=== PATIENT | female | born 1960 | race American Indian/Alaskan Native ===

== ENCOUNTER 2018-08-08 21:27 | Emergency (ER) | payer OTHER | END 2018-08-09 02:11 | disposition home or self-care (01) | LOC: JER 08-09 02:11 → JERFT 21:27 | PROC: 3E033VG Introduction of Insulin into Peripheral Vein, Percutaneous Approach (ICD-10-PCS; principal; 2018-08-08) | DX: J01.90 Acute sinusitis, unspecified (principal); E11.65 Type 2 diabetes mellitus with hyperglycemia; Z79.4 Long term (current) use of insulin ==

== ENCOUNTER 2019-02-07 19:07 | Inpatient (IN) | payer OTHER ==
--- NOTE | 2019-02-07 20:47 | PDOC ---
Documentation entered by Kathleen Harrington SCRIBE, acting as scribe for Clover Mckeon MD. Clover Mckeon MD: This documentation has been prepared by the Len jaimes Maria, SCRIBE, under my direction and personally reviewed by me in its entirety. I confirm that the documentation accurately reflects all work, treatment, procedures, and medical decision making performed by me. Attending Attestation - Resident Resident Name: Juan David Castillo - ED Attending Attestation I have performed the following: I have examined & evaluated the patient, The case was reviewed & discussed with the resident, I agree w/resident's findings & plan, Exceptions are as noted - HPI HPI: 02/07/19 21:44 The patient is a 59 year old female with a significant past medical history of II DM who presents to the emergency department with dizziness and right knee pain since yesterday. Patient states she had three pre syncopal episodes that lasted 20 minutes. Patient states the pre syncope worsens when she walks or stands up. Patient also states that she has had severe right knee pain for 2 days. Patient also notes dysuria and constipation. Patient states that she came back from [place] 3 days ago. She denies recent fevers or chills. She denies recent nausea, vomiting and diarrhea . She denies recent frequency, urgency or hematuria. She denies recent chest pain or shortness of breath. Allergies: NKA Past surgical history: None reported. Social history: Nonsmoker. Denies EtOH use and recreational drug use. Primary Care Physician: Sam Cifuentes - Physicial Exam PE: 02/08/19 02:22 Well-nourished well developed 59-year-old female who presents with several episodes of near syncope, knee pain dizziness Head normocephalic atraumatic Eyes pupils are equal reactive to light and accommodation, no nystagmus Neck is supple, no bruits Lungs are clear to auscultation CVS regular rate and rhythm S1-S2 Abdomen soft nontender Skin warm and dry Extremities medial aspect of the knee is tender, no patellar ballottement, no deformity Neuro alert and oriented x3 - Medical Decision Making 02/08/19 02:23 Patient admitted to telemetry for near syncope work-up First troponin is negative CAT scan of the head is negative for any acute intracranial pathology 02/08/19 02:24
[2019-02-07] MEDS ORDERED: MECLIZINE HCL 25 MG TABLET (FP) PO ONE (21:17)
--- NOTE | 2019-02-07 21:29 | PDOC ---
History of Present Illness - General Chief Complaint: Lightheaded Stated Complaint: DIZZINESS Time Seen by Provider: 02/07/19 20:16 History Source: Patient Exam Limitations: No Limitations - History of Present Illness Initial Comments: 02/07/19 21:28 59 yo female pmh DM presens to the ED for presyncopal episodes, dizziness and R nee pain. Pt returned from [place] 3 days ago (16 hour flight) and states the symptoms stated began yesterday, 3 presyncopal episodes today while ambulating that resolved after 20 in of rest. Denies KNAPP, CP, palpitations, SOB prior to of after the episodes. Denies ever having similar episodes in the past. Dizziness is described as room spinning around her and is constant. Denies significant cardiac hx, no DC or arrhythmia. Denies calf tenderness or unilateral leg swelling. Denies F/C/N/V, CP, SOB, changes in bowel or bladder habits Past History - Past Medical History Allergies/Adverse Reactions: Allergies Allergy/AdvReac Type Severity Reaction Status Date / Time oxycodone [Oxycodone] Allergy Intermediate Rash Verified 02/07/19 19:13 Home Medications: Ambulatory Orders metFORMIN HCL [Glucophage -] 500 mg PO BID 01/30/13 Insulin Aspart Prot/Insuln Asp [Novolog Mix 70-30 Vial] 40 unit SQ DAILY Gabapentin 100 mg PO BID 02/07/19 Glyburide 5 mg PO DAILY 02/07/19 Linagliptin [Tradjenta] 5 mg PO DAILY 02/07/19 COPD: No Diabetes: Yes (type 2) - Immunization History Td Vaccination: Yes TDAP Vaccination: Yes Immunization Up to Date: Yes - Psycho Social/Smoking Cessation Hx Smoking History: Never smoked Have you smoked in the past 12 months: No Number of Cigarettes Smoked Daily: 0 Hx Alcohol Use: No Drug/Substance Use Hx: No Substance Use Type: None Hx Substance Use Treatment: No Review of Systems - Review of Systems Constitutional: No: Chills, Fever HEENTM: No: Blurred Vision, Double Vision Respiratory: No: Shortness of Breath Cardiac (ROS): No: Chest Pain, Edema ABD/GI: No: Constipated, Diarrhea, Nausea, Vomiting : No: Burning, Dysuria, Frequency, Flank Pain Musculoskeletal: No: Muscle Weakness Neurological: Yes: Ataxia, Dizziness, Other (feelings of almost fainting). No: Headache, Numbness, Paresthesia, Weakness *Physical Exam - Vital Signs Last Vital Signs Temp Pulse Resp BP Pulse Ox 97.5 F L 94 H 18 176/72 H 99 02/07/19 19:12 02/07/19 19:12 02/07/19 19:12 02/07/19 19:12 02/07/19 19:12 - Physical Exam General Appearance: Yes: Nourished, Appropriately Dressed. No: Apparent Distress HEENT: positive: EOMI, JOHNNY Neck: positive: Supple. negative: Carotid bruit Respiratory/Chest: positive: Lungs Clear, Normal Breath Sounds. negative: Respiratory Distress, Crackles, Rales, Rhonchi, Stridor, Wheezing Cardiovascular: positive: Regular Rhythm, Regular Rate, S1, S2. negative: Edema , JVD, Murmur Vascular Pulses: Dorsalis-Pedis (R): 4+, Doralis-Pedis (L): 4+ Gastrointestinal/Abdominal: positive: Flat, Soft, Tenderness. 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 negative: Facial Droop, Sensory Deficit, Confused, Disoriented ED Treatment Course - LABORATORY CBC & Chemistry Diagram: 02/07/19 21:30 02/07/19 21:30 - RADIOLOGY Radiology Studies Ordered: Category Date Time Status HEAD CT WITHOUT CONTRAST [CT] Stat CT Scan 02/07/19 21:12 Ordered CHEST PA & LAT [RAD] Stat Radiology 02/07/19 20:57 Ordered Medical Decision Making - Medical Decision Making 02/07/19 22:42 59 yo female pmh DM presens to the ED for presyncopal episodes, dizziness and R nee pain. Pt returned from [place] 3 days ago (16 hour flight) and states the symptoms stated began yesterday, 3 presyncopal episodes today while ambulating that resolved after 20 in of rest. Denies KNAPP, CP, palpitations, SOB prior to of after the episodes. Denies ever having similar episodes in the past. Dizziness is described as room spinning around her and is constant. Denies significant cardiac hx, no DC or arrhythmia. Denies calf tenderness or unilateral leg swelling. Denies F/C/N/V, CP, SOB, changes in bowel or bladder habits Vitals stable DDX INLT: PE, arrhythmia, ACS, seizure, metabolic abnormality, vertigo, 02/08/19 02:[address] Tasha Camacho, agrees pt requires tele obs admission Discharge - Discharge Information Problems reviewed: Yes Clinical Impression/Diagnosis: Pre-syncope, Ruled out for myocardial infarction Condition: Stable - Admission Yes - Follow up/Referral Referrals: Sam Cifuentes MD [Primary Care Provider] - - Patient Discharge Instructions - Post Discharge Activity
[2019-02-07] MEDS ORDERED: MECLIZINE HCL 25 MG TABLET (FP) ONE (21:30)
[2019-02-07 21:52] LABS: BASO % 0.4 % (0-2.0); HEMATOCRIT 39.5 % (32.4-45.2); HEMOGLOBIN 13.1 GM/dL (10.7-15.3); LYMPH % 30.9 % (8-40); MCH 24.2 pg (25.7-33.7); MCHC 33.2 g/dl (32.0-36.0); MEAN CELL VOLUME 72.9 fl (80-96); MEAN PLT VOLUME 7.7 fl (7.5-11.1); MONO % 5.2 % (3.8-10.2); NEUT % 59.5 % (42.8-82.8); PLATELET COUNT 314 K/MM3 (134-434); RBC 5.42 M/mm3 (3.60-5.2); RDW 17.9 % (11.6-15.6); WHITE BLOOD COUNT 7.9 K/mm3 (4.0-10.0)
[2019-02-07 21:57] LABS: EPI CELLS 1.8 /HPF (0-5/HPF); HYALINE CASTS 1 /lpf (0-8); PH,URINE 5.5 (5.0-8.0); URINE APPEARANCE CLEAR; URINE BACTERIA 8.2 /hpf (NEGATIVE); URINE BILIRUBIN NEGATIVE (NEGATIVE); URINE COLOR YELLOW; URINE GLUCOSE (UA) 3+ (NEGATIVE); URINE KETONE NEGATIVE (NEGATIVE); URINE LEUK ESTERASE 1+ (NEGATIVE); URINE NITRITE NEGATIVE (NEGATIVE); URINE PROTEIN NEGATIVE (NEGATIVE); URINE RBC 1 /hpf (0-4); URINE UROBILINOGEN 0.2 mg/dL (0.2-1.0); URINE WBC 7 /hpf (0-5)
[2019-02-07 22:08] LABS: INR 0.98 (0.83-1.09); PROTHROMBIN TIME (PATIENT) 11.6 SEC (9.7-13.0)
[2019-02-07 22:26] LABS: ALBUMIN 3.9 g/dl (3.4-5.0); BILIRUBIN,TOTAL 0.3 mg/dL (0.2-1); BLOOD UREA NITROGEN 19.8 mg/dL (7-18); CALCIUM 9.9 mg/dL (8.5-10.1); CREATININE 0.7 mg/dL (0.55-1.3); PHOSPHOROUS 4.8 mg/dL (2.5-4.9); POTASSIUM 4.4 mmol/L (3.5-5.1); TOT PROT 7.2 g/dl (6.4-8.2)
[2019-02-07] MEDS ORDERED: IBUPROFEN 600 MG TABLET (FP) PO ONE ×2 (23:36→23:46)
[2019-02-08] MEDS ORDERED: ACETAMINOPHEN 325 MG TABLET (FP) ONE ×3 (03:10→15:16)
[2019-02-08] MEDS: ACETAMINOPHEN 325 MG TABLET (FP) PO SCH ×4 (03:13→20:04)
[2019-02-08] MEDS: INSULIN SLIDING SCALE (NOVOLOG) 1 VIAL SQ SCH ×3 (07:35→17:30)
[2019-02-08] MEDS ORDERED: sitaGLIPtin PHOSPHATE 50 MG TABLET ONE (07:37)
[2019-02-08] MEDS: glyBURIDE 5 MG TABLET PO SCH (08:22)
[2019-02-08] MEDS ORDERED: PATIENT'S OWN MEDICATION (NON-FORMULARY) (Linagliptin [Tradjenta] 5 MG) PO SCH (10:00)
[2019-02-08] MEDS ORDERED: INSULIN (NOVOLOG MIX 70/30) 100 UNITS/ML MDV SQ SCH (10:00)
--- NOTE | 2019-02-08 10:10 | HP ---
Admitting History and Physical - Primary Care Physician PCP: Sam Cifuentes - Admission Chief Complaint: Feeling Dizzy History of Present Illness: 59 yrs old F H/O HTN, T2DM, recently came back from [place] 16 Hrs flight , yesterday present after an episode of near syncope as er patient she tried to hget up from sitting postion her Rt Knee was hurting felt dizzy light headed and struck her Rt knee with a table and lost balance , developed worsening pain Rt knee afgain felt dizzy with perspiration when tried to get up no vertigo not associated with chest pain SOB or palpitation, l;ately feels HOWARD on walking upstairs no c/o PND or orthopnea in the Ed exam essentially normal, lab are unremarkable except elevated BNP level, no acute EKG changes , no leg swelling no calf tenderness, History Source: Patient, Family Member - Past Medical History Cardiovascular: Yes: HTN Gastrointestinal: Yes: Other (PATIENT STATES THAT SHE HAD ATUMOR REMOVED FROM [facility] 12 YEARS AGO) Hepatobiliary: Yes: Cholelithiasis Endocrine: Yes: Diabetes Mellitus - Smoking History Smoking history: Never smoked Have you smoked in the past 12 months: No Aproximately how many cigarettes per day: 0 - Alcohol/Substance Use Hx Alcohol Use: No - Social History Usual Living Arrangement: Yes: With Spouse History of Recent Travel: Yes (NO SICK CONTACTS) Home Medications - Allergies Allergies/Adverse Reactions: Allergies Allergy/AdvReac Type Severity Reaction Status Date / Time oxycodone [Oxycodone] Allergy Intermediate Rash Verified 02/07/19 19:13 - Home Medications Home Medications: Ambulatory Orders metFORMIN HCL [Glucophage -] 500 mg PO BID 01/30/13 Insulin Aspart Prot/Insuln Asp [Novolog Mix 70-30 Vial] 40 unit SQ DAILY Gabapentin 100 mg PO BID 02/07/19 Glyburide 5 mg PO DAILY 02/07/19 Linagliptin [Tradjenta] 5 mg PO DAILY 02/07/19 Family Medical History Family Hx Cardiac Disorders: Father Family Hx Diabetes: Father Review of Systems - Review of Systems Constitutional: denies: Chills, Diaphoresis Eyes: denies: Blurred Vision, Double Vision, Photophobia, Recent Change in Vision HENT: denies: Difficult Swallowing, Ear Discharge, Ear Pain Neck: denies: Decreased ROM, Lumps, Pain on Movement Cardiovascular: denies: Chest Pain, Edema, Palpitations, Shortness of Breath Respiratory: denies: Cough, Exercise Intolerance, Orthopnea Gastrointestinal: denies: Abdominal Pain, Bloating, Constipation Genitourinary: denies: Burning, Discharge, Dysuria Integumentary: denies: Blister, Bruising, Change in Color Neurological: reports: Dizziness. denies: Change in Speech, Confusion, Headache , Incoordination, Numbness, Parasthesia Endocrine: denies: Excessive Sweating Hematology/Lymphatic: denies: Easily Bruised, Excessive Bleeding Psychiatric: denies: Altered Sleep Pattern Pain Intensity: 0 Physical Examination Vital Signs: Vital Signs Temperature 97.9 F 02/08/19 06:46 Pulse Rate 84 02/08/19 06:46 Respiratory Rate 20 02/08/19 06:46 Blood Pressure 136/75 02/08/19 06:46 O2 Sat by Pulse Oximetry (%) 100 02/08/19 06:46 Middle aged F comfortable HEENT:Mm moist, no anemia, PERRLA EOMI NECK: No JVd No Bruit CHEST: CTA B/L CVS: s1S2 R ABD: No Distention, soft and non tender Bs + EXT; No edema feet, Pulses + OXYGEN EQUIPMENT AIDE: AOX3 non focal Labs: CBC,CMP WBC 7.9 K/mm3 (4.0-10.0) 02/07/19 21:30 RBC 5.42 M/mm3 (3.60-5.2) H 02/07/19 21:30 Hgb 13.1 GM/dL (10.7-15.3) 02/07/19 21:30 Hct 39.5 % (32.4-45.2) 02/07/19 21:30 MCV 72.9 fl (80-96) L 02/07/19 21:30 MCH 24.2 pg (25.7-33.7) L 02/07/19 21:30 MCHC 33.2 g/dl (32.0-36.0) 02/07/19 21:30 RDW 17.9 % (11.6-15.6) H 02/07/19 21:30 Plt Count 314 K/MM3 (134-434) 02/07/19 21:30 MPV 7.7 fl (7.5-11.1) 02/07/19 21:30 Absolute Neuts (auto) 4.7 K/mm3 (1.5-8.0) 02/07/19 21:30 Neutrophils % 59.5 % (42.8-82.8) 02/07/19 21:30 Lymphocytes % 30.9 % (8-40) 02/07/19 21:30 Monocytes % 5.2 % (3.8-10.2) 02/07/19 21:30 Eosinophils % 4.0 % (0-4.5) 02/07/19 21:30 Basophils % 0.4 % (0-2.0) 02/07/19 21:30 Nucleated RBC % 0 % (0-0) 02/07/19 21:30 Sodium 131 mmol/L (136-145) L 02/07/19 21:30 Potassium 4.4 mmol/L (3.5-5.1) 02/07/19 21:30 Chloride 100 mmol/L (98-107) 02/07/19 21:30 Carbon Dioxide 24 mmol/L (21-32) 02/07/19 21:30 Anion Gap 7 MMOL/L (8-16) L 02/07/19 21:30 BUN 19.8 mg/dL (7-18) H 02/07/19 21:30 Creatinine 0.7 mg/dL (0.55-1.3) 02/07/19 21:30 Est GFR (CKD-EPI)AfAm 109.15 02/07/19 21:30 Est GFR (CKD-EPI)NonAf 94.17 02/07/19 21:30 POC Glucometer 230 UNITS (80-120) 02/08/19 07:41 Random Glucose 258 mg/dL (74-106) H 02/07/19 21:30 Calcium 9.9 mg/dL (8.5-10.1) 02/07/19 21:30 Phosphorus 4.8 mg/dL (2.5-4.9) 02/07/19 21:30 Magnesium 2.0 mg/dL (1.8-2.4) 02/07/19 21:30 Total Bilirubin 0.3 mg/dL (0.2-1) 02/07/19 21:30 AST 23 U/L (15-37) 02/07/19 21:30 ALT 30 U/L (13-61) 02/07/19 21:30 Alkaline Phosphatase 129 U/L (45-117) H 02/07/19 21:30 Creatine Kinase 66 U/L (26-192) 02/07/19 23:35 Troponin I 0.03 ng/ml (0.00-0.05) 02/08/19 07:15 B-Natriuretic Peptide 948.2 pg/ml (5-125) H 02/07/19 21:30 Total Protein 7.2 g/dl (6.4-8.2) 02/07/19 21:30 Albumin 3.9 g/dl (3.4-5.0) 02/07/19 21:30 Triglycerides 222 mg/dL (0-150) H 02/08/19 07:15 Cholesterol 295 mg/dL (50-200) H 02/08/19 07:15 Total LDL Cholesterol 217 mg/dL (5-100) H 02/08/19 07:15 HDL Cholesterol 48 mg/dL (40-60) 02/08/19 07:15 Imaging - Results Chest X-ray: Report Reviewed (No congestion no cardiomegaly) Cat Scan: Report Reviewed (Head; No acute Chnages) EKG: Report Reviewed (No arrythmia no acute St T chnages) Problem List - Problems (1) Pre-syncope Problems reviewed: Yes Code(s): R55 - SYNCOPE AND COLLAPSE (2) Elevated brain natriuretic peptide (BNP) level Problems reviewed: Yes Code(s): R79.89 - OTHER SPECIFIED ABNORMAL FINDINGS OF BLOOD CHEMISTRY (3) T2DM (type 2 diabetes mellitus) Problems reviewed: Yes Code(s): E11.9 - TYPE 2 DIABETES MELLITUS WITHOUT COMPLICATIONS Qualifiers: Diabetes mellitus senior care insulin use: with senior care use (4) HTN (hypertension) Code(s): I10 - ESSENTIAL (PRIMARY) HYPERTENSION (5) Hypercholesteremia Code(s): E78.00 - PURE HYPERCHOLESTEROLEMIA, UNSPECIFIED (6) Systolic and diastolic CHF, acute Assessment/Plan: Elevated Problems reviewed: Yes Code(s): I50.41 - ACUTE COMBINED SYSTOLIC AND DIASTOLIC (CONGESTIVE) HRT FAIL
[2019-02-08] MEDS: ENOXAPARIN NA (PORCINE) 40 MG/0.4 ML DISP.SYRIN SQ SCH (10:40)
[2019-02-08] MEDS: GABAPENTIN 100 MG CAPSULE PO SCH ×2 (10:40→22:30)
[2019-02-08] MEDS: FUROSEMIDE 40 MG TABLET (FP) PO SCH (11:31)
--- NOTE | 2019-02-08 11:35 | ECHO ---
Name: BRITTA CORONEL Exam:Adult Echocardiogram Study Date: 02/08/2019 09:46 AM Age: 59 yrs Reason For Study: SYNCOPE Height: 60 in Weight: 123 lb BSA: 1.5 m2 MMode/2D Measurements & Calculations IVSd: 1.0 cm Ao root diam: 2.2 cm LVIDd: 5.2 cm LA dimension: 3.0 cm LVIDs: 4.8 cm ACS: 1.6 cm LVPWd: 1.1 cm EDV(Teich): 127.1 ml LVOT diam: 1.8 cm ESV(Teich): 107.1 ml RV S Adam: 14.2 cm/sec Doppler Measurements & Calculations MV E max adam: 79.0 cm/sec Ao V2 max: 102.8 cm/sec MV A max adam: 97.7 cm/sec Ao max P.2 mmHg MV E/A: 0.81 Ao V2 mean: 78.1 cm/sec MV dec time: 0.10 sec Ao mean P.7 mmHg Ao V2 VTI: 21.2 cm GERARDO(I,D): 1.5 cm2 GERARDO(V,D): 1.6 cm2 LV V1 max P.7 mmHg MR max adam: 197.3 cm/sec LV V1 mean P.91 mmHg MR max P.6 mmHg LV V1 max: 65.6 cm/sec LV V1 mean: 45.3 cm/sec LV V1 VTI: 12.6 cm SV(LVOT): 30.8 ml TR max adam: 173.9 cm/sec TR max P.2 mmHg PI end-d adam: 129.9 cm/sec Med Peak E' Adam: 4.6 cm/sec Med E/e': 17.2 Lat Peak E' Adam: 14.1 cm/sec Lat E/e': 5.6 Procedure A complete two-dimensional transthoracic echocardiogram was performed (2D, M-mode, Doppler and color flow Doppler). The study was technically good with many images being of high quality. Left Ventricle The left ventricle is normal in size. Left ventricular systolic function is severely reduced. Ejectio n Fraction = 30-35%. LV diastology reveals elevated filling pressure with impaired relaxation. There is severe global hypokinesis of the left ventricle. Right Ventricle The right ventricle is not well visualized. Atria The left atrial size is normal. Right atrial size is normal. Mitral Valve There is mild mitral annular calcification. There is no mitral regurgitation noted. Tricuspid Valve The tricuspid valve is normal in structure and function. There is mild tricuspid regurgitation. Pulmo nary artery systolic pressure is at least 28 mmHg if RA pressure is assumed 3 mmHg. Aortic Valve There is mild aortic sclerosis.;. No aortic regurgitation is present. Pulmonic Valve The pulmonic valve is not well visualized. Mild pulmonic valvular regurgitation. Great Vessels The aortic root is normal size. Pericardium/Pleura Trivial pericardial effusion not hemodynamically significant. Interpretation Summary The left ventricle is normal in size. Left ventricular systolic function is severely reduced. There is severe global hypokinesis of the left ventricle. Ejection Fraction = 30-35%. LV diastology reveals elevated filling pressure with impaired relaxation The left atrial size is normal. Right atrial size is normal. There is mild mitral annular calcification. There is mild tricuspid regurgitation. Pulmonary artery systolic pressure is at least 28 mmHg if RA pressure is assumed 3 mmHg There is mild aortic sclerosis. Mild pulmonic valvular regurgitation. Trivial pericardial effusion not hemodynamically significant Duane Carrion MD 02/08/2019 11:35 AM
[2019-02-08] MEDS ORDERED: ASPIRIN 81 MG CHEWABLE TABLETS ONE (14:43)
[2019-02-08] MEDS ORDERED: LISINOPRIL 5 MG TABLET (FP) ONE (14:43)
[2019-02-08] MEDS ORDERED: CARVEDILOL 3.125 MG TABLET (FP) ONE (14:43)
[2019-02-08] MEDS: ASPIRIN 81 MG CHEWABLE TABLETS PO SCH (14:45)
[2019-02-08] MEDS: CARVEDILOL 3.125 MG TABLET (FP) PO SCH ×2 (14:45→22:32)
[2019-02-08] MEDS: LISINOPRIL 5 MG TABLET (FP) PO SCH (14:45)
--- NOTE | 2019-02-08 15:53 | EKG ---
Test Reason : Blood Pressure : / mmHG Vent. 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
--- NOTE | 2019-02-08 15:58 | EKG ---
Test Reason : Blood Pressure : / mmHG Vent. 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
[2019-02-08] MEDS ORDERED: INSULIN (LEVEMIR) 100 UNITS/ML UNITS SQ SCH (22:00)
[2019-02-08 22:02] VITALS: BMI 23.2
[2019-02-08] MEDS: ATORVASTATIN CA 40 MG TABLET (FP) PO SCH (22:32)
[2019-02-09] MEDS: ACETAMINOPHEN 325 MG TABLET (FP) PO SCH ×4 (03:30→21:22)
[2019-02-09] MEDS: INSULIN SLIDING SCALE (NOVOLOG) 1 VIAL SQ SCH ×3 (06:53→17:13)
[2019-02-09 07:18] LABS: HEMOGLOBIN 12.8 GM/dL (10.7-15.3); LYMPH % 30.4 % (8-40); MCH 24.5 pg (25.7-33.7); MCHC 33.7 g/dl (32.0-36.0); MEAN CELL VOLUME 72.6 fl (80-96); MEAN PLT VOLUME 7.5 fl (7.5-11.1); MONO % 6.6 % (3.8-10.2); PLATELET COUNT 290 K/MM3 (134-434); RBC 5.24 M/mm3 (3.60-5.2); RDW 18.3 % (11.6-15.6)
[2019-02-09 07:57] LABS: BLOOD UREA NITROGEN 19.5 mg/dL (7-18); CALCIUM 9.1 mg/dL (8.5-10.1); CREATININE 0.7 mg/dL (0.55-1.3); POTASSIUM 4.6 mmol/L (3.5-5.1)
--- NOTE | 2019-02-09 09:21 | PN ---
Progress Note, Physician Chief Complaint: C/O Rt Knee pain History of Present Illness: 59 yrs old F H/O HTN, T2DM, recently came back from [place] 16 Hrs flight , yesterday present after an episode of near syncope as er patient she tried to hget up from sitting postion her Rt Knee was hurting felt dizzy light headed and struck her Rt knee with a table and lost balance , developed worsening pain Rt knee afgain felt dizzy with perspiration when tried to get up - Current Medication List Current Medications: Active Medications Acetaminophen (Tylenol -) 650 mg PO Q6H [facility] Last Admin: 02/09/19 03:30 Dose: Not Given Aspirin (Asa -) 81 mg PO DAILY [facility] Last Admin: 02/08/19 14:45 Dose: 81 mg Atorvastatin Calcium (Lipitor -) 40 mg PO HS [facility] Last Admin: 02/08/19 22:32 Dose: 40 mg Carvedilol (Coreg -) 6.25 mg PO BID [facility] Enoxaparin Sodium (Lovenox -) 40 mg SQ DAILY [facility] Last Admin: 02/08/19 10:40 Dose: 40 mg Furosemide (Lasix -) 40 mg PO DAILY [facility] Last Admin: 02/08/19 11:31 Dose: 40 mg Gabapentin (Neurontin -) 100 mg PO BID [facility] Last Admin: 02/08/19 22:30 Dose: 100 mg Glyburide (Diabeta -) 5 mg PO ACBK [facility] Last Admin: 02/08/19 08:22 Dose: 5 mg Insulin Aspart (Novolog Vial Sliding Scale -) 1 vial SQ TIDAC [facility]; Protocol Last Admin: 02/09/19 06:53 Dose: 4 unit Insulin Detemir (Levemir Vial) 24 units SQ [facility] Lisinopril (Prinivil) 5 mg PO DAILY [facility] Last Admin: 02/08/19 14:45 Dose: 5 mg Sitagliptin Phosphate (Januvia -) 100 mg PO DAILY@0700 [facility] Last Admin: 02/09/19 06:53 Dose: 100 mg - Objective Vital Signs: Vital Signs Temperature 97.8 F 02/09/19 06:57 Pulse Rate 80 02/09/19 06:57 Respiratory Rate 18 02/09/19 06:57 Blood Pressure 130/62 02/09/19 06:57 O2 Sat by Pulse Oximetry (%) 99 02/08/19 21:00 Middle aged F comfortable HEENT:Mm moist, no anemia, PERRLA EOMI NECK: No JVd No Bruit CHEST: CTA B/L CVS: s1S2 R ABD: No Distention, soft and non tender Bs + EXT; Rt knee tenderness no swelling No edema feet, Pulses + BODS DEVELOPER: AOX3 non focal Labs: CBC, BMP 02/09/19 06:15 02/09/19 06:15 INR, PTT INR 0.98 (0.83-1.09) 02/07/19 21:30 - ....Imaging Ultrasound: Report Reviewed (-ve for DVT) Other: Report Reviewed (ECHO EF 30-50%) Problem List - Problems (1) Pre-syncope Assessment/Plan: Kyler Ef needs evaluation for cardiac etiology evaluated by cardiology will cont ASAm B Blockers, Lasix and ACEI F/U NST result Problems reviewed: Yes Code(s): R55 - SYNCOPE AND COLLAPSE (2) Elevated brain natriuretic peptide (BNP) level Assessment/Plan: Due to Systolic HF Problems reviewed: Yes Code(s): R79.89 - OTHER SPECIFIED ABNORMAL FINDINGS OF BLOOD CHEMISTRY (3) T2DM (type 2 diabetes mellitus) Assessment/Plan: Uncontrolled AI1c 12 will optimize Glycemic control Problems reviewed: Yes Code(s): E11.9 - TYPE 2 DIABETES MELLITUS WITHOUT COMPLICATIONS Qualifiers: Diabetes mellitus snf insulin use: with long goods drier use (4) HTN (hypertension) Assessment/Plan: Stable cont current meds Problems reviewed: Yes Code(s): I10 - ESSENTIAL (PRIMARY) HYPERTENSION (5) Hypercholesteremia Assessment/Plan: Cont Lipitor 40 mg Problems reviewed: Yes Code(s): E78.00 - PURE HYPERCHOLESTEROLEMIA, UNSPECIFIED (6) Systolic and diastolic CHF, acute Assessment/Plan: Elevated, BNP pulmonary congestion cont Coreg, Lasix and Lisinopril optimize as tolerates Code(s): I50.41 - ACUTE COMBINED SYSTOLIC AND DIASTOLIC (CONGESTIVE) HRT FAIL (7) Acute knee pain Assessment/Plan: S/P Trauma Xray normal Pain control F/U Orthorecommondations. Problems reviewed: Yes Code(s): M25.569 - PAIN IN UNSPECIFIED KNEE Qualifiers: Laterality: right Qualified Code(s): M25.561 - Pain in right knee
[2019-02-09] MEDS: glyBURIDE 5 MG TABLET PO SCH (10:26)
[2019-02-09] MEDS: FUROSEMIDE 40 MG TABLET (FP) PO SCH (10:27)
[2019-02-09] MEDS: GABAPENTIN 100 MG CAPSULE PO SCH ×2 (10:27→21:22)
[2019-02-09] MEDS: ASPIRIN 81 MG CHEWABLE TABLETS PO SCH (10:27)
[2019-02-09] MEDS: LISINOPRIL 5 MG TABLET (FP) PO SCH (10:27)
[2019-02-09] MEDS: ENOXAPARIN NA (PORCINE) 40 MG/0.4 ML DISP.SYRIN SQ SCH (10:27)
[2019-02-09] MEDS: CARVEDILOL 6.25 MG TABLET (FP) PO SCH ×2 (10:27→21:23)
--- NOTE | 2019-02-09 11:34 | CONS ---
CARDIOLOGY CONSULTATION DATE OF CONSULTATION: 02/09/2019 REQUESTING PHYSICIAN: Janice Hodgson MD CHIEF COMPLAINT: 1. Shortness of breath. 2. Pedal edema. 3. Weakness and fatigue. Patient is a 59-year-old [place]ian female with history of wmd-[id number]-aatvrpnrz diabetes mellitus for the past 10 years, hypertension, hypertensive cardiovascular disease, hypercholesterolemia. Patient states approximately 2 months ago while she was in [place] she noticed that she had significant lower extremity edema associated with dyspnea, walking even short distances. There was no history of paroxysmal nocturnal dyspnea or orthopnea reported. She did complain of generalized weakness and easy fatigability. There is no history of chest, arm, back, or jaw pain or discomfort. She was seen by her physician and was placed on medication with improvement in her symptoms. States that she was experiencing oliguria while she was overseas. She also complained of constipation. There is no history of palpitations. She does have intermittent lightheadedness, and prior to admission, she felt that she may fall down because of weakness and also pain involving the right knee and lower extremity. There is no history of syncope or vertigo. PAST HISTORY: As mentioned in the history of present illness. SURGICAL HISTORY: Patient had surgery for uterine fibroids. SOCIAL HISTORY: , 3 sons and a daughter. She has had 1 miscarriage. No history of smoking or alcohol use. Drinks 3 cups of tea daily. FAMILY HISTORY: Father at the age of 33, apparently of a myocardial infarction. Mother is 85 years of age and is generally in good health. She has 4 sisters and 2 brothers. One of the brothers in an accident. Two sisters are . The other sister was a diabetic. Her cause of is not known. Apparently, the other siblings are healthy. ALLERGIES: None reported. CURRENT MEDICATIONS: 1. Tylenol 650 mg q.6 hours. 2. Lisinopril 5 mg p.o. daily. 3. Lovenox 40 mg subcutaneous daily. 4. Neurontin 100 mg p.o. b.i.d. 5. Carvedilol 6.25 mg p.o. b.i.d. 6. Januvia 100 mg p.o. 7. NovoLog insulin via sliding scale. 8. Levemir insulin 24 units subcutaneous nightly. 9. Furosemide 40 mg p.o. daily. 10. Aspirin 81 mg p.o. daily. 11. Glyburide 5 mg p.o. daily. ALLERGIES: None reported. REVIEW OF SYSTEMS: Constitutional: No history of chills, fever, or night sweats. No history of unintentional weight loss. HEENT: Denies having headaches, diplopia, blurred vision. No history of epistaxis, hoarseness, tinnitus, or deafness reported. Cardiovascular: See history of present illness. Respiratory: No history of recent cough, but while in [place] she had nonproductive cough, apparently treated with antibiotics. No history of tuberculosis or hemoptysis. Gastrointestinal: No history of nausea, vomiting, melena, or hematemesis. History of constipation over the past 2 months. Neurological: See history of present illness. No history of focal weakness or seizures. Genitourinary: She complains of dysuria and frequency. No history of hematuria. Endocrine: See history of present illness. No history of intolerance to cold or warm weather. Musculoskeletal: History of pain involving the right knee related to contact with a table prior to admission. No history of gout. Hematological and Lymphatics: Patient gives history of anemia, apparently has received 3 units of blood and states that she had been experiencing hematuria. No history of lymphadenopathy. PHYSICAL EXAMINATION: General: A 59-year-old female was complaining of pain in the right knee. There was no pallor cyanosis. No clubbing or jaundice. Vital Signs: Blood pressure was 110/47 mmHg. Pulse was 88 beats per minute and regular. Temperature was 98.1 degrees Fahrenheit. Respirations were 18 per minute. Oxygen saturations were 99% on room air. Weight on February 08, 2019, was 53.887 kg. Neck: Supple. No jugular venous distention. Carotids were 2+. Upstrokes were normal. No bruits were heard, and no thyromegaly was present. Heart: PMI was in the fifth intercostal space. No heaves or thrills. S1 and S2 were normal. Ejection systolic murmur grade 2/6 was heard at the second right intercostal space and along the upper left sternal border, ending in early systole. No diastolic murmur or gallops were heard. Lungs: Clear on auscultation. Chest: Normal AP diameter. Expansion was symmetrical. Abdomen: Protuberant, soft, and nontender. No hepatosplenomegaly or palpable masses were felt. Hyperactive bowel sounds. No bruits were heard. Extremities: No calf tenderness or dependent edema. Femoral pulses were 1+ to 2+. Dorsalis pedis and posterior tibial pulses could not palpated. Both feet were warm. LABORATORY DATA: Electrolytes on February 09, 2019: Sodium 136, potassium 4.6, chloride 103, CO2 of 30 mmol/L. BUN 19.5, creatinine 0.7 mg/dL. Glucose 226 mg/dL. Random glucose was 198 mg/dL. Hemoglobin A1c was 12.0. TSH was 0.52. CBC: WBC 6000, hemoglobin 12.8 g/dL, hematocrit 38.0%, platelet count 290,000. Differential: Neutrophils 57.0%, lymphocytes 30.4%, monocytes 6.6%, eosinophils 5.0%, basophils 1%. X-ray Chest February 07, 2019: Two views of the chest reveal degenerative changes with wedging, scoliosis with convexity to the right. Normal aorta. Normal hilar and enlarged heart. The lungs are clear. The angles are excised. The soft tissues are intact. An acute fracture is not seen. Since July 31, 2014, there is no change of an adverse nature. Vascular: A duplex scan of the lower extremities impression: No evidence of deep venous thrombosis. Echocardiogram: Interpretation . 1. The left ventricle is normal in size. 2. Left ventricular systolic function is severely reduced. 3. There is severe global hypokinesia of the left ventricle. 4. Ejection fraction is 30% to 35%. 5. LV reveals elevated filling pressures with impaired relaxation. 6. Left atrial size is normal. 7. Right atrial size is normal. 8. There is mild annular calcification. 9. There is mild tricuspid regurgitation. 10. Pulmonary artery systolic pressure is at least 28 mmHg if RA pressure assumed as 3 mmHg. 11. There is mild aortic valve sclerosis. 12. Mild pulmonic valvular regurgitation. 13. Trivial pericardial effusion, not hemodynamically significant. ECG reported on February 07, 2019: 1. Normal sinus rhythm. 2. Anterior infarct (sited on or before September 04, 2013). 3. T-wave abnormality, consider lateral ischemia. 4. Abnormal ECG. 5. When compared with ECG of October 15, 2017, at 1438 hours, ST and T-wave variations. IMPRESSION: 1. Recent clinical symptoms are consistent with congestive heart failure. 2. Severe left ventricular systolic dysfunction with severely reduced left ventricular ejection fraction consistent with cardiomyopathy, etiology: A. Ischemic. B. Hypertensive. C. Related to diabetes mellitus. 3. Left ventricular diastolic dysfunction. 4. Diabetes mellitus, poorly controlled. 5. Hypercholesterolemia. 6. Poor compliance. 7. Recent traumatic injury to the right lower extremity. 8. History of constipation, etiology to be determined. RECOMMENDATIONS: 1. Myocardial perfusion study with Lexiscan. 2. Risk modifications and proper control of diabetes mellitus. 3. BNP. 4. Follow up ECG and troponin levels. 5. Diabetic counseling. 6. Lipid profile. 7. Peripheral arterial Dopplers. PROGNOSIS: Guarded. Thank you for your referral. Yours sincerely, CHELI FOSS M.D. [id number]
[2019-02-09] MEDS: ATORVASTATIN CA 40 MG TABLET (FP) PO SCH (21:22)
[2019-02-09] MEDS: INSULIN (LEVEMIR) 100 UNITS/ML UNITS SQ SCH (21:28)
[2019-02-10] MEDS: ACETAMINOPHEN 325 MG TABLET (FP) PO SCH ×4 (03:00→21:11)
[2019-02-10] MEDS: glyBURIDE 5 MG TABLET PO SCH (06:02)
[2019-02-10] MEDS: INSULIN SLIDING SCALE (NOVOLOG) 1 VIAL SQ SCH ×3 (06:02→17:41)
[2019-02-10 07:02] LABS: BASO % 0.8 % (0-2.0); EOS % 3.5 % (0-4.5); HEMATOCRIT 35.6 % (32.4-45.2); HEMOGLOBIN 11.9 GM/dL (10.7-15.3); LYMPH % 30.6 % (8-40); MCH 24.5 pg (25.7-33.7); MCHC 33.5 g/dl (32.0-36.0); MEAN CELL VOLUME 73.3 fl (80-96); MEAN PLT VOLUME 7.3 fl (7.5-11.1); MONO % 7.6 % (3.8-10.2); NEUT % 57.5 % (42.8-82.8); PLATELET COUNT 275 K/MM3 (134-434); RBC 4.86 M/mm3 (3.60-5.2); RDW 18.3 % (11.6-15.6); WHITE BLOOD COUNT 7.7 K/mm3 (4.0-10.0)
[2019-02-10 07:34] LABS: BLOOD UREA NITROGEN 15.1 mg/dL (7-18); CALCIUM 8.8 mg/dL (8.5-10.1); CREATININE 0.6 mg/dL (0.55-1.3)
[2019-02-10] MEDS: DOCUSATE SODIUM 100 MG CAPSULE (FP) PO SCH ×3 (08:00→17:02)
[2019-02-10] MEDS ORDERED: REGADENOSON 0.4 MG/5 ML PRE-FILLED SYRINGE IVPUSH ONE ×2 (09:27→09:30)
--- NOTE | 2019-02-10 09:31 | PN ---
Progress Note, Physician Chief Complaint: C/O Rt Knee pain History of Present Illness: 59 yrs old F H/O HTN, T2DM, recently came back from [place] 16 Hrs flight , yesterday present after an episode of near syncope as er patient she tried to hget up from sitting postion her Rt Knee was hurting felt dizzy light headed and struck her Rt knee with a table and lost balance , developed worsening pain Rt knee again felt dizzy with perspiration when tried to get up, w/u shows low Ef schedule for Stress test. - Current Medication List Current Medications: Active Medications Acetaminophen (Tylenol -) 650 mg PO Q6H [facility] Last Admin: 02/10/19 03:00 Dose: Not Given Aspirin (Asa -) 81 mg PO DAILY [facility] Last Admin: 02/09/19 10:27 Dose: 81 mg Atorvastatin Calcium (Lipitor -) 40 mg PO HS [facility] Last Admin: 02/09/19 21:22 Dose: 40 mg Carvedilol (Coreg -) 6.25 mg PO BID [facility] Last Admin: 02/09/19 21:23 Dose: 6.25 mg Docusate Sodium (Colace -) 100 mg PO Q8H [facility] Enoxaparin Sodium (Lovenox -) 40 mg SQ DAILY [facility] Last Admin: 02/09/19 10:27 Dose: 40 mg Furosemide (Lasix -) 40 mg PO DAILY [facility] Last Admin: 02/09/19 10:27 Dose: 40 mg Gabapentin (Neurontin -) 100 mg PO BID [facility] Last Admin: 02/09/19 21:22 Dose: 100 mg Glyburide (Diabeta -) 5 mg PO ACBK [facility] Last Admin: 02/10/19 06:02 Dose: Not Given Insulin Aspart (Novolog Vial Sliding Scale -) 1 vial SQ TIDAC [facility]; Protocol Last Admin: 02/10/19 06:02 Dose: Not Given Insulin Detemir (Levemir Vial) 24 units SQ [facility] Last Admin: 02/09/19 21:28 Dose: 24 units Lisinopril (Prinivil) 5 mg PO DAILY [facility] Last Admin: 02/09/19 10:27 Dose: 5 mg Regadenoson (Lexiscan) 0.4 mg IVPUSH ONCE ONE Stop: 02/10/19 09:31 Sitagliptin Phosphate (Januvia -) 100 mg PO DAILY@0700 [facility] Last Admin: 02/10/19 06:02 Dose: Not Given - Objective Vital Signs: Vital Signs Temperature 99.9 F H 02/10/19 05:19 Pulse Rate 88 02/10/19 05:19 Respiratory Rate 18 02/10/19 05:19 Blood Pressure 104/55 L 02/10/19 05:19 O2 Sat by Pulse Oximetry (%) 99 02/09/19 20:38 Middle aged F comfortable HEENT:Mm moist, no anemia, PERRLA EOMI NECK: No JVd No Bruit CHEST: CTA B/L CVS: s1S2 R ABD: No Distention, soft and non tender Bs + EXT; Rt knee tenderness no swelling No edema feet, Pulses + [employer]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 Labs: CBC, BMP 02/10/19 06:25 02/10/19 06:25 INR, PTT INR 0.98 (0.83-1.09) 02/07/19 21:30 Problem List - Problems (1) Pre-syncope Assessment/Plan: Kyler Ef needs evaluation for cardiac etiology evaluated by cardiology will cont ASA B Blockers, Lasix and ACEI F/U NST result Code(s): R55 - SYNCOPE AND COLLAPSE (2) Elevated brain natriuretic peptide (BNP) level Assessment/Plan: Due to Systolic HF Code(s): R79.89 - OTHER SPECIFIED ABNORMAL FINDINGS OF BLOOD CHEMISTRY (3) T2DM (type 2 diabetes mellitus) Assessment/Plan: Uncontrolled AI1c 12 will optimize Glycemic control Code(s): E11.9 - TYPE 2 DIABETES MELLITUS WITHOUT COMPLICATIONS Qualifiers: Diabetes mellitus long-term insulin use: with long-term use (4) HTN (hypertension) Assessment/Plan: Stable cont current meds Code(s): I10 - ESSENTIAL (PRIMARY) HYPERTENSION (5) Hypercholesteremia Assessment/Plan: Cont Lipitor 40 mg Code(s): E78.00 - PURE HYPERCHOLESTEROLEMIA, UNSPECIFIED (6) Systolic and diastolic CHF, acute Assessment/Plan: Elevated, BNP pulmonary congestion cont Coreg, Lasix and Lisinopril optimize as tolerates Code(s): I50.41 - ACUTE COMBINED SYSTOLIC AND DIASTOLIC (CONGESTIVE) HRT FAIL (7) Acute knee pain Assessment/Plan: S/P Trauma Xray normal Pain control F/U Orthorecommondations. Code(s): M25.569 - PAIN IN UNSPECIFIED KNEE Qualifiers: Laterality: right Qualified Code(s): M25.561 - Pain in right knee
[2019-02-10] MEDS: ASPIRIN 81 MG CHEWABLE TABLETS PO SCH (12:29)
[2019-02-10] MEDS: GABAPENTIN 100 MG CAPSULE PO SCH ×2 (12:29→21:12)
[2019-02-10] MEDS: LISINOPRIL 5 MG TABLET (FP) PO SCH (12:29)
[2019-02-10] MEDS: FUROSEMIDE 40 MG TABLET (FP) PO SCH (12:30)
[2019-02-10] MEDS: ENOXAPARIN NA (PORCINE) 40 MG/0.4 ML DISP.SYRIN SQ SCH (12:30)
[2019-02-10] MEDS: CARVEDILOL 6.25 MG TABLET (FP) PO SCH ×2 (12:31→21:12)
--- NOTE | 2019-02-10 13:39 | CON.ORTH ---
Consult Consult Specialty:: Orthopedics Reason for Consultation:: Right knee pain - History of Present Illness Chief Complaint: Right knee pain History of Present Illness: This is a 59 yo F with PMHx of DM who presented to Ed s/p fall where she twisted right knee. She states pain is mostly to medial and lateral aspects of the knee without any radiation. Pain is worse with any twisting motion of the knee. Moderate pain with ambulation. She Denies any previous injury to this knee. Denies any numbness, tingling to toes, swelling or any other symptoms. - History Source History Provided By: Patient Limitations to Obtaining History: No Limitations - Past Medical History Cardio/Vascular: Yes: HTN Gastrointestinal: Yes: Other (PATIENT STATES THAT SHE HAD ATUMOR REMOVED FROM ABD 12 YEARS AGO) Hepatobiliary: Yes: Cholelithiasis Endocrine: Yes: Diabetes Mellitus - Alcohol/Substance Use Hx Alcohol Use: No - Smoking History Smoking history: Never smoked Have you smoked in the past 12 months: No Aproximately how many cigarettes per day: 0 - Social History Usual Living Arrangement: With Spouse History of Recent Travel: Yes (NO SICK CONTACTS) Home Medications - Allergies Allergies/Adverse Reactions: Allergies Allergy/AdvReac Type Severity Reaction Status Date / Time oxycodone [Oxycodone] Allergy Intermediate Rash Verified 02/07/19 19:13 - Home Medications Home Medications: Ambulatory Orders metFORMIN HCL [Glucophage -] 500 mg PO BID 01/30/13 Insulin Aspart Prot/Insuln Asp [Novolog Mix 70-30 Vial] 40 unit SQ DAILY 03/02/14 Gabapentin 100 mg PO BID 02/07/19 Glyburide 5 mg PO DAILY 02/07/19 Linagliptin [Tradjenta] 5 mg PO DAILY 02/07/19 Review of Systems - Review of Systems Musculoskeletal: reports: Joint Pain (Right knee pain) Physical Exam for Ortho Vital Signs: Vital Signs Temperature 101.8 F H 02/10/19 13:22 Pulse Rate 97 H 02/10/19 13:22 Respiratory Rate 18 02/10/19 05:19 Blood Pressure 131/71 02/10/19 13:22 O2 Sat by Pulse Oximetry (%) 99 02/09/19 20:38 Labs: CBC, BMP 02/10/19 06:25 02/10/19 06:25 INR, PTT INR 0.98 (0.83-1.09) 02/07/19 21:30 - Lower Extremity Knee: Yes: Right (No skin lesions, swelling or increased warmth. No effusion. Tenderness to medial more than lateral joint line. Full AROM. NVID.) Imaging - Results X-ray: Image Reviewed (2v of knee shows no evidence of acute fracture, dislocation. Mild degenerative changes seen.) Problem List - Problems (1) Acute knee pain Code(s): M25.569 - PAIN IN UNSPECIFIED KNEE Qualifiers: Laterality: right Qualified Code(s): M25.561 - Pain in right knee Assessment/Plan 59 yo F with PMHx of DM who presented to ED s/p fall where she twisted right knee. -XR shows no evidence of fracture, dislocation or acute injury -She has medial more than lateral joint line tenderness without effusion -Keep leg elevated, ice, pain control -WBAT with assistive device as needed -F/u with Dr. Sprague as outpatient
[2019-02-10] MEDS ORDERED: DEXTROSE 5%-WATER - 50 ML IVPB ONE (16:47)
[2019-02-10] MEDS ORDERED: cefTRIAXone SODIUM 1 GM VIAL ONE (16:47)
[2019-02-10] MEDS: CEFTRIAXONE 1 GM in DEXTROSE 5%-WATER - 50 ML IVPB SCH (17:41)
[2019-02-10 19:20] LABS: PH,URINE 5.5 (5.0-8.0); URINE APPEARANCE Clear; URINE BILIRUBIN Negative (NEGATIVE); URINE COLOR Yellow; URINE GLUCOSE (UA) Negative (NEGATIVE); URINE KETONE Negative (NEGATIVE); URINE LEUK ESTERASE 2+ (NEGATIVE); URINE NITRITE Negative (NEGATIVE); URINE PROTEIN Negative (NEGATIVE); URINE UROBILINOGEN 0.2 mg/dL (0.2-1.0)
[2019-02-10] MEDS ORDERED: FLU VACCINE QUAD 60 MCG/0.5 ML (MDV 19-20) IM ONE (20:00)
[2019-02-10 20:42] LABS: EPI CELLS 0-5 /HPF (0-5/HPF); HYALINE CASTS 0 /lpf (0-8); URINE BACTERIA FEW /hpf (NEGATIVE); URINE RBC 0-2 /hpf (0-4)
--- NOTE | 2019-02-10 21:01 | PN ---
Progress Note (short form) - Note Progress Note: 59-year-old [place] female with history of gaw-psvdnah-yhypcuwsi diabetes mellitus, hypercholesterolemia and hypertension had been experiencing dyspnea on minimal exertion associated with pedal edema while she was visiting her old country. Patient also complained of lethargy and weakness. At the time of examination she was complaining of being cold and was found to running a low- grade temperature. She had undergone a myocardial perfusion perfusion study and reveals a largesevere anterior and apical fixed perfusion perfusion defect. There is severe regional wall motion abnormalities and LVEF of 20% (official report is pending). Active Medications Generic Name Dose Route Start Last Admin Trade Name Freq PRN Reason Stop Dose Admin Acetaminophen 650 mg 02/08/19 02:30 02/10/19 13:00 Tylenol - PO 650 mg Q6H JOHN Administration Aspirin 81 mg 02/08/19 12:30 02/10/19 12:29 Asa - PO 81 mg DAILY JOHN Administration Atorvastatin Calcium 40 mg 02/08/19 22:00 02/09/19 21:22 Lipitor - PO 40 mg HS JOHN Administration Carvedilol 6.25 mg 02/09/19 09:18 02/10/19 12:31 Coreg - PO 6.25 mg BID JOHN Administration Docusate Sodium 100 mg 02/10/19 08:00 02/10/19 17:02 Colace - PO 100 mg Q8H JOHN Administration Enoxaparin Sodium 40 mg 02/08/19 10:00 02/10/19 12:30 Lovenox - SQ 40 mg DAILY JOHN Administration Furosemide 40 mg 02/08/19 11:30 02/10/19 12:30 Lasix - PO 40 mg DAILY JOHN Administration Gabapentin 100 mg 02/08/19 10:00 02/10/19 12:29 Neurontin - PO 100 mg BID JOHN Administration Glyburide 5 mg 02/08/19 07:00 02/10/19 06:02 Diabeta - PO Not Given ACBK JOHN Ceftriaxone Sodium 1 gm/ 50 mls @ 100 mls/hr 02/10/19 14:30 02/10/19 17:41 Dextrose IVPB 100 mls/hr DAILY JOHN Administration Protocol Insulin Aspart 1 vial 02/08/19 07:00 02/10/19 17:41 Novolog Vial Sliding Scale - SQ 2 unit TIDAC JOHN Administration Protocol Insulin Detemir 24 units 02/09/19 09:19 02/09/19 21:28 Levemir Vial SQ 24 units HS JOHN Administration Lisinopril 5 mg 02/08/19 12:30 02/10/19 12:29 Prinivil PO 5 mg DAILY JOHN Administration Sitagliptin Phosphate 100 mg 02/08/19 07:00 02/10/19 06:02 Januvia - PO Not Given DAILY@0700 [facility] 59-year-old female complaining of fatigue and and chills. Last Vital Signs Temp Pulse Resp BP Pulse Ox 98.1 F 86 18 111/52 L 99 02/10/19 18:00 02/10/19 18:00 02/10/19 18:00 02/10/19 18:00 02/10/19 10:00 Neck: Supple, no JVD, carotids 2+, upstrokes are normal, no bruits were appreciated. Heart: PMI in the fifth intercostal space, no heaves or thrills, S1 and S2 were normal, grade 1/6 decrescendo systolic murmur was heard at the apex and left sternal border. No diastolic murmur, gallops or rubs were heard. Lungs: Clear on auscultation. Abdomen: Soft, nontender, no hepatosplenomegaly was appreciated, no palpable masses were felt. Extremities: No calf tenderness or dependent edema. Femoral pulses were 2+ dorsalis pedis and posterior tibial pulses could not be palpated. CBC, BMP 02/10/19 06:25 02/10/19 06:25 Impression: 1. coronary artery disease with a large and severe fixed perfusion defect compatible with infarct, possibility of hibernating myocardium cannot be excluded. 2. Enlarged LV with severe regional wall motion abnormalities and severely reduced LVEF consistent with ischemic cardiomyopathy 2. Recent congestive heart failure. 3. Suspect ischemic heart disease. 4. Febrile state, etiology to be determined. 5. Bsf-hoxdoat-yriofjfzh diabetes mellitus, poorly controlled. 6. History of hypertension. 7. Hypercholesterolemia. Recommendations: 1. In view of myocardial perfusion findings and clinical presentation patient should be transferred to tertiary care center for cardiac catheterization/ coronary angiography as soon as possible. 2. Add ARB or MARY inhibitorand titrate. 3. Titrate carvedilol blood pressure remained stable. 4. Consider heparinization in view of severe LV systolic dysfunction, clinical presentation. 5. Consider addition of oral nitrates provided blood pressure is stable. 6. Follow-up ECG and cardiac enzymes. Prognosis:Critical.
[2019-02-10] MEDS: ATORVASTATIN CA 40 MG TABLET (FP) PO SCH (21:12)
[2019-02-10] MEDS: INSULIN (LEVEMIR) 100 UNITS/ML UNITS SQ SCH (21:22)
[2019-02-11] MEDS: ACETAMINOPHEN 325 MG TABLET (FP) PO SCH ×3 (01:39→14:41)
[2019-02-11] MEDS: DOCUSATE SODIUM 100 MG CAPSULE (FP) PO SCH ×2 (01:39→08:59)
[2019-02-11] MEDS ORDERED: PT OWN MED DRAWER 7, Y5N ONE (05:38)
[2019-02-11] MEDS: glyBURIDE 5 MG TABLET PO SCH (06:34)
[2019-02-11] MEDS: INSULIN SLIDING SCALE (NOVOLOG) 1 VIAL SQ SCH (06:37)
[2019-02-11 07:45] LABS: BLOOD UREA NITROGEN 15.4 mg/dL (7-18); CALCIUM 8.8 mg/dL (8.5-10.1); CREATININE 0.6 mg/dL (0.55-1.3); POTASSIUM 3.9 mmol/L (3.5-5.1)
[2019-02-11 07:46] LABS: BASO % 0.8 % (0-2.0); EOS % 2.9 % (0-4.5); HEMATOCRIT 35.4 % (32.4-45.2); HEMOGLOBIN 11.7 GM/dL (10.7-15.3); LYMPH % 22.9 % (8-40); MCH 24.6 pg (25.7-33.7); MCHC 33.2 g/dl (32.0-36.0); MEAN CELL VOLUME 74.1 fl (80-96); MEAN PLT VOLUME 7.7 fl (7.5-11.1); MONO % 7.6 % (3.8-10.2); NEUT % 65.8 % (42.8-82.8); PLATELET COUNT 258 K/MM3 (134-434); RBC 4.78 M/mm3 (3.60-5.2); RDW 18.8 % (11.6-15.6)
[2019-02-11] MEDS ORDERED: LISINOPRIL 10 MG TABLET (FP) PO SCH (09:15)
[2019-02-11] MEDS ORDERED: CARVEDILOL 12.5 MG TABLET (FP) PO SCH (09:16)
[2019-02-11 09:49] VITALS: BP 121/72; PULSE 86; TEMP 98.9
[2019-02-11] MEDS ORDERED: cefTRIAXone SODIUM 1 GM VIAL ONE (10:39)
[2019-02-11] MEDS ORDERED: DEXTROSE 5%-WATER - 50 ML IVPB ONE (10:39)
[2019-02-11] MEDS: GABAPENTIN 100 MG CAPSULE PO SCH (11:21)
[2019-02-11] MEDS: FUROSEMIDE 40 MG TABLET (FP) PO SCH (11:21)
[2019-02-11] MEDS: ENOXAPARIN NA (PORCINE) 40 MG/0.4 ML DISP.SYRIN SQ SCH (11:21)
[2019-02-11] MEDS: ASPIRIN 81 MG CHEWABLE TABLETS PO SCH (11:21)
[2019-02-11] MEDS: CEFTRIAXONE 1 GM in DEXTROSE 5%-WATER - 50 ML IVPB SCH (11:22)
--- NOTE | 2019-02-11 11:33 | PN ---
Progress Note, Physician Chief Complaint: Remained afbrile, no c/o SOB History of Present Illness: 59 yrs old F H/O HTN, T2DM, recently came back from [place] 16 Hrs flight , yesterday present after an episode of near syncope as er patient she tried to hget up from sitting postion her Rt Knee was hurting felt dizzy light headed w/ u Shows new onset HFrEF and + NST and UTI - Current Medication List Current Medications: Active Medications Acetaminophen (Tylenol -) 650 mg PO Q6H [facility] Last Admin: 02/11/19 08:59 Dose: Not Given Aspirin (Asa -) 81 mg PO DAILY [facility] Last Admin: 02/11/19 11:21 Dose: 81 mg Atorvastatin Calcium (Lipitor -) 40 mg PO HS [facility] Last Admin: 02/10/19 21:12 Dose: 40 mg Carvedilol (Coreg -) 12.5 mg PO BID [facility] Last Admin: 02/11/19 11:21 Dose: 12.5 mg Docusate Sodium (Colace -) 100 mg PO Q8H [facility] Last Admin: 02/11/19 08:59 Dose: 100 mg Enoxaparin Sodium (Lovenox -) 40 mg SQ DAILY [facility] Last Admin: 02/11/19 11:21 Dose: 40 mg Furosemide (Lasix -) 40 mg PO DAILY [facility] Last Admin: 02/11/19 11:21 Dose: 40 mg Gabapentin (Neurontin -) 100 mg PO BID [facility] Last Admin: 02/11/19 11:21 Dose: 100 mg Glyburide (Diabeta -) 5 mg PO ACBK [facility] Last Admin: 02/11/19 06:34 Dose: 5 mg Ceftriaxone Sodium 1 gm/ (Dextrose) 50 mls @ 100 mls/hr IVPB DAILY [facility]; Protocol Last Admin: 02/11/19 11:22 Dose: 100 mls/hr Insulin Aspart (Novolog Vial Sliding Scale -) 1 vial SQ TIDAC [facility]; Protocol Last Admin: 02/11/19 06:37 Dose: 4 unit Insulin Detemir (Levemir Vial) 24 units SQ HS [facility] Last Admin: 02/10/19 21:22 Dose: 24 units Lisinopril (Prinivil) 10 mg PO DAILY [facility] Last Admin: 02/11/19 11:21 Dose: 10 mg Sitagliptin Phosphate (Januvia -) 100 mg PO DAILY@0700 [facility] Last Admin: 02/11/19 06:34 Dose: 100 mg - Objective Vital Signs: Vital Signs Temperature 98.9 F 02/11/19 09:00 Pulse Rate 86 02/11/19 09:00 Respiratory Rate 20 02/11/19 09:00 Blood Pressure 121/72 02/11/19 09:00 O2 Sat by Pulse Oximetry (%) 99 02/11/19 09:00 Middle aged F comfortable HEENT:Mm moist, no anemia, PERRLA EOMI NECK: No JVd No Bruit CHEST: CTA B/L CVS: s1S2 R ABD: No Distention, soft and non tender Bs + EXT; Rt knee tenderness improving , no swelling No edema feet, 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 Problems reviewed: Yes Code(s): R55 - SYNCOPE AND COLLAPSE (2) Elevated brain natriuretic peptide (BNP) level Assessment/Plan: Due to Systolic HF Problems reviewed: Yes Code(s): R79.89 - OTHER SPECIFIED ABNORMAL FINDINGS OF BLOOD CHEMISTRY (3) T2DM (type 2 diabetes mellitus) Assessment/Plan: Uncontrolled AI1c 12 will optimize Glycemic control Problems reviewed: Yes Code(s): E11.9 - TYPE 2 DIABETES MELLITUS WITHOUT COMPLICATIONS Qualifiers: Diabetes mellitus assisted insulin use: with assisted use (4) HTN (hypertension) Assessment/Plan: Stable cont current meds Problems reviewed: Yes Code(s): I10 - ESSENTIAL (PRIMARY) HYPERTENSION (5) Hypercholesteremia Assessment/Plan: Cont Lipitor 40 mg Problems reviewed: Yes Code(s): E78.00 - PURE HYPERCHOLESTEROLEMIA, UNSPECIFIED (6) Systolic and diastolic CHF, acute Assessment/Plan: Elevated, BNP pulmonary congestion cont Coreg, Lasix and Lisinopril optimize as tolerates Problems reviewed: Yes Code(s): I50.41 - ACUTE COMBINED SYSTOLIC AND DIASTOLIC (CONGESTIVE) HRT FAIL (7) Acute knee pain Assessment/Plan: S/P Trauma Xray normal Pain control F/U Orthopaedics recommendations. Code(s): M25.569 - PAIN IN UNSPECIFIED KNEE Qualifiers: Laterality: right Qualified Code(s): M25.561 - Pain in right knee (8) UTI (urinary tract infection) Assessment/Plan: Temp 101 admission UA + grew Staph on Ceftriaxone Problems reviewed: Yes Code(s): N39.0 - URINARY TRACT INFECTION, SITE NOT SPECIFIED
--- NOTE | 2019-02-11 12:40 | PN ---
Progress Note (short form) - Note Progress Note: In :40 am. 59-year-old [place] female with history of fsr-xjduthf-zdsiravqs diabetes mellitus, hypercholesterolemia and hypertension had been experiencing dyspnea on minimal exertion associated with pedal edema while she was [place]. H/o poorly controlled DM, recent episoges of low grade fever. She had undergone a myocardial perfusion perfusion study and reveals a large severe anterior and apical fixed perfusion perfusion defect. There is severe regional wall motion abnormalities and LVEF of 20% (official report is pending) . Developed sudden onset of SOB and epigastric discomfort associated with weakness of both upper extremities. given S/L NTG and started on IV heparin and IV NTG and symptoms have abated. EKG (during episode of SOB and epigastric discomfort). Slight ST elevation in V2 -V3 compared to previous tracing, post NTG EKG: ST elevation less pronouned. Having rigors and temp. 101.6. no further SOB or epigastric discomfort. Active Medications Generic Name Dose Route Start Last Admin Trade Name Freq PRN Reason Stop Dose Admin Acetaminophen 650 mg 02/08/19 02:30 02/11/19 08:59 Tylenol - PO Not Given Q6H JOHN Aspirin 81 mg 02/08/19 12:30 02/11/19 11:21 Asa - PO 81 mg DAILY JOHN Administration Atorvastatin Calcium 40 mg 02/08/19 22:00 02/10/19 21:12 Lipitor - PO 40 mg HS JOHN Administration Carvedilol 12.5 mg 02/11/19 09:16 02/11/19 11:21 Coreg - PO 12.5 mg BID JOHN Administration Docusate Sodium 100 mg 02/10/19 08:00 02/11/19 08:59 Colace - PO 100 mg Q8H JOHN Administration Furosemide 40 mg 02/08/19 11:30 02/11/19 11:21 Lasix - PO 40 mg DAILY JOHN Administration Gabapentin 100 mg 02/08/19 10:00 02/11/19 11:21 Neurontin - PO 100 mg BID JOHN Administration Glyburide 5 mg 02/08/19 07:00 02/11/19 06:34 Diabeta - PO 5 mg ACBK JOHN Administration Ceftriaxone Sodium 1 gm/ 50 mls @ 100 mls/hr 02/10/19 14:30 02/11/19 11:22 Dextrose IVPB 100 mls/hr DAILY JOHN Administration Protocol Nitroglycerin/Dextrose 25 mg in 250 mls @ 3 mls/hr 02/11/19 13:45 02/11/19 13 :37 Nitroglycerin 25mg/D5w 250ml IVPB 5 mcg/min TITR JOHN 3 mls/hr Administration Protocol 5 MCG/MIN Insulin Aspart 1 vial 02/08/19 07:00 02/11/19 06:37 Novolog Vial Sliding Scale - SQ 4 unit TIDAC JOHN Administration Protocol Insulin Detemir 24 units 02/09/19 09:19 02/10/19 21:22 Levemir Vial SQ 24 units HS JOHN Administration Lisinopril 10 mg 02/11/19 09:15 02/11/19 11:21 Prinivil PO 10 mg DAILY JOHN Administration Sitagliptin Phosphate 100 mg 02/08/19 07:00 02/11/19 06:34 Januvia - PO 100 mg DAILY@0700 JOHN Administration 59-year-old female now in no distress. Last Vital Signs Temp Pulse Resp BP Pulse Ox 100.6 86 20 105/70 99 02/11/19 13:55 02/11/19 09:00 02/11/19 09:00 02/11/19 @13 :45 02/11/19 09: 00 Neck: Supple, no JVD, carotids 2+, upstrokes are normal, no bruits were appreciated. Heart: PMI in the fifth intercostal space, no heaves or thrills, S1 and S2 were normal, grade 1/6 decrescendo systolic murmur was heard at the apex and left sternal border. No diastolic murmur, gallops or rubs were heard. Lungs: Clear on auscultation. Abdomen: Soft, nontender, no hepatosplenomegaly was appreciated, no palpable masses were felt. Extremities: No calf tenderness or dependent edema. Femoral pulses were 2+ dorsalis pedis and posterior tibial pulses could not be palpated. CBC, BMP 02/11/19 06:38 02/11/19 06:38 Impression: 1. CAD, Anterior wall OK of indeterminate age possibly recent, associated with acute coronary syndrome. 2. Enlarged LV with severe regional wall motion abnormalities and severely reduced LVEF consistent with ischemic cardiomyopathy 2. Recent congestive heart failure. 3. Hypertension 4. Febrile state, etiology to be determined. 5. Msf-jzdmglh-yggmfpjqg diabetes mellitus, poorly controlled. 6. Hypercholesterolemia. Recommendations: 1. Discussed in detail with patient and regarding the need for transfer to [facility] are agreeable. 2. Arrangement have been made and accepted at [facility]. 3. IV nitro.and heparin in progress. 4. Plavix 75mg. stat. Prognosis:Critical. In attendance critcal care from11:45am to 2:45 pm
[2019-02-11] MEDS ORDERED: DOPAMINE 400 MG/D5W - 400,000 MCG/250 ML INFUS.BAG IVPB ONE (12:50)
[2019-02-11] MEDS ORDERED: NITROGLYCERIN 50MG/D5W 250ML 50 MG/250 ML ML IVPB SCH (13:00)
[2019-02-11] MEDS ORDERED: NITROGLYCERIN SUBLINGUAL 1/150 0.4 MG TAB ONE (13:12)
[2019-02-11] MEDS ORDERED: NITROGLYCERIN 25MG/D5W 250ML 25 MG/250 ML ML IVPB ONE (13:13)
[2019-02-11] MEDS ORDERED: NITROGLYCERIN SUBLINGUAL 1/150 0.4 MG TAB SL ONE (13:15)
[2019-02-11] MEDS ORDERED: NITROGLYCERIN 25MG/D5W 250ML 25 MG/250 ML ML IVPB SCH (13:45)
[2019-02-11] MEDS ORDERED: HEPARIN NA (PORCINE) 5,000 UNITS/ML 1ML VIAL IVPUSH ONE (14:38)
[2019-02-11] MEDS ORDERED: HEPARIN NA (PORCINE) 5,000 UNITS/ML 1ML VIAL IVPUSH PRN ×2 (14:38)
[2019-02-11] MEDS ORDERED: CLOPIDOGREL BISULFATE 75 MG TABLET (FP) PO ONE (14:45)
[2019-02-11] MEDS ORDERED: HEPARIN INFUSION - 25,000 UNITS/500 ML INFUS.BAG IVPB SCH (14:45)
--- NOTE | 2019-02-12 14:22 | EKG ---
Test Reason : Blood Pressure : / mmHG Vent. Rate : 089 BPM Atrial Rate : 089 BPM P-R Int : 150 ms QRS Dur : 078 ms QT Int : 336 ms P-R-T Axes : 055 046 167 degrees QTc Int : 408 ms NORMAL SINUS RHYTHM ANTEROSEPTAL INFARCT (CITED ON OR BEFORE 04-SEP-2013) ABNORMAL ECG WHEN COMPARED WITH ECG OF 11-FEB-2019 12:55, NO SIGNIFICANT CHANGE WAS FOUND Confirmed by JANA CHO MD ([id number]) on 02/12/2019 2:22:40 PM Referred By: Confirmed By:JANA CHO MD
--- NOTE | 2019-02-12 14:23 | EKG ---
Test Reason : Blood Pressure : / mmHG Vent. Rate : 089 BPM Atrial Rate : 089 BPM P-R Int : 154 ms QRS Dur : 084 ms QT Int : 354 ms P-R-T Axes : 052 041 156 degrees QTc Int : 430 ms NORMAL SINUS RHYTHM ANTERIOR INFARCT (CITED ON OR BEFORE 04-SEP-2013) ABNORMAL ECG WHEN COMPARED WITH ECG OF 08-FEB-2019 12:15, NO SIGNIFICANT CHANGE WAS FOUND Confirmed by JANA CHO MD ([id number]) on 02/12/2019 2:23:03 PM Referred By: Dianna MACHADO Confirmed By:JANA CHO MD
--- NOTE | 2019-03-19 12:47 | DS ---
Physical Examination Vital Signs: Vital Signs Temperature 98.9 F 02/11/19 09:00 Pulse Rate 86 02/11/19 09:00 Respiratory Rate 20 02/11/19 09:00 Blood Pressure 121/72 02/11/19 09:00 O2 Sat by Pulse Oximetry (%) 99 02/11/19 09:00 General: Elderly woman, comfortable, not in distress HEENT; mucous membranes moist, no anemia, no jaundice, PERRLA, no nystagmus Neck: No JVD, supple, no bruit, thyroid palpably normal, normal carotid pulsations. Chest: Nontender, clear to auscultation bilaterally/bilateral wheezing/ bilateral basal rales. CVS: S1-S2 regular/irregular no murmur/gallop/rub Abdomen: Nondistended, soft, bowel sounds present. 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 , no gross motor sensory deficit Labs: CBC, BMP 02/11/19 06:38 02/11/19 06:38 Discharge Summary Problems reviewed: Yes Reason For Visit: PRE SYNCOPE,ACUTE SYSTOLC DIASTOLIC CHF Hospital Course: 59 yrs old F H/O HTN, T2DM, recently came back from [facility] 16 Hrs flight , yesterday present after an episode of near syncope as er patient she tried to hget up from sitting postion her Rt Knee was hurting felt dizzy light headed and struck her Rt knee with a table and lost balance , developed worsening pain Rt knee afgain felt dizzy with perspiration when tried to get up no vertigo not associated with chest pain SOB or palpitation, l;ately feels HOWARD on walking upstairs no c/o PND or orthopnea in the Ed exam essentially normal, lab are unremarkable except elevated BNP level, no acute EKG changes , no leg swelling no calf tenderness, ECHO shows Low EF developed chest pain transferred to [facility] for cardiac cath Condition: Stable - Instructions Referrals: Sam Cifuentes MD [Primary Care Provider] - Disposition: TRANSFER ACUTE CARE/OTHER HOSP - Home Medications Comprehensive Discharge Medication List: Ambulatory Orders metFORMIN HCL [Glucophage -] 500 mg PO BID 01/30/13 Insulin Aspart Prot/Insuln Asp [Novolog Mix 70-30 Vial] 40 unit SQ DAILY Gabapentin 100 mg PO BID 02/07/19 Glyburide 5 mg PO DAILY 02/07/19 Linagliptin [Tradjenta] 5 mg PO DAILY 02/07/19
== END 2019-02-11 15:00 | disposition short-term general hospital (02) | DRG 190 ==
LOC: JER 19:07 → SUPCPDRO 19:07 → JERBED 02-08 02:15 → J4W 02-08 18:58 → OBSVTOIN 02-09 09:16
PROVIDERS: ADMIT Internal Medicine; ATTEND Internal Medicine
DX: I21.9 Acute myocardial infarction, unspecified (principal); E11.9 Type 2 diabetes mellitus without complications; R55 Syncope and collapse; E78.00 Pure hypercholesterolemia, unspecified; M25.561 Pain in right knee; N39.0 Urinary tract infection, site not specified; I11.0 Hypertensive heart disease with heart failure; I50.41 Acute combined systolic (congestive) and diastolic (congestive) heart failure; I25.10 Atherosclerotic heart disease of native coronary artery without angina pectoris
CPT/HCPCS: 36415; 70450-TC; 71046-TC-FY; 73560-TC-RT-FY; 78452-TC; 80048; 80053; 80061; 81003; 82550; 82962; 83036; 83721; 83735; 83880; 84100; 84443; 84484; 85025; 85379; 85610; 85730; 87040; 87086; 87186; 87804; 93005; 93010; 93017; 93306-TC; 93970-TC; 97116-GP; 97161-GP; 99285-25; A9502; G0008; G0378; J1644; J2785; Q2036

== ENCOUNTER 2019-05-02 20:19 | Emergency (ER) | payer OTHER ==
[2019-05-02 20:29] VITALS: BMI 22.2
--- NOTE | 2019-05-02 21:12 | PDOC ---
History of Present Illness - General Chief Complaint: Weakness Stated Complaint: LEG PAIN/WEAKNESS Time Seen by Provider: 05/02/19 21:08 History Source: Patient, Spouse, Old Records Exam Limitations: Language Barrier - History of Present Illness Initial Comments: 05/02/19 21:12 59y F with PMH of CAD s/p CABG 02/2019 at [facility], IDDM, HTN, HLD presenting to ED for R knee pain and lower back pain for 8 days. Pt injured the R knee a few months ago from a fall with xray showing arthritic changes. The pain is in the R knee and does not radiate and the lower back pain is in the lumbar spine and does not radiate. She denies recent injuries, weakness, numbness/tingling, chest pain, sob, headache, fevers, chills, cough, rash, difficulty walking, saddle anesthesia, n/v/d. Pt states she has not been taking anything for the pain because she thought she was told not to by her panel machine operator. She also states that she has not been taking a few of her medications because she does not have insurance at this time and the medications are expensive. PMD: Esau Cards: PMH: see hpi PSH: see hpi Meds: see med rec Allergies: oxycodone Past History - Past Medical History Allergies/Adverse Reactions: Allergies Allergy/AdvReac Type Severity Reaction Status Date / Time oxycodone [Oxycodone] Allergy Intermediate Rash Verified 05/02/19 20:29 Home Medications: Ambulatory Orders metFORMIN HCL [Glucophage -] 500 mg PO BID 01/30/13 Insulin Aspart Prot/Insuln Asp [Novolog Mix 70-30 Vial] 40 unit SQ DAILY Linagliptin [Tradjenta] 5 mg PO DAILY 02/07/19 Aspirin 81 mg PO DAILY 05/03/19 Atorvastatin Calcium 40 mg PO HS 05/03/19 Cephalexin Monohydrate [Keflex -] 500 mg PO BID #14 capsule 05/03/19 Metoprolol Succinate [Toprol Xl] 25 mg PO DAILY 05/03/19 Multivit-Minerals/Herbal No217 [Advaclear Capsule] 1 each PO DAILY 05/03/19 COPD: No Diabetes: Yes (type 2) GI Disorders: (abdominal tumor) - Immunization History Td Vaccination: Yes TDAP Vaccination: Yes Immunization Up to Date: Yes - Psycho Social/Smoking Cessation Hx Smoking History: Never smoked Have you smoked in the past 12 months: No Number of Cigarettes Smoked Daily: 0 Hx Alcohol Use: No Drug/Substance Use Hx: No Substance Use Type: None Hx Substance Use Treatment: No Review of Systems - Review of Systems Constitutional: No: Symptoms Reported HEENTM: No: Symptoms Reported Respiratory: No: Symptoms reported Cardiac (ROS): No: Symptoms Reported ABD/GI: No: Symptoms Reported : No: Symptoms Reported Musculoskeletal: Yes: See HPI Integumentary: No: Symptoms Reported Neurological: No: Symptoms reported *Physical Exam - Vital Signs Last Vital Signs Temp Pulse Resp BP Pulse Ox 98.3 F 98 H 18 119/61 100 05/02/19 20:21 05/02/19 20:21 05/02/19 20:21 05/02/19 20:21 05/02/19 20:21 - Physical Exam General Appearance: Yes: Appropriately Dressed, Thin. No: Apparent Distress HEENT: positive: EOMI, JOHNNY Neck: positive: Trachea midline, Supple Respiratory/Chest: positive: Lungs Clear, Normal Breath Sounds. negative: Crackles, Rales, Rhonchi, Stridor, Wheezing Cardiovascular: positive: Regular Rhythm, Regular Rate, S1, S2. negative: Edema , JVD, Murmur Vascular Pulses: Dorsalis-Pedis (R): 2+, Doralis-Pedis (L): 2+ Gastrointestinal/Abdominal: positive: Normal Bowel Sounds, Soft. negative: Tender Musculoskeletal: positive: Vertebral Tenderness, Other (R knee tenderness, no swelling, no erythema). negative: CVA Tenderness (R), CVA Tenderness (L), Decreased Range of Motion Extremity: positive: Normal Capillary Refill. 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 low suspicion for aaa, nephrolithiasis, cauda equina, cord compression. suspect msk. labs and xr ordered by Dr. Waite -lumbar xr -tylenol, lidoderm patch, home meds. will give pt coupons for discount meds. will advise pt call pmd and panel machine operator about insurance issues and ways to follow up. ua positive for infection will treat. pt ambulatory, symptomatic relief. labs wnl, negative trop. cxr with no acute pathology. lumbar xr with small anterior oseophytes without loss of disc space height. Mild degernative arhritic changes in facet joints L4/L5, L5/S1. no fractures. will dc home given return precautions 05/03/19 00:43 Discharge - Discharge Information Problems reviewed: Yes Clinical Impression/Diagnosis: Knee pain, right Qualifiers: Chronicity: acute Qualified Code(s): M25.561 - Pain in right knee Low back pain Qualifiers: Chronicity: acute Back pain laterality: midline Sciatica presence: without sciatica Qualified Code(s): M54.5 - Low back pain Condition: Good Disposition: HOME - Admission No - Additional Discharge Information Prescriptions: Cephalexin Monohydrate [Keflex -] 500 mg PO BID #14 capsule - Follow up/Referral Referrals: Sam Cifuentes MD [Primary Care Provider] - Raj Abbott MD [Staff Physician] - - Patient Discharge Instructions Patient Printed Discharge Instructions: DI for Arthritis Additional Instructions: Arthritis is what is most likely causing your symptoms. You can take Tylenol for the pain. This is safe to take. I recommend calling Dr. Cifuentes and Dr. Abbott to tell them about your insurance problem. Good Rx coupons were given to you to get your medications. The coupons will only work at [facility]. Ask them to get your medications transferred from [facility]. You have a urinary tract infection. A prescription for an antibiotic was sent to [place] [facility]. A good rx coupon has also been provided. You can take up to 650mg of Tylenol every 4 hours for the pain as needed. Come back to the emergency room if you have chest pain, feel short of breath, are unable to walk, have worsening pain or if any new or concerning symptom develops. Thank you - Post Discharge Activity
[2019-05-02] MEDS ORDERED: ACETAMINOPHEN 500 MG TABLET (FP) PO ONE (21:29)
[2019-05-02] MEDS ORDERED: LIDOCAINE 5% TOPICAL PATCH TP ONE ×2 (21:39→22:31)
--- NOTE | 2019-05-02 21:45 | PDOC ---
Documentation entered by Claudette Stahl SCRIBE, acting as scribe for Clover Mckeon MD. Clover Mckeon MD: This documentation has been prepared by the scribe, Claudette Stahl SCRIBE, under my direction and personally reviewed by me in its entirety. I confirm that the documentation accurately reflects all work, treatment, procedures, and medical decision making performed by me. Attending Attestation - Resident Resident Name: Roro Goodman - ED Attending Attestation I have performed the following: I have examined & evaluated the patient, The case was reviewed & discussed with the resident, I agree w/resident's findings & plan, Exceptions are as noted - HPI HPI: 05/02/19 21:41 The patient is a 59-year-old female with a past medical history significant for CAD s/p CABG (3 months ago, at [facility]), DM, HTN, HLD who presents to the emergency department with a week history of right knee pain and lower back pain. The patient presents with a sudden onset of right knee pain and lower back pain about a week ago, which has been progressively worsening. The patient denies taking any medication. Denies numbness, tingling, saddle anesthesia, hematuria, or urinary/bowel incontinence. The patient reports she hasnt been compliant with her medications because of insurance issues. - Physicial Exam PE: 05/02/19 22:31 GENERAL: Thin, petite 59 year old female presents with right knee pain and lower back pain. Well-appearing, well-nourished. No apparent distress. HEENT: Normocephalic, atraumatic. PERRL, EOM intact. CARDIOVASCULAR: Normal S1, S2. Regular rate and rhythm. PULMONARY: Clear to auscultation bilaterally. ABDOMEN: Soft, non-distended, non-tender. BACK: Lower back pain around L5, no trauma, paraspinal lower back pain. EXTREMITIES: Tenderness to the medial knee, no deformities, erythema, or significant swelling. SKIN: Warm, dry. No rash NEUROLOGICAL: No focal neurological deficits. - Medical Decision Making 05/02/19 21:44 59-year-old female presents with right knee pain and low back pain She denies any recent trauma HPI she did have radiograph of the right knee in January 2019 for knee pain and it showed arthritic changes but no effusion ,fracture or dislocation 05/02/19 21:45 X-ray lumbar spine does not show any compression fractures, it showed degenerative joint disease
[2019-05-02] MEDS ORDERED: ACETAMINOPHEN 325 MG TABLET (FP) ONE (21:55)
[2019-05-02] MEDS ORDERED: LIDOCAINE 5% TOPICAL PATCH ONE ×2 (21:55→23:15)
[2019-05-02] MEDS ORDERED: LIDOCAINE PATCH REMOVAL MC SCH ×2 (22:00)
[2019-05-02] MEDS ORDERED: metFORMIN HCL 500 MG TABLET (FP) PO ONE (22:08)
[2019-05-02] MEDS ORDERED: metoPROLOL SUCCINATE 25 MG TAB.SR.24H (FP) PO ONE (22:08)
[2019-05-02] MEDS ORDERED: ATORVASTATIN CA 40 MG TABLET (FP) PO ONE (22:08)
[2019-05-02 22:10] LABS: EPI CELLS 3.5 /HPF (0-5/HPF); HYALINE CASTS 10 /lpf (0-8); PH,URINE 5.5 (5.0-8.0); URINE APPEARANCE CLEAR; URINE BILIRUBIN NEGATIVE (NEGATIVE); URINE COLOR YELLOW; URINE GLUCOSE (UA) 2+ (NEGATIVE); URINE KETONE NEGATIVE (NEGATIVE); URINE LEUK ESTERASE 1+ (NEGATIVE); URINE NITRITE NEGATIVE (NEGATIVE); URINE PROTEIN TRACE (NEGATIVE); URINE RBC 4 /hpf (0-4); URINE UROBILINOGEN 0.2 mg/dL (0.2-1.0); URINE WBC 20 /hpf (0-5)
[2019-05-02] MEDS ORDERED: metFORMIN HCL 500 MG TABLET (FP) ONE (23:14)
[2019-05-02 23:15] LABS: EOS % 3.6 % (0-4.5); HEMATOCRIT 37.8 % (32.4-45.2); HEMOGLOBIN 12.5 GM/dL (10.7-15.3); LYMPH % 18.2 % (8-40); MCH 26.2 pg (25.7-33.7); MEAN CELL VOLUME 79.3 fl (80-96); MEAN PLT VOLUME 7.9 fl (7.5-11.1); MONO % 3.9 % (3.8-10.2); NEUT % 73.3 % (42.8-82.8); PLATELET COUNT 373 K/MM3 (134-434); RBC 4.77 M/mm3 (3.60-5.2); RDW 16.3 % (11.6-15.6); WHITE BLOOD COUNT 7.4 K/mm3 (4.0-10.0)
[2019-05-02] MEDS ORDERED: ATORVASTATIN CA 40 MG TABLET (FP) ONE (23:15)
[2019-05-02 23:27] LABS: INR 1.03 (0.83-1.09); PROTHROMBIN TIME (PATIENT) 12.2 SEC (9.7-13.0)
[2019-05-02 23:49] LABS: ALBUMIN 3.5 g/dl (3.4-5.0); ALK PHOS 142 U/L (45-117); ANION GAP 6 MMOL/L (8-16); BILIRUBIN,TOTAL 0.3 mg/dL (0.2-1); BLOOD UREA NITROGEN 12.9 mg/dL (7-18); CHLORIDE 105 mmol/L (98-107); CO2 28 mmol/L (21-32); CREATININE 0.6 mg/dL (0.55-1.3); GLUCOSE,RANDOM 243 mg/dL (74-106); POTASSIUM 3.9 mmol/L (3.5-5.1); SGOT/AST 38 U/L (15-37); SGPT/ALT 40 U/L (13-61); SODIUM 139 mmol/L (136-145); TOT PROT 7.2 g/dl (6.4-8.2)
[2019-05-03] MEDS ORDERED: CEPHALEXIN MONOHYDRATE 500 MG CAPSULE (UD) PO ONE (00:15)
[2019-05-03] MEDS ORDERED: CEPHALEXIN MONOHYDRATE 500 MG CAPSULE (UD) ONE (00:21)
[2019-05-03 00:33] VITALS: BP 141/50; PULSE 78; TEMP 97.7
--- NOTE | 2019-05-03 10:00 | EKG ---
Test Reason : Blood Pressure : / mmHG Vent. Rate : 095 BPM Atrial Rate : 095 BPM P-R Int : 146 ms QRS Dur : 090 ms QT Int : 390 ms P-R-T Axes : 052 -49 115 degrees QTc Int : 490 ms NORMAL SINUS RHYTHM POSSIBLE LEFT ATRIAL ENLARGEMENT LEFT AXIS DEVIATION LEFT VENTRICULAR HYPERTROPHY WITH REPOLARIZATION ABNORMALITY INFERIOR INFARCT , AGE UNDETERMINED ANTEROLATERAL INFARCT (CITED ON OR BEFORE 04-SEP-2013) ABNORMAL ECG WHEN COMPARED WITH ECG OF 11-FEB-2019 13:57, SIGNIFICANT CHANGES HAVE OCCURRED Confirmed by Pascual Wilcox ([id number]) on 05/03/2019 10:00:05 AM Referred By: Confirmed By:Pascual Wilcox
== END 2019-05-03 00:33 | disposition home or self-care (01) ==
LOC: JER 20:19
DX: N39.0 Urinary tract infection, site not specified (principal); M54.5 Low back pain; M25.561 Pain in right knee; I25.10 Atherosclerotic heart disease of native coronary artery without angina pectoris; I10 Essential (primary) hypertension; Z95.1 Presence of aortocoronary bypass graft; E78.5 Hyperlipidemia, unspecified; E11.9 Type 2 diabetes mellitus without complications; Z79.4 Long term (current) use of insulin; Z79.82 Long term (current) use of aspirin; Z88.5 Allergy status to narcotic agent
CPT/HCPCS: 36415; 71045-TC-FY; 72100-TC-FY; 80053; 81003; 82550; 82962; 84484; 85025; 85610; 93005; 93010; 99285-25

== ENCOUNTER 2019-10-03 13:20 | Inpatient (IN) | payer OTHER ==
[2019-10-03 13:34] VITALS: BMI 24.2
--- NOTE | 2019-10-03 13:36 | PDOC ---
Rapid Medical Evaluation Time Seen by Provider: 10/03/19 13:30 Medical Evaluation: Allergies Allergy/AdvReac Type Severity Reaction Status Date / Time oxycodone [Oxycodone] Allergy Intermediate Rash Verified 05/02/19 20:29 10/03/19 13:30 59 year old female with pmhx DM CAD (CABG 2019) complaining of weakness, d izziness, back, neck and abdominal pain (without nausea vomiting), pre syncope. PE: TTP over lumbar paravertbrals CTA RRR Plan Labs Pt to precede to ED for further management and care
--- NOTE | 2019-10-03 13:57 | PDOC ---
Attending Attestation - Resident Resident Name: Carola Mcneill - ED Attending Attestation I have performed the following: I have examined & evaluated the patient, The case was reviewed & discussed with the resident, I agree w/resident's findings & plan, Exceptions are as noted - HPI HPI: 10/03/19 13:55 59y F hx of DM, CAD (sp CABG in 2019), htn, hl, presents with complaint of epigastric pain and feelnig dizzy/weak. The patient states she had gradual onset of epigastric discomfort yesterday, worse with any food intake. notes the pain is intermittent, non radiating, denies any associated cp, sob, diaphoresis, vomiting, diarrhea, melena, bpr, focal numbness/tingling/weakness, back pain, ddysuria. pt also notes feeling very weak in general and dizzy - states she somtimes feel like the room moving around. denies any associated blurry or doule vision, speech changes or focal numbness/tingling/weakness. PMD: Kimi Cards: - Physicial Exam PE: 10/03/19 14:55 GENERAL: The patient is awake, alert, and fully oriented, Nontoxic - in no acute distress. HEAD: Normocephalic, atraumatic. EYES: extraocular movements intact, sclera anicteric, conjunctiva clear., No nystagmus, visual can intact by confrontation ENT: Normal voice, Moist mucous membranes. NECK: Normal range of motion, supple LUNGS: Breath sounds equal, clear to auscultation bilaterally. No wheezes, no rhonchi, no rales. HEART: Regular rate and rhythm, normal S1 and S2 without murmur, rub or gallop. ABDOMEN: Soft, mild epigastric tenderness, No guarding, no rebound. No CVA tenderness EXTREMITIES: Normal range of motion, no edema. NEUROLOGICAL: No facial assymetry, Normal speech, moving all 4 extremities spontaneously symmetrically, normal finger-nose, normal rapid alternating movements PSYCH: Normal mood, normal affect. SKIN: Warm, Dry, normal turgor, - Medical Decision Making 10/03/19 14:55 Differential for the patient's symptoms includes possible pancreatitis, ACS, gallbladder disease, vertigo, arrhythmias, anemia, metabolic derangements Will obtain blood work, will treat the patient symptomatically Will obtain EKG Will reassess 10/03/19 17:15 Patient's labs were reviewed they are unremarkable patient CT noted for some gallstones. An ultrasound was obtained confirming the gallstones but also very mild dilatation of the CBD, LFTs are normal. Will discuss with GI regarding possible outpatient follow-up if the patient is feeling improved Heart Score/ECG Review - ECG Impressions Comment:: 10/03/19 14:57 Twelve-lead EKG was performed and reviewed by me. There is normal sinus rhythm with a normal rate. Rate of 63 Left axis deviation LVH repolarization Abnormal R wave progression HR increased by ~30 bpm when compared with prior EKG dated May 02, 2019, otherwise morphology of waves similar Discharge - Discharge Information Problems reviewed: Yes Clinical Impression/Diagnosis: Symptomatic cholelithiasis, Dilated cbd, acquired, RUQ abdominal pain Stroke Qualifiers: CVA mechanism: occlusion Precerebral and cerebral artery: unspecified precerebral artery Qualified Code(s): I63.20 - Cerebral infarction due to unspecified occlusion or stenosis of unspecified precerebral arteries Condition: Guarded Disposition: TRANSFER ACUTE CARE/OTHER HOSP - Admission Yes - Follow up/Referral - Patient Discharge Instructions - Post Discharge Activity
[2019-10-03] MEDS ORDERED: LIDOCAINE 5% TOPICAL PATCH TP ONE (13:58)
[2019-10-03] MEDS ORDERED: FAMOTIDINE 20 MG/50 ML IVPB 20 MG in PREMIX 50 IVPB ONE (13:58)
[2019-10-03] MEDS ORDERED: ACETAMINOPHEN 325 MG TABLET (FP) PO ONE (13:58)
[2019-10-03] MEDS ORDERED: MAG HYDROX/AL HYDROX/SIMETH -MYLANTA- ORAL SUSPENSION PO ONE (13:58)
[2019-10-03] MEDS ORDERED: MAG HYDROX/AL HYDROX/SIMETH 30 ML UNIT-DOSE CUP ONE (14:02)
[2019-10-03] MEDS ORDERED: ACETAMINOPHEN 325 MG TABLET (FP) ONE (14:02)
[2019-10-03] MEDS ORDERED: LIDOCAINE 5% TOPICAL PATCH ONE (14:03)
[2019-10-03] MEDS ORDERED: FAMOTIDINE 20 MG/50 ML IVPB 20 MG/50 ML MG IVPB ONE (14:03)
[2019-10-03] MEDS ORDERED: SODIUM CHLORIDE 0.9% 500 ML INFUS.BAG IV ONE ×2 (14:10→17:46)
[2019-10-03 14:13] LABS: BASO % 0.8 % (0-2.0); EOS % 3.7 % (0-4.5); HEMATOCRIT 38.4 % (32.4-45.2); HEMOGLOBIN 12.5 GM/dL (10.7-15.3); LYMPH % 24.8 % (8-40); MCHC 32.6 g/dl (32.0-36.0); MEAN CELL VOLUME 79.8 fl (80-96); MEAN PLT VOLUME 7.2 fl (7.5-11.1); MONO % 6.5 % (3.8-10.2); NEUT % 64.2 % (42.8-82.8); PLATELET COUNT 281 K/MM3 (134-434); RBC 4.81 M/mm3 (3.60-5.2); RDW 17.4 % (11.6-15.6); WHITE BLOOD COUNT 6.5 K/mm3 (4.0-10.0)
--- NOTE | 2019-10-03 14:19 | PDOC ---
History of Present Illness - General Chief Complaint: Lightheaded Stated Complaint: DIZZINESS Time Seen by Provider: 10/03/19 13:30 Past History - Medical History Allergies/Adverse Reactions: Allergies Allergy/AdvReac Type Severity Reaction Status Date / Time oxycodone [Oxycodone] Allergy Intermediate Rash Verified 10/03/19 13:34 Home Medications: Ambulatory Orders metFORMIN HCL [Glucophage -] 500 mg PO BID 01/30/13 Insulin Aspart Prot/Insuln Asp [Novolog Mix 70-30 Vial] 40 unit SQ DAILY 03/02/14 Linagliptin [Tradjenta] 5 mg PO DAILY 02/07/19 Aspirin 81 mg PO DAILY 05/03/19 Atorvastatin Calcium 40 mg PO HS 05/03/19 Cephalexin Monohydrate [Keflex -] 500 mg PO BID #14 capsule 05/03/19 Metoprolol Succinate [Toprol Xl] 25 mg PO DAILY 05/03/19 Multivit-Minerals/Herbal No217 [Advaclear Capsule] 1 each PO DAILY 05/03/19 COPD: No Diabetes: Yes (type 2) GI Disorders: (abdominal tumor) - Surgical History Cardiac Surgery: Yes (02/2019) - Immunization History Td Vaccination: Yes TDAP Vaccination: Yes Immunization Up to Date: Yes - Psycho-Social/Smoking History Smoking History: Never smoked Have you smoked in the past 12 months: No Number of Cigarettes Smoked Daily: 0 - Substance Abuse Hx (Audit-C & DAST Scrn) How often the patient has a drink containing alcohol: Never Score: In Men: 4 or > Positive; In Women: 3 or > Positive: 0 Screen Result (Pos requires Nsg. Audit-10AR): Negative *Physical Exam - Vital Signs Last Vital Signs Temp Pulse Resp BP Pulse Ox 98 F 64 18 169/75 100 10/03/19 13:31 10/03/19 13:31 10/03/19 13:31 10/03/19 13:31 10/03/19 13:31 ED Treatment Course - LABORATORY CBC & Chemistry Diagram: 10/03/19 13:45 10/03/19 13:45 - RADIOLOGY Radiology Studies Ordered: Category Date Time Status CHEST X-RAY PORTABLE* [RAD] Stat Radiology 10/03/19 14:06 Ordered Medical Decision Making - Medical Decision Making 10/03/19 14:08 HPI: 59yo F hx CAD s/p CABG (02/2019), HLD, HTN, and IDDM presents from home c/o 2 days of intermittent epigastric pressure type gradual onset nonradiating abdo piper pain worse after eating, worse today, minimal improvement with tylenol or maalox, and atraumatic gradual onset R lower back pain worse with walking made difficult to walk today. Normal PO intake water and food. Ate tortilla, egg, and onion today with worsening of abdominal pain. No spicy food or fatty food. No improvement of pain with BM. Denies hx abdominal pain or back pain. Endorses chronic intermittent constipation, LBM today. Denies abdominal surgeries, only surgery c/s. Endorses chronic intermittent headaches, none now. Endorses chronic intermittent lightheadedness, including today. Endorses increased diaphoresis today. Denies trauma, falls, heavy lifting, numbness/tingling, saddle anaesthesia, IVDU, alcohol use, smoking, malignancy, fever, chills, fatigue, syncope, focal weakness, vision changes, shortness of breath, cough, chest pain, palpitations, leg swelling, blood in stool, diarrhea, nausea, vomiting, dysuria, hematuria, urinary urgency or frequency or retention or incontinence, confusion. ROS: Constitutional: Positive for diaphoresis. Negative for chills, fever, fatigue. HENT: Negative for sore throat, rhinorrhea, congestion. Eyes: Negative for visual disturbance. Respiratory: Negative for shortness of breath, cough, and wheezing. Cardiovascular: Negative for chest pain, palpitations, and leg swelling. Gastrointestinal: Positive for epigastric pain, constipation. Negative for blood in stool, diarrhea, nausea, and vomiting. Genitourinary: Negative for dysuria, flank pain, and hematuria. Musculoskeletal: Positive for back pain. Negative for myalgias, and neck pain. Skin: Negative for rash. Neurological: Positive for headaches, light-headedness. Negative for vertigo, syncope, weakness, numbness. Psychiatric/Behavioral: Negative for behavioral problems and confusion. PE: Gen: Alert, NAD, comfortable-appearing. HEENT: PERRL, EOMI, MMM, NCAT. No conjunctival pallor. Sclera are non-icteric. CV: Regular rate and rhythm. No murmurs, rubs, or gallops. PULM: No resp distress. CTAB, no wheezes, rales, or rhonchi. ABD: soft, +epigastric TTP, ND, no rebound tenderness or guarding, no CVA tenderness. BACK: +tenderness to deep palpation of R paraspinal l-spine. R back pain exacerbated by R hip flexion/elevation of R straight leg. No TTP of c/t/l-spine. No step-offs or deformities. MSK: No bony deformities. 2+ pulses in all extremities. NEURO: AAOx3. PERRL. CN 2-12 intact. 5/5 strength in all extremities. Sensation to light touch intact in all extremities. No pronator drift. No dysmetria. No dysdiadochokinesia. No abnormal nystagmus. EXTREMITIES: No cyanosis. No clubbing. No edema. PSYCH: Normal mood and thought pattern. SKIN: Warm and dry. Normal capillary refill. No rashes. No jaundice. MDM: 59yo F hx CAD s/p CABG (02/2019), HLD, HTN, and IDDM presents from home c/o 2 days of intermittent epigastric pressure type gradual onset nonradiating a bdominal pain worse after eating, worse today, minimal improvement with tylenol or maalox, and atraumatic gradual onset R lower back pain worse with walking made difficult to walk today. Hemodynamically stable, afebrile, neurologically intact, epigastric TTP w/o peritoneal signs, R lower back musculature TTP. Ddx: presentation most consistent with back muscle/spasm vs sciatica, and GERD/gastritis. Also consider pancreatitis, cholelithiasis/cystitis, ACS/TN, arrhythmia, PNA, infection, metabolic derangement, anemia. No red flags concerning for emergent spinal pathology such as spinal abscess, fx, or cord compression. -EKG -CXR -CBC,CMP,Lipase,Cardiac profile -IVF -Pain management: GI cocktail, lidocaine patch -Dispo: pending workup and reassessment, likely d/c home 10/03/19 16:02 Labs reviewed. No concerning findings. EKG reviewed: normal sinus rhythm, LAD, 63bpm, QTc 483ms, no e/o acute ischemia CXR reviewed: No acute pathology Pt still in significant pain. Denies any improvement in pain with medications. +epigastric TTP unchanged. -Morphine 1 -CTAP w/IV contrast 10/03/19 16:27 CTAP reviewed: cardiomegaly, small hiatal hernia vs concentric mural thickening of distal esophagus suggestive of distal esophagitis, cholelithiaisis, small amount of free fluid in pelvis -Karafate -RUQ US 10/03/19 17:20 Pain improved "a little" but still present, paper machine backtender RUQ/epigastric. RUQ US reviewed: CBD dilated 0.62cm, multiple gallstones present, GB wall 0.16cm -Consult GI Dr Saleem placed/called for concern for choledocholithiasis 10/03/19 17:[address] Saleem. Received call from covering Dr Perea. Recommends surgical consult. -Consult Surgery Dr Storey placed/called 10/03/19 17:[address] Storey - admit, will see pt. 10/03/19 18:[address] Cifuentes. Discharge - Discharge Information Problems reviewed: Yes Clinical Impression/Diagnosis: Symptomatic cholelithiasis, Dilated cbd, acquired, RUQ abdominal pain Condition: Stable - Admission Yes - Follow up/Referral - Patient Discharge Instructions - Post Discharge Activity
[2019-10-03] MEDS ORDERED: MECLIZINE HCL 25 MG TABLET (FP) PO ONE (14:45)
[2019-10-03 14:56] LABS: ALBUMIN 3.5 g/dl (3.4-5.0); ALK PHOS 85 U/L (45-117); ANION GAP 6 MMOL/L (8-16); BILIRUBIN,TOTAL 0.4 mg/dL (0.2-1); CALCIUM 8.4 mg/dL (8.5-10.1); CHLORIDE 108 mmol/L (98-107); CO2 25 mmol/L (21-32); CREATININE 0.6 mg/dL (0.55-1.3); GLUCOSE,RANDOM 153 mg/dL (74-106); LIPASE 183 U/L (73-393); POTASSIUM 3.8 mmol/L (3.5-5.1); SGOT/AST 24 U/L (15-37); SGPT/ALT 25 U/L (13-61); SODIUM 139 mmol/L (136-145); TOT PROT 6.6 g/dl (6.4-8.2)
[2019-10-03] MEDS ORDERED: MECLIZINE HCL 25 MG TABLET (FP) ONE (15:05)
[2019-10-03] MEDS ORDERED: morphine CARPU-JECT 2 MG/1 ML DISP.SYRIN IVPUSH ONE (15:20)
[2019-10-03] MEDS ORDERED: MORPHINE SULFATE 2 MG/ML VIAL ONE (16:04)
[2019-10-03] MEDS ORDERED: SUCRALFATE 1 GM/10 ML UNIT DOSE CUPS PO ONE (16:23)
[2019-10-03] MEDS ORDERED: SUCRALFATE 1 GM TABLET (FP) ONE (16:40)
--- NOTE | 2019-10-03 20:57 | PN ---
Progress Note (short form) - Note Progress Note: GI CONSULT DICTATED F/U ULTRASOUND PPI TRIAL OF CLEAR LIQUID DIET IF ULTRASOUND WITHOUT EVIDENCE OF BILIARY DISEASE SEE DICTATED CONSULT
[2019-10-03] MEDS ORDERED: PANTOPRAZOLE SODIUM 40 MG in SODIUM CHLORIDE 100 ML IVPB ONE (20:59)
[2019-10-03] MEDS ORDERED: PANTOPRAZOLE SODIUM 40 MG/100 ML BAG IVPB ONE (21:14)
[2019-10-03] MEDS ORDERED: PANTOPRAZOLE SODIUM 40 MG VIAL IVPUSH ONE (21:15)
[2019-10-03] MEDS ORDERED: D5-1/2NS+10 MEQ KCL - 10 MEQ/1,000 ML INFUS.BAG IV SCH (21:30)
[2019-10-03] MEDS ORDERED: LIDOCAINE PATCH REMOVAL MC SCH (22:00)
[2019-10-03] MEDS: POTASSIUM CHLORIDE 10 MEQ in DEXTROSE 5%-0.45% SALINE 1,000 ML IVPB SCH (22:02)
[2019-10-04] MEDS ORDERED: amLODIPine BESYLATE 5 MG TABLET (FP) ONE ×2 (02:23→11:09)
[2019-10-04] MEDS ORDERED: amLODIPine BESYLATE 5 MG TABLET (FP) PO ONE (02:30)
[2019-10-04] MEDS ORDERED: ASPIRIN 81 MG CHEWABLE TABLETS PO ONE (07:04)
[2019-10-04] MEDS ORDERED: ACETAMINOPHEN 325 MG TABLET (FP) PO ONE (08:34)
[2019-10-04] MEDS ORDERED: ACETAMINOPHEN 325 MG TABLET (FP) ONE (08:41)
[2019-10-04] MEDS ORDERED: ASPIRIN 81 MG CHEWABLE TABLETS ONE (08:42)
--- NOTE | 2019-10-04 09:13 | EKG ---
Test Reason : Blood Pressure : / mmHG Vent. Rate : 063 BPM Atrial Rate : 063 BPM P-R Int : 174 ms QRS Dur : 102 ms QT Int : 472 ms P-R-T Axes : 015 -44 128 degrees QTc Int : 483 ms NORMAL SINUS RHYTHM LEFT AXIS DEVIATION LEFT VENTRICULAR HYPERTROPHY WITH REPOLARIZATION ABNORMALITY INFERIOR INFARCT (CITED ON OR BEFORE 04-SEP-2013) ANTEROLATERAL INFARCT (CITED ON OR BEFORE 04-SEP-2013) ABNORMAL ECG WHEN COMPARED WITH ECG OF 02-MAY-2019 20:41, VENT. RATE HAS DECREASED BY 32 BPM Confirmed by Pascual Wilcox ([id number]) on 10/04/2019 9:12:48 AM Referred By: Confirmed By:Pascual Wilcox
[2019-10-04] MEDS ORDERED: amLODIPine BESYLATE 5 MG TABLET (FP) PO SCH (10:00)
--- NOTE | 2019-10-04 10:23 | CONS ---
DATE OF CONSULTATION: DATE OF DICTATION: 10/03/2019 HISTORY OF PRESENT ILLNESS: The patient is a 59-year-old female with a past medical history of diabetes, CAD, CABG in 2019, hypertension, hyperlipidemia who presents to the hospital with epigastric abdominal pain radiating to the right upper quadrant which began yesterday and was worse with p.o. intake. She states that the pain does radiate to her back at times. She denies nausea, vomiting, diarrhea. She does complain of intermittent constipation. No melena, hematochezia, or hematemesis. She states she is not feeling herself. She has not had previous similar episodes. She has never had an upper endoscopy or colonoscopy in the past as per her history. PAST MEDICAL AND SURGICAL HISTORY: As listed in the HPI. ALLERGIES: OXYCODONE. SOCIAL HISTORY: Does not drink, smoke, or use drugs. FAMILY HISTORY: No history of GI or gynecological malignancy. PHYSICAL EXAMINATION: Vital Signs: Temperature 98, pulse 64, respiratory rate 12, oxygen saturation 100% on room air, blood pressure 148/66. General: No acute distress. HEENT: Anicteric sclera. Cardiovascular: Regular, rate, and rhythm. Lungs: Bilaterally clear to auscultation. Abdomen: Tender in the epigastrium and right upper quadrant without rebound or guarding. Extremities: No edema. LABORATORY DATA: White blood cell count 6.5, hemoglobin 12, hematocrit 38, MCV 78, platelet count 281. Sodium 139, potassium 3.8, BUN 15, creatinine 0.6. Total bilirubin 0.4, AST 24, ALT 25, alkaline phosphatase 85. Troponin is negative. Lipase 183. COVID is pending. Abdomen and pelvis CT scan revealed cardiomegaly, small hiatal hernia versus distal esophagitis. The liver, spleen, adrenal glands, and pancreas are unremarkable. There are small gallstones. IMPRESSION: Abdominal pain and fatigue. DIFFERENTIAL DIAGNOSIS: Include infectious etiology, underlying biliary etiology considering she does have small stones in the gallbladder. There is, however, no sign of choledocholithiasis considering her liver tests are within normal limits. There is no sign of biliary ductal dilatation on her abdominal CT scan. Her symptoms may also be secondary to a primary gastric etiology such as peptic ulcer disease. RECOMMENDATIONS: Follow up results of the abdominal ultrasound. Start Protonix 40 mg IV b.i.d. Trend liver tests daily while hospitalized. Avoid NSAIDs. Trial of clear liquid diet if her pain improves and her ultrasound is within normal limits. Further recommendations pending ultrasound results. DO MADIE WOODARD/[id number]
[2019-10-04] MEDS: INSULIN SLIDING SCALE (NOVOLOG) 1 VIAL SQ SCH ×2 (11:32→17:14)
[2019-10-04] MEDS: POTASSIUM CHLORIDE 10 MEQ in DEXTROSE 5%-0.45% SALINE 1,000 ML IVPB SCH (11:32)
--- NOTE | 2019-10-04 12:25 | HP ---
DATE OF ADMISSION: 10/03/2019 HISTORY OF PRESENT ILLNESS: A 59-year-old [place] female came to the emergency room with complaints of abdominal pain. This is a patient known to have diabetes on insulin, well known to me. When she came in with abdominal pain, the thought was acute cholecystitis. A CAT scan was done. It showed gallbladder multiple stones. While patient waiting, developed left side weakness, left upper extremity weakness. A CAT scan of the head was done, which is negative. This morning, patient is awake and talking, but left upper extremity weakness is persistent. PHYSICAL EXAMINATION: Vital Signs: On examination, BP is 160/64, pulse 66, respirations 20, temperature 98. HEENT: Unremarkable. Neck: Supple. No JVD. Lungs: Clear. Heart: S1, S2 normal. No S3, S4. Abdomen: Soft. No right upper quadrant tenderness or Thomas sign. Neurologic: Left upper extremity weakness. No sensory deficit. Plantars are both downgoing. LABORATORY REPORT: Chemistry: WBC 6.5, hemoglobin 12.5, hematocrit 38. Electrolytes: Sodium 139, potassium 3.8, chloride 108. BUN 15, creatinine 0.6. Blood sugar 87, fingerstick. Potassium 8.4. Troponin negative. ALT/AST normal. IMAGING: CT of the head negative. CT of abdomen: Small renal cysts bilaterally. There is no abdominal aortic aneurysm. No inflammatory appendix or colon. Liver and adrenal glands are normal. There are small gallstones. IMPRESSION: 1. Abdominal pain. 2. Cholelithiasis. 3. Left upper extremity weakness, etiology not clear. 4. Diabetes. PLAN: Admit to neurology unit. Neurology consult. Surgical consult. Continue IV fluids. Full liquid diet. Her medications at home are to be resumed. Sugar will be controlled with insulin. NIKUNJ WARREN M.D. [id number]
[2019-10-04 14:22] LABS: BASO % 0.8 % (0-2.0); EOS % 2.9 % (0-4.5); HEMATOCRIT 44.1 % (32.4-45.2); HEMOGLOBIN 14.5 GM/dL (10.7-15.3); LYMPH % 19.3 % (8-40); MCH 25.9 pg (25.7-33.7); MCHC 32.8 g/dl (32.0-36.0); MONO % 5.5 % (3.8-10.2); NEUT % 71.5 % (42.8-82.8); PLATELET COUNT 304 K/MM3 (134-434); RBC 5.59 M/mm3 (3.60-5.2); WHITE BLOOD COUNT 7.8 K/mm3 (4.0-10.0)
[2019-10-04 14:34] LABS: INR 1.02 (0.83-1.09)
[2019-10-04 14:58] LABS: BILIRUBIN,TOTAL 0.5 mg/dL (0.2-1); BLOOD UREA NITROGEN 9.4 mg/dL (7-18); CALCIUM 9.5 mg/dL (8.5-10.1); CREATININE 0.6 mg/dL (0.55-1.3); POTASSIUM 4.1 mmol/L (3.5-5.1); TOT PROT 7.7 g/dl (6.4-8.2)
--- NOTE | 2019-10-04 16:48 | PDOC ---
*Physical Exam - Vital Signs Last Vital Signs Temp Pulse Resp BP Pulse Ox 98.1 F 66 18 163/47 L 100 10/04/19 05:30 10/04/19 08:28 10/04/19 08:28 10/04/19 08:28 10/04/19 08:28 ED Treatment Course - LABORATORY CBC & Chemistry Diagram: 10/04/19 14:00 10/04/19 14:00 - ADDITIONAL ORDERS Additional order review: 10/03/19 13:45 RBC 4.81 MCV 79.8 L MCHC 32.6 RDW 17.4 H MPV 7.2 L Neutrophils % 64.2 Lymphocytes % 24.8 D Monocytes % 6.5 Eosinophils % 3.7 Basophils % 0.8 - Medications Given in the ED: ED Medications Discontinued Medications Generic Name Dose Route Start Last Admin Trade Name Freq PRN Reason Stop Dose Admin Acetaminophen 650 mg 10/03/19 13:58 10/03/19 14:14 Tylenol - PO 10/03/19 13:59 650 mg ONCE ONE Administration Acetaminophen 650 mg 10/04/19 08:34 10/04/19 08:39 Tylenol - PO 10/04/19 08:35 650 mg ONCE ONE Administration Al Hydroxide/Mg Hydroxide 30 ml 10/03/19 13:58 10/03/19 14:14 Mylanta Suspension - PO 10/03/19 13:59 30 ml ONCE ONE Administration Amlodipine Besylate 5 mg 10/04/19 02:30 10/04/19 02:32 Norvasc - PO 10/04/19 02:31 5 mg ONCE ONE Administration Aspirin 324 mg 10/04/19 07:04 10/04/19 08:39 Asa - PO 10/04/19 07:05 324 mg ONCE ONE Administration Famotidine/Sodium Chloride 20 50 mls @ 100 mls/hr 10/03/19 13:58 10/03/19 14:14 mg/ Miscellaneous IVPB 10/03/19 14:27 100 mls/hr ONCE ONE Administration Potassium Chloride/Dextrose/Sod Cl 10 meq in 1,000 mls @ 80 mls/hr 10/03/19 21:30 10/04/19 08:29 D5-1/2ns+10 Meq Kcl - IV Not Given ASDIR JOHN Lidocaine 1 patch 10/03/19 13:58 10/03/19 14:14 Lidoderm Patch - TP 10/03/19 13:59 1 patch ONCE ONE Administration Meclizine HCl 25 mg 10/03/19 14:45 10/03/19 15:22 Antivert - PO 10/03/19 14:46 25 mg ONCE ONE Administration Morphine Sulfate 1 mg 10/03/19 15:20 10/03/19 16:12 Morphine Injection - IVPUSH 10/03/19 15:21 1 mg ONCE ONE Administration Pantoprazole Sodium 40 mg 10/03/19 21:15 10/03/19 21:39 Protonix Iv IVPUSH 10/03/19 21:16 40 mg ONCE ONE Administration Sodium Chloride 1,000 ml 10/03/19 14:10 10/03/19 14:14 Normal Saline - IV 10/03/19 14:11 1,000 ml ONCE ONE Administration Sodium Chloride 1,000 ml 10/03/19 17:46 10/03/19 18:54 Normal Saline - IV 10/03/19 17:47 1,000 ml ONCE ONE Administration Sucralfate 1 gm 10/03/19 16:23 10/03/19 17:45 Carafate Oral Suspension - PO 10/03/19 16:24 1 gm NOW ONE Administration Medical Decision Making - Medical Decision Making Received sign out on pt from Dr. Wood at 0700. Briefly, pt was admitted overnight to Dr. Cifuentes for cholelithiasis and was awaiting inpatient bed in the ED. Per the overnight team, pt was noted to have new left facial droop and LUE weakness (unable to lift against gravity). Code dickinson was activated by overnight team and CT scan was obtained. Last known well approximately 0200 based on nursing documentation. Initial non-contrast CT head w/o acute hemorrhage. Pt was given ASA at that time. Dr. Cifuentes was updated about the change in the pt's status. Several hours later, the pt's symptoms persisted and a CTA was ordered in consideration of large vessel disease. The CTA head and neck was obtained; however, the read was delayed despite 3 separate calls to the Radiology department. Pt was noted to have a R ICA occlusion with distal reconstitution as well as several areas of severe stenosis. Dr. Cifuentes was updated and informed of need for transfer for possible intervention. Transfer was initiated by myself to assist Dr. Cifuentes. Initially [facility] declined transfer to their unit, but pt was subsequently accepted to [facility] stroke unit as ED to ED transfer. Consent for transfer was obtained from patient and pt's updated. A CD w as sent with the pt of all imaging obtained, and the images were transferred via PACS. At time of transfer, the pt continued to be A&Ox3, follows commands, visual can intact, no aphasia, L lower facial droop, LUE weakness, LLE developing weakness (able to lift against gravity but weak relative to RLE), sensation to light touch intact throughout, no neglect. Pt left the ED via [facility]. Discharge - Discharge Information Problems reviewed: Yes Clinical Impression/Diagnosis: Symptomatic cholelithiasis, Dilated cbd, acquired, RUQ abdominal pain Stroke Qualifiers: CVA mechanism: occlusion Precerebral and cerebral artery: unspecified precerebral artery Qualified Code(s): I63.20 - Cerebral infarction due to unspecified occlusion or stenosis of unspecified precerebral arteries Condition: Guarded Disposition: TRANSFER ACUTE CARE/OTHER HOSP - Follow up/Referral - Patient Discharge Instructions - Post Discharge Activity - Transfer to Acute Care Facility Accepting Physician:: Dr. Robertson
[2019-10-04 16:58] VITALS: TEMP 98.5
[2019-10-04 17:01] VITALS: BP 155/65; PULSE 71
--- NOTE | 2019-10-05 12:06 | EKG ---
Test Reason : Blood Pressure : / mmHG Vent. Rate : 065 BPM Atrial Rate : 065 BPM P-R Int : 158 ms QRS Dur : 100 ms QT Int : 468 ms P-R-T Axes : 025 -48 113 degrees QTc Int : 486 ms NORMAL SINUS RHYTHM LEFT AXIS DEVIATION LEFT VENTRICULAR HYPERTROPHY WITH REPOLARIZATION ABNORMALITY INFERIOR INFARCT (CITED ON OR BEFORE 04-SEP-2013) ANTEROLATERAL INFARCT (CITED ON OR BEFORE 04-SEP-2013) ABNORMAL ECG WHEN COMPARED WITH ECG OF 03-OCT-2019 14:25, NO SIGNIFICANT CHANGE WAS FOUND Confirmed by Lb Raymond MD ([id number]) on 10/05/2019 12:06:05 PM Referred By: Confirmed By:Lb Raymond MD
== END 2019-10-04 17:00 | disposition short-term general hospital (02) | DRG 46 ==
LOC: JER 13:20 → JERBED 17:45
PROVIDERS: ADMIT Internal Medicine; ATTEND Internal Medicine
DX: I65.21 Occlusion and stenosis of right carotid artery (principal); R10.11 Right upper quadrant pain; R53.1 Weakness; K80.50 Calculus of bile duct without cholangitis or cholecystitis without obstruction; E11.9 Type 2 diabetes mellitus without complications; I25.10 Atherosclerotic heart disease of native coronary artery without angina pectoris; Z95.1 Presence of aortocoronary bypass graft; I10 Essential (primary) hypertension; E78.5 Hyperlipidemia, unspecified
CPT/HCPCS: 36415; 70450-TC; 70496-TC; 70498-TC; 71045-TC-FY; 74177-TC; 76705-TC; 80053; 82010; 82550; 82962; 83690; 84484; 85025; 85610; 85730; 86850; 86900; 86901; 93005; 93010; 99285-25; Q9967; U0003

== ENCOUNTER 2019-11-04 14:43 | Inpatient (IN) | payer OTHER ==
[2019-11-04 15:45] LABS: BASO % 0.8 % (0-2.0); EOS % 2.2 % (0-4.5); HEMATOCRIT 34.7 % (32.4-45.2); HEMOGLOBIN 11.6 GM/dL (10.7-15.3); LYMPH % 14.7 % (8-40); MCH 26.9 pg (25.7-33.7); MCHC 33.4 g/dl (32.0-36.0); MEAN CELL VOLUME 80.6 fl (80-96); MEAN PLT VOLUME 7.2 fl (7.5-11.1); MONO % 4.3 % (3.8-10.2); PLATELET COUNT 236 K/MM3 (134-434); RBC 4.31 M/mm3 (3.60-5.2); RDW 16.5 % (11.6-15.6); WHITE BLOOD COUNT 7.2 K/mm3 (4.0-10.0)
[2019-11-04] MEDS ORDERED: ACETAMINOPHEN 1000 MG/100 ML VIAL (NON FORMULARY) IVPB ONE (15:47)
[2019-11-04 15:51] LABS: INR 1.06 (0.83-1.09); PROTHROMBIN TIME (PATIENT) 12.5 SEC (9.7-13.0)
[2019-11-04 15:53] LABS: ACTIVATED PTT 27.8 SECONDS (25.2-36.5)
[2019-11-04] MEDS ORDERED: SODIUM CHLORIDE 1,000 ML IV STA ×2 (15:53→19:08)
[2019-11-04] MEDS ORDERED: ACETAMINOPHEN INJECTION 100 ML IVPB ONE (15:56)
--- NOTE | 2019-11-04 16:10 | PDOC ---
History of Present Illness - General Chief Complaint: Pain, Acute Stated Complaint: VOMITING/ABD PAIN Time Seen by Provider: 11/04/19 14:56 History Source: Patient, Spouse Exam Limitations: Language Barrier - History of Present Illness Initial Comments: Deon Gil is a 59 F with a PMH of CAD s/p CABG(03/04) , HLD, HTN, IDDM, CVA in (R-ICA occlusion 10/04/19), cholelithiasis, presents with 2 days of diffuse abdominal pain, nausea, vomiting, diarrhea. She reports that the abdominal pain worsened this morning after her breakfast. The pain is episodic, diffuse, crampy, radiating to her right flank, 12/24, relieved mildly with Tylenol, worsen with movement. She denies any fever, chills, chest pain, SOB, cough, dysuria, hematuria, melena, weakness Patient was previously seen in ER on 10/03/19, for 2 days of epigastric pressure. CTAP reviewed: cardiomegaly, small hiatal hernia vs concentric mural thickening of distal esophagus suggestive of distal esophagitis, cholelithiaisis, small amount of free fluid in pelvis. RUQ US reviewed: CBD dilated 0.62cm, multiple gallstones present, GB wall 0.16cm. while in ER, pt was noted to have new left facial droop and LUE weakness (unable to lift against gravity). CTA: R ICA occlusion with distal reconstitution as well as several areas of severe stenosis. Transferred to [facility] stroke unit. 11/04/19 16:13 Past History - Travel History Traveled outside of the country in the last 30 days: No Close contact w/someone who was outside of country & ill: No - Medical History Allergies/Adverse Reactions: Allergies Allergy/AdvReac Type Severity Reaction Status Date / Time oxycodone [Oxycodone] Allergy Intermediate Rash Verified 10/03/19 13:34 Home Medications: Ambulatory Orders metFORMIN HCL [Glucophage -] 500 mg PO BID 01/30/13 Insulin Aspart Prot/Insuln Asp [Novolog Mix 70-30 Vial] 40 unit SQ DAILY 03/02/14 Linagliptin [Tradjenta] 5 mg PO DAILY 02/07/19 Aspirin 81 mg PO DAILY 05/03/19 Atorvastatin Calcium 40 mg PO HS 05/03/19 Metoprolol Succinate [Toprol Xl] 25 mg PO DAILY 05/03/19 Multivit-Minerals/Herbal No217 [Advaclear Capsule] 1 each PO DAILY 05/03/19 COPD: No Diabetes: Yes (type 2) GI Disorders: (abdominal tumor) - Surgical History Cardiac Surgery: Yes (02/2019) - Immunization History Td Vaccination: Yes TDAP Vaccination: Yes Immunization Up to Date: Yes - Psycho-Social/Smoking History Smoking History: Never smoked Have you smoked in the past 12 months: No Number of Cigarettes Smoked Daily: 0 - Substance Abuse Hx (Audit-C & DAST Scrn) How often the patient has a drink containing alcohol: Never Score: In Men: 4 or > Positive; In Women: 3 or > Positive: 0 Screen Result (Pos requires Nsg. Audit-10AR): Negative In the last yr the pt used illegal drug/Rx for NonMed reason: No Score: Yes response is considered Positive: 0 Screen Result (Positive result requires Nsg. DAST-10): Negative Review of Systems - Review of Systems Able to Perform ROS?: Yes Is the patient limited Mongolian proficient: Yes Constitutional: No: Chills, Fever, Weakness HEENTM: No: Blurred Vision, Nose Congestion, Throat Pain, Throat Swelling Respiratory: No: Cough, Shortness of Breath, Wheezing Cardiac (ROS): No: Chest Pain, Edema, Palpitations, Chest Tightness ABD/GI: Yes: Diarrhea, Nausea, Vomiting, Abdominal cramping. No: Abdominal Distended, Abd. Pain w/ defecation, Difficulty Swallowing : No: Burning, Dysuria, Frequency, Hematuria, Urgency Musculoskeletal: Yes: Back Pain (flank pain) Integumentary: No: Change in Color Neurological: Yes: Pre-Existing Deficit (Left UE). No: Headache *Physical Exam - Vital Signs Last Vital Signs Temp Pulse Resp BP Pulse Ox 98.6 F 70 19 160/72 100 11/04/19 15:02 11/04/19 15:02 11/04/19 15:11/04/19 15:11/04/19 15:02 - Physical Exam General Appearance: Yes: Mild Distress HEENT: negative: Scleral Icterus (R), Scleral Icterus (L) Neck: positive: Supple. negative: Rigid, Carotid bruit Respiratory/Chest: positive: Lungs Clear, Normal Breath Sounds, Respiratory Distress. negative: Rales, Rhonchi, Wheezing Cardiovascular: positive: Regular Rhythm, Regular Rate, S1, S2. negative: Edema, JVD, Murmur Vascular Pulses: Carotid (R): 2+, Carotid (L): 2+, Dorsalis-Pedis (R): 2+, Doralis-Pedis (L): 2+ Gastrointestinal/Abdominal: positive: Normal Bowel Sounds, Tender, Flat, Guarding, Rebound, Tenderness (RUQ and epigastric) Musculoskeletal: positive: CVA Tenderness (R) Extremity: positive: Normal Inspection. negative: Pedal Edema, Calf Tenderness Integumentary: positive: Normal Color, Warm, Moist. negative: Jaundice Neurologic: positive: Fully Oriented, Alert, Motor Strength 07/19 ED Treatment Course - LABORATORY CBC & Chemistry Diagram: 11/04/19 13:35 11/04/19 13:35 - ADDITIONAL ORDERS Additional order review: Laboratory Results 11/04/19 13:35 PT with INR 12.50 INR 1.06 PTT (Actin FS) 27.8 11/04/19 13:35 RBC 4.31 MCV 80.6 MCHC 33.4 RDW 16.5 H MPV 7.2 L Neutrophils % 78.0 Lymphocytes % 14.7 D Monocytes % 4.3 Eosinophils % 2.2 Basophils % 0.8 Medical Decision Making - Medical Decision Making 59 F with a PMH of CAD s/p CABG(03/04) , HLD, HTN, IDDM, CVA in (R-ICA occlusion 10/04/19), presents with 2 days of diffuse abdominal pain, nausea, vomiting, diarrhea. #cholelithiasis vs pancreatitis vs nephrolithiasis - r/o ACS: cardiac panel - previous Hx of cholelithiasis - CBC, CMP - Lipase - ABD US: - Tylenol 1000mg IV, NS 1000mls 11/04/19 16:10 11/04/19 18:01 GI consulted (), recs: -Plan for MRCP -LR @200cc/hr -NPO after midnight -LFTs am labs -PT(INR)/PTT -No AC(heparin) 11/04/19 19:[address] Cifuentes: - D5-1/2 Ns +10 Meq KCL @ 83/hr 11/04/19 19:30 Discharge - Discharge Information Problems reviewed: Yes Clinical Impression/Diagnosis: Symptomatic cholelithiasis, RUQ abdominal pain, Pancreatitis due to biliary obstruction, Cholelithiasis, Pancreatitis - Admission Yes - Follow up/Referral - Patient Discharge Instructions - Post Discharge Activity
[2019-11-04 16:15] LABS: ALBUMIN 3.4 g/dl (3.4-5.0); ALK PHOS 122 U/L (45-117); ANION GAP 10 MMOL/L (8-16); BILIRUBIN,TOTAL 0.9 mg/dL (0.2-1); CALCIUM 8.8 mg/dL (8.5-10.1); CHLORIDE 106 mmol/L (98-107); CO2 22 mmol/L (21-32); CREATININE 0.7 mg/dL (0.55-1.3); GLUCOSE,RANDOM 198 mg/dL (74-106); LIPASE 1326 U/L (73-393); MAGNESIUM 1.6 mg/dL (1.8-2.4); POTASSIUM 4.3 mmol/L (3.5-5.1); SGOT/AST 280 U/L (15-37); SGPT/ALT 160 U/L (13-61); SODIUM 139 mmol/L (136-145); TOT PROT 6.5 g/dl (6.4-8.2)
[2019-11-04] MEDS ORDERED: LACTATED RINGERS SOLUTION 1000 ML INFUS.BAG IV ONE (16:26)
[2019-11-04] MEDS ORDERED: morphine CARPU-JECT 4 MG/1 ML DISP.SYRIN IVPUSH ONE ×2 (17:13→21:58)
[2019-11-04] MEDS ORDERED: ONDANSETRON 4 MG/2 ML VIAL IVPUSH ONE (17:18)
[2019-11-04] MEDS ORDERED: morphine SULFATE 4 MG/ML VIAL ONE (17:19)
--- NOTE | 2019-11-04 17:38 | PDOC ---
Documentation entered by Claudette Stahl SCRIBE, acting as scribe for Abbi Hong MD. Abbi Hong MD: This documentation has been prepared by the roxannibeFavio Lincy, SCRIBE, under my direction and personally reviewed by me in its entirety. I confirm that the documentation accurately reflects all work, treatment, procedures, and medical decision making performed by me. Attending Attestation - Resident Resident Name: Karlene Preciado - ED Attending Attestation I have performed the following: I have examined & evaluated the patient, The case was reviewed & discussed with the resident, I agree w/resident's findings & plan, Exceptions are as noted - HPI HPI: 11/04/19 17:04 59 yo F here with htn hld , DM, CABG ruq pain, recent CVA, with abd pain. pt was here one month ago for same, found to have cholelithiasis, was admitted. had intra hospital cva so no intervention for gallbladder transferred to [facility] for intervention of her stroke. Stroke left her with residual left sided weakness upper and lower extremity, here today with c/o recurrent epigastric right upper quadrant pain. n/v today. no f but c/o chills. no urinary complaints. also c/o; left shoulder pain she has had ever since her stroke one month ago. 11/04/19 17:16 - Physicial Exam PE: 11/04/19 17:24 awake alert lungs clear bilat heart rrr no mrg abd soft diffusely ttp , increased tendernes ruq. no rebound no guarding. no cva tenderness. ext wwp. nuero mild nasolabial fold flattening left side face, speech clear. strength left upper ext 4+/5, left lower ext 4+/5, right upper and lower ext 5/5. alert oriented x 3 - Medical Decision Making 11/04/19 17:36 59 yo F h/o cabg, recent cva htn hld dm here with abd pain n/v . h/o cholelithiasis, ttp on exam. differential cholelithiasis, cholecystitis. pancreatitis, appendicitis. plan us gb labs lipase pain control antiemetics. ivf. lft mild elevation, lipase elevated. us with cholelithaisis. will perform ct a/p in addition. consult surgery. dr. isreal paged. Discharge - Discharge Information Problems reviewed: Yes Clinical Impression/Diagnosis: Cholelithiasis, Pancreatitis - Admission Yes - Follow up/Referral Referrals: Sam Cifuentes MD [Primary Care Provider] - - Patient Discharge Instructions - Post Discharge Activity
[2019-11-04] MEDS ORDERED: KCL 10 MEQ IVPB 10 MEQ/100 ML INFUS.BAG IVPB SCH (19:15)
[2019-11-04] MEDS ORDERED: DEXTROSE 5%-WATER - 1,000 ML IV SCH (19:15)
[2019-11-04] MEDS ORDERED: D5-1/2NS+10 MEQ KCL - 10 MEQ/1,000 ML INFUS.BAG IV SCH (19:30)
--- NOTE | 2019-11-04 21:22 | CON.GI ---
Consult Consult Specialty:: Gastroenterology Referred by:: Dr. Karlene Preciado Reason for Consultation:: Pancreatitis - History of Present Illness Chief Complaint: Epigastric pain radiating into the right flank and shoulder History of Present Illness: 59F developed severe epigastric pain after breakfast this morning associated with vomiting. The pain was sevre and radiated into her right flank and right shoulder. She has had previous episodes of biliary colic but never pancreatitis. She suffered a L CVA when she presented with biliary colic on 10/03 and was found to have a distal right carotid occlusion and was transferred to [facility]. There he describes a procedure down via her left femoral region after which she regained some L sided function. She was transferred to [facility] but never had her GB stones addressed. Deon and her deny any h/o liver disease or cirrhosis. No alcohol or IVDA. She is unsure whether or not she ever received blood transfusion but did undergo CABG in 03/04. Her father of an [place] at 33. She suffers with chronic constipation. She has never had an EGD or a colonoscopy. She denies rectal bleeding. 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/03 improved after vascular intervention at [facility]) Cardio/Vascular: Yes: CAD (CABG 03/04), CHF (severe global hypokinesis EF 30- 40%), HTN, Hyperlipdemia Gastrointestinal: Yes: Constipation Hepatobiliary: Yes: Cirrhosis (by sonogram), Cholelithiasis, Other (fatty liver) Reproductive: Yes: Fibroids (Had myomectomy) Endocrine: Yes: Diabetes Mellitus - Past Surgical History Past Surgical History: Yes: CABG Additional Surgical History: Myomectomy - Alcohol/Substance Use Hx Alcohol Use: No History of Substance Use: reports: None - Smoking History Smoking history: Never smoked Have you smoked in the past 12 months: No Aproximately how many cigarettes per day: 0 - Social History Usual Living Arrangement: With Spouse ADL: Family Assistance 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 (year[place] age 29 History of Recent Travel: Yes ([place] in 2018) Home Medications - Allergies Allergies/Adverse Reactions: Allergies Allergy/AdvReac Type Severity Reaction Status Date / Time oxycodone [Oxycodone] Allergy Intermediate Rash Verified 10/03/19 13:34 - Home Medications Home Medications: Ambulatory Orders metFORMIN HCL [Glucophage -] 500 mg PO BID 01/30/13 Insulin Aspart Prot/Insuln Asp [Novolog Mix 70-30 Vial] 40 unit SQ DAILY 03/02/14 Linagliptin [Tradjenta] 5 mg PO DAILY 02/07/19 Aspirin 81 mg PO DAILY 05/03/19 Atorvastatin Calcium 40 mg PO HS 05/03/19 Metoprolol Succinate [Toprol Xl] 25 mg PO DAILY 05/03/19 Multivit-Minerals/Herbal No217 [Advaclear Capsule] 1 each PO DAILY 05/03/19 Family Medical History Family Hx Cardiac Disorders: Father ( [place] 33) Family Hx Diabetes: Father, Sister Review of Systems - Review of Systems Constitutional: reports: Malaise, Weakness Eyes: reports: No Symptoms HENT: reports: No Symptoms Neck: reports: No Symptoms Cardiovascular: reports: No Symptoms Respiratory: reports: No Symptoms Gastrointestinal: reports: Abdominal Pain, Bloating, Constipation, Vomiting Neurological: reports: Weakness (residual left sided weakness) Physical Exam-GI Vital Signs: Vital Signs Temperature 97.3 F L 11/04/19 18:18 Pulse Rate 74 11/04/19 18:18 Respiratory Rate 20 11/04/19 18:18 Blood Pressure 182/56 H 11/04/19 18:18 O2 Sat by Pulse Oximetry (%) 100 11/04/19 18:18 CBC,CMP WBC 7.2 K/mm3 (4.0-10.0) 11/04/19 13:35 RBC 4.31 M/mm3 (3.60-5.2) 11/04/19 13:35 Hgb 11.6 GM/dL (10.7-15.3) 11/04/19 13:35 Hct 34.7 % (32.4-45.2) D 11/04/19 13:35 MCV 80.6 fl (80-96) 11/04/19 13:35 MCH 26.9 pg (25.7-33.7) 11/04/19 13:35 MCHC 33.4 g/dl (32.0-36.0) 11/04/19 13:35 RDW 16.5 % (11.6-15.6) H 11/04/19 13:35 Plt Count 236 K/MM3 (134-434) D 11/04/19 13:35 MPV 7.2 fl (7.5-11.1) L 11/04/19 13:35 Absolute Neuts (auto) 5.6 K/mm3 (1.5-8.0) 11/04/19 13:35 Neutrophils % 78.0 % (42.8-82.8) 11/04/19 13:35 Lymphocytes % 14.7 % (8-40) D 11/04/19 13:35 Monocytes % 4.3 % (3.8-10.2) 11/04/19 13:35 Eosinophils % 2.2 % (0-4.5) 11/04/19 13:35 Basophils % 0.8 % (0-2.0) 11/04/19 13:35 Nucleated RBC % 0 % (0-0) 11/04/19 13:35 Sodium 139 mmol/L (136-145) 11/04/19 13:35 Potassium 4.3 mmol/L (3.5-5.1) 11/04/19 13:35 Chloride 106 mmol/L (98-107) 11/04/19 13:35 Carbon Dioxide 22 mmol/L (21-32) 11/04/19 13:35 Anion Gap 10 MMOL/L (8-16) 11/04/19 13:35 BUN 9.0 mg/dL (7-18) 11/04/19 13:35 Creatinine 0.7 mg/dL (0.55-1.3) 11/04/19 13:35 Est GFR (CKD-EPI)AfAm 109.15 11/04/19 13:35 Est GFR (CKD-EPI)NonAf 94.17 11/04/19 13:35 Random Glucose 198 mg/dL (74-106) H 11/04/19 13:35 Calcium 8.8 mg/dL (8.5-10.1) 11/04/19 13:35 Magnesium 1.6 mg/dL (1.8-2.4) L 11/04/19 13:35 Total Bilirubin 0.9 mg/dL (0.2-1) 11/04/19 13:35 AST 280 U/L (15-37) H 11/04/19 13:35 ALT 160 U/L (13-61) H 11/04/19 13:35 Alkaline Phosphatase 122 U/L (45-117) H 11/04/19 13:35 Creatine Kinase 107 U/L (26-192) 11/04/19 13:35 Troponin I < 0.02 ng/ml (0.00-0.05) 11/04/19 13:35 Total Protein 6.5 g/dl (6.4-8.2) 11/04/19 13:35 Albumin 3.4 g/dl (3.4-5.0) 11/04/19 13:35 Lipase 1326 U/L (73-393) H 11/04/19 13:35 Current Medications Generic Name Dose Route Start Last Admin Trade Name Freq PRN Reason Stop Dose Admin Potassium Chloride/Dextrose/Sod Cl 10 meq in 1,000 mls @ 83 mls/hr 11/04/19 19:30 D5-1/2ns+10 Meq Kcl - IV ASDIR JOHN Constitutional: Yes: Anxious Eyes: Yes: Conjunctiva Clear HENT: Yes: Normocephalic Neck: Yes: Trachea Midline Cardiovascular: Yes: Regular Rate and Rhythm, Other (healed median sternotomy incision) Respiratory: Yes: CTA Bilaterally Gastrointestinal Inspection: Yes: Scars (healed vertical suprapubic incision) ...Auscultate: Yes: Hypoactive Bowel Sounds ...Palpate: Yes: Tenderness (epigastrium and RUQ) ...Rectal Exam: Yes: Guaiac Negative (hard fecaliths, guaiac negative stool) Edema: No Neurological: Yes: Alert, Oriented Labs: CBC, BMP 11/04/19 13:35 11/04/19 13:35 INR, PTT INR Cancelled 11/04/19 18:30 Problem List - Problems (1) Biliary acute pancreatitis Code(s): K85.10 - BILIARY ACUTE PANCREATITIS WITHOUT NECROSIS OR INFECTION (2) Symptomatic cholelithiasis Code(s): K80.20 - CALCULUS OF GALLBLADDER W/O CHOLECYSTITIS W/O OBSTRUCTION (3) Fatty (change of) liver, not elsewhere classified Code(s): K76.0 - FATTY (CHANGE OF) LIVER, NOT ELSEWHERE CLASSIFIED (4) Hx of CABG Code(s): Z95.1 - PRESENCE OF AORTOCORONARY BYPASS GRAFT (5) Coronary arteriosclerosis Code(s): I25.10 - ATHSCL HEART DISEASE OF [place] CORONARY ARTERY W/O ANG PCTRS (6) HTN (hypertension) Code(s): I10 - ESSENTIAL (PRIMARY) HYPERTENSION (7) Hypercholesteremia Code(s): E78.00 - PURE HYPERCHOLESTEROLEMIA, UNSPECIFIED (8) Systolic and diastolic CHF, acute Code(s): I50.41 - ACUTE COMBINED SYSTOLIC AND DIASTOLIC (CONGESTIVE) HRT FAIL (9) T2DM (type 2 diabetes mellitus) Code(s): E11.9 - TYPE 2 DIABETES MELLITUS WITHOUT COMPLICATIONS Qualifiers: Diabetes mellitus penitentiary insulin use: with breakfast hostess use Assessment/Plan Impression: - Biliary pancreatitis with CBD stone passage. The stone will hopefully pass and await MRCP. I have discussed ERCP with sphincterotomy and possible stent insertion in detail with Deon and her . I informed them of the risks of perforation, hemorrhage, multiorgan failure secondary to ERCP induced pancreatitis and a recurrent CVA while under anesthesia. They have granted verbal informed consent. I informed them that she will need a cholecystectomy as well - Constipation- I advised a colonoscopy for colon cancer screening 6 months after her CVA - Fatty liver with possible cirrhosis by sonogram will need further evaluation. Suspect MCGILL if not cardiac cirrhosis Plan -- NPO -- Ringer's Lactate but will need to curtail the usual rate of > 200cc/hr given her CHF -- Will start antibiotics as she is at risk for cholangitis -- MRCP to determine whether ERCP is necessary -- Miralax -- Colonoscopy as outpatient 6 months after 10/03 CVA I discussed the case with the ER resident
[2019-11-04] MEDS ORDERED: MORPHINE SULFATE 2 MG/ML VIAL ONE (21:58)
[2019-11-04] MEDS ORDERED: DEXTROSE 5%-LACTATED RINGERS 1,000 ML IV SCH (22:15)
[2019-11-05] MEDS ORDERED: SODIUM CHLORIDE 100 ML IVPB ONE ×3 (00:27→17:10)
[2019-11-05] MEDS ORDERED: AMPICILLIN NA/SULBACTAM NA 1.5 GM VIAL ONE ×3 (00:27→17:10)
[2019-11-05] MEDS: AMPICILLIN NA/SULBACTAM NA 1.5 GM in SODIUM CHLORIDE 100 ML IVPB SCH ×3 (01:04→17:13)
[2019-11-05 03:33] VITALS: BMI 35.6
[2019-11-05 08:19] LABS: EOS % 6.1 % (0-4.5); HEMATOCRIT 35.2 % (32.4-45.2); LYMPH % 30.3 % (8-40); MCH 27.5 pg (25.7-33.7); MCHC 34.1 g/dl (32.0-36.0); MEAN CELL VOLUME 80.6 fl (80-96); MEAN PLT VOLUME 7.3 fl (7.5-11.1); MONO % 6.4 % (3.8-10.2); NEUT % 56.2 % (42.8-82.8); PLATELET COUNT 237 K/MM3 (134-434); RBC 4.37 M/mm3 (3.60-5.2); RDW 16.1 % (11.6-15.6); WHITE BLOOD COUNT 4.8 K/mm3 (4.0-10.0)
[2019-11-05 08:38] LABS: AMYLASE 60 U/L (25-115); BILIRUBIN,DIRECT 0.4 mg/dL (0.0-0.2); CHOLESTEROL 136 mg/dL (50-200); HDL CHOLESTEROL 68 mg/dL (40-60); LDL CHOLESTEROL (ONLY SJRH) 53 mg/dL (5-100); LIPASE 154 U/L (73-393); TRIGLYCERIDES 58 mg/dL (0-150)
[2019-11-05 08:40] LABS: ALBUMIN 3.4 g/dl (3.4-5.0); CALCIUM 8.5 mg/dL (8.5-10.1); CREATININE 0.6 mg/dL (0.55-1.3); POTASSIUM 3.5 mmol/L (3.5-5.1); TOT PROT 6.1 g/dl (6.4-8.2)
--- NOTE | 2019-11-05 09:18 | CONSULT ---
- Consultation REQUESTING PROVIDER: CONSULT REQUEST: We have been asked to surgically evaluate this patient for abdominal pain PCP: Sam Cifuentes HISTORY OF PRESENT ILLNESS: (obtained from EMR with son at bedside) Deon Gil is a 59 F with a PMH of CAD s/p CABG(03/04) , HLD, HTN, IDDM, CVA in (R-ICA occlusion 10/04/19), cholelithiasis, presented with 2 days of diffuse abdominal pain, nausea, vomiting, diarrhea. She reports that the abdominal pain worsened after her breakfast. The pain is epigastric, diffuse, crampy, radiating to her right flank, 10/10, relieved mildly with Tylenol, worsen with movement. She denies any fever, chills, chest pain, SOB, cough, dysuria, hematuria, melena, weakness. Patient was previously seen in ER on 10/03/19, for 2 days of epigastric pressure. CTAP reviewed: cardiomegaly, small hiatal hernia vs concentric mural thickening of distal esophagus suggestive of distal esophagitis, cholelithiaisis, small amount of free fluid in pelvis. RUQ US reviewed: CBD dilated 0.62cm, multiple gallstones present, GB wall 0.16cm. while in ER, pt was noted to have new left facial droop and LUE weakness (unable to lift against gravity). CTA: R ICA occlusion with distal reconstitution as well as several areas of severe stenosis. Transferred to [facility] stroke unit then she was transferred to [facility] but never had her GB stones addressed. Deon and her deny any h/o liver disease or cirrhosis. No alcohol or IVDA. She is unsure whether or not she ever received blood transfusion but did undergo CABG in 03/04. Her father of an [place] at 33. She suffers with chronic constipation. She has never had an EGD or a colonoscopy. She denies rectal bleeding. Patient underwent MRCP this morning which revealed no CBD stones and lipase has normalized. CRP < 0.3. Transaminases are rising but should begin to fall. She is tolerating clear liquids. She has no complaints this morning with the exception of crampy epigastric pain. She has no vomited since yesterday. 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: CVA (Right CVA with left hemiparesis 10/03 improved after vascular intervention at [facility]) Cardio/Vascular: Yes: CAD (CABG 03/04), CHF (severe global hypokinesis EF 30- 40%), HTN, Hyperlipdemia Gastrointestinal: Yes: Constipation Hepatobiliary: Yes: Cirrhosis (by sonogram), Cholelithiasis, Other (fatty liver) Reproductive: Yes: Fibroids (Had myomectomy) Endocrine: Yes: Diabetes Mellitus - Past Surgical History Past Surgical History: Yes: CABG Additional Surgical History: Myomectomy - Alcohol/Substance Use Hx Alcohol Use: No History of Substance Use: reports: None - Medical History Allergies/Adverse Reactions: Allergies Allergy/AdvReac Type Severity Reaction Status Date / Time oxycodone [Oxycodone] Allergy Intermediate Rash Verified 10/03/19 13:34 Home Medications: Ambulatory Orders metFORMIN HCL [Glucophage -] 500 mg PO BID 01/30/13 Insulin Aspart Prot/Insuln Asp [Novolog Mix 70-30 Vial] 40 unit SQ DAILY 03/02/14 Linagliptin [Tradjenta] 5 mg PO DAILY 02/07/19 Aspirin 81 mg PO DAILY 05/03/19 Atorvastatin Calcium 40 mg PO HS 05/03/19 Metoprolol Succinate [Toprol Xl] 25 mg PO DAILY 05/03/19 Multivit-Minerals/Herbal No217 [Advaclear Capsule] 1 each PO DAILY 05/03/19 - Immunization History Td Vaccination: Yes TDAP Vaccination: Yes Immunization Up to Date: Yes - Psycho-Social/Smoking History Smoking History: Never smoked Have you smoked in the past 12 months: No Number of Cigarettes Smoked Daily: 0 - Substance Abuse Hx (Audit-C & DAST Scrn) How often the patient has a drink containing alcohol: Never Score: In Men: 4 or > Positive; In Women: 3 or > Positive: 0 Screen Result (Pos requires Nsg. Audit-10AR): Negative In the last yr the pt used illegal drug/Rx for NonMed reason: No Score: Yes response is considered Positive: 0 Screen Result (Positive result requires Nsg. DAST-10): Negative - Review of Systems Able to Perform ROS?: Yes Constitutional: No: Chills, Fever, Weakness HEENT: No: Blurred Vision, Nose Congestion, Respiratory: No: Cough, Shortness of Breath, Wheezing Cardiac (ROS): No: Chest Pain, Edema, Palpitations, Chest Tightness ABD/GI: Yes: Diarrhea, Nausea, Vomiting, Abdominal cramping. No: Abdominal Distended, Abd. Pain w/ defecation, Difficulty Swallowing : No: Burning, Dysuria, Frequency, Hematuria, Urgency Musculoskeletal: Yes: Back Pain (flank pain) Integumentary: No: Change in Color Neurological: Yes: Pre-Existing Deficit (Left UE, left LE). No: Headache - Physical Exam General Appearance: A&Ox3, NAD HEENT: negative: Scleral Icterus (R), Scleral Icterus (L) Respiratory/Chest: unlabored resp on RA, no accessory muscle use, sternotomy scar noted Gastrointestinal/Abdominal: soft, ND with well healed scars an TTP in epigastrum and upper quadrants. No Guarding, masses or lesions. Musculoskeletal: moving all extremities without limitation. Integumentary Normal Color, Warm, Moist. negative: Jaundice Neurologic: Fully Oriented, Alert, Vital Signs Temperature 98.4 F 11/05/19 04:16 Pulse Rate 57 L 11/05/19 04:16 Respiratory Rate 18 11/05/19 04:16 Blood Pressure 140/49 L 11/05/19 04:16 O2 Sat by Pulse Oximetry (%) 100 11/05/19 04:16 Lab Results WBC 4.8 K/mm3 (4.0-10.0) 11/05/19 07:21 RBC 4.37 M/mm3 (3.60-5.2) 11/05/19 07:21 Hgb 12.0 GM/dL (10.7-15.3) 11/05/19 07:21 Hct 35.2 % (32.4-45.2) 11/05/19 07:21 MCV 80.6 fl (80-96) 11/05/19 07:21 MCHC 34.1 g/dl (32.0-36.0) 11/05/19 07:21 RDW 16.1 % (11.6-15.6) H 11/05/19 07:21 Plt Count 237 K/MM3 (134-434) 11/05/19 07:21 INR Cancelled 11/04/19 18:30 Sodium 144 mmol/L (136-145) 11/05/19 07:21 Potassium 3.5 mmol/L (3.5-5.1) 11/05/19 07:21 Chloride 109 mmol/L (98-107) H 11/05/19 07:21 Carbon Dioxide 27 mmol/L (21-32) 11/05/19 07:21 Anion Gap 8 MMOL/L (8-16) 11/05/19 07:21 BUN 5.0 mg/dL (7-18) L 11/05/19 07:21 Creatinine 0.6 mg/dL (0.55-1.3) 11/05/19 07:21 Random Glucose 127 mg/dL (74-106) H 11/05/19 07:21 Calcium 8.5 mg/dL (8.5-10.1) 11/05/19 07:21 Abnormal Lab Results 11/05/19 11/05/19 11/05/19 07:21 07:21 07:21 RDW 16.1 H MPV 7.3 L Eosinophils % 6.1 H D Chloride 109 H BUN 5.0 L Random Glucose 127 H Direct Bilirubin 0.4 H AST 691 H ALT 605 H Alkaline Phosphatase 199 H Total Protein 6.1 L HDL Cholesterol 68 H MRCP 11/04/19 Cholelithiasis with nonspecific pericolecystic fluid which could be secondary to third spacing or cholecystitis in the right clinical setting. No choledocholithiasis or pancreaticobilliary duct dilatation, No pancreatic signal abnormality or peripancreatic edema suggests acute pancreatitis. does not include mild form of pancreatitis. Problem List - Problems (1) Biliary acute pancreatitis Assessment/Plan: Biliary pancreatitis with CBD stone passage. At this point in time GI will hold off on ERCP considering her improvement and the associated risks. Patient will likely benefit from a cholecystectomy in the future when she is medically stable and optimized. -trial of full liquids -IVF -IV ABX -Miralax for constipation -colonoscopy for colon cancer screening 6 months after her CVA -Trend daily labs/LFTs -Pain control -Surgical plan pending Code(s): K85.10 - BILIARY ACUTE PANCREATITIS WITHOUT NECROSIS OR INFECTION
[2019-11-05] MEDS ORDERED: D5-1/2NS+20 MEQ KCL - 20 MEQ/1,000 ML INFUS.BAG IV SCH (10:15)
--- NOTE | 2019-11-05 10:48 | EKG ---
Test Reason : Blood Pressure : / mmHG Vent. Rate : 070 BPM Atrial Rate : 070 BPM P-R Int : 158 ms QRS Dur : 096 ms QT Int : 450 ms P-R-T Axes : 060 -46 113 degrees QTc Int : 486 ms NORMAL SINUS RHYTHM POSSIBLE LEFT ATRIAL ENLARGEMENT LEFT AXIS DEVIATION LEFT VENTRICULAR HYPERTROPHY WITH REPOLARIZATION ABNORMALITY INFERIOR INFARCT (CITED ON OR BEFORE 04-SEP-2013) ANTEROLATERAL INFARCT (CITED ON OR BEFORE 04-SEP-2013) ABNORMAL ECG NONSPECIFIC ST ABNORMALITY Confirmed by JANA CHO MD ([id number]) on 11/05/2019 10:47:28 AM Referred By: Confirmed By:JANA CHO MD
--- NOTE | 2019-11-05 10:53 | HP ---
DATE OF ADMISSION: 11/04/2019 HISTORY OF PRESENT ILLNESS: This is a 59-year-old female with past history of coronary artery bypass graft in February 2019, 3 vessels. She had CVA a month ago with left upper extremity weakness, status post MCA thrombectomy. She is diabetic, on insulin. Was not very compliant with her medications in the past. Now she says she is taking all her medication. I saw her about a week ago in the office. She did not have any complaints at that time. Now she came to the emergency room with complaints of severe abdominal pain. In the emergency room, it was thought that patient may have acute pancreatitis. Going to admit her. She has multiple small stones in the gallbladder but no evidence of acute cholecystitis by CAT scan. This morning she is still complaining of abdominal pain. SOCIAL HISTORY: She has grown-up children, and she lives with her . Not a smoker. No alcohol abuse. PHYSICAL EXAMINATION: Vital Signs: Today her blood pressure is 140/70, pulse 65, respiration 20, temperature 98. HEENT: Unremarkable. Neck: Supple. No JVD. Lungs: Clear. Heart: S1-S2 normal. No S3, S4. Abdomen: Soft, minimal tenderness is present in the right upper quadrant area. No rebound tenderness. Rectal: Not done. Neurologic: Grossly normal. There is left upper extremity weakness present. LABORATORY RESULTS: WBC 7.2, hemoglobin 11.7, platelet 236. INR 1.06. Chemistry: Sodium 144, potassium 3.6, chloride 109, BUN 5, creatinine 0.6, blood sugar when she came in 198, this morning 127. AST 691, ALT 605, elevated, alkaline phosphatase 199. Amylase when she came in it was 1326, this morning it is normal. COVID is pending. Hepatitis profile is pending. Ultrasound shows cholelithiasis cholecystitis. Liver cirrhosis present. CT of the abdomen: Pancreas demonstrate no definite CT abnormality. Cholelithiasis noted. IMPRESSION: 1. Pancreatitis caused by transient passage of gallstones. 2. recent cerebrovascular accident. 3. Diabetes. PLAN: Keep n.p.o. IV fluid. GI consult. Will follow. [employer] [id number]
[2019-11-05] MEDS: MORPHINE SULFATE 2 MG/ML VIAL IM PRN ×3 (11:12→23:07)
[2019-11-05] MEDS: RAMIPRIL 5 MG CAPSULE (FP) PO SCH (11:20)
[2019-11-05] MEDS: AMIODARONE HCL 200 MG TABLET PO SCH (11:20)
[2019-11-05] MEDS ORDERED: INSULIN (NOVOLOG) ASPART 100 UNITS/ML 10ML VIAL ONE (11:21)
[2019-11-05] MEDS: INSULIN SLIDING SCALE (NOVOLOG) 1 VIAL SQ SCH ×3 (11:35→21:04)
--- NOTE | 2019-11-05 14:08 | PN.GI ---
GI Progress Note Subjective: GI NOte: MRCP reveals no CBD stones and lipase has normalized. CRP < 0.3. Transaminases are rising but should begin to fall. Tolerated clear liquids. - Objective Vital Signs: Vital Signs Temperature 97.5 F L 11/05/19 10:00 Pulse Rate 65 11/05/19 10:00 Respiratory Rate 18 11/05/19 10:00 Blood Pressure 161/62 11/05/19 10:00 O2 Sat by Pulse Oximetry (%) 100 11/05/19 10:00 Laboratory Tests 11/04/19 11/04/19 11/04/19 12:38 13:35 13:35 WBC 7.2 Total Bilirubin 0.9 Direct Bilirubin AST 280 H ALT 160 H Alkaline Phosphatase 122 H C-Reactive Protein Triglycerides Total Amylase Lipase 1326 H Hep C Ab Diagnostic Pending 11/05/19 11/05/19 11/05/19 07:21 07:21 07:21 WBC 4.8 Total Bilirubin 1.0 Direct Bilirubin 0.4 H AST 691 H ALT 605 H Alkaline Phosphatase 199 H C-Reactive Protein < 0.3 Triglycerides 58 Total Amylase 60 Lipase 154 Hep C Ab Diagnostic Constitutional: No Distress ...Auscultate: Yes: Hypoactive Bowel Sounds ...Palpate: Yes: Soft, Other (nontender) Labs: CBC, BMP 11/05/19 07:21 11/05/19 07:21 INR, PTT INR Cancelled 11/04/19 18:30 Assessment/Plan Impression: - Resolving biliary pancreatitis with CBD stone passed as per MRCP so ERCP cancelled. Will need cholecystectomy as this will recur, particulalrly with small stones - Constipation- I advised a colonoscopy for colon cancer screening 6 months after her CVA - Fatty liver with possible cirrhosis by sonogram will need further evaluation. Suspect MCGILL if not cardiac cirrhosis Plan -- Trial of full liquids -- Can decrease IV fluids -- Continue antibiotics as anticipate cholecystectomy if neurologically cleared -- Will start Miralax -- Colonoscopy as outpatient 6 months after 10/[address] Bird will be covering this weekend Problem List - Problems (1) Biliary acute pancreatitis Code(s): K85.10 - BILIARY ACUTE PANCREATITIS WITHOUT NECROSIS OR INFECTION (2) Symptomatic cholelithiasis Code(s): K80.20 - CALCULUS OF GALLBLADDER W/O CHOLECYSTITIS W/O OBSTRUCTION (3) Fatty (change of) liver, not elsewhere classified Code(s): K76.0 - FATTY (CHANGE OF) LIVER, NOT ELSEWHERE CLASSIFIED (4) Hx of CABG Code(s): Z95.1 - PRESENCE OF AORTOCORONARY BYPASS GRAFT (5) Coronary arteriosclerosis Code(s): I25.10 - ATHSCL HEART DISEASE OF [place] CORONARY ARTERY W/O ANG PCTRS (6) HTN (hypertension) Code(s): I10 - ESSENTIAL (PRIMARY) HYPERTENSION (7) Hypercholesteremia Code(s): E78.00 - PURE HYPERCHOLESTEROLEMIA, UNSPECIFIED (8) Systolic and diastolic CHF, acute Code(s): I50.41 - ACUTE COMBINED SYSTOLIC AND DIASTOLIC (CONGESTIVE) HRT FAIL (9) T2DM (type 2 diabetes mellitus) Code(s): E11.9 - TYPE 2 DIABETES MELLITUS WITHOUT COMPLICATIONS Qualifiers: Diabetes mellitus shelter insulin use: with intermediate accountant use
[2019-11-05] MEDS ORDERED: LACTATED RINGERS SOLUTION 1,000 ML/1,000 ML INFUS.BAG IV SCH (14:15)
[2019-11-05] MEDS: POLYETHYLENE GLYCOL 3350 119 GM BTL PO SCH (21:03)
[2019-11-06] MEDS ORDERED: SODIUM CHLORIDE 100 ML IVPB ONE ×3 (00:57→18:10)
[2019-11-06] MEDS ORDERED: AMPICILLIN NA/SULBACTAM NA 1.5 GM VIAL ONE ×3 (00:57→18:10)
[2019-11-06] MEDS: AMPICILLIN NA/SULBACTAM NA 1.5 GM in SODIUM CHLORIDE 100 ML IVPB SCH ×3 (01:04→18:15)
[2019-11-06] MEDS: INSULIN SLIDING SCALE (NOVOLOG) 1 VIAL SQ SCH ×4 (06:04→21:29)
[2019-11-06] MEDS: MORPHINE SULFATE 2 MG/ML VIAL IM PRN ×3 (06:45→22:26)
[2019-11-06 08:37] LABS: ALBUMIN 3.2 g/dl (3.4-5.0); BILIRUBIN,DIRECT 0.2 mg/dL (0.0-0.2); BILIRUBIN,TOTAL 0.5 mg/dL (0.2-1); TOT PROT 5.5 g/dl (6.4-8.2)
[2019-11-06] MEDS: AMIODARONE HCL 200 MG TABLET PO SCH (09:45)
[2019-11-06] MEDS: RAMIPRIL 5 MG CAPSULE (FP) PO SCH (09:45)
[2019-11-06] MEDS: POLYETHYLENE GLYCOL 3350 119 GM BTL PO SCH ×2 (09:49→21:31)
[2019-11-06] MEDS ORDERED: LACTATED RINGERS SOLUTION 1,000 ML/1,000 ML INFUS.BAG IV SCH (11:40)
--- NOTE | 2019-11-06 11:41 | PN.GI ---
GI Progress Note Subjective: GI: For Dr. Priest who resumes care 11/07 Patient states that she was up all night due to pain - Objective Vital Signs: Vital Signs Temperature 98.2 F 11/06/19 10:00 Pulse Rate 73 11/06/19 10:00 Respiratory Rate 18 11/06/19 10:00 Blood Pressure 137/63 11/06/19 10:00 O2 Sat by Pulse Oximetry (%) 97 11/06/19 10:00 Constitutional: Calm Eyes: No: Sclera Icterus Cardiovascular: Yes: Regular Rate and Rhythm ...Auscultate: Yes: Normoactive Bowel Sounds ...Palpate: Yes: Tenderness (TTP predominantly mid abdomen) ...Percussion: No: Tympanitic Edema: No (No LE edema) Neurological: Yes: Alert Labs: 11/05/19 07:21 11/05/19 07:21 INR, PTT INR Cancelled 11/04/19 18:30 Hepatic Panel Total Bilirubin 0.5 mg/dL (0.2-1) 11/06/19 06:46 Direct Bilirubin 0.2 mg/dL (0.0-0.2) 11/06/19 06:46 AST 256 U/L (15-37) H 11/06/19 06:46 ALT 373 U/L (13-61) H 11/06/19 06:46 Alkaline Phosphatase 186 U/L (45-117) H 11/06/19 06:46 Albumin 3.2 g/dl (3.4-5.0) L 11/06/19 06:46 Problem List - Problems (1) Biliary acute pancreatitis Assessment/Plan: Persistent pain complaints Made NPO except meds IV Hydration as can tolerate. Increased to 75cc/hr Surgical follow-up AM Labs Code(s): K85.10 - BILIARY ACUTE PANCREATITIS WITHOUT NECROSIS OR INFECTION
--- NOTE | 2019-11-06 13:13 | PN ---
Progress Note, Physician Chief Complaint: Still C/O abdominal pain On IM morphine History of Present Illness: Dr Adler note noted Kept NPO ,on IV fluids - Current Medication List Current Medications: Active Medications Amiodarone HCl (Cordarone -) 200 mg PO DAILY [facility] Last Admin: 11/06/19 09:45 Dose: 200 mg Documented by: Ampicillin Sodium/Sulbactam (Sodium 1.5 gm/ Sodium Chloride) 100 mls @ 200 mls/hr IVPB Q8H-IV [facility] Last Admin: 11/06/19 09:45 Dose: 200 mls/hr Documented by: Metronidazole (Flagyl 500mg Premixed Ivpb -) 500 mg in 100 mls @ 100 mls/hr IVPB Q8H-IV [facility] Last Admin: 11/06/19 09:45 Dose: 100 mls/hr Documented by: Potassium Chloride/Dextrose/Sod Cl (D5-1/2ns+20 Meq Kcl -) 20 meq in 1,000 mls @ 83 mls/hr IV ASDIR [facility] Insulin Aspart (Novolog Vial Sliding Scale -) 1 vial SQ ACHS [facility]; Protocol Last Admin: 11/06/19 11:49 Dose: Not Given Documented by: Morphine Sulfate (Morphine Sulfate) 2 mg IM Q6H PRN PRN Reason: PAIN LEVEL 4 - 6 Last Admin: 11/06/19 06:45 Dose: 2 mg Documented by: Polyethylene Glycol (Miralax (For Daily Use) -) 17 gm PO BID [facility] Last Admin: 11/06/19 09:49 Dose: 17 gm Documented by: Ramipril (Altace -) 5 mg PO DAILY [facility] Last Admin: 11/06/19 09:45 Dose: 5 mg Documented by: - Objective Vital Signs: Vital Signs Temperature 98.2 F 11/06/19 10:00 Pulse Rate 73 11/06/19 10:00 Respiratory Rate 18 11/06/19 10:00 Blood Pressure 137/63 11/06/19 10:00 O2 Sat by Pulse Oximetry (%) 97 11/06/19 10:00 Constitutional: Yes: Mild Distress Eyes: Yes: WNL HENT: Yes: WNL Neck: Yes: WNL Cardiovascular: Yes: WNL Respiratory: Yes: WNL Gastrointestinal: Yes: Tenderness, Rebound ...Rectal Exam: Yes: Deferred Genitourinary: Yes: WNL Edema: No Psychiatric: Yes: Alert Labs: CBC, BMP 11/05/19 07:21 11/05/19 07:21 INR, PTT INR Cancelled 11/04/19 18:30 Assessment/Plan Continue same trt
[2019-11-06] MEDS: D5-1/2NS+20 MEQ KCL - 20 MEQ/1,000 ML INFUS.BAG IV SCH (13:34)
[2019-11-06 19:06] LABS: HEP B CORE AB, TOT Negative (Negative)
[2019-11-07] MEDS: D5-1/2NS+20 MEQ KCL - 20 MEQ/1,000 ML INFUS.BAG IV SCH ×3 (03:46→23:04)
[2019-11-07] MEDS ORDERED: AMPICILLIN NA/SULBACTAM NA 1.5 GM VIAL ONE ×3 (04:45→17:06)
[2019-11-07] MEDS ORDERED: SODIUM CHLORIDE 100 ML IVPB ONE ×3 (04:45→17:07)
[2019-11-07] MEDS: AMPICILLIN NA/SULBACTAM NA 1.5 GM in SODIUM CHLORIDE 100 ML IVPB SCH ×3 (04:47→17:14)
[2019-11-07] MEDS: MORPHINE SULFATE 2 MG/ML VIAL IM PRN ×4 (05:44→23:14)
[2019-11-07] MEDS: INSULIN SLIDING SCALE (NOVOLOG) 1 VIAL SQ SCH ×4 (07:41→21:35)
[2019-11-07 08:21] LABS: BASO % 0.8 % (0-2.0); EOS % 4.6 % (0-4.5); HEMATOCRIT 34.1 % (32.4-45.2); HEMOGLOBIN 11.5 GM/dL (10.7-15.3); LYMPH % 26.7 % (8-40); MCH 26.9 pg (25.7-33.7); MCHC 33.8 g/dl (32.0-36.0); MEAN CELL VOLUME 79.7 fl (80-96); MEAN PLT VOLUME 7.2 fl (7.5-11.1); MONO % 8.2 % (3.8-10.2); NEUT % 59.7 % (42.8-82.8); PLATELET COUNT 208 K/MM3 (134-434); RBC 4.28 M/mm3 (3.60-5.2); RDW 16.6 % (11.6-15.6); WHITE BLOOD COUNT 5.3 K/mm3 (4.0-10.0)
--- NOTE | 2019-11-07 08:36 | PN ---
Progress Note, Physician Chief Complaint: Feeling better denies pain History of Present Illness: 59 yr old admitted with acute abdominal pain, with elevation of lipase and transaminases, most likely from having passed a stone. Cholelithiasis if labs continue to improve will recommend cholecystectomy during this admission if medically cleared. - Current Medication List Current Medications: Active Medications Amiodarone HCl (Cordarone -) 200 mg PO DAILY [facility] Last Admin: 11/06/19 09:45 Dose: 200 mg Documented by: Ampicillin Sodium/Sulbactam (Sodium 1.5 gm/ Sodium Chloride) 100 mls @ 200 mls/hr IVPB Q8H-IV [facility] Last Admin: 11/07/19 04:47 Dose: 200 mls/hr Documented by: Metronidazole (Flagyl 500mg Premixed Ivpb -) 500 mg in 100 mls @ 100 mls/hr IVPB Q8H-IV [facility] Last Admin: 11/07/19 03:41 Dose: 100 mls/hr Documented by: Potassium Chloride/Dextrose/Sod Cl (D5-1/2ns+20 Meq Kcl -) 20 meq in 1,000 mls @ 83 mls/hr IV ASDIR [facility] Last Admin: 11/07/19 03:46 Dose: 83 mls/hr Documented by: Insulin Aspart (Novolog Vial Sliding Scale -) 1 vial SQ ACHS [facility]; Protocol Last Admin: 11/07/19 07:41 Dose: Not Given Documented by: Morphine Sulfate (Morphine Sulfate) 2 mg IM Q6H PRN PRN Reason: PAIN LEVEL 4 - 6 Last Admin: 11/07/19 05:44 Dose: 2 mg Documented by: Polyethylene Glycol (Miralax (For Daily Use) -) 17 gm PO BID [facility] Last Admin: 11/06/19 21:31 Dose: Not Given Documented by: Ramipril (Altace -) 5 mg PO DAILY [facility] Last Admin: 11/06/19 09:45 Dose: 5 mg Documented by: - Objective Vital Signs: Vital Signs Temperature 98 F 11/07/19 05:22 Pulse Rate 76 11/07/19 05:22 Respiratory Rate 18 11/07/19 05:22 Blood Pressure 170/58 L 11/07/19 05:22 O2 Sat by Pulse Oximetry (%) 99 11/07/19 05:22 Labs: CBC, BMP 11/07/19 07:09 INR, PTT INR Cancelled 11/04/19 18:30
[2019-11-07 08:49] LABS: ALBUMIN 3.2 g/dl (3.4-5.0); BILIRUBIN,DIRECT 0.2 mg/dL (0.0-0.2); BILIRUBIN,TOTAL 0.6 mg/dL (0.2-1); BLOOD UREA NITROGEN 5.4 mg/dL (7-18); CALCIUM 8.4 mg/dL (8.5-10.1); CREATININE 0.5 mg/dL (0.55-1.3); POTASSIUM 3.5 mmol/L (3.5-5.1); TOT PROT 5.6 g/dl (6.4-8.2)
[2019-11-07] MEDS: AMIODARONE HCL 200 MG TABLET PO SCH (10:02)
[2019-11-07] MEDS: RAMIPRIL 5 MG CAPSULE (FP) PO SCH (10:04)
[2019-11-07] MEDS: POLYETHYLENE GLYCOL 3350 119 GM BTL PO SCH ×2 (10:04→21:37)
[2019-11-07] MEDS ORDERED: INSULIN (NOVOLOG) ASPART 100 UNITS/ML 10ML VIAL ONE (10:50)
--- NOTE | 2019-11-07 12:03 | PN ---
Progress Note, Physician Chief Complaint: Pain less History of Present Illness: Dr Adame surgical follow up note noted,advise surgery before discharge Because of CABG 8 months ago will obtain cardiology consult - Current Medication List Current Medications: Active Medications Amiodarone HCl (Cordarone -) 200 mg PO DAILY [facility] Last Admin: 11/07/19 10:02 Dose: 200 mg Documented by: Ampicillin Sodium/Sulbactam (Sodium 1.5 gm/ Sodium Chloride) 100 mls @ 200 mls/hr IVPB Q8H-IV [facility] Last Admin: 11/07/19 10:01 Dose: 200 mls/hr Documented by: Metronidazole (Flagyl 500mg Premixed Ivpb -) 500 mg in 100 mls @ 100 mls/hr IVPB Q8H-IV [facility] Last Admin: 11/07/19 10:01 Dose: 100 mls/hr Documented by: Potassium Chloride/Dextrose/Sod Cl (D5-1/2ns+20 Meq Kcl -) 20 meq in 1,000 mls @ 83 mls/hr IV ASDIR [facility] Last Admin: 11/07/19 03:46 Dose: 83 mls/hr Documented by: Insulin Aspart (Novolog Vial Sliding Scale -) 1 vial SQ ACHS [facility]; Protocol Last Admin: 11/07/19 10:54 Dose: 4 units Documented by: Morphine Sulfate (Morphine Sulfate) 2 mg IM Q6H PRN PRN Reason: PAIN LEVEL 4 - 6 Last Admin: 11/07/19 11:52 Dose: 2 mg Documented by: Polyethylene Glycol (Miralax (For Daily Use) -) 17 gm PO BID [facility] Last Admin: 11/07/19 10:04 Dose: Not Given Documented by: Ramipril (Altace -) 5 mg PO DAILY [facility] Last Admin: 11/07/19 10:04 Dose: 5 mg Documented by: - Objective Vital Signs: Vital Signs Temperature 98.6 F 11/07/19 09:06 Pulse Rate 68 11/07/19 09:06 Respiratory Rate 18 11/07/19 09:06 Blood Pressure 140/63 11/07/19 09:06 O2 Sat by Pulse Oximetry (%) 100 11/07/19 09:06 Constitutional: Yes: No Distress Eyes: Yes: WNL HENT: Yes: WNL Neck: Yes: WNL Cardiovascular: Yes: WNL Respiratory: Yes: WNL Gastrointestinal: Yes: Other (non tender) Genitourinary: Yes: WNL Breast(s): Yes: WNL Musculoskeletal: Yes: WNL Extremities: Yes: WNL Neurological: Yes: Alert Labs: CBC, BMP 11/07/19 07:09 11/07/19 07:09 INR, PTT INR Cancelled 11/04/19 18:30 Assessment/Plan Cardiology consult
[2019-11-08] MEDS ORDERED: AMPICILLIN NA/SULBACTAM NA 1.5 GM VIAL ONE ×3 (03:29→17:45)
[2019-11-08] MEDS ORDERED: SODIUM CHLORIDE 100 ML IVPB ONE ×3 (03:29→17:45)
[2019-11-08] MEDS: AMPICILLIN NA/SULBACTAM NA 1.5 GM in SODIUM CHLORIDE 100 ML IVPB SCH ×3 (03:33→19:42)
[2019-11-08] MEDS: INSULIN SLIDING SCALE (NOVOLOG) 1 VIAL SQ SCH ×4 (06:47→21:12)
[2019-11-08] MEDS ORDERED: INSULIN (NOVOLOG) ASPART 100 UNITS/ML 10ML VIAL ONE ×3 (06:57→21:04)
[2019-11-08 08:59] LABS: HEMOGLOBIN 11.8 GM/dL (10.7-15.3); MCHC 33.8 g/dl (32.0-36.0); MEAN CELL VOLUME 79.9 fl (80-96); MEAN PLT VOLUME 7.1 fl (7.5-11.1); PLATELET COUNT 208 K/MM3 (134-434); RBC 4.38 M/mm3 (3.60-5.2); RDW 16.3 % (11.6-15.6); WHITE BLOOD COUNT 5.9 K/mm3 (4.0-10.0)
--- NOTE | 2019-11-08 09:20 | PN ---
Progress Note, Physician Chief Complaint: Feels better,tolerated clear liquids well - Current Medication List Current Medications: Active Medications Amiodarone HCl (Cordarone -) 200 mg PO DAILY [facility] Last Admin: 11/07/19 10:02 Dose: 200 mg Documented by: Ampicillin Sodium/Sulbactam (Sodium 1.5 gm/ Sodium Chloride) 100 mls @ 200 mls/hr IVPB Q8H-IV [facility] Last Admin: 11/08/19 03:33 Dose: 200 mls/hr Documented by: Metronidazole (Flagyl 500mg Premixed Ivpb -) 500 mg in 100 mls @ 100 mls/hr IVPB Q8H-IV [facility] Last Admin: 11/08/19 02:23 Dose: 100 mls/hr Documented by: Potassium Chloride/Dextrose/Sod Cl (D5-1/2ns+20 Meq Kcl -) 20 meq in 1,000 mls @ 83 mls/hr IV ASDIR [facility] Last Admin: 11/07/19 23:04 Dose: 83 mls/hr Documented by: Insulin Aspart (Novolog Vial Sliding Scale -) 1 vial SQ ACHS [facility]; Protocol Last Admin: 11/08/19 06:47 Dose: 4 units Documented by: Morphine Sulfate (Morphine Sulfate) 2 mg IM Q6H PRN PRN Reason: PAIN LEVEL 4 - 6 Last Admin: 11/07/19 23:14 Dose: 2 mg Documented by: Polyethylene Glycol (Miralax (For Daily Use) -) 17 gm PO BID [facility] Last Admin: 11/07/19 21:37 Dose: 17 gm Documented by: Ramipril (Altace -) 5 mg PO DAILY [facility] Last Admin: 11/07/19 10:04 Dose: 5 mg Documented by: - Objective Vital Signs: Vital Signs Temperature 98 F 11/08/19 05:03 Pulse Rate 69 11/08/19 05:03 Respiratory Rate 18 11/08/19 05:03 Blood Pressure 148/62 11/08/19 05:03 O2 Sat by Pulse Oximetry (%) 98 11/08/19 05:03 Constitutional: Yes: No Distress Eyes: Yes: WNL HENT: Yes: WNL Neck: Yes: WNL Cardiovascular: Yes: WNL Respiratory: Yes: WNL Gastrointestinal: Yes: Normal Bowel Sounds Breast(s): Yes: WNL Musculoskeletal: Yes: WNL Extremities: Yes: WNL Edema: No Integumentary: Yes: WNL Labs: CBC, BMP 11/08/19 07:55 INR, PTT INR Cancelled 11/04/19 18:30 Assessment/Plan will discuss with Dr Gilliland
[2019-11-08 09:31] LABS: ALBUMIN 3.2 g/dl (3.4-5.0); BILIRUBIN,DIRECT 0.2 mg/dL (0.0-0.2); BILIRUBIN,TOTAL 0.6 mg/dL (0.2-1); CALCIUM 8.7 mg/dL (8.5-10.1); CREATININE 0.6 mg/dL (0.55-1.3); POTASSIUM 3.7 mmol/L (3.5-5.1); TOT PROT 5.9 g/dl (6.4-8.2)
[2019-11-08] MEDS: RAMIPRIL 5 MG CAPSULE (FP) PO SCH (10:30)
[2019-11-08] MEDS: AMIODARONE HCL 200 MG TABLET PO SCH (10:30)
[2019-11-08] MEDS: POLYETHYLENE GLYCOL 3350 119 GM BTL PO SCH ×2 (10:31→21:13)
--- NOTE | 2019-11-08 11:13 | CON.CARD ---
Cardiology Consult (text) - Consultation Consultation Note: cardiology covering for Dr Abbott cc: abd pain hpi: 59 f hx syst chf, cad s/p cabg 02/2019, cva 09/2019, htn, hld, dm here with lower abd pain. No cp sob palps dizzy loc pnd orthopnea le edema. Found to have gall stone pancreatitis. May need cholecystectomy. pmh: per hpi psh: cabg social: no tob fam: dad had possible mi age 32 ros: per hpi; all others nl med: Ambulatory Orders metFORMIN HCL [Glucophage -] 500 mg PO BID 01/30/13 Insulin Aspart Prot/Insuln Asp [Novolog Mix 70-30 Vial] 40 unit SQ DAILY 03/02/14 Linagliptin [Tradjenta] 5 mg PO DAILY 02/07/19 Aspirin 81 mg PO DAILY 05/03/19 Atorvastatin Calcium 40 mg PO HS 05/03/19 Metoprolol Succinate [Toprol Xl] 25 mg PO DAILY 05/03/19 Multivit-Minerals/Herbal No217 [Advaclear Capsule] 1 each PO DAILY 05/03/19 pe: Vital Signs Period Temp Pulse Resp BP Sys/Godoy Pulse Ox Last 24 Hr 98 F-98.5 F 67-69 18-18 109-148/62-66 98-100 nad no jvd rrr s1s2 no mrg cta bl nl eff aao3 no le e/c/c abd mild tender, non distended, +bs no jaundice diaphoresis pos dp pt no carotid bruits Laboratory Last Values WBC 5.9 K/mm3 (4.0-10.0) 11/08/19 07:55 RBC 4.38 M/mm3 (3.60-5.2) 11/08/19 07:55 Hgb 11.8 GM/dL (10.7-15.3) 11/08/19 07:55 Hct 35.0 % (32.4-45.2) 11/08/19 07:55 MCV 79.9 fl (80-96) L 11/08/19 07:55 MCH 27.0 pg (25.7-33.7) 11/08/19 07:55 MCHC 33.8 g/dl (32.0-36.0) 11/08/19 07:55 RDW 16.3 % (11.6-15.6) H 11/08/19 07:55 Plt Count 208 K/MM3 (134-434) 11/08/19 07:55 MPV 7.1 fl (7.5-11.1) L 11/08/19 07:55 Absolute Neuts (auto) 3.1 K/mm3 (1.5-8.0) 11/07/19 07:09 Neutrophils % 59.7 % (42.8-82.8) 11/07/19 07:09 Lymphocytes % 26.7 % (8-40) 11/07/19 07:09 Monocytes % 8.2 % (3.8-10.2) 11/07/19 07:09 Eosinophils % 4.6 % (0-4.5) H 11/07/19 07:09 Basophils % 0.8 % (0-2.0) 11/07/19 07:09 Nucleated RBC % 0 % (0-0) 11/07/19 07:09 PT with INR Cancelled 11/04/19 18:30 INR Cancelled 11/04/19 18:30 PTT (Actin FS) Cancelled 11/04/19 18:30 Sodium 141 mmol/L (136-145) 11/08/19 07:55 Potassium 3.7 mmol/L (3.5-5.1) 11/08/19 07:55 Chloride 109 mmol/L (98-107) H 11/08/19 07:55 Carbon Dioxide 25 mmol/L (21-32) 11/08/19 07:55 Anion Gap 7 MMOL/L (8-16) L 11/08/19 07:55 BUN 4.0 mg/dL (7-18) L 11/08/19 07:55 Creatinine 0.6 mg/dL (0.55-1.3) 11/08/19 07:55 Est GFR (CKD-EPI)AfAm 114.82 11/08/19 07:55 Est GFR (CKD-EPI)NonAf 99.07 11/08/19 07:55 POC Glucometer 158 UNITS (80-120) 11/08/19 05:59 Random Glucose 168 mg/dL (74-106) H 11/08/19 07:55 Calcium 8.7 mg/dL (8.5-10.1) 11/08/19 07:55 Magnesium 1.6 mg/dL (1.8-2.4) L 11/04/19 13:35 Total Bilirubin 0.6 mg/dL (0.2-1) 11/08/19 07:55 Direct Bilirubin 0.2 mg/dL (0.0-0.2) 11/08/19 07:55 AST 60 U/L (15-37) H 11/08/19 07:55 ALT 187 U/L (13-61) H 11/08/19 07:55 Alkaline Phosphatase 150 U/L (45-117) H 11/08/19 07:55 Creatine Kinase 107 U/L (26-192) 11/04/19 13:35 Troponin I < 0.02 ng/ml (0.00-0.05) 11/04/19 13:35 C-Reactive Protein 1.1 MG/DL (0.00-0.3) H 11/07/19 07:09 Total Protein 5.9 g/dl (6.4-8.2) L 11/08/19 07:55 Albumin 3.2 g/dl (3.4-5.0) L 11/08/19 07:55 Triglycerides 58 mg/dL (0-150) 11/05/19 07:21 Cholesterol 136 mg/dL (50-200) 11/05/19 07:21 Total LDL Cholesterol 53 mg/dL (5-100) 11/05/19 07:21 HDL Cholesterol 68 mg/dL (40-60) H 11/05/19 07:21 Total Amylase 60 U/L (25-115) 11/05/19 07:21 Lipase 112 U/L (73-393) 11/08/19 07:55 Tumor Marker AFP 4.4 ng/ml (0.0-8.3) 11/05/19 07:21 Smooth [employer] Intrp 4 Units (0-19) 11/05/19 07:21 COVID-19 (IVETTE) Not detected (Not Detected) 11/04/19 22:05 Hep A IgM Ab Confirm Negative (Negative) 11/05/19 07:21 Hepatitis A Ab Total Positive (Negative) H 11/05/19 07:21 Hep Bs Antigen Negative (Negative) 11/05/19 07:21 Hep Bs Antibody Non reactive (.) 11/05/19 07:21 Hep B Core Total Ab Negative (Negative) 11/05/19 07:21 Hep B Core IgM Ab Negative (Negative) 11/05/19 07:21 Hepatitis Be Antibody Negative (Negative) 11/05/19 07:21 Hepatitis Be Antigen Negative (Negative) 11/05/19 07:21 Hep C Ab Diagnostic <0.1 s/co ratio (0.0-0.9) 11/04/19 12:38 ecg: sr, lvh with repol changes, similar to prior echo 01/2019: lvef 30-35, global hk, rv tds, mild tr, nl rvsp mibi 01/2019: ant scar with zuhair-ischemia--> cath-->cabg a/p: 59 f hx syst chf, cad s/p cabg 02/2019, cva 09/2019, htn, hld, dm here with lower abd pain. cad: -stable, no signs acs, no anginal sxs -holding asa in case of OR for pancreatitis -holding statin due to pancreatitis -cont jad -pt reports being on amio since her cabg and was told to continue for now by her sinker puller, cont same for now (?possibly had post cabg afib) chronic syst chf: -vol stable off diuretic, monitor closely with ivfs -cont jad -check echo to see if lvef improved after cabg htn: -stable cva: -recent cva, cont bp control, statin when possible gall stone pancreatitis: -GI, surgery following -may need cholecystectomy, will continue with preop eval after echo done
--- NOTE | 2019-11-08 12:02 | PN.GI ---
GI Progress Note Subjective: GI Note: Continue to complain of generalized abdominal pain. Source is unclear as she does not have cholangitis or pancreatitis, ? cholecystitis - Objective Vital Signs: Vital Signs Temperature 98 F 11/08/19 05:03 Pulse Rate 69 11/08/19 05:03 Respiratory Rate 18 11/08/19 05:03 Blood Pressure 148/62 11/08/19 05:03 O2 Sat by Pulse Oximetry (%) 98 11/08/19 05:03 Laboratory Tests 11/04/19 11/04/19 11/05/19 13:35 13:35 07:21 WBC 7.2 Total Bilirubin 0.9 1.0 Direct Bilirubin AST 280 H 691 H ALT 160 H 605 H Alkaline Phosphatase C-Reactive Protein Lipase 11/06/19 11/07/19 11/08/19 06:46 07:09 07:55 WBC Total Bilirubin 0.6 Direct Bilirubin 0.2 AST 256 H 106 H 60 H ALT 373 H 243 H 187 H Alkaline Phosphatase 150 H C-Reactive Protein 1.1 H Lipase 11/08/19 11/08/19 07:55 07:55 WBC 5.9 Total Bilirubin Direct Bilirubin AST ALT Alkaline Phosphatase C-Reactive Protein Lipase 112 Constitutional: Anxious ...Auscultate: Yes: Hypoactive Bowel Sounds ...Palpate: Yes: Soft, Other (diffuse mild nonlocalizing tenderness) Labs: CBC, BMP 11/08/19 07:55 11/08/19 07:55 INR, PTT INR Cancelled 11/04/19 18:30 Assessment/Plan Impression: - Resolved biliary pancreatitis with CBD stone passed as per MRCP. Will need cholecystectomy as this will recur, particularly with small stones - Constipation- I advised a colonoscopy for colon cancer screening 6 months after her CVA - Fatty liver with possible cirrhosis by sonogram will need further evaluation. Suspect MCGILL if not cardiac cirrhosis Plan -- Continue antibiotics as anticipate cholecystectomy once cleared -- Continue Miralax -- Colonoscopy as outpatient 6 months after 10/03 CVA Problem List - Problems (1) Biliary acute pancreatitis Code(s): K85.10 - BILIARY ACUTE PANCREATITIS WITHOUT NECROSIS OR INFECTION (2) Symptomatic cholelithiasis Code(s): K80.20 - CALCULUS OF GALLBLADDER W/O CHOLECYSTITIS W/O OBSTRUCTION (3) Fatty (change of) liver, not elsewhere classified Code(s): K76.0 - FATTY (CHANGE OF) LIVER, NOT ELSEWHERE CLASSIFIED (4) Hx of CABG Code(s): Z95.1 - PRESENCE OF AORTOCORONARY BYPASS GRAFT (5) Coronary arteriosclerosis Code(s): I25.10 - ATHSCL HEART DISEASE OF [place] CORONARY ARTERY W/O ANG PCTRS (6) HTN (hypertension) Code(s): I10 - ESSENTIAL (PRIMARY) HYPERTENSION (7) Hypercholesteremia Code(s): E78.00 - PURE HYPERCHOLESTEROLEMIA, UNSPECIFIED (8) Systolic and diastolic CHF, acute Code(s): I50.41 - ACUTE COMBINED SYSTOLIC AND DIASTOLIC (CONGESTIVE) HRT FAIL (9) T2DM (type 2 diabetes mellitus) Code(s): E11.9 - TYPE 2 DIABETES MELLITUS WITHOUT COMPLICATIONS Qualifiers: Diabetes mellitus mcfp insulin use: with bed bug exterminator use
[2019-11-08] MEDS: MORPHINE SULFATE 2 MG/ML VIAL IM PRN ×2 (12:25→18:53)
--- NOTE | 2019-11-08 12:47 | PN ---
Progress Note (short form) - Note Progress Note: Surgery Patient seen and examined on AM rounds. Patient denies any new or worsening symptoms and states her abdominal pain is improving. She is tolerating her clear diet and denies any CP, SOB, N/V, fever or chills. She is awaiting cardiac clearance for laparoscopic cholecystectomy. Vital Signs Temp 98 F 11/08/19 05:03 Pulse 69 11/08/19 05:03 Resp 18 11/08/19 05:03 BP 148/62 11/08/19 05:03 Pulse Ox 98 11/08/19 05:03 Intake & Output 11/07/19 11/08/19 11/08/19 23:59 11:59 23:59 Intake Total 1478 1050 Balance 1478 1050 Intake: IV 928 480 D5-1/2NS+20 MEQ KCL - 20 928 480 meq In 1,000 ml @ 83 mls/ hr IV ASDIR JOHN Rx#: [id number] IVPB 400 200 Oral 150 150 Oral Supplement 220 Other: Voiding Method Toilet Toilet # Unmeasured Voids Void 1 2 Bowel Movement No No CBC, BMP 11/08/19 07:55 11/08/19 07:55 Abnormal Lab Results 11/08/19 11/08/19 07:55 07:55 MCV 79.9 L RDW 16.3 H MPV 7.1 L Chloride 109 H Anion Gap 7 L BUN 4.0 L Random Glucose 168 H AST 60 H ALT 187 H Alkaline Phosphatase 150 H Total Protein 5.9 L Albumin 3.2 L PE: A&Ox3, NAD Unlabored resp on RA ABD: Obese, soft, ND with diffuse TTP throughout-worse in epigastric area. B/L LE compartments soft, NT, ND Problem List - Problems (1) Biliary acute pancreatitis Assessment/Plan: 59yo being followed for gallstone pancreatitis vs chronic cholesytitis, cholelithiasis, continues to have elevated LFTs but lipase now WNL. Awaiting cardiology work up for surgical clearance. -Continue clears -Trend daily labs -ECHO pending -Medical optimization -Surgical plan pending cardiac clearance Evaluation and plan discussed with Dr Pinzon Code(s): K85.10 - BILIARY ACUTE PANCREATITIS WITHOUT NECROSIS OR INFECTION
[2019-11-08] MEDS: D5-1/2NS+20 MEQ KCL - 20 MEQ/1,000 ML INFUS.BAG IV SCH ×2 (13:59→15:34)
[2019-11-09] MEDS: MORPHINE SULFATE 2 MG/ML VIAL IM PRN ×2 (02:05→18:14)
[2019-11-09] MEDS ORDERED: SODIUM CHLORIDE 100 ML IVPB ONE ×2 (02:40→10:28)
[2019-11-09] MEDS ORDERED: AMPICILLIN NA/SULBACTAM NA 1.5 GM VIAL ONE ×2 (02:40→10:28)
[2019-11-09] MEDS: AMPICILLIN NA/SULBACTAM NA 1.5 GM in SODIUM CHLORIDE 100 ML IVPB SCH ×3 (02:42→22:36)
[2019-11-09] MEDS: D5-1/2NS+20 MEQ KCL - 20 MEQ/1,000 ML INFUS.BAG IV SCH (06:45)
[2019-11-09] MEDS: INSULIN SLIDING SCALE (NOVOLOG) 1 VIAL SQ SCH ×5 (06:51→22:21)
--- NOTE | 2019-11-09 09:25 | PN ---
Progress Note, Physician Chief Complaint: Feels better History of Present Illness: Dr Morochos cardiology consult appreciated Echo cardiogram done,if OK cardiology will clear for surgery Case discussed with surgery - Current Medication List Current Medications: Active Medications Amiodarone HCl (Cordarone -) 200 mg PO DAILY [facility] Last Admin: 11/08/19 10:30 Dose: 200 mg Documented by: Ampicillin Sodium/Sulbactam (Sodium 1.5 gm/ Sodium Chloride) 100 mls @ 200 mls/hr IVPB Q8H-IV [facility] Last Admin: 11/09/19 02:42 Dose: 200 mls/hr Documented by: Metronidazole (Flagyl 500mg Premixed Ivpb -) 500 mg in 100 mls @ 100 mls/hr IVPB Q8H-IV [facility] Last Admin: 11/09/19 01:21 Dose: 100 mls/hr Documented by: Potassium Chloride/Dextrose/Sod Cl (D5-1/2ns+20 Meq Kcl -) 20 meq in 1,000 mls @ 83 mls/hr IV ASDIR [facility] Last Admin: 11/09/19 06:45 Dose: 83 mls/hr Documented by: Insulin Aspart (Novolog Vial Sliding Scale -) 1 vial SQ ACHS [facility]; Protocol Last Admin: 11/09/19 06:51 Dose: Not Given Documented by: Morphine Sulfate (Morphine Sulfate) 2 mg IM Q6H PRN PRN Reason: PAIN LEVEL 4-6 Last Admin: 11/09/19 02:05 Dose: 2 mg Documented by: Polyethylene Glycol (Miralax (For Daily Use) -) 17 gm PO BID [facility] Last Admin: 11/08/19 21:13 Dose: 17 gm Documented by: Ramipril (Altace -) 5 mg PO DAILY [facility] Last Admin: 11/08/19 10:30 Dose: 5 mg Documented by: - Objective Vital Signs: Vital Signs Temperature 98.1 F 11/09/19 05:49 Pulse Rate 65 11/09/19 05:49 Respiratory Rate 18 11/09/19 05:49 Blood Pressure 138/56 L 11/09/19 05:49 O2 Sat by Pulse Oximetry (%) 99 11/09/19 05:49 Constitutional: Yes: No Distress Eyes: Yes: WNL HENT: Yes: WNL Neck: Yes: WNL Cardiovascular: Yes: WNL Respiratory: Yes: WNL Gastrointestinal: Yes: WNL ...Rectal Exam: Yes: Deferred Genitourinary: Yes: WNL Edema: No Neurological: Yes: Alert Psychiatric: Yes: Alert Labs: CBC, BMP 11/08/19 07:55 11/08/19 07:55 INR, PTT INR Cancelled 11/04/19 18:30 Assessment/Plan Full liquid diet DC iv fluids
--- NOTE | 2019-11-09 09:30 | SPA.PREOP ---
- PRE-OP NOTE Dx: gallstone pancreatitis. chronic cholesytitis, cholelithiasis Planned Procedure: Lap Zenobia possible open Surgeon: Kamlesh Gilliland Last Vital Signs Temp Pulse Resp BP Pulse Ox 98.1 F 65 18 138/56 L 99 11/09/19 05:49 11/09/19 05:49 11/09/19 05:49 11/09/19 05:49 11/09/19 05:49 CBC, BMP 11/08/19 07:55 11/08/19 07:55 Serology Test 11/04/19 22:05 COVID-19 (IVETTE) Not detected - ASSESSMENT/PLAN 1. NPO after midnight except po meds 2. GI/DVT PPX 3. Medical optimization / clearance 4. Consent to be obtained by surgeon after risks, benefits and alternatives discussed with patient and or Health Care Proxy. 5. Coags & T&S ordered Problem List - Problems (1) Biliary acute pancreatitis Code(s): K85.10 - BILIARY ACUTE PANCREATITIS WITHOUT NECROSIS OR INFECTION (2) Cholelithiasis Code(s): K80.20 - CALCULUS OF GALLBLADDER W/O CHOLECYSTITIS W/O OBSTRUCTION (3) RUQ abdominal pain Code(s): R10.11 - RIGHT UPPER QUADRANT PAIN (4) Symptomatic cholelithiasis Code(s): K80.20 - CALCULUS OF GALLBLADDER W/O CHOLECYSTITIS W/O OBSTRUCTION (5) HTN (hypertension) Code(s): I10 - ESSENTIAL (PRIMARY) HYPERTENSION (6) Low back pain Code(s): M54.5 - LOW BACK PAIN Qualifiers: Chronicity: acute Back pain laterality: midline Sciatica presence: without sciatica Qualified Code(s): M54.5 - Low back pain (7) Stroke Code(s): I63.9 - CEREBRAL INFARCTION, UNSPECIFIED Qualifiers: CVA mechanism: occlusion Precerebral and cerebral artery: unspecified precerebral artery Qualified Code(s): I63.20 - Cerebral infarction due to unspecified occlusion or stenosis of unspecified precerebral arteries Visit type - Case Type Case Type: ED Admission - Emergency Emergency Visit: Yes ED Registration Date: 11/04/19 Care time: The patient presented to the Emergency Department on the above date and was hospitalized for further evaluation of their emergent condition. - New patient This patient is new to me today: Yes Date on this admission: 11/09/19
[2019-11-09] MEDS: AMIODARONE HCL 200 MG TABLET PO SCH (10:43)
[2019-11-09] MEDS: POLYETHYLENE GLYCOL 3350 119 GM BTL PO SCH ×2 (10:43→22:21)
[2019-11-09] MEDS: RAMIPRIL 5 MG CAPSULE (FP) PO SCH (10:43)
[2019-11-09 11:51] LABS: INR 1.13 (0.83-1.09); PROTHROMBIN TIME (PATIENT) 13.4 SEC (9.7-13.0)
--- NOTE | 2019-11-09 11:57 | ECHO ---
Version: 1 Name: BRITTA CORONEL Exam: Adult Echocardiogram Study Date: 11/09/2019, 8:42 AM Age: 59 Years MMode/2D Measurements & Calculations IVSd: 1.10 cm LVIDs: 2.28 cm LVIDd: 3.0 cm LVPWd: 1.27 cm LAV (MOD-bp): 45.0 ml ACS: 1.65 cm Ao root diam: 2.21 cm LVOT diam: 1.77 cm LA dimension: 3.6 cm Doppler Measurements & Calculations MV E max adam: 77.0 cm/sec Med E/e': 25.0 MV A max adam: 105.1 cm/sec Med Peak E' Adam: 3.1 cm/sec MV E/A: 0.73 Lat E/e': 11.0 Lat Peak E' Adam: 7.0 cm/sec Ao max P.2 mmHg Ao V2 max: 113.1 cm/sec PI end-d adam: 139.6 cm/sec TR max adam: 254.7 cm/sec TR max P.0 mmHg Left Ventricle The left ventricle is grossly normal size. Low normal LV function, EF 50%. Abnormal diastolic compli ance (Grade 1). Right Ventricle The right ventricle is normal in size and function. Atria Normal left and right atrial size and function. Mitral Valve The mitral valve is normal in structure and function. Trace MR. Tricuspid Valve The tricuspid valve is normal in structure and function. Trace TR, PASP 24 mmHg. Aortic Valve The aortic valve is normal in structure and function. Lambl's excrescences noted. Pulmonic Valve The pulmonic valve is normal in structure and function. Great Vessels The aortic root is normal size. Pericardium/Pleura There is no pericardial effusion. Summary Statements The left ventricle is grossly normal size. Low normal LV function, EF 50% Abnormal diastolic compliance (Grade 1) The right ventricle is normal in size and function. Normal left and right atrial size and function. The mitral valve is normal in structure and function. Trace MR The tricuspid valve is normal in structure and function. Trace TR, PASP 24 mmHg The aortic valve is normal in structure and function. Lambl's excrescences noted MD Shaka Corbin 11/09/2019, 11:57 AM Ordering Physician: Rainer Mosquera Referring Physician: OMKAR Performed By: Sarah Chan
--- NOTE | 2019-11-09 12:27 | PN ---
Progress Note (short form) - Note Progress Note: [facility] *LIVE* Cardiology Consult(short forn) Patient Name: BRITTA CORONEL Date of : 1960 Patient Status: Inpatient Attending Provider: Sam Cifuentes Date: 11/08/19 11:10 Initialization Date: 11/08/19 11:10 Cardiology Consult (text) - Consultation Consultation Note: cardiology covering for Dr Abbott cc: abd pain hpi: 59 f hx syst chf, cad s/p cabg 02/2019, cva 09/2019, htn, hld, dm here with lower abd pain. No cp sob palps dizzy loc pnd orthopnea le edema. Found to have gall stone pancreatitis. May need cholecystectomy. pmh: per hpi psh: cabg social: no tob fam: dad had possible mi age 32 ros: per hpi; all others nl med: Ambulatory Orders metFORMIN HCL [Glucophage -] 500 mg PO BID 01/30/13 Insulin Aspart Prot/Insuln Asp [Novolog Mix 70-30 Vial] 40 unit SQ DAILY 03/02/14 Linagliptin [Tradjenta] 5 mg PO DAILY 02/07/19 Aspirin 81 mg PO DAILY 05/03/19 Atorvastatin Calcium 40 mg PO HS 05/03/19 Metoprolol Succinate [Toprol Xl] 25 mg PO DAILY 05/03/19 Multivit-Minerals/Herbal No217 [Advaclear Capsule] 1 each PO DAILY 05/03/19 pe: Vital Signs Period Temp Pulse Resp BP Sys/Godoy Pulse Ox Last 24 Hr 98 F-98.5 F 67-69 18-18 109-148/62-66 98-100 nad no jvd rrr s1s2 no mrg cta bl nl eff aao3 no le e/c/c abd mild tender, non distended, +bs no jaundice diaphoresis pos dp pt no carotid bruits Laboratory Last Values WBC 5.9 K/mm3 (4.0-10.0) 11/08/19 07:55 RBC 4.38 M/mm3 (3.60-5.2) 11/08/19 07:55 Hgb 11.8 GM/dL (10.7-15.3) 11/08/19 07:55 Hct 35.0 % (32.4-45.2) 11/08/19 07:55 MCV 79.9 fl (80-96) L 11/08/19 07:55 MCH 27.0 pg (25.7-33.7) 11/08/19 07:55 MCHC 33.8 g/dl (32.0-36.0) 11/08/19 07:55 RDW 16.3 % (11.6-15.6) H 11/08/19 07:55 Plt Count 208 K/MM3 (134-434) 11/08/19 07:55 MPV 7.1 fl (7.5-11.1) L 11/08/19 07:55 Absolute Neuts (auto) 3.1 K/mm3 (1.5-8.0) 11/07/19 07:09 Neutrophils % 59.7 % (42.8-82.8) 11/07/19 07:09 Lymphocytes % 26.7 % (8-40) 11/07/19 07:09 Monocytes % 8.2 % (3.8-10.2) 11/07/19 07:09 Eosinophils % 4.6 % (0-4.5) H 11/07/19 07:09 Basophils % 0.8 % (0-2.0) 11/07/19 07:09 Nucleated RBC % 0 % (0-0) 11/07/19 07:09 PT with INR Cancelled 11/04/19 18:30 INR Cancelled 11/04/19 18:30 PTT (Actin FS) Cancelled 11/04/19 18:30 Sodium 141 mmol/L (136-145) 11/08/19 07:55 Potassium 3.7 mmol/L (3.5-5.1) 11/08/19 07:55 Chloride 109 mmol/L (98-107) H 11/08/19 07:55 Carbon Dioxide 25 mmol/L (21-32) 11/08/19 07:55 Anion Gap 7 MMOL/L (8-16) L 11/08/19 07:55 BUN 4.0 mg/dL (7-18) L 11/08/19 07:55 Creatinine 0.6 mg/dL (0.55-1.3) 11/08/19 07:55 Est GFR (CKD-EPI)AfAm 114.82 11/08/19 07:55 Est GFR (CKD-EPI)NonAf 99.07 11/08/19 07:55 POC Glucometer 158 UNITS (80-120) 11/08/19 05:59 Random Glucose 168 mg/dL (74-106) H 11/08/19 07:55 Calcium 8.7 mg/dL (8.5-10.1) 11/08/19 07:55 Magnesium 1.6 mg/dL (1.8-2.4) L 11/04/19 13:35 Total Bilirubin 0.6 mg/dL (0.2-1) 11/08/19 07:55 Direct Bilirubin 0.2 mg/dL (0.0-0.2) 11/08/19 07:55 AST 60 U/L (15-37) H 11/08/19 07:55 ALT 187 U/L (13-61) H 11/08/19 07:55 Alkaline Phosphatase 150 U/L (45-117) H 11/08/19 07:55 Creatine Kinase 107 U/L (26-192) 11/04/19 13:35 Troponin I < 0.02 ng/ml (0.00-0.05) 11/04/19 13:35 C-Reactive Protein 1.1 MG/DL (0.00-0.3) H 11/07/19 07:09 Total Protein 5.9 g/dl (6.4-8.2) L 11/08/19 07:55 Albumin 3.2 g/dl (3.4-5.0) L 11/08/19 07:55 Triglycerides 58 mg/dL (0-150) 11/05/19 07:21 Cholesterol 136 mg/dL (50-200) 11/05/19 07:21 Total LDL Cholesterol 53 mg/dL (5-100) 11/05/19 07:21 HDL Cholesterol 68 mg/dL (40-60) H 11/05/19 07:21 Total Amylase 60 U/L (25-115) 11/05/19 07:21 Lipase 112 U/L (73-393) 11/08/19 07:55 Tumor Marker AFP 4.4 ng/ml (0.0-8.3) 11/05/19 07:21 Smooth Musc &SUPERVISOR WOOD ROOM Intrp 4 Units (0-19) 11/05/19 07:21 COVID-19 (IVETTE) Not detected (Not Detected) 11/04/19 22:05 Hep A IgM Ab Confirm Negative (Negative) 11/05/19 07:21 Hepatitis A Ab Total Positive (Negative) H 11/05/19 07:21 Hep Bs Antigen Negative (Negative) 11/05/19 07:21 Hep Bs Antibody Non reactive (.) 11/05/19 07:21 Hep B Core Total Ab Negative (Negative) 11/05/19 07:21 Hep B Core IgM Ab Negative (Negative) 11/05/19 07:21 Hepatitis Be Antibody Negative (Negative) 11/05/19 07:21 Hepatitis Be Antigen Negative (Negative) 11/05/19 07:21 Hep C Ab Diagnostic <0.1 s/co ratio (0.0-0.9) 11/04/19 12:38 ecg: sr, lvh with repol changes, similar to prior echo 01/2019: lvef 30-35, global hk, rv tds, mild tr, nl rvsp mibi 01/2019: ant scar with zuhair-ischemia--> cath-->cabg echo 10/2019 low normal LV function, EF 50%, grade I diastolic dysfunction, nl RV, tr MR, tr TR, PASP 24 mmHg, Lambl's excrescences noted a/p: 59 f hx syst chf, cad s/p cabg 02/2019, cva 09/2019, htn, hld, dm here with lower abd pain. cad: -stable, no signs acs, no anginal sxs -holding asa in case of OR for pancreatitis -holding statin due to pancreatitis -cont jad -pt reports being on amio since her cabg and was told to continue for now by her cloth burler, cont same for now (?possibly had post cabg afib) chronic syst chf: -vol stable off diuretic, monitor closely with ivfs -cont jad -echo shows improved EF, low normal LV function on echo here post CABG htn: -stable cva: -recent cva, cont bp control, statin when possible gall stone pancreatitis, preop cholecystectomy -GI, surgery following -echo shows low normal LV function here, improved compared to prior. appears euvolemic -she is at acceptable risk for cholecystectomy, no further testing prior to surgery
--- NOTE | 2019-11-09 19:26 | PN.GI ---
GI Progress Note Subjective: GI NOte: Pain free at present. I told her that it appears she will have her cholecystectomy tomorrow. At her request I also spoke t her by phone and brought him up to date and reminded him that she will need a colonoscopy as outpatient 6 months after 10/03 CVA - Objective Vital Signs: Vital Signs Temperature 99.0 F 11/09/19 18:00 Pulse Rate 70 11/09/19 18:00 Respiratory Rate 18 11/09/19 18:00 Blood Pressure 154/68 11/09/19 18:00 O2 Sat by Pulse Oximetry (%) 99 11/09/19 18:00 Constitutional: Calm Gastrointestinal Inspection: Yes: WNL ...Auscultate: Yes: Normoactive Bowel Sounds ...Palpate: Yes: Soft, Other (nontender) Labs: CBC, BMP 11/08/19 07:55 11/08/19 07:55 INR, PTT INR 1.13 (0.83-1.09) H 11/09/19 11:00 Assessment/Plan Impression: - Resolved biliary pancreatitis with CBD stone passed as per MRCP. - Constipation- I advised a colonoscopy for colon cancer screening [address] her CVA - Fatty liver with possible cirrhosis by sonogram will need further evaluation. Suspect MCGILL if not cardiac cirrhosis Plan -- For cholecystectomy tomorrow -- Continue antibiotics -- Continue Miralax -- Colonoscopy as outpatient 6 months after 10/03 CVA Problem List - Problems (1) Biliary acute pancreatitis Code(s): K85.10 - BILIARY ACUTE PANCREATITIS WITHOUT NECROSIS OR INFECTION (2) Symptomatic cholelithiasis Code(s): K80.20 - CALCULUS OF GALLBLADDER W/O CHOLECYSTITIS W/O OBSTRUCTION (3) Fatty (change of) liver, not elsewhere classified Code(s): K76.0 - FATTY (CHANGE OF) LIVER, NOT ELSEWHERE CLASSIFIED (4) Hx of CABG Code(s): Z95.1 - PRESENCE OF AORTOCORONARY BYPASS GRAFT (5) Coronary arteriosclerosis Code(s): I25.10 - ATHSCL HEART DISEASE OF [place] CORONARY ARTERY W/O ANG PCTRS (6) HTN (hypertension) Code(s): I10 - ESSENTIAL (PRIMARY) HYPERTENSION (7) Hypercholesteremia Code(s): E78.00 - PURE HYPERCHOLESTEROLEMIA, UNSPECIFIED (8) Systolic and diastolic CHF, acute Code(s): I50.41 - ACUTE COMBINED SYSTOLIC AND DIASTOLIC (CONGESTIVE) HRT FAIL (9) T2DM (type 2 diabetes mellitus) Code(s): E11.9 - TYPE 2 DIABETES MELLITUS WITHOUT COMPLICATIONS Qualifiers: Diabetes mellitus watermelon harvesting supervisor insulin use: with watermelon harvesting supervisor use
[2019-11-10] MEDS: MORPHINE SULFATE 2 MG/ML VIAL IM PRN ×3 (00:06→20:35)
[2019-11-10] MEDS ORDERED: AMPICILLIN NA/SULBACTAM NA 1.5 GM VIAL ONE ×2 (02:43→10:40)
[2019-11-10] MEDS ORDERED: SODIUM CHLORIDE 100 ML IVPB ONE ×2 (02:43→10:40)
[2019-11-10] MEDS: AMPICILLIN NA/SULBACTAM NA 1.5 GM in SODIUM CHLORIDE 100 ML IVPB SCH ×2 (02:44→14:39)
[2019-11-10] MEDS: INSULIN SLIDING SCALE (NOVOLOG) 1 VIAL SQ SCH ×4 (07:32→22:03)
[2019-11-10] MEDS ORDERED: DEXAMETHASONE SOD PHOSPHATE 4 MG/1 ML VIAL ONE (08:35)
[2019-11-10] MEDS ORDERED: LIDOCAINE HCL/PF 2% SDV 5ML VIAL ONE (08:35)
[2019-11-10] MEDS ORDERED: MIDAZOLAM HCL 2 MG/2 ML SINGLE DOSE VIAL ONE (08:35)
[2019-11-10] MEDS ORDERED: PROPOFOL 20 ML ONE (08:35)
[2019-11-10] MEDS ORDERED: ROCURONIUM BROMIDE 100 MG/10 ML VIAL ONE (09:02)
--- NOTE | 2019-11-10 09:38 | PN ---
Progress Note, Physician History of Present Illness: Scheduled for cholecystectomy this AM - Current Medication List Current Medications: Active Medications Amiodarone HCl (Cordarone -) 200 mg PO DAILY [facility] Last Admin: 11/09/19 10:43 Dose: 200 mg Documented by: Ampicillin Sodium/Sulbactam (Sodium 1.5 gm/ Sodium Chloride) 100 mls @ 200 mls/hr IVPB Q8H-IV [facility] Last Admin: 11/10/19 02:44 Dose: 200 mls/hr Documented by: Metronidazole (Flagyl 500mg Premixed Ivpb -) 500 mg in 100 mls @ 100 mls/hr IVPB Q8H-IV [facility] Last Admin: 11/10/19 01:37 Dose: 100 mls/hr Documented by: Insulin Aspart (Novolog Vial Sliding Scale -) 1 vial SQ ACHS [facility]; Protocol Last Admin: 11/10/19 07:32 Dose: Not Given Documented by: Morphine Sulfate (Morphine Sulfate) 2 mg IM Q6H PRN PRN Reason: PAIN LEVEL 4-6 Last Admin: 11/10/19 08:13 Dose: 2 mg Documented by: Polyethylene Glycol (Miralax (For Daily Use) -) 17 gm PO BID [facility] Last Admin: 11/09/19 22:21 Dose: 17 gm Documented by: Ramipril (Altace -) 5 mg PO DAILY [facility] Last Admin: 11/09/19 10:43 Dose: 5 mg Documented by: - Objective Vital Signs: Vital Signs Temperature 97.6 F 11/10/19 06:00 Pulse Rate 66 11/10/19 06:00 Respiratory Rate 18 11/10/19 06:00 Blood Pressure 130/74 11/10/19 06:00 O2 Sat by Pulse Oximetry (%) 99 11/10/19 06:00 Constitutional: Yes: No Distress Eyes: Yes: WNL HENT: Yes: WNL Neck: Yes: WNL Cardiovascular: Yes: WNL Respiratory: Yes: WNL Gastrointestinal: Yes: WNL ...Rectal Exam: Yes: Deferred Genitourinary: Yes: WNL Breast(s): Yes: WNL Musculoskeletal: Yes: WNL Extremities: Yes: WNL Edema: No Integumentary: Yes: WNL Neurological: Yes: Alert Psychiatric: Yes: Alert Labs: CBC, BMP 11/08/19 07:55 11/08/19 07:55 INR, PTT INR 1.13 (0.83-1.09) H 11/09/19 11:00 Assessment/Plan Echo EF 50% Cleared for the procedure
[2019-11-10] MEDS ORDERED: ONDANSETRON 4 MG/2 ML VIAL IVPUSH PRN ×2 (10:21→12:58)
[2019-11-10] MEDS ORDERED: HYDROmorphone HCl 2 MG/ML VIAL IVPUSH PRN ×4 (10:22→12:58)
[2019-11-10] MEDS ORDERED: LACTATED RINGERS SOLUTION 1,000 ML IV SCH (10:30)
[2019-11-10] MEDS ORDERED: NEOSTIGMINE METHYLSULFATE 0.5 MG/ML - 10 ML MDV ONE (10:32)
[2019-11-10] MEDS ORDERED: GLYCOPYRROLATE 0.2 MG/1 ML VIAL ONE (10:32)
--- NOTE | 2019-11-10 10:55 | PN ---
Progress Note (short form) - Note Progress Note: Attending Surgeon Asked to cover for Dr. Lavonne Gilliland who has a family emergency and cannot operate on this patient today.; patient seen and evaluated; chart reviewed and w/u to date reviewed; plan is for lap juan luis possible open; patient is amenable to having me perform the surgery today to expedite her care and hospital course; r/b/t/a's d/w her and informed consent obtained. Chavo Storey MD FACS
[2019-11-10] MEDS ORDERED: AMPICILLIN NA/SULBACTAM NA 1.5 GM/100 ML PRE-DOCKED IVPB ONE (11:10)
[2019-11-10] MEDS ORDERED: BUPIVACAINE HCL/PF 0.5% (5 MG/ML) 30 ML VIAL IJ ONE (11:28)
[2019-11-10] MEDS ORDERED: EPHEDRINE SULFATE/0.9% NACL/PF 50 MG/10 ML SYRINGE NR ONE (11:31)
[2019-11-10] MEDS ORDERED: SODIUM CHLORIDE 0.9% P/F 10 ML VIAL IJ ONE (11:50)
[2019-11-10] MEDS ORDERED: KETOROLAC TROMETHAMINE 30 MG/1 ML VIAL ONE (11:59)
[2019-11-10] MEDS: LABETALOL HCL 5 MG/1 ML (100MG/20 ML VIAL) IVPUSH ONE ×3 (12:33→14:41)
--- NOTE | 2019-11-10 12:37 | OP ---
Operative Note - Note: Operative Date: 11/10/19 Pre-Operative Diagnosis: gallstone pancreatitis. chronic cholesytitis, cholelithiasis Operation: Laprascopic Cholecystectomy Post-Operative Diagnosis: Same as Pre-op Surgeon: Chavo Storey Theatre Professor: Royal Moctezuma Anesthesiologist/PICKING TABLE WORKER: Sheyla Love Anesthesia: General Specimens Removed: Gallbladder Estimated Blood Loss (mls): 5 Fluid Volume Replaced (mls): 600 Operative Report Dictated: Yes
--- NOTE | 2019-11-10 12:38 | SURG ---
Surgery Bulk Mail Technician Note Bulk Mail Technician: Royal Moctezuma PA-C Date of Service: 11/10/19 Diagnosis: gallstone pancreatitis. chronic cholesytitis, cholelithiasis Procedure: laprascopic cholecystectomy I was present for the entirety of the operative procedure. For further detail, please refer to operative report. Visit type - Case Type Case Type: ED Admission
[2019-11-10] MEDS ORDERED: HYDROmorphone HCl 2 MG/ML VIAL ONE (12:52)
--- NOTE | 2019-11-10 13:14 | PN ---
Progress Note (short form) - Note Progress Note: cardiology covering for Dr Abbott cc: abd pain s: s/p cholecystectomy today. Current Medications Generic Name Dose Route Start Last Admin Trade Name Freq PRN Reason Stop Dose Admin Amiodarone HCl 200 mg 11/11/19 10:00 Cordarone - PO DAILY [facility] Hydromorphone HCl 0.5 mg 11/10/19 12:58 Dilaudid Vial - IVPUSH ONCE PRN PAIN LEVEL 7 - 10 Hydromorphone HCl 0.25 mg 11/10/19 12:58 Dilaudid Vial - IVPUSH ONCE PRN PAIN LEVEL 4 - 6 Lactated Ringer's 1,000 mls @ 75 mls/hr 11/10/19 12:58 Lactated Ringers Solution IV ASDIR [facility] Insulin Aspart 1 vial 11/10/19 16:30 Novolog Vial Sliding Scale - SQ ACHS [facility] Protocol Morphine Sulfate 2 mg 11/10/19 12:58 Morphine Sulfate IM Q6H PRN PAIN LEVEL 4-6 Ondansetron HCl 4 mg 11/10/19 12:58 Zofran Injection IVPUSH Q6H PRN NAUSEA AND/OR VOMITING Polyethylene Glycol 17 gm 11/10/19 22:00 Miralax (For Daily Use) - PO BID [facility] Ramipril 5 mg 11/11/19 10:00 Altace - PO DAILY [facility] Laboratory Last Values WBC 5.9 K/mm3 (4.0-10.0) 11/08/19 07:55 RBC 4.38 M/mm3 (3.60-5.2) 11/08/19 07:55 Hgb 11.8 GM/dL (10.7-15.3) 11/08/19 07:55 Hct 35.0 % (32.4-45.2) 11/08/19 07:55 MCV 79.9 fl (80-96) L 11/08/19 07:55 MCH 27.0 pg (25.7-33.7) 11/08/19 07:55 MCHC 33.8 g/dl (32.0-36.0) 11/08/19 07:55 RDW 16.3 % (11.6-15.6) H 11/08/19 07:55 Plt Count 208 K/MM3 (134-434) 11/08/19 07:55 MPV 7.1 fl (7.5-11.1) L 11/08/19 07:55 Absolute Neuts (auto) 3.1 K/mm3 (1.5-8.0) 11/07/19 07:09 Neutrophils % 59.7 % (42.8-82.8) 11/07/19 07:09 Lymphocytes % 26.7 % (8-40) 11/07/19 07:09 Monocytes % 8.2 % (3.8-10.2) 11/07/19 07:09 Eosinophils % 4.6 % (0-4.5) H 11/07/19 07:09 Basophils % 0.8 % (0-2.0) 11/07/19 07:09 Nucleated RBC % 0 % (0-0) 11/07/19 07:09 PT with INR 13.40 SEC (9.7-13.0) H 11/09/19 11:00 INR 1.13 (0.83-1.09) H 11/09/19 11:00 PTT (Actin FS) Cancelled 11/04/19 18:30 Sodium 141 mmol/L (136-145) 11/08/19 07:55 Potassium 3.7 mmol/L (3.5-5.1) 11/08/19 07:55 Chloride 109 mmol/L (98-107) H 11/08/19 07:55 Carbon Dioxide 25 mmol/L (21-32) 11/08/19 07:55 Anion Gap 7 MMOL/L (8-16) L 11/08/19 07:55 BUN 4.0 mg/dL (7-18) L 11/08/19 07:55 Creatinine 0.6 mg/dL (0.55-1.3) 11/08/19 07:55 Est GFR (CKD-EPI)AfAm 114.82 11/08/19 07:55 Est GFR (CKD-EPI)NonAf 99.07 11/08/19 07:55 POC Glucometer 118 UNITS (80-120) 11/10/19 07:31 Random Glucose 168 mg/dL (74-106) H 11/08/19 07:55 Calcium 8.7 mg/dL (8.5-10.1) 11/08/19 07:55 Magnesium 1.6 mg/dL (1.8-2.4) L 11/04/19 13:35 Total Bilirubin 0.6 mg/dL (0.2-1) 11/08/19 07:55 Direct Bilirubin 0.2 mg/dL (0.0-0.2) 11/08/19 07:55 AST 60 U/L (15-37) H 11/08/19 07:55 ALT 187 U/L (13-61) H 11/08/19 07:55 Alkaline Phosphatase 150 U/L (45-117) H 11/08/19 07:55 Creatine Kinase 107 U/L (26-192) 11/04/19 13:35 Troponin I < 0.02 ng/ml (0.00-0.05) 11/04/19 13:35 C-Reactive Protein 1.1 MG/DL (0.00-0.3) H 11/07/19 07:09 Total Protein 5.9 g/dl (6.4-8.2) L 11/08/19 07:55 Albumin 3.2 g/dl (3.4-5.0) L 11/08/19 07:55 Triglycerides 58 mg/dL (0-150) 11/05/19 07:21 Cholesterol 136 mg/dL (50-200) 11/05/19 07:21 Total LDL Cholesterol 53 mg/dL (5-100) 11/05/19 07:21 HDL Cholesterol 68 mg/dL (40-60) H 11/05/19 07:21 Total Amylase 60 U/L (25-115) 11/05/19 07:21 Lipase 112 U/L (73-393) 11/08/19 07:55 Tumor Marker AFP 4.4 ng/ml (0.0-8.3) 11/05/19 07:21 Smooth Musc &HOT TOP LINER Intrp 4 Units (0-19) 11/05/19 07:21 COVID-19 (IVETTE) Not detected (Not Detected) 11/04/19 22:05 Hep A IgM Ab Confirm Negative (Negative) 11/05/19 07:21 Hepatitis A Ab Total Positive (Negative) H 11/05/19 07:21 Hep Bs Antigen Negative (Negative) 11/05/19 07:21 Hep Bs Antibody Non reactive (.) 11/05/19 07:21 Hep B Core Total Ab Negative (Negative) 11/05/19 07:21 Hep B Core IgM Ab Negative (Negative) 11/05/19 07:21 Hepatitis Be Antibody Negative (Negative) 11/05/19 07:21 Hepatitis Be Antigen Negative (Negative) 11/05/19 07:21 Hep C Ab Diagnostic <0.1 s/co ratio (0.0-0.9) 11/04/19 12:38 Blood Type A POSITIVE 11/09/19 11:00 Antibody Screen Negative 11/09/19 11:00 ecg: sr, lvh with repol changes, similar to prior echo 01/2019: lvef 30-35, global hk, rv tds, mild tr, nl rvsp mibi 01/2019: ant scar with zuhair-ischemia--> cath-->cabg echo 10/2019 low normal LV function, EF 50%, grade I diastolic dysfunction, nl RV, tr MR, tr TR, PASP 24 mmHg, Lambl's excrescences noted a/p: 59 f hx syst chf, cad s/p cabg 02/2019, cva 09/2019, htn, hld, dm here with lower abd pain. cad: -stable, no signs acs, no anginal sxs -holding asa in case of OR for pancreatitis -holding statin due to pancreatitis -cont jad -pt reports being on amio since her cabg and was told to continue for now by her cuff turner, cont same for now (?possibly had post cabg afib) chronic syst chf: -vol stable off diuretic, monitor closely with ivfs -cont jad -echo shows improved EF, low normal LV function on echo here post CABG htn: -stable cva: -recent cva, cont bp control, statin when possible gall stone pancreatitis, preop cholecystectomy -GI, surgery following, s/p cholecystectomy - manage per surgery - resume aspirin when feasible
[2019-11-10] MEDS: RAMIPRIL 5 MG CAPSULE (FP) PO SCH (14:38)
[2019-11-10] MEDS: AMIODARONE HCL 200 MG TABLET PO SCH (14:38)
[2019-11-10] MEDS: POLYETHYLENE GLYCOL 3350 119 GM BTL PO SCH ×2 (14:39→22:03)
[2019-11-10] MEDS: LACTATED RINGERS SOLUTION 1,000 ML IV SCH (14:40)
--- NOTE | 2019-11-10 20:43 | OP ---
DATE OF OPERATION: 11/10/2019 PREOPERATIVE DIAGNOSIS: Gallstone pancreatitis, chronic cholecystitis and cholelithiasis. POSTOPERATIVE DIAGNOSIS: Gallstone pancreatitis, chronic cholecystitis and cholelithiasis. PROCEDURE: Laparoscopic cholecystectomy. SURGEON: Chavo Storey MD. COMPLIANCE OFFICER: Royal Moctezuma PA-C. ANESTHESIA: General. OPERATIVE FINDINGS: Chronic cholecystitis and cholelithiasis, and the rest of the findings are unremarkable. DESCRIPTION OF PROCEDURE: The patient was placed on the operating room table in supine position. After the induction of general anesthesia, the patient's abdomen was prepped with ChloraPrep and draped in sterile fashion. Time-out was taken and then pneumoperitoneum established above the umbilicus using a Veress needle. Once 15 mm of intra-abdominal pressure was obtained, a 5-mm port was placed at the umbilicus. Additional lateral 5-mm ports and a subxiphoid 12-mm port were placed and laparoscopy carried out, and the previously noted findings were observed. The gallbladder was placed on cephalad and lateral traction, and dissection was begun at the neck of the gallbladder where the peritoneum was opened medially and laterally using blunt and sharp dissection and electrocautery. Dissection continued in the triangle of [place]ot where the cystic duct was identified coursing from the neck of the gallbladder distally to the common bile duct. It was dissected proximally and distally for length. Similarly, the artery was similarly identified and dissected. A critical view of safety was taken, and then the cystic duct divided proximally and distally using Endo Antonio after it was clipped twice proximally and distally with large hemoclips. The artery was similarly clipped and divided. Hemostasis was checked for and noted to be good and then the gallbladder was removed from the liver bed in a retrograde fashion using electrocautery. Prior to removal from the edge of the liver, hemostasis was again verified and then the gallbladder removed from the edge of the liver, placed in an EndoCatch, and brought out through the subxiphoid port. Pneumoperitoneum was reestablished, hemostasis verified again, and then the 5-mm lateral and subxiphoid ports were removed under laparoscopic vision without evidence of bleeding from the port sites. The umbilical port was removed and the pneumoperitoneum evacuated. All port sites were infiltrated with 0.5% Marcaine and the skin edges closed with 4-0 Biosyn in a subcuticular and continuous fashion. Steri-Strips and Band-Aid dressings were placed and the procedure terminated at this point and the patient aroused from general anesthesia and transferred to the post anesthesia care unit in stable condition awake and alert. ESTIMATED BLOOD LOSS: 5 mL. REPLACEMENTS: Crystalloid. DRAINS: None. SPECIMENS: Gallbladder and contents to pathology. I, Chavo Storey, was physically present in the operating room from the time the patient was placed on the operating room table until she was transferred to the post anesthesia care unit in my accompaniment. MD CLEM Noble/[id number] MTDD
[2019-11-11] MEDS: LACTATED RINGERS SOLUTION 1,000 ML IV SCH (03:18)
[2019-11-11 05:45] VITALS: TEMP 98.1
[2019-11-11] MEDS: INSULIN SLIDING SCALE (NOVOLOG) 1 VIAL SQ SCH ×2 (06:31→11:17)
[2019-11-11] MEDS: MORPHINE SULFATE 2 MG/ML VIAL IM PRN (06:32)
[2019-11-11] MEDS ORDERED: INSULIN (NOVOLOG) ASPART 100 UNITS/ML 10ML VIAL ONE (06:41)
--- NOTE | 2019-11-11 09:01 | PN ---
Progress Note (short form) - Note Progress Note: GENERAL SURGERY POD #1 No acute events since surgery per RN notes. Sitting up in bed. Tolerating clear diet. c/o mild incisional tenderness. Adequate pain control w/ meds ordered. Hasn't been oob yet. Voided into bedpan spontaneously. Denies n/v/f/c, CP, palpitations, SOB or HOWARD. Last Vital Signs Temp Pulse Resp BP Pulse Ox 98.1 F 68 16 148/53 L 100 11/11/19 05:00 11/11/19 05:00 11/11/19 05:00 11/11/19 05:00 11/11/19 05:00 GEN: alert. nad ABD: all surgical ports c/d/i LE: soft. supple. nt. scds bilat A/P: POD #1 s/p Lap cholecystectomy under GA Advanced to regular diet. No further surgical input. Reconsult PRN Cont medical management. Patient to f/u w/ Dr. Storey as oulined in DC PLAN. Above plan discussed with Dr. Storey and agrees. On behalf of Dr. Storey, thank you for the opportunity to participate in your patient's care. Problem List - Problems (1) Biliary acute pancreatitis Code(s): K85.10 - BILIARY ACUTE PANCREATITIS WITHOUT NECROSIS OR INFECTION (2) Cholelithiasis Code(s): K80.20 - CALCULUS OF GALLBLADDER W/O CHOLECYSTITIS W/O OBSTRUCTION (3) RUQ abdominal pain Code(s): R10.11 - RIGHT UPPER QUADRANT PAIN (4) Symptomatic cholelithiasis Code(s): K80.20 - CALCULUS OF GALLBLADDER W/O CHOLECYSTITIS W/O OBSTRUCTION (5) HTN (hypertension) Code(s): I10 - ESSENTIAL (PRIMARY) HYPERTENSION (6) Low back pain Code(s): M54.5 - LOW BACK PAIN Qualifiers: Chronicity: acute Back pain laterality: midline Sciatica presence: without sciatica Qualified Code(s): M54.5 - Low back pain (7) Stroke Code(s): I63.9 - CEREBRAL INFARCTION, UNSPECIFIED Qualifiers: CVA mechanism: occlusion Precerebral and cerebral artery: unspecified precerebral artery Qualified Code(s): I63.20 - Cerebral infarction due to unspecified occlusion or stenosis of unspecified precerebral arteries
--- NOTE | 2019-11-11 09:11 | DS ---
Physical Examination Vital Signs: Vital Signs Temperature 98.1 F 11/11/19 05:00 Pulse Rate 68 11/11/19 05:00 Respiratory Rate 16 11/11/19 05:00 Blood Pressure 148/53 L 11/11/19 05:00 O2 Sat by Pulse Oximetry (%) 100 11/11/19 05:00 Findings/Remarks: Admitted with Ac pancreatitis Gallbladder with multiple gall stones Lap juan luis done by Dr St,tolerated the procedure well DC home Constitutional: Yes: No Distress Eyes: Yes: WNL Neck: Yes: WNL, Tenderness Respiratory: Yes: WNL Gastrointestinal: Yes: Normal Bowel Sounds ...Rectal Exam: Yes: Deferred Renal/: Yes: WNL Musculoskeletal: Yes: WNL Edema: No Peripheral Pulses WNL: Yes Wound/Incision: Yes: Clean/Dry ...Motor Strength: WNL Psychiatric: Yes: Alert Labs: CBC, BMP 11/08/19 07:55 11/08/19 07:55 Discharge Summary Problems reviewed: Yes Reason For Visit: RIGHT UPPER QUADRANT ABDOMINAL PAIN,PANCREATITIS D Current Active Problems Biliary acute pancreatitis (Acute) Cholelithiasis (Acute) Coronary arteriosclerosis (Acute) Fatty (change of) liver, not elsewhere classified (Acute) Hx of CABG (Acute) Pancreatitis (Acute) RUQ abdominal pain (Acute) Symptomatic cholelithiasis (Acute) - Instructions Diet, Activity, Other Instructions: Dr. Storey Discharge Post Operative Instructions Physical activity Resume your normal everyday activity as tolerated no heavy lifting or exercise until seen by your surgeon. You may walk unlimited amounts of and climb stairs. You may resume driving the car when you feel safe and comfortable behind the wheel. Wound care If you have a bandage, leave it on, and keep dry for 48 - 72 hours. After that time discard the outer bandage. If there are tapes on the skin under the outer bandage, leave them in place. They will peel off in the next 7 to 10 days. Do Not peel them off. You may shower 2 days after surgery. If there are tapes present on the skin, they can get wet. Diet There are no dietary restrictions. Eat healthy, high-fiber foods. Drink 6 to 8 glasses of liquid each day. This will assist in keeping your bowels are regular. Pain management You may take Tylenol or acetaminophen or Ibuprofen (for example, Motrin, Advil etc.) Any pain prescription medication ordered should be taken as prescribed for moderate to severe pain. Call Dr. Storey for any of the following: Severe pain not relieved by medication Fever of 101 or higher Excessive bleeding or drainage on dressing Inability to urinate Call the office at [phone] for a post operative appointment in 7 - 10 days. Referrals: Sam Cifuentes MD [Primary Care Provider] - Chavo Storey MD [Staff Physician] - - Home Medications Comprehensive Discharge Medication List: Ambulatory Orders metFORMIN HCL [Glucophage -] 500 mg PO BID 01/30/13 Insulin Aspart Prot/Insuln Asp [Novolog Mix 70-30 Vial] 40 unit SQ DAILY 4 Linagliptin [Tradjenta] 5 mg PO DAILY 02/07/19 Aspirin 81 mg PO DAILY 05/03/19 Atorvastatin Calcium 40 mg PO HS 05/03/19 Metoprolol Succinate [Toprol Xl] 25 mg PO DAILY 05/03/19 Multivit-Minerals/Herbal No217 [Advaclear Capsule] 1 each PO DAILY 05/03/19
[2019-11-11] MEDS ORDERED: PT OWN MED DRAWER 7, Y5N ONE (09:19)
[2019-11-11] MEDS: POLYETHYLENE GLYCOL 3350 119 GM BTL PO SCH (09:29)
[2019-11-11] MEDS ORDERED: AMIODARONE HCL 200 MG TABLET PO SCH (10:00)
[2019-11-11] MEDS ORDERED: RAMIPRIL 5 MG CAPSULE (FP) PO SCH (10:00)
[2019-11-11 11:17] VITALS: BP 141/63; PULSE 65
--- NOTE | 2019-11-11 11:55 | PN ---
HC Provider Note Provider Note: Anesthesia Post Op Note Pt discharged prior to visit as per chart pt doing well. VSS stable no apparent anesthesia complications. Edita Sofia.
--- NOTE | 2019-11-11 11:58 | PN ---
Progress Note (short form) - Note Progress Note: cardiology covering for Dr Abbott cc: abd pain s: feeling well, minor surgical pain. no cp sob palps dizzy Current Medications Generic Name Dose Route Start Last Admin Trade Name Dennis PRN Reason Stop Dose Admin Amiodarone HCl 200 mg 11/11/19 10:00 11/11/19 09:25 Cordarone - PO 200 mg DAILY JOHN Administration Hydromorphone HCl 0.5 mg 11/10/19 12:58 Dilaudid Vial - IVPUSH ONCE PRN PAIN LEVEL 7 - 10 Hydromorphone HCl 0.25 mg 11/10/19 12:58 Dilaudid Vial - IVPUSH ONCE PRN PAIN LEVEL 4 - 6 Lactated Ringer's 1,000 mls @ 75 mls/hr 11/10/19 12:58 11/11/19 03:18 Lactated Ringers Solution IV 75 mls/hr ASDIR JOHN Administration Insulin Aspart 1 vial 11/10/19 16:30 11/11/19 11:17 Novolog Vial Sliding Scale - SQ Not Given ACHS JOHN Protocol Morphine Sulfate 2 mg 11/10/19 12:58 11/11/19 06:32 Morphine Sulfate IM 2 mg Q6H PRN Administration PAIN LEVEL 4-6 Ondansetron HCl 4 mg 11/10/19 12:58 Zofran Injection IVPUSH Q6H PRN NAUSEA AND/OR VOMITING Polyethylene Glycol 17 gm 11/10/19 22:00 11/11/19 09:29 Miralax (For Daily Use) - PO 17 gm BID JOHN Administration Ramipril 5 mg 11/11/19 10:00 11/11/19 09:25 Altace - PO 5 mg DAILY JOHN Administration CBC, BMP 11/08/19 07:55 11/08/19 07:55 ecg: sr, lvh with repol changes, similar to prior echo 01/2019: lvef 30-35, global hk, rv tds, mild tr, nl rvsp mibi 01/2019: ant scar with zuhair-ischemia--> cath-->cabg echo 10/2019 low normal LV function, EF 50%, grade I diastolic dysfunction, nl RV, tr MR, tr TR, PASP 24 mmHg, Lambl's excrescences noted a/p: 59 f hx syst chf, cad s/p cabg 02/2019, cva 09/2019, htn, hld, dm here with lower abd pain. cad: -stable, no signs acs, no anginal sxs -holding statin due to pancreatitis -cont jad -pt reports being on amio since her cabg and was told to continue for now by her chief operator hydroformer, cont same for now (?possibly had post cabg afib) chronic syst chf: -vol stable off diuretic, monitor closely with ivfs -cont jad -echo shows improved EF, low normal LV function on echo here post CABG htn: -stable cva: -recent cva, cont bp control, statin when possible gall stone pancreatitis, preop cholecystectomy -GI, surgery following, s/p cholecystectomy - manage per surgery - resume aspirin when feasible cardiac cooper remains stable
--- NOTE | 2019-11-11 17:53 | PATH ---
Surgical Pathology Report Patient Name: BRITTA CORONEL [facility]. Rec. #: [id number] /Age/Gender: 1960 (Age: 59) / F Account: [id number] Location: [address] [place] [address]/[facility] Taken: 11/10/2019 Received: 11/10/2019 Reported: 11/11/2019 Physicians: MD Dahlia Moses M.D. Specimen(s) Received GALLBLADDER Clinical History Cholecystitis Final Diagnosis GALLBLADDER, LAPAROSCOPIC CHOLECYSTECTOMY: CHRONIC CHOLECYSTITIS WITH CHOLELITHIASIS. Electronically Signed Kathleen Gomes M.D. Gross Description Received in formalin, labeled "gallbladder," is a 10.5 x 2.5 x 0.5 cm. gallbladder with a 0.7 cm. in length portion of cystic duct attached. The outer surface varies from smooth to shaggy. The lumen contains black irregular choleliths admixed with bile. The mucosa is green and velvety. The wall of the gallbladder measures 0.1 cm. in thickness. Termite Exterminator Helper sections are submitted in one cassette. MLSZ/11/10/2019 sancarolina/11/10/2019
== END 2019-11-11 15:03 | disposition home or self-care (01) | DRG 263 ==
LOC: JER 14:43 → JERBED 17:20 → J6S 23:17
PROVIDERS: ADMIT Internal Medicine; ATTEND Internal Medicine
PROC: 0FT44ZZ Resection of Gallbladder, Percutaneous Endoscopic Approach (ICD-10-PCS; principal; 2019-11-10 10:00)
DX: K85.10 Biliary acute pancreatitis without necrosis or infection (principal); K80.10 Calculus of gallbladder with chronic cholecystitis without obstruction; I25.10 Atherosclerotic heart disease of native coronary artery without angina pectoris; E78.5 Hyperlipidemia, unspecified; I11.0 Hypertensive heart disease with heart failure; I50.22 Chronic systolic (congestive) heart failure; E11.9 Type 2 diabetes mellitus without complications; I69.354 Hemiplegia and hemiparesis following cerebral infarction affecting left non-dominant side; K59.09 Other constipation; K74.60 Unspecified cirrhosis of liver; K76.0 Fatty (change of) liver, not elsewhere classified
CPT/HCPCS: 36415; 74177-TC; 74181-TC; 76700-TC; 80053; 80061; 80076; 82105; 82150; 82248; 82550; 82962; 83516; 83690; 83721; 83735; 84484; 85025; 85027; 85610; 85730; 86038; 86140; 86704; 86706; 86707; 86708; 86709; 86803; 86850; 86900; 86901; 87340; 88304-TC; 93005; 93010; 93306-TC; 94760; 99285-25; J0131; Q9967; U0003

== ENCOUNTER 2019-11-24 22:34 | Inpatient (IN) | payer OTHER ==
[2019-11-24] MEDS ORDERED: ACETAMINOPHEN 1000 MG/100 ML VIAL (NON FORMULARY) IVPB ONE (23:13)
[2019-11-24] MEDS ORDERED: ONDANSETRON 4 MG/2 ML VIAL IVPUSH ONE (23:13)
--- NOTE | 2019-11-24 23:17 | PDOC ---
Attending Attestation - Resident Resident Name: Mona Lester - ED Attending Attestation I have performed the following: I have examined & evaluated the patient, The case was reviewed & discussed with the resident, I agree w/resident's findings & plan - HPI HPI: 11/24/19 23:41 see resident hpi - Physicial Exam PE: 11/24/19 23:42 see resident exam - Medical Decision Making 11/24/19 23:44 59-year-old female status post laparoscopic cholecystectomy approximately 1 month ago now with lower abdominal pain body aches and cough Patient has a tender abdomen with visible recent surgical scars consistent with given history Plan for CT scan abdomen and pelvis, EKG labs 11/25/19 04:56 CT shows complex collection in the gallbladder fossa possibly complication post cholecystectomy Case discussed with Dr. Storey, patient's surgeon who recommends IV antibiotics IV fluids and admission Discharge - Discharge Information Problems reviewed: Yes Clinical Impression/Diagnosis: Postoperative generalized abdominal pain, Pneumonia - Follow up/Referral Referrals: Sam Cifuentes MD [Primary Care Provider] - - Patient Discharge Instructions - Post Discharge Activity
[2019-11-24] MEDS ORDERED: ACETAMINOPHEN INJECTION 100 ML IVPB ONE (23:44)
[2019-11-25 00:22] LABS: BASO % 1.2 % (0-2.0); EOS % 4.4 % (0-4.5); HEMATOCRIT 37.7 % (32.4-45.2); HEMOGLOBIN 12.7 GM/dL (10.7-15.3); LYMPH % 28.5 % (8-40); MCHC 33.6 g/dl (32.0-36.0); MEAN CELL VOLUME 80.5 fl (80-96); MEAN PLT VOLUME 7.1 fl (7.5-11.1); MONO % 5.2 % (3.8-10.2); NEUT % 60.7 % (42.8-82.8); PLATELET COUNT 325 K/MM3 (134-434); RBC 4.69 M/mm3 (3.60-5.2); RDW 16.5 % (11.6-15.6); WHITE BLOOD COUNT 8.2 K/mm3 (4.0-10.0)
[2019-11-25 00:32] LABS: INR 0.89 (0.83-1.09); PROTHROMBIN TIME (PATIENT) 10.5 SEC (9.7-13.0)
[2019-11-25 00:35] LABS: ACTIVATED PTT 27.9 SECONDS (25.2-36.5)
[2019-11-25 00:52] LABS: ALBUMIN 3.6 g/dl (3.4-5.0); ALK PHOS 126 U/L (45-117); ANION GAP 6 MMOL/L (8-16); BILIRUBIN,TOTAL 0.3 mg/dL (0.2-1); BLOOD UREA NITROGEN 8.3 mg/dL (7-18); CALCIUM 8.8 mg/dL (8.5-10.1); CHLORIDE 108 mmol/L (98-107); CO2 27 mmol/L (21-32); CREATININE 0.5 mg/dL (0.55-1.3); GLUCOSE,RANDOM 159 mg/dL (74-106); LIPASE 275 U/L (73-393); POTASSIUM 3.9 mmol/L (3.5-5.1); SGOT/AST 30 U/L (15-37); SGPT/ALT 36 U/L (13-61); SODIUM 141 mmol/L (136-145); TOT PROT 6.8 g/dl (6.4-8.2)
[2019-11-25] MEDS ORDERED: morphine CARPU-JECT 2 MG/1 ML DISP.SYRIN IVPUSH ONE ×2 (01:15→03:28)
--- NOTE | 2019-11-25 01:33 | PDOC ---
History of Present Illness - General Chief Complaint: Pain, Acute Stated Complaint: COUGH/VOMITING Time Seen by Provider: 11/24/19 23:10 - History of Present Illness Initial Comments: HPI 59 F with a PMH of CAD s/p CABG(03/04) , HLD, HTN, IDDM, CVA in (R-ICA occlusion 10/04/19, ambulates with walker at home), and recent lap juan luis presenting with moderate-severe generalized abdominal pain, worse in epigastric/RUQ. Pt reports pain is constant and can be 10/10; cannot describe alleviating/aggravating factors. She has had associated watery diarrhea 6-7 times yesterday; nausea and with two episodes of clear nb nb vomiting today. Pt also has a coughing, rhinorrhea, headache, myalgias, chills, and generalized body pain for last 2-3 days. Pt also reporting increased pain in L foot; with no significant increased swelling, erythema, or warmth. Denies dysuria, CP, SOB, constipation, or any recent physical trauma. PMHX: as in HPI PSHX: see below Meds: Home Medications Medication Instructions Recorded metFORMIN HCL [Glucophage -] 500 mg PO BID 01/30/13 Insulin Aspart Prot/Insuln Asp 40 unit SQ DAILY 03/02/14 [Novolog Mix 70-30 Vial] Linagliptin [Tradjenta] 5 mg PO DAILY 02/07/19 Aspirin 81 mg PO DAILY 05/03/19 Atorvastatin Calcium 40 mg PO HS 05/03/19 Metoprolol Succinate [Toprol Xl] 25 mg PO DAILY 05/03/19 Multivit-Minerals/Herbal No217 1 each PO DAILY 05/03/19 [Advaclear Capsule] Amiodarone HCl [Cordarone -] 200 mg PO DAILY tablet 11/11/19 Amiodarone HCl [Cordarone -] 200 mg PO DAILY tablet 11/11/19 Insulin Sliding Scale [Novolog 1 vial SQ ACHS units 11/11/19 Vial Sliding Scale -] Insulin Sliding Scale [Novolog 1 vial SQ ACHS units 11/11/19 Vial Sliding Scale -] Polyethylene Glycol 3350 [Miralax 17 gm PO BID bottle 11/11/19 119 gm Btl -] Polyethylene Glycol 3350 [Miralax 17 gm PO BID bottle 11/11/19 119 gm Btl -] Ramipril [Altace] 5 mg PO DAILY capsule 11/11/19 Ramipril [Altace] 5 mg PO DAILY capsule 11/11/19 Allergies: oxycodone with rash (morphine was given instead at the time). Tob: denies Etoh: denies Rec drugs: denies PCP: Dr. Dahlia JOSÉ GENERAL/CONSTITUTIONAL: No fever. No weakness. + Chills. HEAD, EYES, EARS, NOSE AND THROAT: No change in vision. No ear pain or discharge . No sore throat. + rhinorrhea CARDIOVASCULAR: No chest pain or shortness of breath RESPIRATORY: No wheezing, or hemoptysis. + cough GASTROINTESTINAL: No nausea, vomiting, diarrhea or constipation. GENITOURINARY: No dysuria, frequency, or change in urination. MUSCULOSKELETAL: No joint or muscle swelling. No neck or back pain. + myalgias SKIN: No rash NEUROLOGIC: No vertigo, loss of consciousness, or change in strength/sensation. + headache ENDOCRINE: No increased thirst. No abnormal weight change HEMATOLOGIC/LYMPHATIC: No anemia, easy bleeding, or history of blood clots. ALLERGIC/IMMUNOLOGIC: No hives or skin allergy. PE GENERAL: Awake, alert, and fully oriented, in no acute distress HEAD: No signs of trauma, normocephalic, atraumatic EYES: PERRLA, EOMI, sclera anicteric, conjunctiva clear ENT: Auricles normal inspection, hearing grossly normal, nares patent, oropharynx clear without exudates. Moist mucosa NECK: Normal ROM, supple, no lymphadenopathy, JVD, or masses LUNGS: No distress, speaks full sentences, clear to auscultation bilaterally HEART: Regular rate and rhythm, normal S1 and S2, no murmurs, rubs or gallops, peripheral pulses normal and equal bilaterally. ABDOMEN: Soft,diffusely tender abdomen worse in RUQ/epigastric region, normoactive bowel sounds. No guarding, no rebound. No masses EXTREMITIES : Normal inspection, Normal range of motion, no edema. No clubbing or cyanosis. NEUROLOGICAL: Cranial nerves II through XII grossly intact. Normal speech, normal gait, no focal sensorimotor deficits. SKIN: Warm, Dry, normal turgor, no rashes or lesions noted. 11/25/19 01:33 11/25/19 05:32 Past History - Medical History Allergies/Adverse Reactions: Allergies Allergy/AdvReac Type Severity Reaction Status Date / Time oxycodone [Oxycodone] Allergy Intermediate Rash Verified 10/03/19 13:34 Home Medications: Ambulatory Orders Amiodarone HCl [Cordarone -] 200 mg PO DAILY 11/25/19 Atorvastatin Ca [Lipitor] 80 mg PO HS 11/25/19 Gabapentin 100 mg PO BID 11/25/19 Lisinopril [Prinivil] 5 mg PO DAILY 11/25/19 Meclizine HCl 12.5 mg PO PRN PRN 11/25/19 Metoprolol Succinate [Toprol Xl] 25 mg PO DAILY 11/25/19 metFORMIN HCL [Glucophage -] 500 mg PO BID 11/25/19 Anemia: No Asthma: No Cancer: No Cardiac Disorders: No CVA: Yes COPD: No CHF: No Dementia: No Diabetes: Yes (type 2) GI Disorders: Yes (abdominal tumor) Disorders: No HTN: Yes Hypercholesterolemia: Yes Liver Disease: No Seizures: No Thyroid Disease: No - Surgical History Cardiac Surgery: Yes (02/2019) Neurologic Surgery: No - Immunization History Td Vaccination: Yes TDAP Vaccination: Yes Immunization Up to Date: Yes - Psycho-Social/Smoking History Smoking History: Never smoked Have you smoked in the past 12 months: No Number of Cigarettes Smoked Daily: 0 - Substance Abuse Hx (Audit-C & DAST Scrn) How often the patient has a drink containing alcohol: Never Score: In Men: 4 or > Positive; In Women: 3 or > Positive: 0 Screen Result (Pos requires Nsg. Audit-10AR): Negative In the last yr the pt used illegal drug/Rx for NonMed reason: No Score: Yes response is considered Positive: 0 Screen Result (Positive result requires Nsg. DAST-10): Negative *Physical Exam - Vital Signs Last Vital Signs Temp Pulse Resp BP Pulse Ox 99 F 86 19 166/67 100 11/24/19 22:36 11/24/19 22:36 11/24/19 22:36 11/24/19 22:36 11/24/19 22:36 ED Treatment Course - LABORATORY CBC & Chemistry Diagram: 11/25/19 00:00 11/25/19 00:00 - ADDITIONAL ORDERS Additional order review: Laboratory Results 11/25/19 11/25/19 00:00 00:00 PT with INR 10.50 INR 0.89 PTT (Actin FS) 27.9 Sodium 141 Potassium 3.9 Chloride 108 H Carbon Dioxide 27 Anion Gap 6 L BUN 8.3 Creatinine 0.5 L Est GFR (CKD-EPI)AfAm 121.92 Est GFR (CKD-EPI)NonAf 105.20 Random Glucose 159 H Calcium 8.8 Total Bilirubin 0.3 AST 30 ALT 36 Alkaline Phosphatase 126 H Troponin I < 0.02 Total Protein 6.8 Albumin 3.6 Lipase 275 11/25/19 00:00 RBC 4.69 MCV 80.5 MCHC 33.6 RDW 16.5 H MPV 7.1 L Neutrophils % 60.7 Lymphocytes % 28.5 Monocytes % 5.2 Eosinophils % 4.4 Basophils % 1.2 - Medications Given in the ED: ED Medications Discontinued Medications Generic Name Dose Route Start Last Admin Trade Name Freq PRN Reason Stop Dose Admin Acetaminophen 1,000 mg 11/24/19 23:13 11/25/19 00:11 Ofirmev Injection - IVPB 11/24/19 23:14 1,000 mg ONCE ONE Administration Ondansetron HCl 4 mg 11/24/19 23:13 11/25/19 00:11 Zofran Injection IVPUSH 11/24/19 23:14 4 mg ONCE ONE Administration Medical Decision Making - Medical Decision Making MDM 59 F with a PMH of CAD s/p CABG(03/04) , HLD, HTN, IDDM, CVA in (R-ICA occlusion 10/04/19, ambulates with walker at home), and recent lap juan luis presenting with moderate-severe generalized abdominal pain, worse in epigastric/RUQ. Pt reports pain is constant and can be 10/10; cannot describe alleviating/aggravating factors. She has had associated watery diarrhea 6-7 times yesterday; nausea and with two episodes of clear nb nb vomiting today. Pt also has a coughing, rhinorrhea, headache, myalgias, chills, and generalized body pain for last 2-3 days. DDX including but not limited to: r/o ACS, pancreatitis, gastritis, gastroenteritis, bowel ischemia, viral infection, r/o COVID19 W/U: -labs -EKG with no acute change, NSR (71 bpm), QTc 475 -CT abd/pelvis with contrast -CT chest without contrast TX: - IV tylenol for pain; pt still in pain - will give IV morphine 11/25/19 01:46 labs with mild elevation of alk phos CT Abd/Pel with IV contrast significant for: Complex nonspecific gas and fluid-filled collection in the gallbladder fossa may be due to postoperative status post cholecystectomy introduced gas and postoperative seroma or biloma associated with aberrant right liver lobe bile duct entering the gallbladder fossa directly. HIDA scan recommended if clinical correlation with RUQ pain. CT chest without contrast significant for: Mediastinal and hilar nonspecific lymphadenopathy may be benign or malignant. If clinically indicated follow-up outpatient CT PET scan may be needed. Heterogeneous nonspecific density in the thyroid. If clinically indicated follow-up outpatient thyroid ultrasound may be needed. Mild basilar atelectasis or pneumonia. If clinically indicated recommend correlation with Covid testing Discussed case with Dr. Storey who will follow; recommended NPO, IV fluids, IV antibiotics. Will admit to med-surg for further evaluation of possible possible biloma and possible active bile leakage; also for evaluation and treatment of possible pneumonia; r/o COVID-19 infection. 11/25/19 05:27 Pt signed out to Dr. Sam Cifuentes who will be admitting patient. No further recommendations from Dr. Cifuentes at this time. 11/25/19 06:53 Discharge - Discharge Information Problems reviewed: Yes Clinical Impression/Diagnosis: Postoperative generalized abdominal pain, Pneumonia - Follow up/Referral - Patient Discharge Instructions - Post Discharge Activity
[2019-11-25] MEDS ORDERED: MORPHINE SULFATE 2 MG/ML VIAL ONE (02:35)
[2019-11-25] MEDS ORDERED: PIPERACILLIN/TAZOB 3.375 GM 3.375 GM in DEXTROSE 5%-WATER - 50 ML IVPB ONE (04:57)
[2019-11-25] MEDS ORDERED: SODIUM CHLORIDE 1,000 ML IV SCH (05:00)
[2019-11-25] MEDS ORDERED: PIPERACILLIN/TAZOB 3.375 GM 3.375 GM/50 ML BAG IVPB ONE (05:29)
[2019-11-25] MEDS ORDERED: MEPERIDINE HCL 25 MG/ML VIAL IM PRN (09:33)
[2019-11-25] MEDS ORDERED: hydrOXYzine HCL 100 MG/2 ML VIAL IM PRN (09:35)
--- NOTE | 2019-11-25 10:14 | HP ---
DATE OF ADMISSION: 11/25/2019 HISTORY: This is a 59-year-old female known to me for many years, diabetic on insulin, had recently laparoscopic cholecystectomy about 2 weeks ago. At that time she was admitted here with acute pancreatitis and it was diagnosed that she was having gallbladder stones so cholecystectomy was done. After that I saw her in the office. She was complaining of some suprapubic abdominal pain. It was thought that patient may have a UTI. Urine analysis and culture was done, results not available yet. She came in this morning to the ER, last night in fact, with complaints of abdominal pain, pain in the throat, pain all over the body. Because of the recent cholecystectomy a CAT scan of the abdomen and chest was done. There was some air-fluid level seen in the gallbladder. Other than that, everything is negative. Patient had a CVA with left upper extremity weakness. She was treated recently with thrombectomy. Weakness improved. PHYSICAL EXAMINATION: Vital Signs: Today her blood pressure is 150/60, pulse 72, respirations 24, temperature 99. HEENT: Unremarkable. Neck: Supple. No JVD. Lungs: Clear. Heart: S1, S2 normal. No S3, S4. Abdomen: Minimal tenderness present. No rebound tenderness. Legs: No edema. Neurological: Grossly normal. LABORATORY REPORTS: WBC 8.2, hemoglobin 12.7, hematocrit 37, platelets 325. Chemistry: Sodium 141, potassium 3.9, chloride 108, CO2 of 27, BUN 8.3, creatinine 0.5, blood sugar random 159, lactic acid is 92. The COVID is pending. INR 0.89. Chest CT unremarkable. Abdominal/pelvis CT shows some air-fluid level in the gallbladder fossa. IMPRESSION: Abdominal pain, etiology not clear; generalized body pain; diabetic on insulin. PLAN: Keep n.p.o. Demerol will be started for pain. IV fluid, insulin coverage. Surgical consult with Dr. Storey. Will follow. [employer]ftab [id number]
--- NOTE | 2019-11-25 10:27 | CONSULT ---
<RoamnRoyal guerra P - Last Filed: 11/25/19 10:50> - Consultation REQUESTING PROVIDER: General Surgery - Chavo Storey CONSULT REQUEST: We have been asked to surgically evaluate this patient for (specify). PCP: Sam Cifuentes HPI: Called to eval 59 yo female w/ PMHx as noted below. Patient presents to [facility] ED w/ c/o generalized abd pain (worse in RUQ/epigastric region) pain 12/24. Patient well known to Surgery Service as we recently performed a laprascopic cholecystectomy 11/10/2019 (Dr. Storey). Having watery diarrhea 6 times a day. Admits to n/v ([facility]). Per medical notes, patient also coughing, rhinorrhea, headache, myalgias, chills, and generalized body pain for last 2-3 days. While in the ED she had the following imaging studies: 1. Abd/Pelvis CT with IV contrast which identified a complex nonspecific gas and fluid-filled collection in the GB fossa may be due to postoperative status post cholecystectomy introduced gas and postoperative seroma or biloma associated with aberrant right liver lobe bile duct entering the gallbladder fossa directly. 2. Cx CT without contrast significant for: Mediastinal and hilar nonspecific lymphadenopathy may be benign or malignant. If clinically indicated follow-up outpatient CT PET scan may be needed. Heterogeneous nonspecific density in the thyroid. If clinically indicated follow-up outpatient thyroid. Mild basilar atelectasis or pneumonia. 3. CXR: no evidence of PNA PMHx: CAD, HLD, HTN, IDDM, CVA in (R-ICA occlusion 10/04/19, ambulates with walker at home) PSHx: Lap Zenobia CABG 02/2019 ([facility]) Home Meds Metformin 500 mg PO BID Insulin Aspart 40 units SQ Daily Linagliptin 5 mg PO Daily ASA 81 mg PO Daily Atorvastatin Calcium 40 mg PO HS Metoprolol 25 mg PO Daily Amiodarone 200 mg PO Daily MVI 1 Tab PO Daily Novolog 1 vial SQ ACHS Mirilax 119 gm Bottle BID Ramipril 5 mg PO Daily Allergies: Oxycodone (rash) ROS: 12 systems reviewed and considered negative except for what's contained in the HPI. PE: GENERAL: A&O. NAD HEAD: Normal with no signs of trauma. EYES: PERRL, sclera anicteric, conjunctiva clear. NECK: Normal ROM, supple without lymphadenopathy, JVD, or masses. LUNGS: Unlabored respirations on room air HEART: RRR ABD: All surgical port scars clean/intact. No evidence of infection. MUSCULOSKELETAL: No CVAT bilat. UE: 2+ pulses, warm, well-perfused. No cyanosis. Cap refill <2 seconds. No peripheral edema. LE: 2+ pulses, warm, well-perfused. No calf tenderness. No peripheral edema. PSYCH: Cooperative. Good eye contact. Appropriate mood and affect. Last Vital Signs Temp Pulse Resp BP Pulse Ox 97.4 F L 72 20 156/54 L 98 11/25/19 08:03 11/25/19 08:03 11/25/19 08:03 11/25/19 08:03 11/25/19 08:03 CBC, BMP 11/25/19 00:00 11/25/19 00:00 INR, PTT INR 0.89 (0.83-1.09) 11/25/19 00:00 Hepatic Panel Total Bilirubin 0.3 mg/dL (0.2-1) 11/25/19 00:00 AST 30 U/L (15-37) 11/25/19 00:00 ALT 36 U/L (13-61) 11/25/19 00:00 Alkaline Phosphatase 126 U/L (45-117) H 11/25/19 00:00 Albumin 3.6 g/dl (3.4-5.0) 11/25/19 00:00 Serology Tests 11/25/19 00:00 COVID-19 (IVETTE) Pending Problem List - Problems (1) Postoperative generalized abdominal pain Assessment/Plan: NPO IVF GI PPx DVT PPx IV ABX f/u HIDA Scan Surgery Team to cont following Covid pending; Strict Isolation precaution Continue Medical management at this time Above plan discussed with Dr. Storey and agrees. Code(s): G89.18 - OTHER ACUTE POSTPROCEDURAL PAIN; R10.84 - GENERALIZED ABDOMINAL PAIN (2) HTN (hypertension) Code(s): I10 - ESSENTIAL (PRIMARY) HYPERTENSION (3) Hx of CABG Code(s): Z95.1 - PRESENCE OF AORTOCORONARY BYPASS GRAFT (4) T2DM (type 2 diabetes mellitus) Code(s): E11.9 - TYPE 2 DIABETES MELLITUS WITHOUT COMPLICATIONS Qualifiers: Diabetes mellitus group home insulin use: with continuous churn buttermaker use Visit type - Case Type Case Type: ED Admission - Emergency Emergency Visit: Yes ED Registration Date: 11/25/19 Care time: The patient presented to the Emergency Department on the above date and was hospitalized for further evaluation of their emergent condition. - New patient This patient is new to me today: Yes Date on this admission: 11/25/19 <Chavo Storey - Last Filed: 12/07/19 08:15> - Consultation Attending Surgeon: I personally saw and examined the patient. My examination reveals a patient with post lap zenobia abdominal pain. I discussed the case with the surgical PA and agree with their findings and plan of care with any exceptions as noted. ~ Chavo Storey MD, FACS
[2019-11-25] MEDS: D5-1/2NS+20 MEQ KCL - 20 MEQ/1,000 ML INFUS.BAG IV SCH (10:44)
[2019-11-25 11:17] LABS: PH,URINE 6.5 (5.0-8.0); URINE APPEARANCE CLEAR; URINE BILIRUBIN NEGATIVE (NEGATIVE); URINE COLOR YELLOW; URINE GLUCOSE (UA) TRACE (NEGATIVE); URINE KETONE NEGATIVE (NEGATIVE); URINE LEUK ESTERASE NEGATIVE (NEGATIVE); URINE NITRITE NEGATIVE (NEGATIVE); URINE PROTEIN NEGATIVE (NEGATIVE); URINE UROBILINOGEN 0.2 mg/dL (0.2-1.0)
--- NOTE | 2019-11-25 12:36 | EKG ---
Test Reason : Blood Pressure : / mmHG Vent. Rate : 071 BPM Atrial Rate : 071 BPM P-R Int : 166 ms QRS Dur : 086 ms QT Int : 438 ms P-R-T Axes : 038 -50 112 degrees QTc Int : 475 ms POOR DATA QUALITY, INTERPRETATION MAY BE ADVERSELY AFFECTED NORMAL SINUS RHYTHM LEFT AXIS DEVIATION LEFT VENTRICULAR HYPERTROPHY WITH REPOLARIZATION ABNORMALITY INFERIOR INFARCT (CITED ON OR BEFORE 04-SEP-2013) ANTEROLATERAL INFARCT (CITED ON OR BEFORE 04-SEP-2013) ABNORMAL ECG WHEN COMPARED WITH ECG OF 04-NOV-2019 15:48, NO SIGNIFICANT CHANGE WAS FOUND Confirmed by JOSE ESPITIA MD ([id number]) on 11/25/2019 12:36:07 PM Referred By: Confirmed By:JOSE ESPITIA MD
[2019-11-25] MEDS ORDERED: INSULIN SLIDING SCALE (NOVOLOG) 1 VIAL SQ SCH ×2 (16:30)
[2019-11-25 18:28] VITALS: BMI 24.0
[2019-11-25] MEDS: MORPHINE SULFATE 2 MG/ML VIAL IM PRN (19:53)
[2019-11-26] MEDS: D5-1/2NS+20 MEQ KCL - 20 MEQ/1,000 ML INFUS.BAG IV SCH ×2 (00:58→15:33)
[2019-11-26] MEDS: MORPHINE SULFATE 2 MG/ML VIAL IM PRN ×4 (01:52→23:07)
[2019-11-26] MEDS: INSULIN SLIDING SCALE (NOVOLOG) 1 VIAL SQ SCH ×2 (06:07→18:52)
--- NOTE | 2019-11-26 09:17 | PN ---
Progress Note, Physician Chief Complaint: Feels better Wants to eat Only complaint is neck pain - Current Medication List Current Medications: Active Medications Hydroxyzine HCl (Vistaril Injection -) 50 mg IM Q6H PRN PRN Reason: FOR ITCHING Potassium Chloride/Dextrose/Sod Cl (D5-1/2ns+20 Meq Kcl -) 20 meq in 1,000 mls @ 75 mls/hr IV ASDIR [facility] Last Admin: 11/26/19 00:58 Dose: 75 mls/hr Documented by: Insulin Aspart (Novolog Vial Sliding Scale -) 1 vial SQ BIDAC [facility]; Protocol Last Admin: 11/26/19 06:07 Dose: Not Given Documented by: Morphine Sulfate (Morphine Sulfate) 2 mg IM Q4H PRN PRN Reason: PAIN LEVEL 6-10 Last Admin: 11/26/19 01:52 Dose: 2 mg Documented by: - Objective Vital Signs: Vital Signs Temperature 98.1 F 11/26/19 05:47 Pulse Rate 78 11/26/19 05:47 Respiratory Rate 18 11/26/19 05:47 Blood Pressure 139/71 11/26/19 05:47 O2 Sat by Pulse Oximetry (%) 97 11/26/19 05:47 Constitutional: Yes: Anxious Eyes: Yes: WNL HENT: Yes: WNL Neck: Yes: WNL Cardiovascular: Yes: WNL Respiratory: Yes: WNL Gastrointestinal: Yes: Normal Bowel Sounds ...Rectal Exam: Yes: Deferred Genitourinary: Yes: WNL Breast(s): Yes: WNL Extremities: Yes: WNL Edema: No Neurological: Yes: Alert Psychiatric: Yes: Alert Labs: CBC, BMP 11/25/19 00:00 11/25/19 00:00 INR, PTT INR 0.89 (0.83-1.09) 11/25/19 00:00 Assessment/Plan Start back her meds Full liquid diet
[2019-11-26] MEDS: AMIODARONE HCL 200 MG TABLET PO SCH (10:26)
[2019-11-26] MEDS: RAMIPRIL 5 MG CAPSULE (FP) PO SCH (10:26)
[2019-11-26] MEDS: ASPIRIN COATED 81 MG TABLET.EC PO SCH (10:26)
[2019-11-26] MEDS: metoPROLOL SUCCINATE 25 MG TAB.SR.24H (FP) PO SCH (10:26)
--- NOTE | 2019-11-26 14:16 | PN ---
Progress Note (short form) - Note Progress Note: Attending Surgeon No c/o; tolerating clear lquids. abdo-soft; non tender HIDA scan; no leak or evidence of a bile duct injury IMP: no indication for surgical intervention PLAN: Imaging findings are most likely c/w a seroma which will resolve; patient can f/u in my office post discharge. Chavo Storey MD FACS
[2019-11-26] MEDS ORDERED: INSULIN (NOVOLOG) ASPART 100 UNITS/ML 10ML VIAL ONE (18:48)
[2019-11-27] MEDS: D5-1/2NS+20 MEQ KCL - 20 MEQ/1,000 ML INFUS.BAG IV SCH ×2 (03:05→17:41)
[2019-11-27] MEDS: MORPHINE SULFATE 2 MG/ML VIAL IM PRN (05:44)
[2019-11-27] MEDS: INSULIN SLIDING SCALE (NOVOLOG) 1 VIAL SQ SCH ×2 (06:07→19:07)
--- NOTE | 2019-11-27 09:56 | PN ---
Progress Note, Physician Chief Complaint: Still has multiple complaints - Current Medication List Current Medications: Active Medications Amiodarone HCl (Cordarone -) 200 mg PO DAILY [facility] Last Admin: 11/26/19 10:26 Dose: 200 mg Documented by: Aspirin (Ecotrin -) 81 mg PO DAILY [facility] Last Admin: 11/26/19 10:26 Dose: 81 mg Documented by: Hydroxyzine HCl (Vistaril Injection -) 50 mg IM Q6H PRN PRN Reason: FOR ITCHING Insulin Aspart (Novolog Vial Sliding Scale -) 1 vial SQ BIDAC [facility]; Protocol Last Admin: 11/27/19 06:07 Dose: Not Given Documented by: Metoprolol Succinate (Toprol Xl -) 25 mg PO DAILY [facility] Last Admin: 11/26/19 10:26 Dose: 25 mg Documented by: Oxycodone/Acetaminophen (Percocet 5/325 -) 2 combo PO [id number] [facility] Ramipril (Altace -) 5 mg PO DAILY [facility] Last Admin: 11/26/19 10:26 Dose: 5 mg Documented by: - Objective Vital Signs: Vital Signs Temperature 98.1 F 11/26/19 18:00 Pulse Rate 71 11/26/19 18:00 Respiratory Rate 18 11/26/19 18:00 Blood Pressure 153/80 11/26/19 18:00 O2 Sat by Pulse Oximetry (%) 99 11/26/19 21:00 Constitutional: Yes: Mild Distress Eyes: Yes: WNL HENT: Yes: WNL Neck: Yes: WNL Cardiovascular: Yes: WNL Gastrointestinal: Yes: Normal Bowel Sounds ...Rectal Exam: Yes: Deferred Musculoskeletal: Yes: Muscle Weakness Neurological: Yes: Alert Labs: CBC, BMP 11/25/19 00:00 11/25/19 00:00 INR, PTT INR 0.89 (0.83-1.09) 11/25/19 00:00 Assessment/Plan DC morphine Percoset for pain Advance diet
[2019-11-27] MEDS: ASPIRIN COATED 81 MG TABLET.EC PO SCH (11:27)
[2019-11-27] MEDS: metoPROLOL SUCCINATE 25 MG TAB.SR.24H (FP) PO SCH (11:27)
[2019-11-27] MEDS: AMIODARONE HCL 200 MG TABLET PO SCH (11:28)
[2019-11-27] MEDS: RAMIPRIL 5 MG CAPSULE (FP) PO SCH (11:28)
[2019-11-27] MEDS: oxyCODONE HCL 5 MG TABLET PO PRN (19:03)
[2019-11-27] MEDS: ACETAMINOPHEN 325 MG TABLET (FP) PO PRN (19:04)
[2019-11-27 19:12] VITALS: TEMP 98.4
[2019-11-28] MEDS: INSULIN SLIDING SCALE (NOVOLOG) 1 VIAL SQ SCH (06:04)
[2019-11-28 06:56] VITALS: BP 134/58; PULSE 63
[2019-11-28] MEDS: oxyCODONE HCL 5 MG TABLET PO PRN (08:45)
[2019-11-28] MEDS: ACETAMINOPHEN 325 MG TABLET (FP) PO PRN (08:45)
[2019-11-28] MEDS: AMIODARONE HCL 200 MG TABLET PO SCH (09:00)
[2019-11-28] MEDS: metoPROLOL SUCCINATE 25 MG TAB.SR.24H (FP) PO SCH (09:00)
[2019-11-28] MEDS: RAMIPRIL 5 MG CAPSULE (FP) PO SCH (09:00)
[2019-11-28] MEDS: ASPIRIN COATED 81 MG TABLET.EC PO SCH (09:01)
--- NOTE | 2019-11-28 11:20 | DS ---
Physical Examination Vital Signs: Vital Signs Temperature 98.4 F 11/28/19 06:54 Pulse Rate 63 11/28/19 06:54 Respiratory Rate 20 11/28/19 06:54 Blood Pressure 134/58 L 11/28/19 06:54 O2 Sat by Pulse Oximetry (%) 98 11/28/19 06:54 Findings/Remarks: Admitted with abdominal pain and pain all over the body CT abdomen ,CT chest MRA ,MRI and hida scan all unremarkable Dr St also evaluated Patient is doing well,no pains and diet tolerated well Constitutional: Yes: No Distress Eyes: Yes: WNL HENT: Yes: WNL Neck: Yes: WNL Cardiovascular: Yes: WNL Respiratory: Yes: WNL Gastrointestinal: Yes: WNL ...Rectal Exam: Yes: WNL Renal/: Yes: WNL Musculoskeletal: Yes: WNL, Muscle Weakness Neurological: Yes: Alert Psychiatric: Yes: Alert Labs: CBC, BMP 11/25/19 00:00 11/25/19 00:00 Discharge Summary Problems reviewed: Yes Reason For Visit: BILOMA FOLLOWING SURGERY, INTRACTABLE ABD PAIN Current Active Problems Pneumonia (Acute) Postoperative generalized abdominal pain (Acute) - Instructions Referrals: Sam Cifuentes MD [Primary Care Provider] - - Home Medications Comprehensive Discharge Medication List: Ambulatory Orders Amiodarone HCl [Cordarone -] 200 mg PO DAILY 11/25/19 Atorvastatin Ca [Lipitor] 80 mg PO HS 11/25/19 Gabapentin 100 mg PO BID 11/25/19 Lisinopril [Prinivil] 5 mg PO DAILY 11/25/19 Meclizine HCl 12.5 mg PO PRN PRN 11/25/19 Metoprolol Succinate [Toprol Xl] 25 mg PO DAILY 11/25/19 metFORMIN HCL [Glucophage -] 500 mg PO BID 11/25/19
== END 2019-11-28 12:39 | disposition home or self-care (01) | DRG 813 ==
LOC: JER 22:34 → JERBED 11-25 05:41 → J6S 11-25 17:39
PROVIDERS: ADMIT Internal Medicine; ATTEND Internal Medicine
DX: K91.872 Postprocedural seroma of a digestive system organ or structure following a digestive system procedure (principal); G89.18 Other acute postprocedural pain; R11.2 Nausea with vomiting, unspecified; R05 Cough; J34.89 Other specified disorders of nose and nasal sinuses; R19.7 Diarrhea, unspecified; R51 Headache; M79.10 Myalgia, unspecified site; R52 Pain, unspecified; E78.5 Hyperlipidemia, unspecified; I25.10 Atherosclerotic heart disease of native coronary artery without angina pectoris; R10.84 Generalized abdominal pain; E11.9 Type 2 diabetes mellitus without complications; I10 Essential (primary) hypertension; Y83.9 Surgical procedure, unspecified as the cause of abnormal reaction of the patient, or of later complication, without mention of misadventure at the time of the procedure; Z95.1 Presence of aortocoronary bypass graft
CPT/HCPCS: 36415; 71250-TC; 74177-TC; 78226-TC; 80053; 81003; 82962; 83605; 83690; 84484; 85025; 85610; 85730; 87086; 93005; 93010; 99285-25; A9537; J0131; U0003

== ENCOUNTER 2020-06-07 23:31 | Emergency (ER) | payer OTHER ==
[2020-06-07 23:56] VITALS: BMI 24.8
[2020-06-08] MEDS ORDERED: ONDANSETRON 4 MG/2 ML VIAL IVPUSH ONE (00:43)
[2020-06-08 01:22] LABS: BASO % 0.7 % (0-2.0); EOS % 0.1 % (0-4.5); HEMATOCRIT 35.4 % (32.4-45.2); HEMOGLOBIN 11.6 GM/dL (10.7-15.3); LYMPH % 10.3 % (8-40); MCH 23.2 pg (25.7-33.7); MCHC 32.7 g/dl (32.0-36.0); MEAN CELL VOLUME 70.8 fl (80-96); MEAN PLT VOLUME 8.2 fl (7.5-11.1); MONO % 3.4 % (3.8-10.2); NEUT % 85.5 % (42.8-82.8); PLATELET COUNT 196 K/MM3 (134-434); RDW 19.8 % (11.6-15.6); WHITE BLOOD COUNT 5.6 K/mm3 (4.0-10.0)
[2020-06-08 01:26] LABS: VENOUS BASE EXCESS -4.2 mmol/L (-2-2); VENOUS O2 SATURATION 63.6 % (70-80); VENOUS PCO2 40.3 mmHg (38-52); VENOUS PH 7.34 (7.310-7.410)
[2020-06-08] MEDS ORDERED: ACETAMINOPHEN 1000 MG/100 ML VIAL (NON FORMULARY) IVPB ONE (01:26)
[2020-06-08 01:27] LABS: INR 1.17 (0.83-1.09); PROTHROMBIN TIME (PATIENT) 14.1 SEC (9.7-13.0)
[2020-06-08] MEDS ORDERED: ONDANSETRON 4 MG/2 ML VIAL ONE (01:29)
[2020-06-08] MEDS ORDERED: ACETAMINOPHEN INJECTION 100 ML IVPB ONE (01:29)
[2020-06-08 01:30] LABS: ACTIVATED PTT 32.8 SECONDS (25.2-36.5)
[2020-06-08 01:45] LABS: POTASSIUM 3.7 mmol/L (3.5-5.1)
[2020-06-08 01:47] LABS: CALCIUM 8.5 mg/dL (8.5-10.1)
[2020-06-08 01:48] LABS: ALBUMIN 3.4 g/dl (3.4-5.0); BLOOD UREA NITROGEN 11.3 mg/dL (7-18)
[2020-06-08 01:51] LABS: BILIRUBIN,DIRECT 0.1 mg/dL (0.0-0.2); CREATININE 0.8 mg/dL (0.55-1.3)
[2020-06-08 01:53] LABS: BILIRUBIN,TOTAL 0.4 mg/dL (0.2-1); TOT PROT 6.8 g/dl (6.4-8.2)
[2020-06-08 01:59] LABS: LACTIC ACID 2.1 mmol/L (0.4-2.0)
[2020-06-08 02:07] LABS: EPI CELLS 8 /uL (0-25.1); HYALINE CASTS 5 /uL (0-3.1); PH,URINE 5.5 (5.0-8.0); URINE APPEARANCE CLEAR; URINE BACTERIA 401 /uL (0-1359); URINE BILIRUBIN NEGATIVE (NEGATIVE); URINE COLOR DK YELLOW; URINE GLUCOSE (UA) TRACE (NEGATIVE); URINE KETONE 1+ (NEGATIVE); URINE LEUK ESTERASE 1+ (NEGATIVE); URINE NITRITE NEGATIVE (NEGATIVE); URINE PROTEIN 3+ (NEGATIVE); URINE RBC 11 /uL (0-23.9); URINE UROBILINOGEN 0.2 mg/dL (0.2-1.0); URINE WBC 153 /uL (0-25.8)
[2020-06-08 05:03] VITALS: BP 134/63; PULSE 88; TEMP 99.6
== END 2020-06-08 05:28 | disposition home or self-care (01) ==
LOC: JER 23:31
PROC: 3E033NZ Introduction of Analgesics, Hypnotics, Sedatives into Peripheral Vein, Percutaneous Approach (ICD-10-PCS; principal; 2020-06-07)
PROC: 3E033GC Introduction of Other Therapeutic Substance into Peripheral Vein, Percutaneous Approach (ICD-10-PCS; 2020-06-07)
DX: R10.9 Unspecified abdominal pain (principal); U07.1 COVID-19; N39.0 Urinary tract infection, site not specified
CPT/HCPCS: 36415; 71045-TC-FY; 74177-TC; 80053; 81003; 82248; 82550; 82553; 82728; 82803; 83605; 83615; 84484; 85025; 85610; 85730; 86140; 87040; 87086; 87804; 93005; 93010; 99285-25; C9803; J0131; U0003; U0005

== ENCOUNTER 2020-07-15 14:02 | Inpatient (IN) | payer OTHER ==
[2020-07-15] MEDS ORDERED: PIPERACILLIN/TAZOB 3.375 GM 3.375 GM in DEXTROSE 5%-WATER - 50 ML IVPB ONE (15:06)
[2020-07-15] MEDS ORDERED: VANCOMYCIN 1 GM in D5W (PRE-DOCKED) 1,000 MG/250 ML IVPB ONE (15:06)
[2020-07-15] MEDS ORDERED: DIPHTH,PERTUSS(ACELL),TET 0.5 ML DISP.SYRIN IM ONE ×2 (15:06→15:17)
[2020-07-15] MEDS ORDERED: VANCOMYCIN 1 GRAM (PRE-DOCKED) 1,000 MG/250 ML BAG IVPB ONE (15:17)
[2020-07-15] MEDS ORDERED: PIPERACILLIN/TAZOB 3.375 GM 3.375 GM/50 ML BAG IVPB ONE (15:17)
[2020-07-15 15:53] LABS: BASO % 0.8 % (0-2.0); EOS % 2.8 % (0-4.5); HEMATOCRIT 34.3 % (32.4-45.2); HEMOGLOBIN 11.1 GM/dL (10.7-15.3); LYMPH % 18.5 % (8-40); MCHC 32.4 g/dl (32.0-36.0); MEAN PLT VOLUME 7.6 fl (7.5-11.1); MONO % 6.6 % (3.8-10.2); NEUT % 71.3 % (42.8-82.8); PLATELET COUNT 272 K/MM3 (134-434); RBC 4.64 M/mm3 (3.60-5.2); RDW 18.9 % (11.6-15.6); WHITE BLOOD COUNT 9.4 K/mm3 (4.0-10.0)
[2020-07-15 15:58] LABS: INR 1.03 (0.83-1.09); PROTHROMBIN TIME (PATIENT) 12.4 SEC (9.7-13.0)
[2020-07-15 16:11] LABS: ALBUMIN 3.8 g/dl (3.4-5.0); BLOOD UREA NITROGEN 23.7 mg/dL (7-18); CALCIUM 8.8 mg/dL (8.5-10.1)
[2020-07-15 16:15] LABS: CREATININE 0.8 mg/dL (0.55-1.3)
[2020-07-15 16:16] LABS: BILIRUBIN,TOTAL 0.5 mg/dL (0.2-1); TOT PROT 7.2 g/dl (6.4-8.2)
[2020-07-15] MEDS ORDERED: MECLIZINE HCL 12.5 MG TABLET PO PRN (18:25)
[2020-07-15] MEDS ORDERED: PIPERACILLIN/TAZOBACTAM 3.375 GM VIAL IVPB ONE (21:56)
[2020-07-15] MEDS ORDERED: DEXTROSE 5%-WATER - 50 ML IVPB ONE (21:56)
[2020-07-15] MEDS: ACETAMINOPHEN 325 MG TABLET (FP) PO PRN (22:00)
[2020-07-15] MEDS: GABAPENTIN 100 MG CAPSULE PO SCH (22:01)
[2020-07-15] MEDS: ALPRAZolam 0.25 MG TABLET PO SCH (22:01)
[2020-07-15] MEDS: ATORVASTATIN CA 80 MG TABLET (FP) PO SCH (22:01)
[2020-07-15] MEDS: PIPERACILLIN/TAZOB 3.375 GM 3.375 GM in DEXTROSE 5%-WATER - 50 ML IVPB SCH (22:02)
[2020-07-15] MEDS ORDERED: INSULIN (NOVOLOG) ASPART 100 UNITS/ML 10ML VIAL ONE (22:16)
[2020-07-15] MEDS: INSULIN SLIDING SCALE (NOVOLOG) 1 VIAL SQ SCH (22:17)
[2020-07-15] MEDS: INSULIN (LEVEMIR) 100 UNITS/ML UNITS SQ SCH (22:18)
[2020-07-16] MEDS: ACETAMINOPHEN 325 MG TABLET (FP) PO PRN ×3 (02:23→21:16)
[2020-07-16] MEDS ORDERED: PIPERACILLIN/TAZOBACTAM 3.375 GM VIAL IVPB ONE (02:47)
[2020-07-16] MEDS ORDERED: DEXTROSE 5%-WATER - 50 ML IVPB ONE ×2 (02:47→10:49)
[2020-07-16] MEDS: PIPERACILLIN/TAZOB 3.375 GM 3.375 GM in DEXTROSE 5%-WATER - 50 ML IVPB SCH (03:25)
[2020-07-16] MEDS: INSULIN SLIDING SCALE (NOVOLOG) 1 VIAL SQ SCH ×4 (06:19→21:17)
[2020-07-16 06:40] VITALS: BMI 24.5
[2020-07-16 09:27] LABS: BASO % 1.1 % (0-2.0); EOS % 4.2 % (0-4.5); HEMATOCRIT 32.4 % (32.4-45.2); HEMOGLOBIN 10.6 GM/dL (10.7-15.3); LYMPH % 19.1 % (8-40); MCH 23.8 pg (25.7-33.7); MCHC 32.6 g/dl (32.0-36.0); MEAN CELL VOLUME 73.1 fl (80-96); MEAN PLT VOLUME 7.7 fl (7.5-11.1); MONO % 7.8 % (3.8-10.2); NEUT % 67.8 % (42.8-82.8); PLATELET COUNT 267 K/MM3 (134-434); RBC 4.43 M/mm3 (3.60-5.2); RDW 18.6 % (11.6-15.6); WHITE BLOOD COUNT 7.2 K/mm3 (4.0-10.0)
[2020-07-16] MEDS ORDERED: CEFTRIAXONE 1 GM in DEXTROSE 5%-WATER - 50 ML IVPB SCH (10:00)
[2020-07-16 10:06] LABS: CALCIUM 8.4 mg/dL (8.5-10.1); MAGNESIUM 1.9 mg/dL (1.8-2.4)
[2020-07-16 10:07] LABS: PHOSPHOROUS 3.4 mg/dL (2.5-4.9)
[2020-07-16 10:08] LABS: CREATININE 0.8 mg/dL (0.55-1.3)
[2020-07-16 10:09] LABS: BILIRUBIN,TOTAL 0.6 mg/dL (0.2-1); TOT PROT 6.2 g/dl (6.4-8.2)
[2020-07-16] MEDS: AMIODARONE HCL 200 MG TABLET PO SCH (10:39)
[2020-07-16] MEDS: ALPRAZolam 0.25 MG TABLET PO SCH ×2 (10:39→21:15)
[2020-07-16] MEDS: metoPROLOL SUCCINATE 25 MG TAB.SR.24H (FP) PO SCH (10:39)
[2020-07-16] MEDS: LISINOPRIL 5 MG TABLET PO SCH (10:39)
[2020-07-16] MEDS: GABAPENTIN 100 MG CAPSULE PO SCH ×2 (10:39→21:15)
[2020-07-16] MEDS ORDERED: cefTRIAXone SODIUM 1 GM VIAL ONE (10:49)
[2020-07-16] MEDS: ENOXAPARIN NA (PORCINE) 40 MG/0.4 ML DISP.SYRIN SQ SCH (10:56)
[2020-07-16] MEDS: MUPIROCIN 2% TOPICAL OINTMENT 22 GM TUBE TP SCH ×2 (14:15→21:17)
[2020-07-16] MEDS: ATORVASTATIN CA 80 MG TABLET (FP) PO SCH (21:15)
[2020-07-16] MEDS: INSULIN (LEVEMIR) 100 UNITS/ML UNITS SQ SCH (21:16)
[2020-07-17] MEDS: INSULIN SLIDING SCALE (NOVOLOG) 1 VIAL SQ SCH ×2 (06:21→12:30)
[2020-07-17] MEDS ORDERED: CEFUROXIME AXETIL 250 MG TABLET PO SCH (10:00)
[2020-07-17] MEDS: metoPROLOL SUCCINATE 25 MG TAB.SR.24H (FP) PO SCH (10:13)
[2020-07-17] MEDS: ALPRAZolam 0.25 MG TABLET PO SCH (10:13)
[2020-07-17] MEDS: LISINOPRIL 5 MG TABLET PO SCH (10:13)
[2020-07-17] MEDS: GABAPENTIN 100 MG CAPSULE PO SCH (10:13)
[2020-07-17] MEDS: ENOXAPARIN NA (PORCINE) 40 MG/0.4 ML DISP.SYRIN SQ SCH (10:14)
[2020-07-17 10:43] VITALS: BP 138/77; PULSE 69; TEMP 97.6
[2020-07-17] MEDS: MUPIROCIN 2% TOPICAL OINTMENT 22 GM TUBE TP SCH (11:40)
[2020-07-17] MEDS: AMIODARONE HCL 200 MG TABLET PO SCH (12:30)
== END 2020-07-17 13:05 | disposition home or self-care (01) | DRG 383 ==
LOC: JER 14:02 → JERFT 14:02 → JERBED 17:58 → J5S 21:47
PROVIDERS: ADMIT Internal Medicine; ATTEND Internal Medicine
DX: L03.116 Cellulitis of left lower limb (principal); I25.10 Atherosclerotic heart disease of native coronary artery without angina pectoris; I10 Essential (primary) hypertension; E78.5 Hyperlipidemia, unspecified; I69.354 Hemiplegia and hemiparesis following cerebral infarction affecting left non-dominant side; S91.112A Laceration without foreign body of left great toe without damage to nail, initial encounter; K76.0 Fatty (change of) liver, not elsewhere classified; K74.60 Unspecified cirrhosis of liver; I50.9 Heart failure, unspecified; E11.628 Type 2 diabetes mellitus with other skin complications; E11.40 Type 2 diabetes mellitus with diabetic neuropathy, unspecified; Z95.1 Presence of aortocoronary bypass graft; E11.65 Type 2 diabetes mellitus with hyperglycemia; X58.XXXA Exposure to other specified factors, initial encounter; Y93.9 Activity, unspecified; Y92.89 Other specified places as the place of occurrence of the external cause; Y99.9 Unspecified external cause status
CPT/HCPCS: 36415; 73630-TC-LT; 80053; 82962; 83036; 83605; 83735; 84100; 85025; 85610; 87040; 90715; 93005; 93010; 99285-25; C9803; U0003; U0005

== ENCOUNTER 2021-06-29 21:11 | Inpatient (IN) | payer OTHER ==
[2021-06-29] MEDS ORDERED: CEFTRIAXONE 1 GM in DEXTROSE 5%-WATER - 100 ML IVPB ONE (22:28)
[2021-06-29] MEDS ORDERED: morphine SULFATE 4 MG/ML VIAL IVPUSH ONE (22:30)
[2021-06-29] MEDS ORDERED: ACETAMINOPHEN 1000 MG/100 ML BAG IVPB ONE (22:32)
[2021-06-29] MEDS ORDERED: ACETAMINOPHEN INJECTION 100 ML IVPB ONE (22:53)
[2021-06-29] MEDS ORDERED: CEFTRIAXONE 1 GM/50 ML BAG ONE (22:54)
[2021-06-29 23:03] LABS: BASO % 0.5 % (0-2.0); EOS % 1.9 % (0-4.5); HEMATOCRIT 32.1 % (32.4-45.2); HEMOGLOBIN 10.5 GM/dL (10.7-15.3); LYMPH % 14.5 % (8-40); MCH 22.2 pg (25.7-33.7); MCHC 32.7 g/dl (32.0-36.0); MEAN CELL VOLUME 67.9 fl (80-96); MEAN PLT VOLUME 7.4 fl (7.5-11.1); MONO % 3.9 % (3.8-10.2); NEUT % 79.2 % (42.8-82.8); PLATELET COUNT 376 10^3/uL (134-434); RBC 4.73 M/mm3 (3.60-5.2); RDW 17.2 % (11.6-15.6); WHITE BLOOD COUNT 8.1 K/mm3 (4.0-10.0)
[2021-06-29 23:21] LABS: CALCIUM 9.3 mg/dL (8.5-10.1)
[2021-06-29 23:22] LABS: ALBUMIN 3.5 g/dl (3.4-5.0); BLOOD UREA NITROGEN 15.1 mg/dL (7-18)
[2021-06-29 23:25] LABS: CREATININE 0.7 mg/dL (0.55-1.3)
[2021-06-29 23:26] LABS: TOT PROT 7.3 g/dl (6.4-8.2)
[2021-06-29 23:27] LABS: BILIRUBIN,TOTAL 0.3 mg/dL (0.2-1)
[2021-06-29] MEDS ORDERED: PIPERACILLIN/TAZOB 3.375 GM 3.375 GM in DEXTROSE 5%-WATER - 50 ML IVPB ONE (23:44)
[2021-06-29] MEDS ORDERED: VANCOMYCIN 1 GM in D5W (PRE-DOCKED) 1,000 MG/250 ML IVPB ONE (23:44)
[2021-06-29] MEDS ORDERED: PIPERACILLIN/TAZOB 3.375 GM 3.375 GM/50 ML BAG IVPB ONE (23:58)
[2021-06-29] MEDS ORDERED: VANCOMYCIN 1 GRAM (PRE-DOCKED) 1,000 MG/250 ML BAG IVPB ONE (23:58)
[2021-06-30] MEDS: INSULIN SLIDING SCALE (NOVOLOG) 1 VIAL SQ SCH ×4 (05:59→21:30)
[2021-06-30 07:21] LABS: ERYTHROCYTE SEDIMENTATION RATE 56 mm/hr (0-30)
[2021-06-30 07:41] LABS: BASO % 0.5 % (0-2.0); HEMATOCRIT 29.1 % (32.4-45.2); HEMOGLOBIN 9.5 GM/dL (10.7-15.3); LYMPH % 20.3 % (8-40); MCHC 32.5 g/dl (32.0-36.0); MEAN CELL VOLUME 67.8 fl (80-96); MONO % 6.4 % (3.8-10.2); NEUT % 69.8 % (42.8-82.8); PLATELET COUNT 347 10^3/uL (134-434); RBC 4.29 M/mm3 (3.60-5.2); RDW 16.6 % (11.6-15.6); WHITE BLOOD COUNT 7.2 K/mm3 (4.0-10.0)
[2021-06-30 07:54] LABS: INR 1.1 (0.83-1.09); PROTHROMBIN TIME (PATIENT) 12.7 SEC (9.7-13.0)
[2021-06-30 07:57] LABS: ACTIVATED PTT 29.1 SECONDS (25.2-36.5)
[2021-06-30 08:45] LABS: BLOOD UREA NITROGEN 12.4 mg/dL (7-18); CALCIUM 8.6 mg/dL (8.5-10.1); CREATININE 0.5 mg/dL (0.55-1.3)
[2021-06-30] MEDS ORDERED: PIPERACILLIN/TAZOBACTAM 3.375 GM VIAL IVPB ONE ×3 (09:13→17:09)
[2021-06-30] MEDS ORDERED: DEXTROSE 5%-WATER - 50 ML IVPB ONE ×3 (09:13→17:09)
[2021-06-30] MEDS: PIPERACILLIN/TAZOB 3.375 GM 3.375 GM in DEXTROSE 5%-WATER - 50 ML IVPB SCH ×5 (09:28→17:19)
[2021-06-30] MEDS: ACETAMINOPHEN 325 MG TABLET (FP) PO PRN ×2 (09:29→17:01)
[2021-06-30] MEDS: GABAPENTIN 100 MG CAPSULE PO SCH ×2 (09:29→21:21)
[2021-06-30 11:19] LABS: ANISOCYTOSIS 2+; MACROCYTOSIS 0; OVALOCYTE 2+
[2021-06-30] MEDS: metoPROLOL SUCCINATE 25 MG TAB.SR.24H (FP) PO SCH (11:45)
[2021-06-30] MEDS: LISINOPRIL 5 MG TABLET PO SCH (11:45)
[2021-06-30] MEDS: ASPIRIN 81 MG CHEWABLE TABLETS PO SCH (11:45)
[2021-06-30 11:49] LABS: CHOLESTEROL 114 mg/dL (50-200); TRIGLYCERIDES 88 mg/dL (0-150)
[2021-06-30 11:50] LABS: LDL CHOLESTEROL (ONLY SJRH) 59 mg/dL (5-100)
[2021-06-30 11:52] LABS: HDL CHOLESTEROL 47 mg/dL (40-60)
[2021-06-30] MEDS ORDERED: VANCOMYCIN 1 GM in D5W (PRE-DOCKED) 1,000 MG/250 ML IVPB SCH (12:00)
[2021-06-30] MEDS ORDERED: VANCOMYCIN 1 GM/200 ML PREMIX BAG IVPB SCH ×2 (12:03→12:15)
[2021-06-30] MEDS: ALPRAZolam 0.25 MG TABLET PO SCH (21:21)
[2021-06-30] MEDS: ATORVASTATIN CA 40 MG TABLET (FP) PO SCH (21:21)
[2021-06-30] MEDS: POLYETHYLENE GLYCOL (HEALTHYLAX) 3350 17 GM PACKET PO PRN (21:21)
[2021-06-30] MEDS: INSULIN (LEVEMIR) 100 UNITS/ML UNITS SQ SCH (21:29)
[2021-07-01] MEDS ORDERED: PIPERACILLIN/TAZOBACTAM 3.375 GM VIAL IVPB ONE ×3 (00:42→16:57)
[2021-07-01] MEDS ORDERED: DEXTROSE 5%-WATER - 50 ML IVPB ONE ×3 (00:42→16:57)
[2021-07-01] MEDS: PIPERACILLIN/TAZOB 3.375 GM 3.375 GM in DEXTROSE 5%-WATER - 50 ML IVPB SCH ×3 (01:51→17:12)
[2021-07-01] MEDS: INSULIN SLIDING SCALE (NOVOLOG) 1 VIAL SQ SCH ×4 (06:03→21:47)
[2021-07-01 08:13] LABS: EOS % 5.4 % (0-4.5); HEMATOCRIT 30.3 % (32.4-45.2); LYMPH % 27.5 % (8-40); MCH 22.4 pg (25.7-33.7); MCHC 33.1 g/dl (32.0-36.0); MEAN CELL VOLUME 67.6 fl (80-96); MEAN PLT VOLUME 7.4 fl (7.5-11.1); MONO % 6.7 % (3.8-10.2); NEUT % 59.4 % (42.8-82.8); PLATELET COUNT 335 10^3/uL (134-434); RBC 4.48 M/mm3 (3.60-5.2); RDW 16.4 % (11.6-15.6); WHITE BLOOD COUNT 5.6 K/mm3 (4.0-10.0)
[2021-07-01 08:41] LABS: BLOOD UREA NITROGEN 11.4 mg/dL (7-18); CALCIUM 8.6 mg/dL (8.5-10.1)
[2021-07-01 08:45] LABS: CREATININE 0.5 mg/dL (0.55-1.3)
[2021-07-01] MEDS: metoPROLOL SUCCINATE 25 MG TAB.SR.24H (FP) PO SCH (09:26)
[2021-07-01] MEDS: ALPRAZolam 0.25 MG TABLET PO SCH ×2 (09:26→21:46)
[2021-07-01] MEDS: LISINOPRIL 5 MG TABLET PO SCH (09:26)
[2021-07-01] MEDS: GABAPENTIN 100 MG CAPSULE PO SCH ×2 (09:26→21:46)
[2021-07-01] MEDS: ASPIRIN 81 MG CHEWABLE TABLETS PO SCH (09:26)
[2021-07-01] MEDS ORDERED: ACETAMINOPHEN WITH CODEINE 300MG/30MG TABLET PO PRN (12:29)
[2021-07-01] MEDS: ATORVASTATIN CA 40 MG TABLET (FP) PO SCH (21:46)
[2021-07-01] MEDS: INSULIN (LEVEMIR) 100 UNITS/ML UNITS SQ SCH (21:46)
[2021-07-02] MEDS ORDERED: PIPERACILLIN/TAZOBACTAM 3.375 GM VIAL IVPB ONE ×3 (02:34→16:43)
[2021-07-02] MEDS ORDERED: DEXTROSE 5%-WATER - 50 ML IVPB ONE ×3 (02:34→16:43)
[2021-07-02] MEDS: PIPERACILLIN/TAZOB 3.375 GM 3.375 GM in DEXTROSE 5%-WATER - 50 ML IVPB SCH ×3 (02:47→17:00)
[2021-07-02] MEDS: INSULIN SLIDING SCALE (NOVOLOG) 1 VIAL SQ SCH ×4 (06:49→21:30)
[2021-07-02] MEDS ORDERED: INSULIN (LEVEMIR) 100 UNITS/ML UNITS SQ ONE (07:04)
[2021-07-02] MEDS ORDERED: INSULIN SLIDING SCALE (NOVOLOG) 1 VIAL SQ ONE (07:04)
[2021-07-02 08:12] LABS: BASO % 0.7 % (0-2.0); EOS % 4.3 % (0-4.5); HEMATOCRIT 29.1 % (32.4-45.2); HEMOGLOBIN 9.5 GM/dL (10.7-15.3); LYMPH % 24.9 % (8-40); MCHC 32.6 g/dl (32.0-36.0); MEAN CELL VOLUME 67.4 fl (80-96); MEAN PLT VOLUME 7.8 fl (7.5-11.1); MONO % 6.7 % (3.8-10.2); NEUT % 63.4 % (42.8-82.8); PLATELET COUNT 348 10^3/uL (134-434); RBC 4.32 M/mm3 (3.60-5.2); RDW 16.7 % (11.6-15.6); WHITE BLOOD COUNT 6.7 K/mm3 (4.0-10.0)
[2021-07-02 08:18] LABS: CALCIUM 8.4 mg/dL (8.5-10.1)
[2021-07-02 08:19] LABS: BLOOD UREA NITROGEN 16.8 mg/dL (7-18)
[2021-07-02 08:22] LABS: CREATININE 0.6 mg/dL (0.55-1.3)
[2021-07-02] MEDS: ACETAMINOPHEN 325 MG TABLET (FP) PO PRN (09:18)
[2021-07-02] MEDS: ALPRAZolam 0.25 MG TABLET PO SCH ×2 (09:18→21:30)
[2021-07-02] MEDS: LISINOPRIL 5 MG TABLET PO SCH (09:18)
[2021-07-02] MEDS: POLYETHYLENE GLYCOL (HEALTHYLAX) 3350 17 GM PACKET PO PRN (09:18)
[2021-07-02] MEDS: ASPIRIN 81 MG CHEWABLE TABLETS PO SCH (09:18)
[2021-07-02] MEDS: metoPROLOL SUCCINATE 25 MG TAB.SR.24H (FP) PO SCH (09:18)
[2021-07-02] MEDS: GABAPENTIN 100 MG CAPSULE PO SCH ×2 (09:18→21:30)
[2021-07-02] MEDS: ATORVASTATIN CA 40 MG TABLET (FP) PO SCH (21:30)
[2021-07-02] MEDS: INSULIN (LEVEMIR) 100 UNITS/ML UNITS SQ SCH (21:31)
[2021-07-03] MEDS ORDERED: PIPERACILLIN/TAZOBACTAM 3.375 GM VIAL IVPB ONE ×3 (01:01→16:29)
[2021-07-03] MEDS ORDERED: DEXTROSE 5%-WATER - 50 ML IVPB ONE ×3 (01:02→16:29)
[2021-07-03] MEDS: PIPERACILLIN/TAZOB 3.375 GM 3.375 GM in DEXTROSE 5%-WATER - 50 ML IVPB SCH ×3 (02:23→17:14)
[2021-07-03] MEDS: INSULIN SLIDING SCALE (NOVOLOG) 1 VIAL SQ SCH ×4 (06:04→21:59)
[2021-07-03] MEDS ORDERED: INSULIN SLIDING SCALE (NOVOLOG) 1 VIAL SQ ONE (07:03)
[2021-07-03] MEDS ORDERED: INSULIN (LEVEMIR) 100 UNITS/ML UNITS SQ ONE (07:03)
[2021-07-03] MEDS: LISINOPRIL 5 MG TABLET PO SCH (10:20)
[2021-07-03] MEDS: ASPIRIN 81 MG CHEWABLE TABLETS PO SCH (10:24)
[2021-07-03] MEDS: GABAPENTIN 100 MG CAPSULE PO SCH ×2 (10:24→22:01)
[2021-07-03] MEDS: metoPROLOL SUCCINATE 25 MG TAB.SR.24H (FP) PO SCH (10:24)
[2021-07-03] MEDS: ALPRAZolam 0.25 MG TABLET PO SCH ×2 (10:24→22:00)
[2021-07-03] MEDS: ACETAMINOPHEN 325 MG TABLET (FP) PO PRN ×2 (10:25→22:01)
[2021-07-03] MEDS ORDERED: MECLIZINE HCL 12.5 MG TABLET PO PRN (10:32)
[2021-07-03] MEDS: COLLAGENASE CLOSTRIDIUM HIST. 30 GRAMS TUBE TP SCH (10:35)
[2021-07-03] MEDS: LIDOCAINE 5% TOPICAL PATCH TP SCH (11:37)
[2021-07-03] MEDS: INSULIN (LEVEMIR) 100 UNITS/ML UNITS SQ SCH (22:00)
[2021-07-03] MEDS ORDERED: LIDOCAINE PATCH REMOVAL MC SCH (22:00)
[2021-07-03] MEDS: ATORVASTATIN CA 40 MG TABLET (FP) PO SCH (22:01)
[2021-07-04] MEDS ORDERED: DEXTROSE 5%-WATER - 50 ML IVPB ONE ×3 (01:02→17:34)
[2021-07-04] MEDS ORDERED: PIPERACILLIN/TAZOBACTAM 3.375 GM VIAL IVPB ONE ×3 (01:02→17:34)
[2021-07-04] MEDS: PIPERACILLIN/TAZOB 3.375 GM 3.375 GM in DEXTROSE 5%-WATER - 50 ML IVPB SCH ×3 (02:35→17:49)
[2021-07-04] MEDS: INSULIN SLIDING SCALE (NOVOLOG) 1 VIAL SQ SCH ×4 (06:35→21:36)
[2021-07-04] MEDS ORDERED: LIDOCAINE HCL 1%, 10 MG/ML (20ML VIAL) ONE (08:46)
[2021-07-04] MEDS ORDERED: HEPARIN NA (PORCINE) 5,000 UNITS/ML 1ML VIAL ONE (08:46)
[2021-07-04] MEDS: metoPROLOL SUCCINATE 25 MG TAB.SR.24H (FP) PO SCH (09:01)
[2021-07-04] MEDS: LISINOPRIL 5 MG TABLET PO SCH (09:01)
[2021-07-04 09:09] LABS: BASO % 0.9 % (0-2.0); EOS % 4.5 % (0-4.5); HEMATOCRIT 29.6 % (32.4-45.2); HEMOGLOBIN 9.5 GM/dL (10.7-15.3); LYMPH % 27.6 % (8-40); MCHC 32.3 g/dl (32.0-36.0); MEAN CELL VOLUME 68.2 fl (80-96); MEAN PLT VOLUME 7.9 fl (7.5-11.1); MONO % 7.1 % (3.8-10.2); NEUT % 59.9 % (42.8-82.8); PLATELET COUNT 353 10^3/uL (134-434); RBC 4.34 M/mm3 (3.60-5.2); RDW 16.7 % (11.6-15.6); WHITE BLOOD COUNT 6.1 K/mm3 (4.0-10.0)
[2021-07-04 09:55] LABS: CALCIUM 8.6 mg/dL (8.5-10.1)
[2021-07-04 09:59] LABS: CREATININE 0.5 mg/dL (0.55-1.3)
[2021-07-04] MEDS ORDERED: ONDANSETRON 4 MG/2 ML VIAL IVPUSH PRN ×2 (10:16→11:48)
[2021-07-04] MEDS ORDERED: MIDAZOLAM HCL 2 MG/2 ML SINGLE DOSE VIAL ONE (10:30)
[2021-07-04] MEDS ORDERED: LACTATED RINGERS SOLUTION 1,000 ML IV SCH ×2 (10:30→11:48)
[2021-07-04 10:33] LABS: ANISOCYTOSIS 3+; MACROCYTOSIS 0; OVALOCYTE 1+
[2021-07-04] MEDS ORDERED: PROPOFOL 20 ML ONE ×2 (10:36)
[2021-07-04] MEDS ORDERED: LIDOCAINE HCL 1%, 10 MG/ML (20ML VIAL) INF ONE ×2 (10:39)
[2021-07-04] MEDS ORDERED: CLOPIDOGREL BISULFATE 75 MG TABLET (FP) PO ONE (12:25)
[2021-07-04] MEDS ORDERED: LISINOPRIL 5 MG TABLET PO ONE (13:33)
[2021-07-04] MEDS: GABAPENTIN 100 MG CAPSULE PO SCH ×3 (13:34→21:35)
[2021-07-04] MEDS: ALPRAZolam 0.25 MG TABLET PO SCH ×2 (13:34→14:24)
[2021-07-04] MEDS: COLLAGENASE CLOSTRIDIUM HIST. 30 GRAMS TUBE TP SCH (13:34)
[2021-07-04] MEDS: LIDOCAINE 5% TOPICAL PATCH TP SCH ×2 (13:35→14:24)
[2021-07-04] MEDS: ASPIRIN 81 MG CHEWABLE TABLETS PO SCH ×2 (13:35→14:24)
[2021-07-04] MEDS: POLYETHYLENE GLYCOL (HEALTHYLAX) 3350 17 GM PACKET PO PRN (14:41)
[2021-07-04] MEDS: ACETAMINOPHEN 325 MG TABLET (FP) PO PRN (17:49)
[2021-07-04] MEDS: ATORVASTATIN CA 40 MG TABLET (FP) PO SCH (21:35)
[2021-07-04] MEDS: INSULIN (LEVEMIR) 100 UNITS/ML UNITS SQ SCH (21:37)
[2021-07-04] MEDS: LIDOCAINE PATCH REMOVAL MC SCH (21:37)
[2021-07-05] MEDS ORDERED: PIPERACILLIN/TAZOBACTAM 3.375 GM VIAL IVPB ONE ×3 (01:33→17:09)
[2021-07-05] MEDS ORDERED: DEXTROSE 5%-WATER - 50 ML IVPB ONE ×3 (01:34→17:09)
[2021-07-05] MEDS: ALPRAZolam 0.25 MG TABLET PO SCH ×3 (01:50→21:11)
[2021-07-05] MEDS: PIPERACILLIN/TAZOB 3.375 GM 3.375 GM in DEXTROSE 5%-WATER - 50 ML IVPB SCH ×3 (02:20→17:11)
[2021-07-05] MEDS: ACETAMINOPHEN 325 MG TABLET (FP) PO PRN ×2 (02:37→12:57)
[2021-07-05] MEDS: INSULIN SLIDING SCALE (NOVOLOG) 1 VIAL SQ SCH ×4 (06:44→21:13)
[2021-07-05 08:33] LABS: BASO % 0.4 % (0-2.0); EOS % 3.2 % (0-4.5); HEMATOCRIT 29.4 % (32.4-45.2); HEMOGLOBIN 9.8 GM/dL (10.7-15.3); LYMPH % 14.1 % (8-40); MCH 22.5 pg (25.7-33.7); MCHC 33.3 g/dl (32.0-36.0); MEAN CELL VOLUME 67.8 fl (80-96); MEAN PLT VOLUME 7.4 fl (7.5-11.1); MONO % 5.4 % (3.8-10.2); NEUT % 76.9 % (42.8-82.8); PLATELET COUNT 328 10^3/uL (134-434); RBC 4.33 M/mm3 (3.60-5.2); RDW 16.9 % (11.6-15.6); WHITE BLOOD COUNT 6.5 K/mm3 (4.0-10.0)
[2021-07-05 08:59] LABS: CALCIUM 8.5 mg/dL (8.5-10.1)
[2021-07-05 09:03] LABS: CREATININE 0.7 mg/dL (0.55-1.3)
[2021-07-05] MEDS: CLOPIDOGREL BISULFATE 75 MG TABLET (FP) PO SCH (09:36)
[2021-07-05] MEDS: LIDOCAINE 5% TOPICAL PATCH TP SCH (09:36)
[2021-07-05] MEDS: ASPIRIN 81 MG CHEWABLE TABLETS PO SCH (09:36)
[2021-07-05] MEDS: metoPROLOL SUCCINATE 25 MG TAB.SR.24H (FP) PO SCH (09:36)
[2021-07-05] MEDS: LISINOPRIL 10 MG TABLET PO SCH (09:36)
[2021-07-05] MEDS: GABAPENTIN 100 MG CAPSULE PO SCH ×2 (09:40→21:12)
[2021-07-05] MEDS: COLLAGENASE CLOSTRIDIUM HIST. 30 GRAMS TUBE TP SCH (09:45)
[2021-07-05] MEDS ORDERED: LISINOPRIL 5 MG TABLET PO SCH (10:00)
[2021-07-05] MEDS: MECLIZINE HCL 12.5 MG TABLET PO PRN (15:24)
[2021-07-05] MEDS: ATORVASTATIN CA 40 MG TABLET (FP) PO SCH (21:12)
[2021-07-05] MEDS: INSULIN (LEVEMIR) 100 UNITS/ML UNITS SQ SCH (21:14)
[2021-07-05] MEDS: LIDOCAINE PATCH REMOVAL MC SCH (21:17)
[2021-07-06] MEDS ORDERED: PIPERACILLIN/TAZOBACTAM 3.375 GM VIAL IVPB ONE (02:09)
[2021-07-06] MEDS ORDERED: DEXTROSE 5%-WATER - 50 ML IVPB ONE (02:09)
[2021-07-06] MEDS: PIPERACILLIN/TAZOB 3.375 GM 3.375 GM in DEXTROSE 5%-WATER - 50 ML IVPB SCH (02:54)
[2021-07-06] MEDS: INSULIN SLIDING SCALE (NOVOLOG) 1 VIAL SQ SCH ×4 (06:21→21:21)
[2021-07-06] MEDS ORDERED: DEXTROSE 5%-WATER 100 ML IVPB ONE (09:55)
[2021-07-06] MEDS: CEFTRIAXONE 2 GM in DEXTROSE 5%-WATER 2 GM/100 ML BAG IVPB SCH (10:04)
[2021-07-06] MEDS: metoPROLOL SUCCINATE 25 MG TAB.SR.24H (FP) PO SCH (10:04)
[2021-07-06] MEDS: ASPIRIN 81 MG CHEWABLE TABLETS PO SCH (10:04)
[2021-07-06] MEDS: ALPRAZolam 0.25 MG TABLET PO SCH ×2 (10:04→21:23)
[2021-07-06] MEDS: LISINOPRIL 10 MG TABLET PO SCH (10:04)
[2021-07-06] MEDS: LIDOCAINE 5% TOPICAL PATCH TP SCH (10:04)
[2021-07-06] MEDS: CLOPIDOGREL BISULFATE 75 MG TABLET (FP) PO SCH (10:04)
[2021-07-06] MEDS: GABAPENTIN 100 MG CAPSULE PO SCH ×2 (10:04→21:23)
[2021-07-06] MEDS: ACETAMINOPHEN 325 MG TABLET (FP) PO PRN (10:05)
[2021-07-06] MEDS: COLLAGENASE CLOSTRIDIUM HIST. 30 GRAMS TUBE TP SCH (11:34)
[2021-07-06 13:54] VITALS: BMI 23.0
[2021-07-06] MEDS: INSULIN (LEVEMIR) 100 UNITS/ML UNITS SQ SCH (21:22)
[2021-07-06] MEDS: ATORVASTATIN CA 40 MG TABLET (FP) PO SCH (21:23)
[2021-07-06] MEDS: LIDOCAINE PATCH REMOVAL MC SCH (21:24)
[2021-07-07] MEDS: INSULIN SLIDING SCALE (NOVOLOG) 1 VIAL SQ SCH ×4 (06:53→21:30)
[2021-07-07] MEDS ORDERED: DEXTROSE 5%-WATER 100 ML IVPB ONE (08:57)
[2021-07-07] MEDS: ALPRAZolam 0.25 MG TABLET PO SCH ×2 (09:01→21:29)
[2021-07-07] MEDS: ASPIRIN 81 MG CHEWABLE TABLETS PO SCH (09:01)
[2021-07-07] MEDS: CLOPIDOGREL BISULFATE 75 MG TABLET (FP) PO SCH (09:01)
[2021-07-07] MEDS: LIDOCAINE 5% TOPICAL PATCH TP SCH (09:01)
[2021-07-07] MEDS: metoPROLOL SUCCINATE 25 MG TAB.SR.24H (FP) PO SCH (09:01)
[2021-07-07] MEDS: GABAPENTIN 100 MG CAPSULE PO SCH ×2 (09:01→21:29)
[2021-07-07] MEDS: LISINOPRIL 10 MG TABLET PO SCH (09:01)
[2021-07-07] MEDS: COLLAGENASE CLOSTRIDIUM HIST. 30 GRAMS TUBE TP SCH (09:02)
[2021-07-07] MEDS: CEFTRIAXONE 2 GM in DEXTROSE 5%-WATER 2 GM/100 ML BAG IVPB SCH (09:02)
[2021-07-07] MEDS: POLYETHYLENE GLYCOL (HEALTHYLAX) 3350 17 GM PACKET PO PRN (09:08)
[2021-07-07 19:07] LABS: SARS-CoV-2 NAA Not Detected (Not Detected)
[2021-07-07] MEDS: ACETAMINOPHEN 325 MG TABLET (FP) PO PRN (20:08)
[2021-07-07] MEDS: INSULIN (LEVEMIR) 100 UNITS/ML UNITS SQ SCH (21:29)
[2021-07-07] MEDS: ATORVASTATIN CA 40 MG TABLET (FP) PO SCH (21:29)
[2021-07-07] MEDS: LIDOCAINE PATCH REMOVAL MC SCH (22:17)
[2021-07-08] MEDS: INSULIN SLIDING SCALE (NOVOLOG) 1 VIAL SQ SCH ×4 (06:40→21:17)
[2021-07-08] MEDS ORDERED: DEXTROSE 5%-WATER 100 ML IVPB ONE (08:44)
[2021-07-08] MEDS: CLOPIDOGREL BISULFATE 75 MG TABLET (FP) PO SCH (09:11)
[2021-07-08] MEDS: CEFTRIAXONE 2 GM in DEXTROSE 5%-WATER 2 GM/100 ML BAG IVPB SCH (09:11)
[2021-07-08] MEDS: ACETAMINOPHEN 325 MG TABLET (FP) PO PRN (09:14)
[2021-07-08] MEDS: ALPRAZolam 0.25 MG TABLET PO SCH ×2 (09:14→21:16)
[2021-07-08] MEDS: ASPIRIN 81 MG CHEWABLE TABLETS PO SCH (09:14)
[2021-07-08] MEDS: metoPROLOL SUCCINATE 25 MG TAB.SR.24H (FP) PO SCH (09:14)
[2021-07-08] MEDS: LISINOPRIL 10 MG TABLET PO SCH (09:15)
[2021-07-08] MEDS: LIDOCAINE 5% TOPICAL PATCH TP SCH (10:32)
[2021-07-08] MEDS: GABAPENTIN 100 MG CAPSULE PO SCH ×2 (10:32→21:16)
[2021-07-08] MEDS: COLLAGENASE CLOSTRIDIUM HIST. 30 GRAMS TUBE TP SCH (10:33)
[2021-07-08] MEDS: LIDOCAINE PATCH REMOVAL MC SCH (21:16)
[2021-07-08] MEDS: ATORVASTATIN CA 40 MG TABLET (FP) PO SCH (21:16)
[2021-07-08] MEDS: INSULIN (LEVEMIR) 100 UNITS/ML UNITS SQ SCH (21:16)
[2021-07-09] MEDS: MECLIZINE HCL 12.5 MG TABLET PO PRN (01:32)
[2021-07-09] MEDS: ACETAMINOPHEN 325 MG TABLET (FP) PO PRN (01:32)
[2021-07-09] MEDS: INSULIN SLIDING SCALE (NOVOLOG) 1 VIAL SQ SCH ×2 (06:29→11:17)
[2021-07-09 07:45] LABS: BASO % 0.6 % (0-2.0); EOS % 5.8 % (0-4.5); HEMATOCRIT 28.6 % (32.4-45.2); HEMOGLOBIN 9.3 GM/dL (10.7-15.3); LYMPH % 26.4 % (8-40); MCHC 32.5 g/dl (32.0-36.0); MEAN CELL VOLUME 67.8 fl (80-96); MEAN PLT VOLUME 7.7 fl (7.5-11.1); MONO % 9.4 % (3.8-10.2); NEUT % 57.8 % (42.8-82.8); PLATELET COUNT 291 10^3/uL (134-434); RBC 4.22 M/mm3 (3.60-5.2); RDW 17.4 % (11.6-15.6); WHITE BLOOD COUNT 5.4 K/mm3 (4.0-10.0)
[2021-07-09 08:05] LABS: CALCIUM 8.3 mg/dL (8.5-10.1)
[2021-07-09 08:06] LABS: BLOOD UREA NITROGEN 15.9 mg/dL (7-18)
[2021-07-09 08:08] LABS: CREATININE 0.4 mg/dL (0.55-1.3)
[2021-07-09 08:56] VITALS: BP 158/83; PULSE 69; TEMP 98.1
[2021-07-09] MEDS ORDERED: DEXTROSE 5%-WATER 100 ML IVPB ONE (09:05)
[2021-07-09] MEDS: LIDOCAINE 5% TOPICAL PATCH TP SCH (09:08)
[2021-07-09] MEDS: LISINOPRIL 10 MG TABLET PO SCH (09:08)
[2021-07-09] MEDS: ALPRAZolam 0.25 MG TABLET PO SCH (09:08)
[2021-07-09] MEDS: ASPIRIN 81 MG CHEWABLE TABLETS PO SCH (09:08)
[2021-07-09] MEDS: CLOPIDOGREL BISULFATE 75 MG TABLET (FP) PO SCH (09:08)
[2021-07-09] MEDS: GABAPENTIN 100 MG CAPSULE PO SCH (09:08)
[2021-07-09] MEDS: metoPROLOL SUCCINATE 25 MG TAB.SR.24H (FP) PO SCH (09:08)
[2021-07-09] MEDS: CEFTRIAXONE 2 GM in DEXTROSE 5%-WATER 2 GM/100 ML BAG IVPB SCH (09:10)
[2021-07-09] MEDS: COLLAGENASE CLOSTRIDIUM HIST. 30 GRAMS TUBE TP SCH (09:10)
[2021-07-09 09:46] LABS: ANISOCYTOSIS 2+; MACROCYTOSIS 0
== END 2021-07-09 13:45 | disposition home or self-care (01) | DRG 181 ==
LOC: JER 21:11 → JERBED 22:56 → J4S 06-30 01:07
PROVIDERS: ADMIT Hospitalist; ATTEND Internal Medicine
PROC: X27J385 Dilation of Left Femoral Artery with Sustained Release Drug-eluting Intraluminal Device, Percutaneous Approach, New Technology Group 5 (ICD-10-PCS; 2021-07-04)
PROC: 3E05317 Introduction of Other Thrombolytic into Peripheral Artery, Percutaneous Approach (ICD-10-PCS; 2021-07-04)
PROC: 04CQ3ZZ Extirpation of Matter from Left Anterior Tibial Artery, Percutaneous Approach (ICD-10-PCS; 2021-07-04)
PROC: 047Q3ZZ Dilation of Left Anterior Tibial Artery, Percutaneous Approach (ICD-10-PCS; 2021-07-04)
PROC: B41DZZZ Fluoroscopy of Aorta and Bilateral Lower Extremity Arteries (ICD-10-PCS; 2021-07-04)
PROC: 04CL3ZZ Extirpation of Matter from Left Femoral Artery, Percutaneous Approach (ICD-10-PCS; principal; 2021-07-04 13:00)
PROC: 05HB33Z Insertion of Infusion Device into Right Basilic Vein, Percutaneous Approach (ICD-10-PCS; 2021-07-09)
PROC: B51MZZA Fluoroscopy of Right Upper Extremity Veins, Guidance (ICD-10-PCS; 2021-07-09)
DX: E11.51 Type 2 diabetes mellitus with diabetic peripheral angiopathy without gangrene (principal); L03.119 Cellulitis of unspecified part of limb; I50.22 Chronic systolic (congestive) heart failure; I69.354 Hemiplegia and hemiparesis following cerebral infarction affecting left non-dominant side; M86.9 Osteomyelitis, unspecified; M79.676 Pain in unspecified toe(s); I11.0 Hypertensive heart disease with heart failure; K74.60 Unspecified cirrhosis of liver; I10 Essential (primary) hypertension; I77.1 Stricture of artery; E11.621 Type 2 diabetes mellitus with foot ulcer; L97.529 Non-pressure chronic ulcer of other part of left foot with unspecified severity; I25.10 Atherosclerotic heart disease of native coronary artery without angina pectoris; E78.5 Hyperlipidemia, unspecified; Z95.1 Presence of aortocoronary bypass graft; L08.9 Local infection of the skin and subcutaneous tissue, unspecified; Z88.5 Allergy status to narcotic agent; K76.0 Fatty (change of) liver, not elsewhere classified
CPT/HCPCS: 36415; 36569; 71045-TC-FY; 73110-TC-RT-FY; 73630-TC-LT; 73718-TC-LT; 76000-TC-FY; 77001-TC-FY; 80048; 80053; 80061; 82962; 83036; 84550; 85025; 85610; 85651; 85730; 86140; 87040; 93005; 93010; 93922; 93926-TC; 94760; 97116-GP; 97162-GP; 99285-25; C1751; C9803-CS; J1644; U0003; U0005

== ENCOUNTER 2022-01-05 13:22 | Inpatient (IN) | payer OTHER ==
[2022-01-05] MEDS ORDERED: morphine CARPU-JECT 4 MG/1 ML DISP.SYRIN IVPUSH ONE (14:42)
[2022-01-05] MEDS ORDERED: VANCOMYCIN 1 GM in D5W (PRE-DOCKED) 1,000 MG/250 ML IVPB ONE (14:53)
[2022-01-05] MEDS ORDERED: PIPERACILLIN/TAZOB 3.375 GM 3.375 GM in DEXTROSE 5%-WATER - 50 ML IVPB ONE (14:53)
[2022-01-05] MEDS ORDERED: PIPERACILLIN/TAZOB 3.375 GM 3.375 GM/50 ML BAG IVPB ONE ×2 (14:57→14:59)
[2022-01-05] MEDS ORDERED: VANCOMYCIN/WATER FOR INJ (PEG) 1,000 MG/200 ML BAG IVPB ONE (14:59)
[2022-01-05] MEDS ORDERED: morphine SULFATE 4 MG/ML VIAL ONE (15:10)
[2022-01-05 15:46] LABS: BASO % 1.2 % (0-2.0); EOS % 3.2 % (0-4.5); HEMATOCRIT 31.7 % (32.4-45.2); HEMOGLOBIN 9.9 GM/dL (10.7-15.3); LYMPH % 19.7 % (8-40); MCHC 31.1 g/dl (32.0-36.0); MEAN CELL VOLUME 62.5 fl (80-96); MEAN PLT VOLUME 8.2 fl (7.5-11.1); MONO % 4.2 % (3.8-10.2); NEUT % 71.7 % (42.8-82.8); PLATELET COUNT 433 10^3/uL (134-434); RBC 5.08 M/mm3 (3.60-5.2); RDW 21.5 % (11.6-15.6); WHITE BLOOD COUNT 8.9 K/mm3 (4.0-10.0)
[2022-01-05 15:51] LABS: MCH 19.4 pg (25.7-33.7)
[2022-01-05 15:55] LABS: INR 1.02 (0.83-1.09); PROTHROMBIN TIME (PATIENT) 11.7 SEC (9.7-13.0)
[2022-01-05 15:58] LABS: ACTIVATED PTT 28.5 SECONDS (25.2-36.5)
[2022-01-05 16:05] LABS: ALBUMIN 3.3 g/dl (3.4-5.0); BLOOD UREA NITROGEN 19.1 mg/dL (7-18); CALCIUM 9.3 mg/dL (8.5-10.1)
[2022-01-05 16:08] LABS: CREATININE 0.6 mg/dL (0.55-1.3)
[2022-01-05 16:09] LABS: BILIRUBIN,TOTAL 0.4 mg/dL (0.2-1); TOT PROT 7.1 g/dl (6.4-8.2)
[2022-01-05 16:12] LABS: LACTIC ACID 2.2 mmol/L (0.4-2.0)
[2022-01-05] MEDS ORDERED: SODIUM CHLORIDE 0.9% 500 ML INFUS.BAG IV ONE (16:13)
[2022-01-05 16:19] LABS: ERYTHROCYTE SEDIMENTATION RATE 23 mm/hr (0-30)
[2022-01-05 16:24] LABS: ANISOCYTOSIS 3+; MACROCYTOSIS 0; OVALOCYTE 1+; TARGET CELLS 1+
[2022-01-05] MEDS ORDERED: ACETAMINOPHEN 1000 MG/100 ML BAG IVPB ONE (16:48)
[2022-01-05] MEDS ORDERED: ACETAMINOPHEN INJECTION 100 ML IVPB ONE (17:00)
[2022-01-05 18:18] LABS: EPI CELLS 13 /uL (0-25.1); HYALINE CASTS 1 /uL (0-3.1); PH,URINE 5.5 (5.0-8.0); URINE APPEARANCE CLEAR; URINE BACTERIA 50 /uL (0-1359); URINE BILIRUBIN NEGATIVE (NEGATIVE); URINE COLOR YELLOW; URINE GLUCOSE (UA) 2+ (NEGATIVE); URINE KETONE NEGATIVE (NEGATIVE); URINE LEUK ESTERASE TRACE (NEGATIVE); URINE NITRITE NEGATIVE (NEGATIVE); URINE PROTEIN 1+ (NEGATIVE); URINE RBC 13 /uL (0-23.9); URINE UROBILINOGEN 0.2 mg/dL (0.2-1.0); URINE WBC 56 /uL (0-25.8)
[2022-01-05 18:49] LABS: CALCIUM 8.4 mg/dL (8.5-10.1)
[2022-01-05 18:50] LABS: BLOOD UREA NITROGEN 17.5 mg/dL (7-18)
[2022-01-05 18:53] LABS: CREATININE 0.7 mg/dL (0.55-1.3)
[2022-01-05] MEDS ORDERED: ACETAMINOPHEN 1000 MG/100 ML BAG IVPB PRN (23:18)
[2022-01-05] MEDS: INSULIN SLIDING SCALE (NOVOLOG) 1 VIAL SQ SCH (23:28)
[2022-01-05] MEDS: GABAPENTIN 100 MG CAPSULE PO SCH (23:29)
[2022-01-05] MEDS: ASPIRIN 81 MG CHEWABLE TABLETS PO SCH (23:30)
[2022-01-05] MEDS: LISINOPRIL 10 MG TABLET PO SCH (23:30)
[2022-01-05] MEDS: CEFTRIAXONE 2 GM in DEXTROSE 5%-WATER 100 ML IVPB SCH (23:31)
[2022-01-06] MEDS: ACETAMINOPHEN 1000 MG/100 ML BAG IVPB SCH ×4 (00:18→17:08)
[2022-01-06] MEDS: INSULIN SLIDING SCALE (NOVOLOG) 1 VIAL SQ SCH ×4 (06:50→23:06)
[2022-01-06 09:42] LABS: BASO % 0.6 % (0-2.0); EOS % 3.4 % (0-4.5); HEMATOCRIT 30.9 % (32.4-45.2); HEMOGLOBIN 9.7 GM/dL (10.7-15.3); LYMPH % 22.8 % (8-40); MCH 19.5 pg (25.7-33.7); MCHC 31.2 g/dl (32.0-36.0); MEAN CELL VOLUME 62.4 fl (80-96); MONO % 6.5 % (3.8-10.2); NEUT % 66.7 % (42.8-82.8); PLATELET COUNT 336 10^3/uL (134-434); RBC 4.95 M/mm3 (3.60-5.2); RDW 21.4 % (11.6-15.6); WHITE BLOOD COUNT 5.7 K/mm3 (4.0-10.0)
[2022-01-06 09:51] LABS: CALCIUM 8.7 mg/dL (8.5-10.1)
[2022-01-06 09:52] LABS: ALBUMIN 2.7 g/dl (3.4-5.0); BLOOD UREA NITROGEN 15.3 mg/dL (7-18); MAGNESIUM 1.7 mg/dL (1.8-2.4)
[2022-01-06 09:55] LABS: CREATININE 0.5 mg/dL (0.55-1.3); PHOSPHOROUS 3.8 mg/dL (2.5-4.9)
[2022-01-06 09:57] LABS: BILIRUBIN,TOTAL 0.2 mg/dL (0.2-1); TOT PROT 5.8 g/dl (6.4-8.2)
[2022-01-06] MEDS: GABAPENTIN 100 MG CAPSULE PO SCH ×2 (10:11→22:58)
[2022-01-06] MEDS: LISINOPRIL 10 MG TABLET PO SCH (10:12)
[2022-01-06] MEDS: ASPIRIN 81 MG CHEWABLE TABLETS PO SCH (10:12)
[2022-01-06] MEDS: ENOXAPARIN NA (PORCINE) 40 MG/0.4 ML DISP.SYRIN SQ SCH (10:12)
[2022-01-06] MEDS: CEFTRIAXONE 2 GM in DEXTROSE 5%-WATER 100 ML IVPB SCH (10:13)
[2022-01-06 12:11] LABS: ERYTHROCYTE SEDIMENTATION RATE 27 mm/hr (0-30)
[2022-01-06] MEDS: POLYETHYLENE GLYCOL (HEALTHYLAX) 3350 17 GM PACKET PO PRN (15:56)
[2022-01-06] MEDS: ALPRAZolam 0.25 MG TABLET PO SCH (22:58)
[2022-01-06] MEDS: ATORVASTATIN CA 40 MG TABLET (FP) PO SCH (22:59)
[2022-01-07] MEDS: INSULIN SLIDING SCALE (NOVOLOG) 1 VIAL SQ SCH ×4 (07:15→21:29)
[2022-01-07] MEDS: ALPRAZolam 0.25 MG TABLET PO SCH ×2 (10:00→10:11)
[2022-01-07] MEDS: CLOPIDOGREL BISULFATE 75 MG TABLET (FP) PO SCH (10:00)
[2022-01-07] MEDS: ASPIRIN 81 MG CHEWABLE TABLETS PO SCH (10:00)
[2022-01-07] MEDS: LISINOPRIL 10 MG TABLET PO SCH (10:01)
[2022-01-07] MEDS: CEFTRIAXONE 2 GM in DEXTROSE 5%-WATER 100 ML IVPB SCH (10:01)
[2022-01-07] MEDS: GABAPENTIN 100 MG CAPSULE PO SCH ×2 (10:01→21:23)
[2022-01-07] MEDS: ENOXAPARIN NA (PORCINE) 40 MG/0.4 ML DISP.SYRIN SQ SCH (10:01)
[2022-01-07 10:26] LABS: HEMATOCRIT 30.9 % (32.4-45.2); HEMOGLOBIN 9.8 GM/dL (10.7-15.3); MCHC 31.6 g/dl (32.0-36.0); MEAN CELL VOLUME 62.3 fl (80-96); MEAN PLT VOLUME 8.1 fl (7.5-11.1); PLATELET COUNT 322 10^3/uL (134-434); RBC 4.96 M/mm3 (3.60-5.2); RDW 21.4 % (11.6-15.6); WHITE BLOOD COUNT 6.6 K/mm3 (4.0-10.0)
[2022-01-07 10:31] LABS: MCH 19.7 pg (25.7-33.7)
[2022-01-07] MEDS ORDERED: ALPRAZolam 0.25 MG TABLET PO PRN (10:43)
[2022-01-07 10:55] LABS: ANISOCYTOSIS 3+; MACROCYTOSIS 0
[2022-01-07] MEDS: ATORVASTATIN CA 40 MG TABLET (FP) PO SCH (21:23)
[2022-01-08] MEDS: INSULIN SLIDING SCALE (NOVOLOG) 1 VIAL SQ SCH ×4 (06:01→21:50)
[2022-01-08] MEDS: ENOXAPARIN NA (PORCINE) 40 MG/0.4 ML DISP.SYRIN SQ SCH (09:38)
[2022-01-08] MEDS: CEFTRIAXONE 2 GM in DEXTROSE 5%-WATER 100 ML IVPB SCH (09:38)
[2022-01-08] MEDS: ASPIRIN 81 MG CHEWABLE TABLETS PO SCH (09:38)
[2022-01-08] MEDS: GABAPENTIN 100 MG CAPSULE PO SCH ×2 (09:38→21:52)
[2022-01-08] MEDS: LISINOPRIL 10 MG TABLET PO SCH (09:39)
[2022-01-08] MEDS: CLOPIDOGREL BISULFATE 75 MG TABLET (FP) PO SCH (09:39)
[2022-01-08] MEDS: POLYETHYLENE GLYCOL (HEALTHYLAX) 3350 17 GM PACKET PO PRN (09:41)
[2022-01-08] MEDS ORDERED: INSULIN (NOVOLOG) ASPART 100 UNITS/ML 10ML VIAL ONE ×3 (11:29→21:49)
[2022-01-08] MEDS: COLLAGENASE CLOSTRIDIUM HIST. 30 GRAMS TUBE TP SCH (11:30)
[2022-01-08] MEDS: ATORVASTATIN CA 40 MG TABLET (FP) PO SCH (21:52)
[2022-01-09] MEDS: INSULIN SLIDING SCALE (NOVOLOG) 1 VIAL SQ SCH ×4 (06:55→21:51)
[2022-01-09 09:57] LABS: BASO % 0.7 % (0-2.0); EOS % 3.3 % (0-4.5); HEMATOCRIT 34.4 % (32.4-45.2); HEMOGLOBIN 10.3 GM/dL (10.7-15.3); LYMPH % 21.3 % (8-40); MEAN CELL VOLUME 62.9 fl (80-96); MEAN PLT VOLUME 8.5 fl (7.5-11.1); MONO % 5.9 % (3.8-10.2); NEUT % 68.8 % (42.8-82.8); PLATELET COUNT 389 10^3/uL (134-434); RBC 5.48 M/mm3 (3.60-5.2); RDW 21.4 % (11.6-15.6); WHITE BLOOD COUNT 6.9 K/mm3 (4.0-10.0)
[2022-01-09 10:07] LABS: MCH 18.9 pg (25.7-33.7)
[2022-01-09 10:17] LABS: BLOOD UREA NITROGEN 14.2 mg/dL (7-18)
[2022-01-09 10:20] LABS: CREATININE 0.4 mg/dL (0.55-1.3)
[2022-01-09] MEDS: ENOXAPARIN NA (PORCINE) 40 MG/0.4 ML DISP.SYRIN SQ SCH (10:30)
[2022-01-09] MEDS: LISINOPRIL 10 MG TABLET PO SCH (10:31)
[2022-01-09] MEDS: POLYETHYLENE GLYCOL (HEALTHYLAX) 3350 17 GM PACKET PO PRN (10:31)
[2022-01-09] MEDS: GABAPENTIN 100 MG CAPSULE PO SCH ×2 (10:31→21:51)
[2022-01-09] MEDS: CEFTRIAXONE 2 GM in DEXTROSE 5%-WATER 100 ML IVPB SCH (10:31)
[2022-01-09] MEDS: ASPIRIN 81 MG CHEWABLE TABLETS PO SCH (10:31)
[2022-01-09] MEDS: CLOPIDOGREL BISULFATE 75 MG TABLET (FP) PO SCH (10:31)
[2022-01-09] MEDS: COLLAGENASE CLOSTRIDIUM HIST. 30 GRAMS TUBE TP SCH ×2 (10:32→15:52)
[2022-01-09 10:59] LABS: ANISOCYTOSIS 2+; MACROCYTOSIS 0; OVALOCYTE 2+
[2022-01-09] MEDS ORDERED: INSULIN (NOVOLOG) ASPART 100 UNITS/ML 10ML VIAL ONE (21:49)
[2022-01-09] MEDS: ATORVASTATIN CA 40 MG TABLET (FP) PO SCH (21:51)
[2022-01-10] MEDS: INSULIN SLIDING SCALE (NOVOLOG) 1 VIAL SQ SCH ×4 (06:23→22:02)
[2022-01-10] MEDS ORDERED: LIDOCAINE HCL 1%, 10 MG/ML (20ML VIAL) ONE (07:30)
[2022-01-10] MEDS ORDERED: HEPARIN NA (PORCINE) 5,000 UNITS/ML 1ML VIAL ONE ×2 (07:30→11:27)
[2022-01-10] MEDS: ENOXAPARIN NA (PORCINE) 40 MG/0.4 ML DISP.SYRIN SQ SCH (09:26)
[2022-01-10] MEDS: CEFTRIAXONE 2 GM in DEXTROSE 5%-WATER 100 ML IVPB SCH (09:27)
[2022-01-10] MEDS: LISINOPRIL 10 MG TABLET PO SCH (09:28)
[2022-01-10] MEDS: GABAPENTIN 100 MG CAPSULE PO SCH ×2 (09:28→21:57)
[2022-01-10] MEDS: ASPIRIN 81 MG CHEWABLE TABLETS PO SCH (09:28)
[2022-01-10] MEDS: CLOPIDOGREL BISULFATE 75 MG TABLET (FP) PO SCH (09:28)
[2022-01-10] MEDS ORDERED: PROPOFOL 60 ML ONE (10:10)
[2022-01-10 10:29] LABS: HEMOGLOBIN 10.5 GM/dL (10.7-15.3); MCHC 31.9 g/dl (32.0-36.0); MEAN CELL VOLUME 62.5 fl (80-96); MEAN PLT VOLUME 8.2 fl (7.5-11.1); PLATELET COUNT 343 10^3/uL (134-434); RBC 5.28 M/mm3 (3.60-5.2); RDW 21.2 % (11.6-15.6); WHITE BLOOD COUNT 6.6 K/mm3 (4.0-10.0)
[2022-01-10] MEDS: COLLAGENASE CLOSTRIDIUM HIST. 30 GRAMS TUBE TP SCH (10:30)
[2022-01-10] MEDS ORDERED: MIDAZOLAM HCL 2 MG/2 ML SINGLE DOSE VIAL ONE (10:33)
[2022-01-10] MEDS ORDERED: ceFAZolin SODIUM 1 GM VIAL ONE (10:34)
[2022-01-10 10:36] LABS: MCH 19.9 pg (25.7-33.7)
[2022-01-10] MEDS ORDERED: LACTATED RINGERS SOLUTION 1,000 ML IV SCH (10:45)
[2022-01-10] MEDS ORDERED: ONDANSETRON 4 MG/2 ML VIAL IVPUSH PRN ×2 (10:45→12:14)
[2022-01-10 10:52] LABS: CALCIUM 8.8 mg/dL (8.5-10.1)
[2022-01-10 10:53] LABS: BLOOD UREA NITROGEN 13.4 mg/dL (7-18)
[2022-01-10 10:56] LABS: CREATININE 0.4 mg/dL (0.55-1.3)
[2022-01-10] MEDS ORDERED: ceFAZolin SODIUM 1 GM VIAL IVPB ONE (10:59)
[2022-01-10] MEDS ORDERED: LIDOCAINE HCL 1%, 10 MG/ML (50 mL VIAL) INF ONE ×3 (10:59→11:19)
[2022-01-10] MEDS ORDERED: PROPOFOL 20 ML ONE (11:12)
[2022-01-10 11:31] LABS: ANISOCYTOSIS 2+; MACROCYTOSIS 0
[2022-01-10] MEDS ORDERED: ALPRAZolam 0.25 MG TABLET PO PRN (12:14)
[2022-01-10] MEDS: LACTATED RINGERS SOLUTION 1,000 ML IV SCH (17:07)
[2022-01-10] MEDS: ACETAMINOPHEN 1000 MG/100 ML BAG IVPB PRN (18:38)
[2022-01-10] MEDS: ATORVASTATIN CA 40 MG TABLET (FP) PO SCH (21:56)
[2022-01-11] MEDS: INSULIN SLIDING SCALE (NOVOLOG) 1 VIAL SQ SCH ×4 (06:00→21:59)
[2022-01-11 08:24] LABS: BASO % 0.5 % (0-2.0); EOS % 2.3 % (0-4.5); HEMATOCRIT 27.4 % (32.4-45.2); LYMPH % 13.7 % (8-40); MCH 20.4 pg (25.7-33.7); MCHC 32.9 g/dl (32.0-36.0); MEAN CELL VOLUME 61.9 fl (80-96); MEAN PLT VOLUME 8.2 fl (7.5-11.1); MONO % 6.6 % (3.8-10.2); NEUT % 76.9 % (42.8-82.8); PLATELET COUNT 299 10^3/uL (134-434); RBC 4.42 M/mm3 (3.60-5.2); RDW 20.7 % (11.6-15.6); WHITE BLOOD COUNT 6.5 K/mm3 (4.0-10.0)
[2022-01-11 08:41] LABS: CALCIUM 8.5 mg/dL (8.5-10.1)
[2022-01-11 08:42] LABS: BLOOD UREA NITROGEN 8.5 mg/dL (7-18)
[2022-01-11 08:45] LABS: CREATININE 0.4 mg/dL (0.55-1.3)
[2022-01-11] MEDS: ACETAMINOPHEN 1000 MG/100 ML BAG IVPB PRN (08:54)
[2022-01-11] MEDS: CEFTRIAXONE 2 GM in DEXTROSE 5%-WATER 100 ML IVPB SCH (09:39)
[2022-01-11] MEDS: ASPIRIN 81 MG CHEWABLE TABLETS PO SCH (09:39)
[2022-01-11] MEDS: ENOXAPARIN NA (PORCINE) 40 MG/0.4 ML DISP.SYRIN SQ SCH (09:40)
[2022-01-11] MEDS: LISINOPRIL 10 MG TABLET PO SCH (09:40)
[2022-01-11] MEDS: CLOPIDOGREL BISULFATE 75 MG TABLET (FP) PO SCH (09:40)
[2022-01-11] MEDS: GABAPENTIN 100 MG CAPSULE PO SCH ×2 (09:40→21:53)
[2022-01-11] MEDS: POLYETHYLENE GLYCOL (HEALTHYLAX) 3350 17 GM PACKET PO PRN (09:44)
[2022-01-11] MEDS: COLLAGENASE CLOSTRIDIUM HIST. 30 GRAMS TUBE TP SCH (11:25)
[2022-01-11] MEDS: LACTATED RINGERS SOLUTION 1,000 ML IV SCH (13:02)
[2022-01-11] MEDS: ATORVASTATIN CA 40 MG TABLET (FP) PO SCH (21:53)
[2022-01-12] MEDS: INSULIN SLIDING SCALE (NOVOLOG) 1 VIAL SQ SCH ×4 (07:05→21:58)
[2022-01-12 09:58] LABS: BASO % 0.5 % (0-2.0); EOS % 1.6 % (0-4.5); HEMATOCRIT 29.4 % (32.4-45.2); HEMOGLOBIN 9.1 GM/dL (10.7-15.3); LYMPH % 23.1 % (8-40); MEAN CELL VOLUME 62.3 fl (80-96); MEAN PLT VOLUME 8.3 fl (7.5-11.1); MONO % 8.6 % (3.8-10.2); NEUT % 66.2 % (42.8-82.8); PLATELET COUNT 302 10^3/uL (134-434); RBC 4.72 M/mm3 (3.60-5.2); RDW 21.2 % (11.6-15.6); WHITE BLOOD COUNT 6.1 K/mm3 (4.0-10.0)
[2022-01-12 10:14] LABS: MCH 19.3 pg (25.7-33.7)
[2022-01-12 10:21] LABS: CALCIUM 8.5 mg/dL (8.5-10.1)
[2022-01-12 10:25] LABS: CREATININE 0.4 mg/dL (0.55-1.3)
[2022-01-12] MEDS: ASPIRIN 81 MG CHEWABLE TABLETS PO SCH (10:47)
[2022-01-12] MEDS: ENOXAPARIN NA (PORCINE) 40 MG/0.4 ML DISP.SYRIN SQ SCH (10:48)
[2022-01-12] MEDS: GABAPENTIN 100 MG CAPSULE PO SCH ×2 (10:48→21:54)
[2022-01-12] MEDS: CLOPIDOGREL BISULFATE 75 MG TABLET (FP) PO SCH (10:49)
[2022-01-12] MEDS: CEFTRIAXONE 2 GM in DEXTROSE 5%-WATER 100 ML IVPB SCH (10:49)
[2022-01-12] MEDS: LISINOPRIL 10 MG TABLET PO SCH (10:49)
[2022-01-12] MEDS: COLLAGENASE CLOSTRIDIUM HIST. 30 GRAMS TUBE TP SCH (10:50)
[2022-01-12] MEDS ORDERED: VANCOMYCIN 1 GM in D5W (PRE-DOCKED) 1,000 MG/250 ML IVPB SCH (11:00)
[2022-01-12 11:15] LABS: ANISOCYTOSIS 3+; MACROCYTOSIS 0; OVALOCYTE 1+
[2022-01-12] MEDS ORDERED: VANCOMYCIN 1 GM/200 ML PREMIX BAG IVPB SCH (11:15)
[2022-01-12] MEDS: LACTATED RINGERS SOLUTION 1,000 ML IV SCH (12:54)
[2022-01-12 17:56] VITALS: BMI 22.2
[2022-01-12] MEDS: ATORVASTATIN CA 40 MG TABLET (FP) PO SCH (21:53)
[2022-01-12] MEDS: VANCOMYCIN/WATER FOR INJ (PEG) 1,000 MG/200 ML BAG IVPB SCH (22:04)
[2022-01-13] MEDS: INSULIN SLIDING SCALE (NOVOLOG) 1 VIAL SQ SCH ×4 (06:24→21:23)
[2022-01-13] MEDS: GABAPENTIN 100 MG CAPSULE PO SCH ×2 (09:59→21:17)
[2022-01-13] MEDS: ASPIRIN 81 MG CHEWABLE TABLETS PO SCH (09:59)
[2022-01-13] MEDS: LISINOPRIL 10 MG TABLET PO SCH (09:59)
[2022-01-13] MEDS: ENOXAPARIN NA (PORCINE) 40 MG/0.4 ML DISP.SYRIN SQ SCH (09:59)
[2022-01-13] MEDS: CLOPIDOGREL BISULFATE 75 MG TABLET (FP) PO SCH (09:59)
[2022-01-13] MEDS: CEFTRIAXONE 2 GM in DEXTROSE 5%-WATER 100 ML IVPB SCH (10:00)
[2022-01-13] MEDS: COLLAGENASE CLOSTRIDIUM HIST. 30 GRAMS TUBE TP SCH (10:10)
[2022-01-13] MEDS ORDERED: INSULIN (NOVOLOG) ASPART 100 UNITS/ML 10ML VIAL ONE (11:57)
[2022-01-13] MEDS: VANCOMYCIN/WATER FOR INJ (PEG) 1,000 MG/200 ML BAG IVPB SCH ×2 (12:03→22:29)
[2022-01-13] MEDS: POLYETHYLENE GLYCOL (HEALTHYLAX) 3350 17 GM PACKET PO PRN (14:19)
[2022-01-13] MEDS: ATORVASTATIN CA 40 MG TABLET (FP) PO SCH (21:17)
[2022-01-14] MEDS: INSULIN SLIDING SCALE (NOVOLOG) 1 VIAL SQ SCH ×4 (06:48→22:18)
[2022-01-14] MEDS: GABAPENTIN 100 MG CAPSULE PO SCH ×2 (10:03→22:17)
[2022-01-14] MEDS: LISINOPRIL 10 MG TABLET PO SCH (10:03)
[2022-01-14] MEDS: CEFTRIAXONE 2 GM in DEXTROSE 5%-WATER 100 ML IVPB SCH (10:03)
[2022-01-14] MEDS: ASPIRIN 81 MG CHEWABLE TABLETS PO SCH (10:03)
[2022-01-14] MEDS: ENOXAPARIN NA (PORCINE) 40 MG/0.4 ML DISP.SYRIN SQ SCH (10:03)
[2022-01-14] MEDS: CLOPIDOGREL BISULFATE 75 MG TABLET (FP) PO SCH (10:03)
[2022-01-14] MEDS: COLLAGENASE CLOSTRIDIUM HIST. 30 GRAMS TUBE TP SCH (10:27)
[2022-01-14 10:38] LABS: BASO % 0.6 % (0-2.0); EOS % 2.6 % (0-4.5); HEMATOCRIT 31.6 % (32.4-45.2); HEMOGLOBIN 9.7 GM/dL (10.7-15.3); LYMPH % 17.6 % (8-40); MCHC 30.6 g/dl (32.0-36.0); MEAN CELL VOLUME 62.7 fl (80-96); MEAN PLT VOLUME 8.4 fl (7.5-11.1); MONO % 6.2 % (3.8-10.2); PLATELET COUNT 371 10^3/uL (134-434); RBC 5.04 M/mm3 (3.60-5.2); RDW 21.3 % (11.6-15.6); WHITE BLOOD COUNT 6.4 K/mm3 (4.0-10.0)
[2022-01-14 10:39] LABS: MCH 19.2 pg (25.7-33.7)
[2022-01-14 11:01] LABS: BLOOD UREA NITROGEN 12.7 mg/dL (7-18)
[2022-01-14 11:04] LABS: CREATININE 0.6 mg/dL (0.55-1.3)
[2022-01-14] MEDS: VANCOMYCIN/WATER FOR INJ (PEG) 1,000 MG/200 ML BAG IVPB SCH ×2 (11:28→22:18)
[2022-01-14] MEDS: ATORVASTATIN CA 40 MG TABLET (FP) PO SCH (22:17)
[2022-01-15] MEDS: INSULIN SLIDING SCALE (NOVOLOG) 1 VIAL SQ SCH ×4 (06:24→22:02)
[2022-01-15] MEDS: ACETAMINOPHEN 325 MG TABLET (FP) PO PRN ×2 (10:01→21:58)
[2022-01-15] MEDS: CEFTRIAXONE 2 GM in DEXTROSE 5%-WATER 100 ML IVPB SCH (11:49)
[2022-01-15] MEDS: ASPIRIN 81 MG CHEWABLE TABLETS PO SCH (11:49)
[2022-01-15] MEDS: GABAPENTIN 100 MG CAPSULE PO SCH ×2 (11:49→21:58)
[2022-01-15] MEDS: CLOPIDOGREL BISULFATE 75 MG TABLET (FP) PO SCH (11:50)
[2022-01-15] MEDS: LISINOPRIL 10 MG TABLET PO SCH (11:50)
[2022-01-15] MEDS: VANCOMYCIN/WATER FOR INJ (PEG) 1,000 MG/200 ML BAG IVPB SCH ×2 (12:30→21:59)
[2022-01-15] MEDS: ENOXAPARIN NA (PORCINE) 40 MG/0.4 ML DISP.SYRIN SQ SCH (14:45)
[2022-01-15] MEDS: COLLAGENASE CLOSTRIDIUM HIST. 30 GRAMS TUBE TP SCH (14:45)
[2022-01-15] MEDS: ATORVASTATIN CA 40 MG TABLET (FP) PO SCH (21:58)
[2022-01-16] MEDS: GABAPENTIN 100 MG CAPSULE PO SCH (06:28)
[2022-01-16] MEDS: INSULIN SLIDING SCALE (NOVOLOG) 1 VIAL SQ SCH (06:30)
[2022-01-16 09:35] VITALS: BP 140/67; PULSE 78; RESP 18; TEMP 97
[2022-01-16] MEDS: CEFTRIAXONE 2 GM in DEXTROSE 5%-WATER 100 ML IVPB SCH (09:39)
[2022-01-16] MEDS: ACETAMINOPHEN 325 MG TABLET (FP) PO PRN (09:39)
[2022-01-16] MEDS: ASPIRIN 81 MG CHEWABLE TABLETS PO SCH (09:40)
[2022-01-16] MEDS: LISINOPRIL 10 MG TABLET PO SCH (09:40)
[2022-01-16] MEDS: POLYETHYLENE GLYCOL (HEALTHYLAX) 3350 17 GM PACKET PO PRN (09:40)
[2022-01-16] MEDS: CLOPIDOGREL BISULFATE 75 MG TABLET (FP) PO SCH (09:40)
[2022-01-16] MEDS: ENOXAPARIN NA (PORCINE) 40 MG/0.4 ML DISP.SYRIN SQ SCH (09:40)
[2022-01-16] MEDS: COLLAGENASE CLOSTRIDIUM HIST. 30 GRAMS TUBE TP SCH (09:52)
[2022-01-16 09:58] LABS: BASO % 0.7 % (0-2.0); EOS % 2.8 % (0-4.5); HEMATOCRIT 29.4 % (32.4-45.2); HEMOGLOBIN 9.2 GM/dL (10.7-15.3); LYMPH % 24.3 % (8-40); MCH 19.6 pg (25.7-33.7); MCHC 31.3 g/dl (32.0-36.0); MEAN CELL VOLUME 62.7 fl (80-96); MEAN PLT VOLUME 8.3 fl (7.5-11.1); MONO % 6.8 % (3.8-10.2); NEUT % 65.4 % (42.8-82.8); PLATELET COUNT 358 10^3/uL (134-434); RBC 4.68 M/mm3 (3.60-5.2); RDW 21.3 % (11.6-15.6); WHITE BLOOD COUNT 5.9 K/mm3 (4.0-10.0)
[2022-01-16 10:09] LABS: BLOOD UREA NITROGEN 10.8 mg/dL (7-18); CALCIUM 8.7 mg/dL (8.5-10.1)
[2022-01-16 10:12] LABS: CREATININE 0.4 mg/dL (0.55-1.3)
[2022-01-16 11:21] LABS: ANISOCYTOSIS 3+; MACROCYTOSIS 0; OVALOCYTE 2+
== END 2022-01-16 11:30 | disposition home health service (06) | DRG 181 ==
LOC: JER 13:22 → JERBED 17:16 → J8W 20:18
PROVIDERS: ADMIT Internal Medicine; ATTEND Internal Medicine
PROC: 047L3D1 Dilation of Left Femoral Artery with Intraluminal Device, using Drug-Coated Balloon, Percutaneous Approach (ICD-10-PCS; 2022-01-10)
PROC: B40GYZZ Plain Radiography of Left Lower Extremity Arteries using Other Contrast (ICD-10-PCS; 2022-01-10)
PROC: B40DYZZ Plain Radiography of Aorta and Bilateral Lower Extremity Arteries using Other Contrast (ICD-10-PCS; 2022-01-10)
PROC: 04CL0ZZ Extirpation of Matter from Left Femoral Artery, Open Approach (ICD-10-PCS; principal; 2022-01-10 10:30)
PROC: 0H9NXZX Drainage of Left Foot Skin, External Approach, Diagnostic (ICD-10-PCS; 2022-01-11)
DX: E11.51 Type 2 diabetes mellitus with diabetic peripheral angiopathy without gangrene (principal); E11.69 Type 2 diabetes mellitus with other specified complication; M86.8X6 Other osteomyelitis, lower leg; I25.10 Atherosclerotic heart disease of native coronary artery without angina pectoris; E78.5 Hyperlipidemia, unspecified; K76.0 Fatty (change of) liver, not elsewhere classified; I70.245 Atherosclerosis of native arteries of left leg with ulceration of other part of foot; E11.621 Type 2 diabetes mellitus with foot ulcer; L97.528 Non-pressure chronic ulcer of other part of left foot with other specified severity; E11.40 Type 2 diabetes mellitus with diabetic neuropathy, unspecified; L03.116 Cellulitis of left lower limb; L02.612 Cutaneous abscess of left foot; B95.62 Methicillin resistant Staphylococcus aureus infection as the cause of diseases classified elsewhere; G81.94 Hemiplegia, unspecified affecting left nondominant side; I11.0 Hypertensive heart disease with heart failure; I50.9 Heart failure, unspecified
CPT/HCPCS: 36415; 71045-TC-FY; 73610-TC-LT-FY; 73630-TC-LT; 73718-TC-LT; 76000-TC-FY; 80048; 80053; 81003; 82962; 83036; 83605; 83735; 84100; 85025; 85610; 85651; 85730; 86140; 87040; 87070; 87086; 87186; 87205; 88304-TC; 93005; 93010; 93926-TC; 93970-TC; 94760; 97116-GP; 99285-25; C1725; C1876; C2623; C9803-CS; G0480; J1644; U0003; U0005

== ENCOUNTER 2022-01-16 11:56 | Day surgery (SDC) | payer OTHER ==
[2022-01-16 12:26] VITALS: RESP 18
[2022-01-16] MEDS ORDERED: DALBAVANCIN HCL 1,500 MG in DEXTROSE 5%-WATER - 500 ML IVPB ONE (12:30)
[2022-01-16 13:44] VITALS: BP 130/54; PULSE 74; TEMP 98
== END 2022-01-16 15:37 | disposition home or self-care (01) ==
LOC: FINFUSION 11:56 → FM/S 11:59 → FINFUSION 15:37
PROVIDERS: ATTEND Internal Medicine Infectious Disease
DX: L03.116 Cellulitis of left lower limb (principal); L97.529 Non-pressure chronic ulcer of other part of left foot with unspecified severity; Z95.1 Presence of aortocoronary bypass graft; I10 Essential (primary) hypertension; E78.00 Pure hypercholesterolemia, unspecified; E11.40 Type 2 diabetes mellitus with diabetic neuropathy, unspecified
CPT/HCPCS: 96365; J0875

== ENCOUNTER 2022-01-24 09:53 | Day surgery (SDC) | payer OTHER ==
[2022-01-24] MEDS ORDERED: DALBAVANCIN HCL 1,500 MG in DEXTROSE 5%-WATER - 500 ML IVPB ONE (10:45)
[2022-01-24 11:45] VITALS: BP 141/50; PULSE 74; RESP 17; TEMP 97.9
== END 2022-01-24 11:46 | disposition home or self-care (01) ==
LOC: FINFUSION 09:53 → FM/S 09:54 → FINFUSION 11:46
PROVIDERS: ATTEND Internal Medicine Infectious Disease
DX: L03.116 Cellulitis of left lower limb (principal); L97.529 Non-pressure chronic ulcer of other part of left foot with unspecified severity; I10 Essential (primary) hypertension; E78.00 Pure hypercholesterolemia, unspecified; Z95.1 Presence of aortocoronary bypass graft; E11.40 Type 2 diabetes mellitus with diabetic neuropathy, unspecified
CPT/HCPCS: 96365; J0875

== ENCOUNTER 2022-02-08 11:34 | Inpatient (IN) | payer OTHER ==
[2022-02-08 11:53] VITALS: BMI 25.4
[2022-02-08] MEDS ORDERED: ACETAMINOPHEN 1000 MG/100 ML BAG IVPB ONE (13:07)
[2022-02-08] MEDS ORDERED: ACETAMINOPHEN INJECTION 100 ML IVPB ONE (14:18)
[2022-02-08 14:29] LABS: BASO % 1.5 % (0-2.0); EOS % 1.6 % (0-4.5); HEMATOCRIT 32.2 % (32.4-45.2); HEMOGLOBIN 9.8 GM/dL (10.7-15.3); LYMPH % 15.2 % (8-40); MCHC 30.5 g/dl (32.0-36.0); MEAN CELL VOLUME 63.3 fl (80-96); MEAN PLT VOLUME 8.4 fl (7.5-11.1); NEUT % 75.7 % (42.8-82.8); PLATELET COUNT 331 10^3/uL (134-434); RBC 5.09 M/mm3 (3.60-5.2); RDW 21.8 % (11.6-15.6); WHITE BLOOD COUNT 11.8 K/mm3 (4.0-10.0)
[2022-02-08 14:30] LABS: VENOUS BASE EXCESS 0.2 mmol/L (-2-2); VENOUS O2 SATURATION 83.9 % (70-80); VENOUS PCO2 48.4 mmHg (38-52); VENOUS PH 7.351 (7.310-7.410)
[2022-02-08] MEDS ORDERED: VANCOMYCIN 1 GM in D5W (PRE-DOCKED) 1,000 MG/250 ML IVPB ONE (14:32)
[2022-02-08 14:33] LABS: EPI CELLS 10 /uL (0-25.1); HYALINE CASTS 1 /uL (0-3.1); PH,URINE 6.5 (5.0-8.0); URINE APPEARANCE CLEAR; URINE BACTERIA 51 /uL (0-1359); URINE BILIRUBIN NEGATIVE (NEGATIVE); URINE COLOR YELLOW; URINE GLUCOSE (UA) 1+ (NEGATIVE); URINE KETONE NEGATIVE (NEGATIVE); URINE LEUK ESTERASE TRACE (NEGATIVE); URINE NITRITE NEGATIVE (NEGATIVE); URINE PROTEIN 2+ (NEGATIVE); URINE RBC 9 /uL (0-23.9); URINE UROBILINOGEN 0.2 mg/dL (0.2-1.0); URINE WBC 41 /uL (0-25.8)
[2022-02-08 14:35] LABS: MCH 19.3 pg (25.7-33.7)
[2022-02-08 14:49] LABS: CHLORIDE 105 mmol/L (98-107); SODIUM 138 mmol/L (136-145)
[2022-02-08 14:51] LABS: ALBUMIN 2.9 g/dl (3.4-5.0); CALCIUM 9.1 mg/dL (8.5-10.1); CO2 25 mmol/L (21-32)
[2022-02-08 14:52] LABS: BLOOD UREA NITROGEN 10.3 mg/dL (7-18)
[2022-02-08 14:55] LABS: CREATININE 0.7 mg/dL (0.55-1.3); SGOT/AST 63 U/L (15-37); SGPT/ALT 25 U/L (13-61)
[2022-02-08 14:56] LABS: BILIRUBIN,TOTAL 0.5 mg/dL (0.2-1); TOT PROT 7.1 g/dl (6.4-8.2)
[2022-02-08 14:58] LABS: ALK PHOS 121 U/L (45-117)
[2022-02-08 15:01] LABS: ANION GAP 9 MMOL/L (8-16); GLUCOSE,RANDOM 173 mg/dL (74-106)
[2022-02-08 15:09] LABS: ANISOCYTOSIS 3+; MACROCYTOSIS 0; OVALOCYTE 2+
[2022-02-08] MEDS ORDERED: VANCOMYCIN/WATER FOR INJ (PEG) 1,000 MG/200 ML BAG IVPB ONE (15:31)
[2022-02-08 15:36] LABS: LACTIC ACID 2.9 mmol/L (0.4-2.0)
[2022-02-08] MEDS ORDERED: diphenhydrAMINE HCL 25 MG CAPSULE (FP) PO ONE (16:05)
[2022-02-08 16:42] LABS: CALCIUM 8.5 mg/dL (8.5-10.1)
[2022-02-08 16:43] LABS: BLOOD UREA NITROGEN 9.4 mg/dL (7-18)
[2022-02-08] MEDS ORDERED: morphine CARPU-JECT 2 MG/1 ML DISP.SYRIN IVPUSH ONE (16:44)
[2022-02-08 16:46] LABS: CREATININE 0.5 mg/dL (0.55-1.3)
[2022-02-08] MEDS ORDERED: CLINDAMYCIN 600MG PREMIX IVPB 600 MG/50 ML BAG IVPB ONE (21:05)
[2022-02-08] MEDS ORDERED: GABAPENTIN 100 MG CAPSULE ONE (21:05)
[2022-02-08] MEDS ORDERED: ATORVASTATIN CA 40 MG TABLET (FP) ONE (21:05)
[2022-02-08] MEDS ORDERED: metoPROLOL SUCCINATE 25 MG TAB.SR.24H (FP) PO ONE (21:05)
[2022-02-08] MEDS: metoPROLOL SUCCINATE 25 MG TAB.SR.24H (FP) PO SCH (21:06)
[2022-02-08] MEDS: ATORVASTATIN CA 40 MG TABLET (FP) PO SCH (21:06)
[2022-02-08] MEDS: GABAPENTIN 100 MG CAPSULE PO SCH (21:06)
[2022-02-08] MEDS: CLINDAMYCIN 600MG PREMIX IVPB 600 MG/50 ML BAG IVPB SCH (21:06)
[2022-02-08] MEDS: INSULIN SLIDING SCALE (NOVOLOG) 1 VIAL SQ SCH (21:22)
[2022-02-08 21:30] LABS: CALCIUM 8.7 mg/dL (8.5-10.1)
[2022-02-08 21:31] LABS: BLOOD UREA NITROGEN 9.4 mg/dL (7-18)
[2022-02-08 21:34] LABS: CREATININE 0.6 mg/dL (0.55-1.3)
[2022-02-08] MEDS ORDERED: HEPARIN NA (PORCINE) 5,000 UNITS/ML 1ML VIAL SQ SCH (22:00)
[2022-02-09] MEDS: CLINDAMYCIN 600MG PREMIX IVPB 600 MG/50 ML BAG IVPB SCH (01:54)
[2022-02-09] MEDS: VANCOMYCIN 1 GM/200 ML PREMIX BAG (RESTRICTED TO ID ONLY) IVPB SCH ×2 (03:15→14:40)
[2022-02-09] MEDS: GABAPENTIN 100 MG CAPSULE PO SCH ×3 (06:42→21:58)
[2022-02-09] MEDS: INSULIN SLIDING SCALE (NOVOLOG) 1 VIAL SQ SCH ×4 (06:49→22:02)
[2022-02-09 09:55] LABS: INR 1.23 (0.83-1.09); PROTHROMBIN TIME (PATIENT) 14.2 SEC (9.7-13.0)
[2022-02-09 09:58] LABS: ACTIVATED PTT 27.8 SECONDS (25.2-36.5)
[2022-02-09] MEDS ORDERED: CLOPIDOGREL BISULFATE 75 MG TABLET (FP) PO SCH (10:00)
[2022-02-09 10:01] LABS: BASO % 1.3 % (0-2.0); EOS % 2.3 % (0-4.5); HEMATOCRIT 29.5 % (32.4-45.2); HEMOGLOBIN 9.3 GM/dL (10.7-15.3); LYMPH % 11.5 % (8-40); MCHC 31.6 g/dl (32.0-36.0); MEAN CELL VOLUME 62.3 fl (80-96); MEAN PLT VOLUME 8.4 fl (7.5-11.1); MONO % 5.4 % (3.8-10.2); NEUT % 79.5 % (42.8-82.8); PLATELET COUNT 349 10^3/uL (134-434); RBC 4.73 M/mm3 (3.60-5.2); WHITE BLOOD COUNT 9.7 K/mm3 (4.0-10.0)
[2022-02-09 10:10] LABS: MCH 19.7 pg (25.7-33.7)
[2022-02-09] MEDS: COLLAGENASE CLOSTRIDIUM HIST. 30 GRAMS TUBE TP SCH (10:16)
[2022-02-09] MEDS: LISINOPRIL 10 MG TABLET PO SCH (10:16)
[2022-02-09] MEDS: ASPIRIN 81 MG CHEWABLE TABLETS PO SCH (10:16)
[2022-02-09] MEDS: metoPROLOL SUCCINATE 25 MG TAB.SR.24H (FP) PO SCH (10:16)
[2022-02-09] MEDS: ACETAMINOPHEN 325 MG TABLET (FP) PO PRN ×2 (10:16→22:01)
[2022-02-09 10:20] LABS: CALCIUM 8.8 mg/dL (8.5-10.1)
[2022-02-09 10:21] LABS: ALBUMIN 2.7 g/dl (3.4-5.0); BLOOD UREA NITROGEN 7.8 mg/dL (7-18); MAGNESIUM 1.5 mg/dL (1.8-2.4)
[2022-02-09 10:24] LABS: CREATININE 0.5 mg/dL (0.55-1.3); PHOSPHOROUS 3.1 mg/dL (2.5-4.9)
[2022-02-09 10:26] LABS: BILIRUBIN,TOTAL 0.8 mg/dL (0.2-1); TOT PROT 6.3 g/dl (6.4-8.2)
[2022-02-09] MEDS ORDERED: ALPRAZolam 0.25 MG TABLET PO PRN (11:15)
[2022-02-09] MEDS: morphine SULFATE 4 MG/ML VIAL IVPUSH PRN ×2 (12:16→18:06)
[2022-02-09] MEDS: PIPERACILLIN/TAZOB 4.5 GM 4.5 GM in DEXTROSE 5%-WATER 100 ML IVPB SCH ×2 (12:18→18:06)
[2022-02-09] MEDS: POLYETHYLENE GLYCOL (HEALTHYLAX) 3350 17 GM PACKET PO SCH (21:58)
[2022-02-09] MEDS: ATORVASTATIN CA 40 MG TABLET (FP) PO SCH (21:58)
[2022-02-10] MEDS: morphine SULFATE 4 MG/ML VIAL IVPUSH PRN ×2 (00:18→06:18)
[2022-02-10] MEDS: PIPERACILLIN/TAZOB 4.5 GM 4.5 GM in DEXTROSE 5%-WATER 100 ML IVPB SCH ×3 (03:15→17:27)
[2022-02-10] MEDS: GABAPENTIN 100 MG CAPSULE PO SCH ×3 (06:14→22:10)
[2022-02-10] MEDS: INSULIN SLIDING SCALE (NOVOLOG) 1 VIAL SQ SCH ×4 (06:17→22:21)
[2022-02-10] MEDS: ACETAMINOPHEN 325 MG TABLET (FP) PO PRN ×2 (08:13→22:10)
[2022-02-10 09:24] LABS: BASO % 1.1 % (0-2.0); EOS % 2.5 % (0-4.5); HEMATOCRIT 33.2 % (32.4-45.2); HEMOGLOBIN 10.2 GM/dL (10.7-15.3); LYMPH % 13.3 % (8-40); MCHC 30.7 g/dl (32.0-36.0); MEAN CELL VOLUME 62.3 fl (80-96); MEAN PLT VOLUME 8.5 fl (7.5-11.1); MONO % 5.9 % (3.8-10.2); NEUT % 77.2 % (42.8-82.8); PLATELET COUNT 482 10^3/uL (134-434); RBC 5.34 M/mm3 (3.60-5.2); RDW 20.9 % (11.6-15.6); WHITE BLOOD COUNT 8.9 K/mm3 (4.0-10.0)
[2022-02-10 09:30] LABS: MCH 19.1 pg (25.7-33.7)
[2022-02-10 09:46] LABS: CALCIUM 8.7 mg/dL (8.5-10.1)
[2022-02-10 09:47] LABS: BLOOD UREA NITROGEN 10.8 mg/dL (7-18)
[2022-02-10 09:50] LABS: CREATININE 0.7 mg/dL (0.55-1.3)
[2022-02-10] MEDS: POLYETHYLENE GLYCOL (HEALTHYLAX) 3350 17 GM PACKET PO SCH (12:14)
[2022-02-10] MEDS: VANCOMYCIN 1 GM/200 ML PREMIX BAG (RESTRICTED TO ID ONLY) IVPB SCH (12:14)
[2022-02-10] MEDS: ASPIRIN 81 MG CHEWABLE TABLETS PO SCH (12:15)
[2022-02-10] MEDS: metoPROLOL SUCCINATE 25 MG TAB.SR.24H (FP) PO SCH (12:15)
[2022-02-10] MEDS: LISINOPRIL 10 MG TABLET PO SCH (12:15)
[2022-02-10] MEDS: COLLAGENASE CLOSTRIDIUM HIST. 30 GRAMS TUBE TP SCH (12:15)
[2022-02-10] MEDS: ATORVASTATIN CA 40 MG TABLET (FP) PO SCH (22:10)
[2022-02-11] MEDS: VANCOMYCIN 1 GM/200 ML PREMIX BAG (RESTRICTED TO ID ONLY) IVPB SCH ×3 (01:50→22:12)
[2022-02-11] MEDS: POLYETHYLENE GLYCOL (HEALTHYLAX) 3350 17 GM PACKET PO SCH ×3 (01:54→22:09)
[2022-02-11] MEDS: PIPERACILLIN/TAZOB 4.5 GM 4.5 GM in DEXTROSE 5%-WATER 100 ML IVPB SCH ×3 (03:42→17:18)
[2022-02-11] MEDS: GABAPENTIN 100 MG CAPSULE PO SCH ×3 (07:00→22:11)
[2022-02-11] MEDS: ACETAMINOPHEN 325 MG TABLET (FP) PO PRN ×2 (07:00→17:26)
[2022-02-11] MEDS: INSULIN SLIDING SCALE (NOVOLOG) 1 VIAL SQ SCH ×4 (07:38→22:19)
[2022-02-11] MEDS: metoPROLOL SUCCINATE 25 MG TAB.SR.24H (FP) PO SCH (10:56)
[2022-02-11] MEDS: ASPIRIN 81 MG CHEWABLE TABLETS PO SCH (10:56)
[2022-02-11] MEDS: COLLAGENASE CLOSTRIDIUM HIST. 30 GRAMS TUBE TP SCH (10:57)
[2022-02-11] MEDS: LISINOPRIL 10 MG TABLET PO SCH (10:58)
[2022-02-11] MEDS: ATORVASTATIN CA 40 MG TABLET (FP) PO SCH (22:10)
[2022-02-12] MEDS: PIPERACILLIN/TAZOB 4.5 GM 4.5 GM in DEXTROSE 5%-WATER 100 ML IVPB SCH ×3 (02:20→17:29)
[2022-02-12] MEDS: GABAPENTIN 100 MG CAPSULE PO SCH ×3 (06:23→21:36)
[2022-02-12] MEDS: INSULIN SLIDING SCALE (NOVOLOG) 1 VIAL SQ SCH ×4 (06:24→21:19)
[2022-02-12] MEDS ORDERED: DOCUSATE SODIUM 100 MG CAPSULE (FP) PO PRN (09:31)
[2022-02-12] MEDS: LISINOPRIL 10 MG TABLET PO SCH (10:11)
[2022-02-12] MEDS: POLYETHYLENE GLYCOL (HEALTHYLAX) 3350 17 GM PACKET PO SCH ×2 (10:11→21:36)
[2022-02-12] MEDS: ASPIRIN 81 MG CHEWABLE TABLETS PO SCH (10:12)
[2022-02-12] MEDS: VANCOMYCIN 1 GM/200 ML PREMIX BAG (RESTRICTED TO ID ONLY) IVPB SCH ×2 (10:12→22:36)
[2022-02-12] MEDS: metoPROLOL SUCCINATE 25 MG TAB.SR.24H (FP) PO SCH (10:12)
[2022-02-12] MEDS: COLLAGENASE CLOSTRIDIUM HIST. 30 GRAMS TUBE TP SCH (10:12)
[2022-02-12] MEDS: ATORVASTATIN CA 40 MG TABLET (FP) PO SCH (21:37)
[2022-02-13] MEDS: PIPERACILLIN/TAZOB 4.5 GM 4.5 GM in DEXTROSE 5%-WATER 100 ML IVPB SCH ×3 (01:12→17:56)
[2022-02-13] MEDS: GABAPENTIN 100 MG CAPSULE PO SCH ×3 (05:47→21:27)
[2022-02-13] MEDS: INSULIN SLIDING SCALE (NOVOLOG) 1 VIAL SQ SCH ×4 (06:04→21:16)
[2022-02-13] MEDS: POLYETHYLENE GLYCOL (HEALTHYLAX) 3350 17 GM PACKET PO SCH ×2 (11:11→21:15)
[2022-02-13] MEDS: ASPIRIN 81 MG CHEWABLE TABLETS PO SCH (11:12)
[2022-02-13] MEDS: metoPROLOL SUCCINATE 25 MG TAB.SR.24H (FP) PO SCH (11:12)
[2022-02-13] MEDS: LISINOPRIL 10 MG TABLET PO SCH (11:12)
[2022-02-13] MEDS: COLLAGENASE CLOSTRIDIUM HIST. 30 GRAMS TUBE TP SCH (11:13)
[2022-02-13 11:15] LABS: BASO % 0.9 % (0-2.0); EOS % 2.6 % (0-4.5); HEMATOCRIT 29.3 % (32.4-45.2); HEMOGLOBIN 9.1 GM/dL (10.7-15.3); LYMPH % 14.8 % (8-40); MCHC 31.1 g/dl (32.0-36.0); MEAN CELL VOLUME 62.5 fl (80-96); MEAN PLT VOLUME 8.3 fl (7.5-11.1); NEUT % 73.7 % (42.8-82.8); PLATELET COUNT 422 10^3/uL (134-434); RBC 4.69 M/mm3 (3.60-5.2); RDW 20.9 % (11.6-15.6); WHITE BLOOD COUNT 8.9 K/mm3 (4.0-10.0)
[2022-02-13 11:18] LABS: MCH 19.4 pg (25.7-33.7)
[2022-02-13 11:39] LABS: CALCIUM 8.5 mg/dL (8.5-10.1)
[2022-02-13 11:40] LABS: BLOOD UREA NITROGEN 4.8 mg/dL (7-18)
[2022-02-13 11:43] LABS: CREATININE 0.5 mg/dL (0.55-1.3)
[2022-02-13] MEDS ORDERED: BENZOCAINE/MENTH/CETYLPYRD CL 1 EACH LOZENGE MM PRN (14:14)
[2022-02-13] MEDS: ATORVASTATIN CA 40 MG TABLET (FP) PO SCH (21:15)
[2022-02-13] MEDS: ACETAMINOPHEN 325 MG TABLET (FP) PO PRN (21:16)
[2022-02-14] MEDS: PIPERACILLIN/TAZOB 4.5 GM 4.5 GM in DEXTROSE 5%-WATER 100 ML IVPB SCH ×3 (01:03→17:38)
[2022-02-14] MEDS: INSULIN SLIDING SCALE (NOVOLOG) 1 VIAL SQ SCH ×4 (06:44→21:47)
[2022-02-14] MEDS: GABAPENTIN 100 MG CAPSULE PO SCH ×3 (06:44→21:47)
[2022-02-14] MEDS ORDERED: HEPARIN NA (PORCINE) 5,000 UNITS/ML 1ML VIAL ONE ×2 (07:25→11:03)
[2022-02-14] MEDS ORDERED: LIDOCAINE HCL 1%, 10 MG/ML (20ML VIAL) NR ONE ×3 (07:29→10:48)
[2022-02-14] MEDS ORDERED: HEPARIN NA (PORCINE) 5,000 UNITS/ML 1ML VIAL SQ ONE ×2 (07:30→10:51)
[2022-02-14] MEDS: LISINOPRIL 10 MG TABLET PO SCH (09:03)
[2022-02-14] MEDS: metoPROLOL SUCCINATE 25 MG TAB.SR.24H (FP) PO SCH (09:03)
[2022-02-14] MEDS: POLYETHYLENE GLYCOL (HEALTHYLAX) 3350 17 GM PACKET PO SCH ×2 (09:10→21:50)
[2022-02-14] MEDS: ASPIRIN 81 MG CHEWABLE TABLETS PO SCH (09:10)
[2022-02-14] MEDS: COLLAGENASE CLOSTRIDIUM HIST. 30 GRAMS TUBE TP SCH (09:11)
[2022-02-14 09:35] LABS: EOS % 2.1 % (0-4.5); HEMATOCRIT 28.2 % (32.4-45.2); LYMPH % 14.3 % (8-40); MCHC 32.1 g/dl (32.0-36.0); MEAN CELL VOLUME 62.3 fl (80-96); MEAN PLT VOLUME 8.2 fl (7.5-11.1); MONO % 6.4 % (3.8-10.2); NEUT % 76.2 % (42.8-82.8); PLATELET COUNT 420 10^3/uL (134-434); RBC 4.52 M/mm3 (3.60-5.2); RDW 20.7 % (11.6-15.6); WHITE BLOOD COUNT 8.6 K/mm3 (4.0-10.0)
[2022-02-14 09:53] LABS: CALCIUM 8.7 mg/dL (8.5-10.1)
[2022-02-14 09:54] LABS: BLOOD UREA NITROGEN 6.2 mg/dL (7-18)
[2022-02-14 09:57] LABS: CREATININE 0.6 mg/dL (0.55-1.3)
[2022-02-14] MEDS ORDERED: FENTANYL CITRATE/PF 50 MCG/ML VIAL IVPUSH PRN (10:27)
[2022-02-14] MEDS ORDERED: ONDANSETRON 4 MG/2 ML VIAL IVPUSH PRN ×2 (10:27→12:26)
[2022-02-14] MEDS ORDERED: oxyCODONE HCL 5 MG TABLET PO PRN ×2 (10:27→12:26)
[2022-02-14] MEDS ORDERED: PIPERACILLIN/TAZOBACTAM 4.5 GM VIAL IVPB ONE (10:30)
[2022-02-14] MEDS ORDERED: MIDAZOLAM HCL 2 MG/2 ML SINGLE DOSE VIAL ONE (10:34)
[2022-02-14] MEDS ORDERED: FENTANYL CITRATE/PF 50 MCG/ML VIAL ONE ×4 (10:47→12:58)
[2022-02-14] MEDS ORDERED: PROPOFOL 20 ML ONE (11:12)
[2022-02-14] MEDS ORDERED: VANCOMYCIN/WATER 1250 MG 1,250 MG/250 ML BAG IVPB SCH (11:45)
[2022-02-14] MEDS ORDERED: ACETAMINOPHEN 325 MG TABLET (FP) PO PRN (12:26)
[2022-02-14] MEDS ORDERED: DOCUSATE SODIUM 100 MG CAPSULE (FP) PO PRN (12:26)
[2022-02-14] MEDS: FENTANYL CITRATE/PF 50 MCG/ML VIAL IVPUSH PRN ×4 (12:29→13:06)
[2022-02-14] MEDS ORDERED: INSULIN (NOVOLOG) ASPART 100 UNITS/ML 10ML VIAL ONE (21:23)
[2022-02-14] MEDS: ATORVASTATIN CA 40 MG TABLET (FP) PO SCH (21:46)
[2022-02-15] MEDS: PIPERACILLIN/TAZOB 4.5 GM 4.5 GM in DEXTROSE 5%-WATER 100 ML IVPB SCH ×3 (01:47→17:27)
[2022-02-15] MEDS: GABAPENTIN 100 MG CAPSULE PO SCH ×3 (06:45→23:08)
[2022-02-15] MEDS: INSULIN SLIDING SCALE (NOVOLOG) 1 VIAL SQ SCH ×4 (06:45→23:12)
[2022-02-15] MEDS: LISINOPRIL 10 MG TABLET PO SCH (09:47)
[2022-02-15] MEDS: POLYETHYLENE GLYCOL (HEALTHYLAX) 3350 17 GM PACKET PO SCH ×2 (09:47→23:09)
[2022-02-15] MEDS: metoPROLOL SUCCINATE 25 MG TAB.SR.24H (FP) PO SCH (09:47)
[2022-02-15] MEDS: DOXYCYCLINE HYCLATE 100 MG CAPSULE PO SCH ×2 (09:47→17:27)
[2022-02-15] MEDS: ASPIRIN 81 MG CHEWABLE TABLETS PO SCH (09:47)
[2022-02-15] MEDS: COLLAGENASE CLOSTRIDIUM HIST. 30 GRAMS TUBE TP SCH (09:48)
[2022-02-15] MEDS ORDERED: VANCOMYCIN/WATER 1250 MG 1,250 MG/250 ML BAG IVPB SCH (11:45)
[2022-02-15] MEDS: ATORVASTATIN CA 40 MG TABLET (FP) PO SCH (23:09)
[2022-02-15] MEDS: BENZOCAINE/MENTH/CETYLPYRD CL 1 EACH LOZENGE MM PRN (23:15)
[2022-02-16] MEDS: PIPERACILLIN/TAZOB 4.5 GM 4.5 GM in DEXTROSE 5%-WATER 100 ML IVPB SCH ×3 (02:34→17:33)
[2022-02-16] MEDS: INSULIN SLIDING SCALE (NOVOLOG) 1 VIAL SQ SCH ×4 (06:12→22:22)
[2022-02-16] MEDS: GABAPENTIN 100 MG CAPSULE PO SCH ×3 (06:12→22:25)
[2022-02-16 09:38] LABS: BASO % 1.2 % (0-2.0); EOS % 2.2 % (0-4.5); HEMATOCRIT 27.3 % (32.4-45.2); HEMOGLOBIN 8.5 GM/dL (10.7-15.3); LYMPH % 16.5 % (8-40); MCHC 31.2 g/dl (32.0-36.0); MEAN CELL VOLUME 61.9 fl (80-96); MEAN PLT VOLUME 8.4 fl (7.5-11.1); NEUT % 73.1 % (42.8-82.8); PLATELET COUNT 450 10^3/uL (134-434); RDW 19.7 % (11.6-15.6)
[2022-02-16 09:39] LABS: MCH 19.3 pg (25.7-33.7)
[2022-02-16 09:54] LABS: BLOOD UREA NITROGEN 5.2 mg/dL (7-18); CALCIUM 8.9 mg/dL (8.5-10.1)
[2022-02-16 09:58] LABS: CREATININE 0.5 mg/dL (0.55-1.3)
[2022-02-16] MEDS: ASPIRIN 81 MG CHEWABLE TABLETS PO SCH (10:13)
[2022-02-16] MEDS: metoPROLOL SUCCINATE 25 MG TAB.SR.24H (FP) PO SCH (10:13)
[2022-02-16] MEDS: LISINOPRIL 10 MG TABLET PO SCH (10:13)
[2022-02-16] MEDS: DOXYCYCLINE HYCLATE 100 MG CAPSULE PO SCH ×2 (10:13→17:34)
[2022-02-16] MEDS: POLYETHYLENE GLYCOL (HEALTHYLAX) 3350 17 GM PACKET PO SCH ×3 (10:14→22:21)
[2022-02-16] MEDS: COLLAGENASE CLOSTRIDIUM HIST. 30 GRAMS TUBE TP SCH (11:57)
[2022-02-16 16:34] LABS: INR 1.27 (0.83-1.09); PROTHROMBIN TIME (PATIENT) 14.6 SEC (9.7-13.0)
[2022-02-16] MEDS: ATORVASTATIN CA 40 MG TABLET (FP) PO SCH (22:22)
[2022-02-16] MEDS: BENZOCAINE/MENTH/CETYLPYRD CL 1 EACH LOZENGE MM PRN (22:29)
[2022-02-17] MEDS: PIPERACILLIN/TAZOB 4.5 GM 4.5 GM in DEXTROSE 5%-WATER 100 ML IVPB SCH ×3 (02:49→17:26)
[2022-02-17] MEDS: GABAPENTIN 100 MG CAPSULE PO SCH ×3 (06:30→23:57)
[2022-02-17] MEDS: INSULIN SLIDING SCALE (NOVOLOG) 1 VIAL SQ SCH ×3 (06:30→16:25)
[2022-02-17] MEDS: LISINOPRIL 10 MG TABLET PO SCH (10:00)
[2022-02-17] MEDS: ASPIRIN 81 MG CHEWABLE TABLETS PO SCH (10:00)
[2022-02-17] MEDS: metoPROLOL SUCCINATE 25 MG TAB.SR.24H (FP) PO SCH (10:00)
[2022-02-17] MEDS: DOXYCYCLINE HYCLATE 100 MG CAPSULE PO SCH ×2 (10:01→17:26)
[2022-02-17] MEDS: COLLAGENASE CLOSTRIDIUM HIST. 30 GRAMS TUBE TP SCH (10:03)
[2022-02-17] MEDS: POLYETHYLENE GLYCOL (HEALTHYLAX) 3350 17 GM PACKET PO SCH ×2 (10:03→23:57)
[2022-02-17 10:31] LABS: EOS % 3.2 % (0-4.5); HEMATOCRIT 25.8 % (32.4-45.2); HEMOGLOBIN 8.2 GM/dL (10.7-15.3); LYMPH % 14.5 % (8-40); MCHC 31.8 g/dl (32.0-36.0); MEAN PLT VOLUME 8.4 fl (7.5-11.1); MONO % 6.2 % (3.8-10.2); NEUT % 75.1 % (42.8-82.8); PLATELET COUNT 424 10^3/uL (134-434); RBC 4.17 M/mm3 (3.60-5.2); RDW 20.3 % (11.6-15.6); WHITE BLOOD COUNT 8.4 K/mm3 (4.0-10.0)
[2022-02-17 10:35] LABS: MCH 19.7 pg (25.7-33.7)
[2022-02-17 10:52] LABS: ANISOCYTOSIS 3+; MACROCYTOSIS 0; OVALOCYTE 1+
[2022-02-17 11:35] LABS: CALCIUM 8.7 mg/dL (8.5-10.1)
[2022-02-17 11:36] LABS: BLOOD UREA NITROGEN 5.9 mg/dL (7-18)
[2022-02-17 11:39] LABS: CREATININE 0.5 mg/dL (0.55-1.3)
[2022-02-17] MEDS: ATORVASTATIN CA 40 MG TABLET (FP) PO SCH (23:57)
[2022-02-18] MEDS: PIPERACILLIN/TAZOB 4.5 GM 4.5 GM in DEXTROSE 5%-WATER 100 ML IVPB SCH ×2 (01:17→16:01)
[2022-02-18] MEDS: GABAPENTIN 100 MG CAPSULE PO SCH ×3 (06:42→21:33)
[2022-02-18] MEDS: INSULIN SLIDING SCALE (NOVOLOG) 1 VIAL SQ SCH ×5 (06:42→21:41)
[2022-02-18] MEDS: DOXYCYCLINE HYCLATE 100 MG CAPSULE PO SCH ×2 (09:48→17:53)
[2022-02-18] MEDS: metoPROLOL SUCCINATE 25 MG TAB.SR.24H (FP) PO SCH (09:48)
[2022-02-18] MEDS: LISINOPRIL 10 MG TABLET PO SCH (09:48)
[2022-02-18] MEDS: ASPIRIN 81 MG CHEWABLE TABLETS PO SCH (09:49)
[2022-02-18] MEDS ORDERED: MIDAZOLAM HCL 2 MG/2 ML SINGLE DOSE VIAL ONE (10:30)
[2022-02-18] MEDS ORDERED: LIDOCAINE HCL/PF 2% SDV 5ML VIAL ONE (10:30)
[2022-02-18] MEDS ORDERED: FENTANYL CITRATE/PF 50 MCG/ML VIAL ONE (10:30)
[2022-02-18] MEDS ORDERED: PROPOFOL 20 ML ONE (10:31)
[2022-02-18] MEDS ORDERED: ONDANSETRON 4 MG/2 ML VIAL IVPUSH PRN ×2 (10:43→12:09)
[2022-02-18 10:44] LABS: INR 1.26 (0.83-1.09); PROTHROMBIN TIME (PATIENT) 14.5 SEC (9.7-13.0)
[2022-02-18] MEDS ORDERED: LIDOCAINE HCL 1%, 10 MG/ML (20ML VIAL) ONE (10:44)
[2022-02-18] MEDS ORDERED: PIPERACILLIN/TAZOBACTAM 4.5 GM VIAL IVPB ONE (10:45)
[2022-02-18] MEDS ORDERED: LACTATED RINGERS SOLUTION 1,000 ML IV SCH (10:45)
[2022-02-18] MEDS ORDERED: THROMBIN (BOVINE) 5,000 UNIT VIAL TP ONE (10:46)
[2022-02-18 10:55] LABS: BASO % 1.3 % (0-2.0); EOS % 3.9 % (0-4.5); HEMATOCRIT 23.3 % (32.4-45.2); HEMOGLOBIN 7.4 GM/dL (10.7-15.3); LYMPH % 16.1 % (8-40); MCHC 31.6 g/dl (32.0-36.0); MEAN CELL VOLUME 61.8 fl (80-96); MEAN PLT VOLUME 8.4 fl (7.5-11.1); MONO % 6.2 % (3.8-10.2); NEUT % 72.5 % (42.8-82.8); PLATELET COUNT 349 10^3/uL (134-434); RBC 3.76 M/mm3 (3.60-5.2); RDW 20.5 % (11.6-15.6); WHITE BLOOD COUNT 7.4 K/mm3 (4.0-10.0)
[2022-02-18 10:56] LABS: MCH 19.6 pg (25.7-33.7)
[2022-02-18] MEDS ORDERED: VANCOMYCIN 1,000 MG VIAL (RESTRICTED TO ID ONLY) ONE (11:23)
[2022-02-18] MEDS ORDERED: GENTAMICIN SO4 80 MG/2 ML VIAL ONE (11:33)
[2022-02-18] MEDS ORDERED: BUPIVACAINE HCL/PF 0.5% (5 MG/ML) 30 ML VIAL IJ ONE (11:53)
[2022-02-18] MEDS ORDERED: LIDOCAINE HCL 1%, 10 MG/ML (20ML VIAL) INF ONE (11:53)
[2022-02-18 12:03] LABS: CALCIUM 8.9 mg/dL (8.5-10.1)
[2022-02-18 12:07] LABS: CREATININE 0.5 mg/dL (0.55-1.3)
[2022-02-18] MEDS ORDERED: DOCUSATE SODIUM 100 MG CAPSULE (FP) PO PRN (12:09)
[2022-02-18 12:10] LABS: BLOOD UREA NITROGEN 6.2 mg/dL (7-18)
[2022-02-18] MEDS: COLLAGENASE CLOSTRIDIUM HIST. 30 GRAMS TUBE TP SCH (16:01)
[2022-02-18] MEDS: POLYETHYLENE GLYCOL (HEALTHYLAX) 3350 17 GM PACKET PO SCH ×2 (16:01→21:33)
[2022-02-18] MEDS: LACTATED RINGERS SOLUTION 1,000 ML IV SCH (18:39)
[2022-02-18] MEDS: ACETAMINOPHEN 325 MG TABLET (FP) PO PRN (21:32)
[2022-02-18] MEDS: ATORVASTATIN CA 40 MG TABLET (FP) PO SCH (21:33)
[2022-02-19] MEDS: PIPERACILLIN/TAZOB 4.5 GM 4.5 GM in DEXTROSE 5%-WATER 100 ML IVPB SCH ×4 (01:47→17:45)
[2022-02-19] MEDS: INSULIN SLIDING SCALE (NOVOLOG) 1 VIAL SQ SCH ×4 (07:07→22:33)
[2022-02-19] MEDS: GABAPENTIN 100 MG CAPSULE PO SCH ×3 (07:07→22:34)
[2022-02-19] MEDS: LISINOPRIL 10 MG TABLET PO SCH (09:43)
[2022-02-19] MEDS: ASPIRIN 81 MG CHEWABLE TABLETS PO SCH (09:43)
[2022-02-19] MEDS: POLYETHYLENE GLYCOL (HEALTHYLAX) 3350 17 GM PACKET PO SCH ×2 (09:43→22:34)
[2022-02-19] MEDS: DOXYCYCLINE HYCLATE 100 MG CAPSULE PO SCH ×2 (09:43→17:44)
[2022-02-19] MEDS: metoPROLOL SUCCINATE 25 MG TAB.SR.24H (FP) PO SCH (09:43)
[2022-02-19 10:20] LABS: BASO % 0.7 % (0-2.0); EOS % 3.1 % (0-4.5); HEMATOCRIT 25.1 % (32.4-45.2); HEMOGLOBIN 8.1 GM/dL (10.7-15.3); LYMPH % 13.8 % (8-40); MCH 20.2 pg (25.7-33.7); MCHC 32.2 g/dl (32.0-36.0); MEAN CELL VOLUME 62.8 fl (80-96); MEAN PLT VOLUME 6.8 fl (7.5-11.1); MONO % 7.7 % (3.8-10.2); NEUT % 74.7 % (42.8-82.8); PLATELET COUNT 418 10^3/uL (134-434); RDW 19.9 % (11.6-15.6); WHITE BLOOD COUNT 8.5 K/mm3 (4.0-10.0)
[2022-02-19] MEDS: LACTATED RINGERS SOLUTION 1,000 ML IV SCH (12:18)
[2022-02-19] MEDS: BENZOCAINE/MENTH/CETYLPYRD CL 1 EACH LOZENGE MM PRN (16:34)
[2022-02-19] MEDS: ATORVASTATIN CA 40 MG TABLET (FP) PO SCH (22:34)
[2022-02-20] MEDS: LACTATED RINGERS SOLUTION 1,000 ML IV SCH ×2 (03:03→13:03)
[2022-02-20] MEDS: PIPERACILLIN/TAZOB 4.5 GM 4.5 GM in DEXTROSE 5%-WATER 100 ML IVPB SCH ×3 (03:04→18:04)
[2022-02-20] MEDS: INSULIN SLIDING SCALE (NOVOLOG) 1 VIAL SQ SCH ×4 (06:30→22:10)
[2022-02-20] MEDS: GABAPENTIN 100 MG CAPSULE PO SCH ×3 (06:30→22:06)
[2022-02-20] MEDS: DOXYCYCLINE HYCLATE 100 MG CAPSULE PO SCH (10:26)
[2022-02-20] MEDS: POLYETHYLENE GLYCOL (HEALTHYLAX) 3350 17 GM PACKET PO SCH ×3 (10:26→22:06)
[2022-02-20] MEDS: metoPROLOL SUCCINATE 25 MG TAB.SR.24H (FP) PO SCH (10:26)
[2022-02-20] MEDS: ASPIRIN 81 MG CHEWABLE TABLETS PO SCH (10:26)
[2022-02-20] MEDS: LISINOPRIL 10 MG TABLET PO SCH (10:26)
[2022-02-20] MEDS: BENZOCAINE/MENTH/CETYLPYRD CL 1 EACH LOZENGE MM PRN (13:03)
[2022-02-20] MEDS: VANCOMYCIN/WATER FOR INJ (PEG) 1,000 MG/200 ML BAG IVPB SCH (16:14)
[2022-02-20] MEDS: ACETAMINOPHEN 325 MG TABLET (FP) PO PRN (20:26)
[2022-02-20] MEDS: ATORVASTATIN CA 40 MG TABLET (FP) PO SCH (22:06)
[2022-02-20] MEDS ORDERED: INSULIN (NOVOLOG) ASPART 100 UNITS/ML 10ML VIAL ONE (22:10)
[2022-02-21] MEDS: PIPERACILLIN/TAZOB 4.5 GM 4.5 GM in DEXTROSE 5%-WATER 100 ML IVPB SCH ×3 (01:40→17:20)
[2022-02-21] MEDS: VANCOMYCIN/WATER FOR INJ (PEG) 1,000 MG/200 ML BAG IVPB SCH ×2 (02:27→14:20)
[2022-02-21] MEDS: GABAPENTIN 100 MG CAPSULE PO SCH ×3 (06:00→22:31)
[2022-02-21] MEDS: LACTATED RINGERS SOLUTION 1,000 ML IV SCH (06:00)
[2022-02-21] MEDS: INSULIN SLIDING SCALE (NOVOLOG) 1 VIAL SQ SCH ×4 (06:00→22:33)
[2022-02-21] MEDS: metoPROLOL SUCCINATE 25 MG TAB.SR.24H (FP) PO SCH (09:16)
[2022-02-21] MEDS: ASPIRIN 81 MG CHEWABLE TABLETS PO SCH (09:16)
[2022-02-21] MEDS: POLYETHYLENE GLYCOL (HEALTHYLAX) 3350 17 GM PACKET PO SCH ×3 (09:17→22:37)
[2022-02-21] MEDS: LISINOPRIL 10 MG TABLET PO SCH (09:17)
[2022-02-21 10:10] LABS: BASO % 1.1 % (0-2.0); EOS % 5.9 % (0-4.5); HEMATOCRIT 27.3 % (32.4-45.2); HEMOGLOBIN 8.5 GM/dL (10.7-15.3); LYMPH % 22.5 % (8-40); MCHC 31.1 g/dl (32.0-36.0); MEAN CELL VOLUME 62.6 fl (80-96); MEAN PLT VOLUME 8.3 fl (7.5-11.1); MONO % 5.5 % (3.8-10.2); PLATELET COUNT 488 10^3/uL (134-434); RBC 4.36 M/mm3 (3.60-5.2); RDW 20.3 % (11.6-15.6); WHITE BLOOD COUNT 6.4 K/mm3 (4.0-10.0)
[2022-02-21 10:16] LABS: MCH 19.5 pg (25.7-33.7)
[2022-02-21 11:20] LABS: CALCIUM 8.9 mg/dL (8.5-10.1)
[2022-02-21 11:21] LABS: BLOOD UREA NITROGEN 4.5 mg/dL (7-18)
[2022-02-21 11:24] LABS: CREATININE 0.5 mg/dL (0.55-1.3)
[2022-02-21] MEDS: ACETAMINOPHEN 325 MG TABLET (FP) PO PRN (17:59)
[2022-02-21] MEDS ORDERED: INSULIN (NOVOLOG) ASPART 100 UNITS/ML 10ML VIAL ONE (21:48)
[2022-02-21] MEDS: ATORVASTATIN CA 40 MG TABLET (FP) PO SCH (22:31)
[2022-02-21] MEDS: BENZOCAINE/MENTH/CETYLPYRD CL 1 EACH LOZENGE MM PRN (22:34)
[2022-02-22] MEDS: CEFTRIAXONE 2 GM in DEXTROSE 5%-WATER 100 ML IVPB SCH ×2 (00:10→10:03)
[2022-02-22] MEDS: VANCOMYCIN/WATER FOR INJ (PEG) 1,000 MG/200 ML BAG IVPB SCH ×2 (01:15→14:05)
[2022-02-22] MEDS: ACETAMINOPHEN 325 MG TABLET (FP) PO PRN ×2 (01:15→10:07)
[2022-02-22] MEDS: GABAPENTIN 100 MG CAPSULE PO SCH ×3 (06:26→22:05)
[2022-02-22] MEDS: INSULIN SLIDING SCALE (NOVOLOG) 1 VIAL SQ SCH ×4 (06:26→22:05)
[2022-02-22] MEDS: LISINOPRIL 10 MG TABLET PO SCH (10:03)
[2022-02-22] MEDS: metoPROLOL SUCCINATE 25 MG TAB.SR.24H (FP) PO SCH (10:03)
[2022-02-22] MEDS: ASPIRIN 81 MG CHEWABLE TABLETS PO SCH (10:03)
[2022-02-22] MEDS: POLYETHYLENE GLYCOL (HEALTHYLAX) 3350 17 GM PACKET PO SCH ×2 (10:07→22:05)
[2022-02-22] MEDS: LACTATED RINGERS SOLUTION 1,000 ML IV SCH ×2 (11:46→14:04)
[2022-02-22] MEDS: ATORVASTATIN CA 40 MG TABLET (FP) PO SCH (22:05)
[2022-02-22] MEDS: BENZOCAINE/MENTH/CETYLPYRD CL 1 EACH LOZENGE MM PRN (22:09)
[2022-02-23] MEDS: GABAPENTIN 100 MG CAPSULE PO SCH ×3 (05:59→22:40)
[2022-02-23] MEDS: INSULIN SLIDING SCALE (NOVOLOG) 1 VIAL SQ SCH ×3 (05:59→18:00)
[2022-02-23 09:30] LABS: BASO % 0.8 % (0-2.0); EOS % 4.8 % (0-4.5); HEMATOCRIT 25.6 % (32.4-45.2); HEMOGLOBIN 8.1 GM/dL (10.7-15.3); LYMPH % 24.8 % (8-40); MCHC 31.8 g/dl (32.0-36.0); MEAN CELL VOLUME 61.8 fl (80-96); MEAN PLT VOLUME 8.3 fl (7.5-11.1); MONO % 6.9 % (3.8-10.2); NEUT % 62.7 % (42.8-82.8); PLATELET COUNT 411 10^3/uL (134-434); RBC 4.14 M/mm3 (3.60-5.2); RDW 19.9 % (11.6-15.6); WHITE BLOOD COUNT 5.5 K/mm3 (4.0-10.0)
[2022-02-23 09:32] LABS: MCH 19.7 pg (25.7-33.7)
[2022-02-23 09:33] LABS: BLOOD UREA NITROGEN 6.1 mg/dL (7-18)
[2022-02-23 09:36] LABS: CALCIUM 8.4 mg/dL (8.5-10.1); CREATININE 0.4 mg/dL (0.55-1.3)
[2022-02-23] MEDS: CEFTRIAXONE 2 GM in DEXTROSE 5%-WATER 100 ML IVPB SCH (10:58)
[2022-02-23] MEDS: metoPROLOL SUCCINATE 25 MG TAB.SR.24H (FP) PO SCH (10:59)
[2022-02-23] MEDS: LISINOPRIL 10 MG TABLET PO SCH (10:59)
[2022-02-23] MEDS: ASPIRIN 81 MG CHEWABLE TABLETS PO SCH (10:59)
[2022-02-23] MEDS: POLYETHYLENE GLYCOL (HEALTHYLAX) 3350 17 GM PACKET PO SCH ×2 (10:59→22:39)
[2022-02-23] MEDS ORDERED: morphine SULFATE 4 MG/ML VIAL IVPUSH PRN (11:16)
[2022-02-23] MEDS: LACTATED RINGERS SOLUTION 1,000 ML IV SCH (14:01)
[2022-02-23] MEDS: VANCOMYCIN/WATER FOR INJ (PEG) 1 GM/200 ML BAG IVPB SCH (17:50)
[2022-02-23] MEDS: ATORVASTATIN CA 40 MG TABLET (FP) PO SCH (22:40)
[2022-02-23] MEDS: ACETAMINOPHEN 325 MG TABLET (FP) PO PRN (22:41)
[2022-02-23] MEDS: BENZOCAINE/MENTH/CETYLPYRD CL 1 EACH LOZENGE MM PRN (22:43)
[2022-02-24] MEDS: INSULIN SLIDING SCALE (NOVOLOG) 1 VIAL SQ SCH ×5 (01:12→21:46)
[2022-02-24] MEDS: GABAPENTIN 100 MG CAPSULE PO SCH ×3 (06:13→21:43)
[2022-02-24] MEDS: VANCOMYCIN/WATER FOR INJ (PEG) 1 GM/200 ML BAG IVPB SCH ×2 (06:13→18:07)
[2022-02-24 08:32] LABS: BASO % 0.9 % (0-2.0); EOS % 5.2 % (0-4.5); HEMOGLOBIN 7.8 GM/dL (10.7-15.3); LYMPH % 28.5 % (8-40); MCH 19.5 pg (25.7-33.7); MCHC 31.2 g/dl (32.0-36.0); MEAN CELL VOLUME 62.4 fl (80-96); MEAN PLT VOLUME 7.1 fl (7.5-11.1); MONO % 6.8 % (3.8-10.2); NEUT % 58.6 % (42.8-82.8); PLATELET COUNT 420 10^3/uL (134-434); RDW 20.4 % (11.6-15.6)
[2022-02-24 09:14] LABS: ALBUMIN 2.2 g/dl (3.4-5.0); BLOOD UREA NITROGEN 5.6 mg/dL (7-18); CALCIUM 8.6 mg/dL (8.5-10.1)
[2022-02-24 09:16] LABS: CREATININE 0.4 mg/dL (0.55-1.3)
[2022-02-24 09:17] LABS: TOT PROT 5.5 g/dl (6.4-8.2)
[2022-02-24 09:22] LABS: BILIRUBIN,TOTAL 0.4 mg/dL (0.2-1)
[2022-02-24] MEDS: POLYETHYLENE GLYCOL (HEALTHYLAX) 3350 17 GM PACKET PO SCH ×2 (11:20→21:43)
[2022-02-24] MEDS: metoPROLOL SUCCINATE 25 MG TAB.SR.24H (FP) PO SCH (11:29)
[2022-02-24] MEDS: CEFTRIAXONE 2 GM in DEXTROSE 5%-WATER 100 ML IVPB SCH (11:29)
[2022-02-24] MEDS: ASPIRIN 81 MG CHEWABLE TABLETS PO SCH (11:29)
[2022-02-24] MEDS: LISINOPRIL 10 MG TABLET PO SCH (11:30)
[2022-02-24] MEDS: ATORVASTATIN CA 40 MG TABLET (FP) PO SCH (21:43)
[2022-02-24] MEDS: ACETAMINOPHEN 325 MG TABLET (FP) PO PRN (21:50)
[2022-02-25] MEDS: VANCOMYCIN/WATER FOR INJ (PEG) 1 GM/200 ML BAG IVPB SCH ×3 (05:47→17:47)
[2022-02-25] MEDS: GABAPENTIN 100 MG CAPSULE PO SCH ×3 (05:47→23:03)
[2022-02-25] MEDS: INSULIN SLIDING SCALE (NOVOLOG) 1 VIAL SQ SCH ×4 (06:16→23:05)
[2022-02-25] MEDS: metoPROLOL SUCCINATE 25 MG TAB.SR.24H (FP) PO SCH (10:53)
[2022-02-25] MEDS: LISINOPRIL 10 MG TABLET PO SCH (10:53)
[2022-02-25] MEDS: POLYETHYLENE GLYCOL (HEALTHYLAX) 3350 17 GM PACKET PO SCH ×2 (10:53→23:05)
[2022-02-25] MEDS: ASPIRIN 81 MG CHEWABLE TABLETS PO SCH (10:53)
[2022-02-25] MEDS: CEFTRIAXONE 2 GM in DEXTROSE 5%-WATER 100 ML IVPB SCH (10:53)
[2022-02-25] MEDS: ACETAMINOPHEN 325 MG TABLET (FP) PO PRN (23:03)
[2022-02-25] MEDS: ATORVASTATIN CA 40 MG TABLET (FP) PO SCH (23:05)
[2022-02-26] MEDS: GABAPENTIN 100 MG CAPSULE PO SCH ×3 (05:50→22:07)
[2022-02-26] MEDS: ASPIRIN 81 MG CHEWABLE TABLETS PO SCH (11:08)
[2022-02-26] MEDS: CEFTRIAXONE 2 GM in DEXTROSE 5%-WATER 100 ML IVPB SCH (11:09)
[2022-02-26] MEDS: LISINOPRIL 10 MG TABLET PO SCH (11:09)
[2022-02-26] MEDS: POLYETHYLENE GLYCOL (HEALTHYLAX) 3350 17 GM PACKET PO SCH ×2 (11:09→22:07)
[2022-02-26] MEDS: metoPROLOL SUCCINATE 25 MG TAB.SR.24H (FP) PO SCH (11:09)
[2022-02-26] MEDS: INSULIN SLIDING SCALE (NOVOLOG) 1 VIAL SQ SCH ×4 (11:44→22:13)
[2022-02-26] MEDS: PANTOPRAZOLE 40 MG TABLET PO SCH (12:56)
[2022-02-26] MEDS: FERROUS SO4 325 MG TABLET (FP) PO SCH ×2 (12:57→21:05)
[2022-02-26] MEDS: VANCOMYCIN/WATER FOR INJ (PEG) 1 GM/200 ML BAG IVPB SCH (14:12)
[2022-02-26] MEDS: ATORVASTATIN CA 40 MG TABLET (FP) PO SCH (22:07)
[2022-02-27] MEDS: INSULIN SLIDING SCALE (NOVOLOG) 1 VIAL SQ SCH ×4 (06:14→23:37)
[2022-02-27] MEDS: GABAPENTIN 100 MG CAPSULE PO SCH ×3 (06:14→23:25)
[2022-02-27] MEDS: VANCOMYCIN/WATER FOR INJ (PEG) 1 GM/200 ML BAG IVPB SCH ×2 (06:18→17:02)
[2022-02-27] MEDS: LISINOPRIL 10 MG TABLET PO SCH (09:56)
[2022-02-27] MEDS: POLYETHYLENE GLYCOL (HEALTHYLAX) 3350 17 GM PACKET PO SCH ×2 (09:56→23:25)
[2022-02-27] MEDS: ASPIRIN 81 MG CHEWABLE TABLETS PO SCH (09:57)
[2022-02-27] MEDS: FERROUS SO4 325 MG TABLET (FP) PO SCH (09:57)
[2022-02-27] MEDS: metoPROLOL SUCCINATE 25 MG TAB.SR.24H (FP) PO SCH (09:57)
[2022-02-27] MEDS: CEFTRIAXONE 2 GM in DEXTROSE 5%-WATER 100 ML IVPB SCH (09:57)
[2022-02-27] MEDS: PANTOPRAZOLE 40 MG TABLET PO SCH (09:57)
[2022-02-27] MEDS: ACETAMINOPHEN 325 MG TABLET (FP) PO PRN (10:03)
[2022-02-27 11:43] LABS: BASO % 0.8 % (0-2.0); EOS % 5.1 % (0-4.5); HEMATOCRIT 25.5 % (32.4-45.2); HEMOGLOBIN 8.1 GM/dL (10.7-15.3); LYMPH % 19.8 % (8-40); MCHC 31.8 g/dl (32.0-36.0); MEAN CELL VOLUME 62.5 fl (80-96); MEAN PLT VOLUME 8.1 fl (7.5-11.1); MONO % 5.3 % (3.8-10.2); PLATELET COUNT 410 10^3/uL (134-434); RBC 4.09 M/mm3 (3.60-5.2); RDW 20.7 % (11.6-15.6)
[2022-02-27 11:55] LABS: MCH 19.8 pg (25.7-33.7)
[2022-02-27 12:16] LABS: CALCIUM 8.5 mg/dL (8.5-10.1)
[2022-02-27 12:18] LABS: BLOOD UREA NITROGEN 8.4 mg/dL (7-18)
[2022-02-27 12:20] LABS: CREATININE 0.5 mg/dL (0.55-1.3)
[2022-02-27 12:40] LABS: ANISOCYTOSIS 2+; MACROCYTOSIS 0; OVALOCYTE 2+
[2022-02-27] MEDS: ATORVASTATIN CA 40 MG TABLET (FP) PO SCH (23:25)
[2022-02-27] MEDS: BENZOCAINE/MENTH/CETYLPYRD CL 1 EACH LOZENGE MM PRN (23:57)
[2022-02-28] MEDS: GABAPENTIN 100 MG CAPSULE PO SCH ×3 (06:32→21:41)
[2022-02-28] MEDS: VANCOMYCIN/WATER FOR INJ (PEG) 1 GM/200 ML BAG IVPB SCH ×2 (06:32→17:59)
[2022-02-28] MEDS: CEFTRIAXONE 2 GM in DEXTROSE 5%-WATER 100 ML IVPB SCH (09:55)
[2022-02-28] MEDS: POLYETHYLENE GLYCOL (HEALTHYLAX) 3350 17 GM PACKET PO SCH ×2 (09:55→21:41)
[2022-02-28] MEDS: FERROUS SO4 325 MG TABLET (FP) PO SCH ×3 (09:56→17:59)
[2022-02-28] MEDS: ASPIRIN 81 MG CHEWABLE TABLETS PO SCH (09:56)
[2022-02-28] MEDS: LISINOPRIL 10 MG TABLET PO SCH (09:56)
[2022-02-28] MEDS: metoPROLOL SUCCINATE 25 MG TAB.SR.24H (FP) PO SCH (09:56)
[2022-02-28] MEDS: PANTOPRAZOLE 40 MG TABLET PO SCH (09:56)
[2022-02-28] MEDS: INSULIN SLIDING SCALE (NOVOLOG) 1 VIAL SQ SCH ×4 (10:00→21:49)
[2022-02-28] MEDS ORDERED: morphine SULFATE IMMEDIATE RELEASE 30 MG TAB PO PRN (11:48)
[2022-02-28 15:43] VITALS: RESP 18
[2022-02-28] MEDS: ATORVASTATIN CA 40 MG TABLET (FP) PO SCH (21:41)
[2022-02-28 22:27] VITALS: BP 132/86; PULSE 73; TEMP 98.4
[2022-02-28] MEDS: BENZOCAINE/MENTH/CETYLPYRD CL 1 EACH LOZENGE MM PRN (23:07)
== END 2022-03-01 01:15 | DRG 181 ==
LOC: JER 11:34 → JERBED 13:30 → J7W 23:39
PROVIDERS: ADMIT Internal Medicine; ATTEND Internal Medicine
PROC: 04CP3ZZ Extirpation of Matter from Right Anterior Tibial Artery, Percutaneous Approach (ICD-10-PCS; 2022-02-14)
PROC: B40DYZZ Plain Radiography of Aorta and Bilateral Lower Extremity Arteries using Other Contrast (ICD-10-PCS; 2022-02-14)
PROC: B40FYZZ Plain Radiography of Right Lower Extremity Arteries using Other Contrast (ICD-10-PCS; 2022-02-14)
PROC: 047K3D1 Dilation of Right Femoral Artery with Intraluminal Device, using Drug-Coated Balloon, Percutaneous Approach (ICD-10-PCS; 2022-02-14)
PROC: 047P3ZZ Dilation of Right Anterior Tibial Artery, Percutaneous Approach (ICD-10-PCS; 2022-02-14)
PROC: 04CK3ZZ Extirpation of Matter from Right Femoral Artery, Percutaneous Approach (ICD-10-PCS; principal; 2022-02-14 10:00)
PROC: 0Y6V0Z0 Detachment at Right 4th Toe, Complete, Open Approach (ICD-10-PCS; 2022-02-18)
PROC: 3E00X29 Introduction of Other Anti-infective into Skin and Mucous Membranes, External Approach (ICD-10-PCS; 2022-02-18)
PROC: 0Y9M0ZX Drainage of Right Foot, Open Approach, Diagnostic (ICD-10-PCS; 2022-02-18)
PROC: 02HV33Z Insertion of Infusion Device into Superior Vena Cava, Percutaneous Approach (ICD-10-PCS; 2022-02-28)
PROC: B548ZZA Ultrasonography of Superior Vena Cava, Guidance (ICD-10-PCS; 2022-02-28)
DX: E11.51 Type 2 diabetes mellitus with diabetic peripheral angiopathy without gangrene (principal); I25.10 Atherosclerotic heart disease of native coronary artery without angina pectoris; E78.5 Hyperlipidemia, unspecified; I48.0 Paroxysmal atrial fibrillation; L03.115 Cellulitis of right lower limb; I69.351 Hemiplegia and hemiparesis following cerebral infarction affecting right dominant side; L02.611 Cutaneous abscess of right foot; E11.40 Type 2 diabetes mellitus with diabetic neuropathy, unspecified; G89.29 Other chronic pain; I77.1 Stricture of artery; E11.69 Type 2 diabetes mellitus with other specified complication; I11.0 Hypertensive heart disease with heart failure; I50.9 Heart failure, unspecified; M86.171 Other acute osteomyelitis, right ankle and foot; N39.0 Urinary tract infection, site not specified; B95.62 Methicillin resistant Staphylococcus aureus infection as the cause of diseases classified elsewhere; E11.621 Type 2 diabetes mellitus with foot ulcer; L97.518 Non-pressure chronic ulcer of other part of right foot with other specified severity; Z95.1 Presence of aortocoronary bypass graft
CPT/HCPCS: 0241U-QW; 36415; 36569; 71045-TC-FY; 73610-TC-RT-FY; 73630-TC-RT-FY; 73718-TC-RT; 75635-TC; 76000-TC-FY; 80048; 80053; 81003; 82803; 82962; 83036; 83605; 83735; 84100; 84484; 85025; 85610; 85730; 86140; 86850; 86900; 86901; 87040; 87070; 87086; 87186; 87205; 88305-TC; 88311-TC; 93970-TC; 94760; 97116-GP; 97161-GP; 99285-25; C1760; C9803-CS; G0480; J1644; Q9967; U0003; U0005

== ENCOUNTER 2022-03-14 22:11 | Emergency (ER) | payer OTHER ==
[2022-03-14 23:08] VITALS: BP 147/46; PULSE 71; RESP 20; TEMP 98.9; BMI 24.5
[2022-03-15 02:32] LABS: BASO % 0.6 % (0-2.0); EOS % 5.8 % (0-4.5); HEMATOCRIT 27.4 % (32.4-45.2); HEMOGLOBIN 8.2 GM/dL (10.7-15.3); LYMPH % 16.5 % (8-40); MCH 20.1 pg (25.7-33.7); MCHC 30.1 g/dl (32.0-36.0); MEAN PLT VOLUME 8.6 fl (7.5-11.1); MONO % 8.8 % (3.8-10.2); NEUT % 68.3 % (42.8-82.8); PLATELET COUNT 289 10^3/uL (134-434); RBC 4.09 M/mm3 (3.60-5.2); RDW 23.9 % (11.6-15.6); WHITE BLOOD COUNT 6.5 K/mm3 (4.0-10.0)
[2022-03-15 03:20] LABS: CALCIUM 8.5 mg/dL (8.5-10.1)
[2022-03-15 03:21] LABS: ALBUMIN 2.5 g/dl (3.4-5.0); BLOOD UREA NITROGEN 5.4 mg/dL (7-18)
[2022-03-15 03:24] LABS: CREATININE 0.9 mg/dL (0.55-1.3)
[2022-03-15 03:26] LABS: BILIRUBIN,TOTAL 0.3 mg/dL (0.2-1); TOT PROT 5.8 g/dl (6.4-8.2)
[2022-03-15 03:39] LABS: ANISOCYTOSIS 2+; MACROCYTOSIS 0; OVALOCYTE 1+
== END 2022-03-15 06:31 | disposition home or self-care (01) ==
LOC: JER 22:11
DX: R42 Dizziness and giddiness (principal)
CPT/HCPCS: 36415; 70450-TC; 80053; 85025; 93005; 93010; 99285-25

== ENCOUNTER 2022-03-21 10:59 | Inpatient (IN) | payer OTHER ==
[2022-03-21] MEDS ORDERED: LACTATED RINGERS SOLUTION 1000 ML INFUS.BAG IV ONE (14:27)
[2022-03-21] MEDS ORDERED: VANCOMYCIN 1 GM in D5W (PRE-DOCKED) 1,000 MG/250 ML IVPB ONE (16:07)
[2022-03-21] MEDS ORDERED: PIPERACILLIN/TAZOB 4.5 GM 4.5 GM in DEXTROSE 5%-WATER 100 ML IVPB ONE (16:07)
[2022-03-21 16:33] LABS: EOS % 3.5 % (0-4.5); HEMATOCRIT 29.4 % (32.4-45.2); HEMOGLOBIN 9.2 GM/dL (10.7-15.3); LYMPH % 13.6 % (8-40); MCH 20.8 pg (25.7-33.7); MCHC 31.2 g/dl (32.0-36.0); MEAN CELL VOLUME 66.5 fl (80-96); MEAN PLT VOLUME 6.4 fl (7.5-11.1); NEUT % 76.9 % (42.8-82.8); PLATELET COUNT 436 10^3/uL (134-434); RBC 4.42 M/mm3 (3.60-5.2); RDW 23.7 % (11.6-15.6); WHITE BLOOD COUNT 9.3 K/mm3 (4.0-10.0)
[2022-03-21] MEDS ORDERED: PIPERACILLIN/TAZOB 4.5 GM 4.5 GM/100 ML BAG IVPB ONE (16:35)
[2022-03-21] MEDS ORDERED: VANCOMYCIN/WATER FOR INJ (PEG) 1,000 MG/200 ML BAG IVPB ONE (16:35)
[2022-03-21 17:20] LABS: ERYTHROCYTE SEDIMENTATION RATE 31 mm/hr (0-30)
[2022-03-21 17:21] LABS: ALBUMIN 2.7 g/dl (3.4-5.0); CALCIUM 8.8 mg/dL (8.5-10.1)
[2022-03-21 17:22] LABS: BLOOD UREA NITROGEN 8.5 mg/dL (7-18)
[2022-03-21 17:24] LABS: CREATININE 1.1 mg/dL (0.55-1.3)
[2022-03-21 17:26] LABS: BILIRUBIN,TOTAL 0.3 mg/dL (0.2-1); TOT PROT 6.2 g/dl (6.4-8.2)
[2022-03-21 17:49] LABS: ANISOCYTOSIS 3+; MACROCYTOSIS 0
[2022-03-21] MEDS ORDERED: ACETAMINOPHEN 325 MG TABLET (FP) ONE (22:13)
[2022-03-22] MEDS: ACETAMINOPHEN 325 MG TABLET (FP) PO PRN (04:31)
[2022-03-22] MEDS ORDERED: ACETAMINOPHEN 325 MG TABLET (FP) ONE (04:32)
[2022-03-22] MEDS ORDERED: ACETAMINOPHEN 325 MG TABLET (FP) PO PRN (08:52)
[2022-03-22] MEDS ORDERED: MECLIZINE HCL 12.5 MG TABLET PO PRN (08:52)
[2022-03-22] MEDS ORDERED: POLYETHYLENE GLYCOL 3350 255 GM BTL PO SCH (10:00)
[2022-03-22] MEDS: PIPERACILLIN/TAZOB 3.375 GM 3.375 GM in DEXTROSE 5%-WATER - 50 ML IVPB SCH ×2 (10:07→17:48)
[2022-03-22] MEDS: diphenhydrAMINE HCL 25 MG CAPSULE (FP) PO PRN (10:21)
[2022-03-22] MEDS: CLOPIDOGREL BISULFATE 75 MG TABLET (FP) PO SCH (10:21)
[2022-03-22] MEDS: morphine SULFATE IMMEDIATE RELEASE 30 MG TAB PO PRN ×2 (10:21→17:53)
[2022-03-22] MEDS: LISINOPRIL 10 MG TABLET PO SCH (10:21)
[2022-03-22] MEDS: FERROUS SO4 325 MG TABLET (FP) PO SCH ×2 (10:22→22:19)
[2022-03-22] MEDS: metoPROLOL SUCCINATE 25 MG TAB.SR.24H (FP) PO SCH (10:22)
[2022-03-22] MEDS: POLYETHYLENE GLYCOL (HEALTHYLAX) 3350 17 GM PACKET PO SCH ×2 (10:22→22:18)
[2022-03-22] MEDS: PANTOPRAZOLE 40 MG TABLET PO SCH (10:22)
[2022-03-22] MEDS: ASPIRIN 81 MG CHEWABLE TABLETS PO SCH (10:22)
[2022-03-22 11:33] LABS: BASO % 0.9 % (0-2.0); EOS % 5.4 % (0-4.5); HEMATOCRIT 28.6 % (32.4-45.2); HEMOGLOBIN 8.8 GM/dL (10.7-15.3); LYMPH % 19.4 % (8-40); MCH 20.6 pg (25.7-33.7); MCHC 30.9 g/dl (32.0-36.0); MEAN CELL VOLUME 66.7 fl (80-96); MEAN PLT VOLUME 6.5 fl (7.5-11.1); MONO % 7.2 % (3.8-10.2); NEUT % 67.1 % (42.8-82.8); PLATELET COUNT 380 10^3/uL (134-434); RBC 4.29 M/mm3 (3.60-5.2); RDW 24.5 % (11.6-15.6); WHITE BLOOD COUNT 6.9 K/mm3 (4.0-10.0)
[2022-03-22] MEDS: INSULIN SLIDING SCALE (NOVOLOG) 1 VIAL SQ SCH ×2 (11:56→17:00)
[2022-03-22 12:08] LABS: BLOOD UREA NITROGEN 8.9 mg/dL (7-18); CALCIUM 8.7 mg/dL (8.5-10.1)
[2022-03-22 12:12] LABS: CREATININE 1.1 mg/dL (0.55-1.3)
[2022-03-22] MEDS: GABAPENTIN 100 MG CAPSULE PO SCH ×2 (13:14→22:18)
[2022-03-22] MEDS: VANCOMYCIN/WATER FOR INJ (PEG) 1,000 MG/200 ML BAG IVPB SCH ×2 (13:14→13:15)
[2022-03-22] MEDS: COLLAGENASE CLOSTRIDIUM HIST. 30 GRAMS TUBE TP SCH (15:49)
[2022-03-22] MEDS: ONDANSETRON *ODT* 4 MG TABLET SL PRN (16:05)
[2022-03-22] MEDS: ATORVASTATIN CA 40 MG TABLET (FP) PO SCH (22:18)
[2022-03-22] MEDS: DOCUSATE SODIUM 100 MG CAPSULE (FP) PO SCH (22:18)
[2022-03-22] MEDS: INSULIN (LEVEMIR) 100 UNITS/ML UNITS SQ SCH ×2 (22:18→22:23)
[2022-03-23] MEDS: PIPERACILLIN/TAZOB 3.375 GM 3.375 GM in DEXTROSE 5%-WATER - 50 ML IVPB SCH ×3 (01:20→17:51)
[2022-03-23] MEDS: GABAPENTIN 100 MG CAPSULE PO SCH ×3 (05:54→21:20)
[2022-03-23] MEDS: INSULIN SLIDING SCALE (NOVOLOG) 1 VIAL SQ SCH ×3 (06:05→16:31)
[2022-03-23] MEDS: VANCOMYCIN/WATER FOR INJ (PEG) 1,000 MG/200 ML BAG IVPB SCH (08:38)
[2022-03-23 09:30] LABS: EOS % 5.9 % (0-4.5); HEMATOCRIT 27.2 % (32.4-45.2); HEMOGLOBIN 8.5 GM/dL (10.7-15.3); LYMPH % 16.5 % (8-40); MCH 20.9 pg (25.7-33.7); MCHC 31.4 g/dl (32.0-36.0); MEAN CELL VOLUME 66.4 fl (80-96); MEAN PLT VOLUME 8.2 fl (7.5-11.1); MONO % 7.7 % (3.8-10.2); NEUT % 68.9 % (42.8-82.8); PLATELET COUNT 353 10^3/uL (134-434); RBC 4.09 M/mm3 (3.60-5.2); RDW 24.6 % (11.6-15.6); WHITE BLOOD COUNT 6.4 K/mm3 (4.0-10.0)
[2022-03-23] MEDS: morphine SULFATE IMMEDIATE RELEASE 30 MG TAB PO PRN ×2 (09:38→14:02)
[2022-03-23] MEDS: POLYETHYLENE GLYCOL (HEALTHYLAX) 3350 17 GM PACKET PO SCH ×2 (09:39→21:20)
[2022-03-23] MEDS: PANTOPRAZOLE 40 MG TABLET PO SCH (09:39)
[2022-03-23] MEDS: LISINOPRIL 10 MG TABLET PO SCH (09:39)
[2022-03-23] MEDS: COLLAGENASE CLOSTRIDIUM HIST. 30 GRAMS TUBE TP SCH (09:39)
[2022-03-23] MEDS: metoPROLOL SUCCINATE 25 MG TAB.SR.24H (FP) PO SCH (09:39)
[2022-03-23] MEDS: ASPIRIN 81 MG CHEWABLE TABLETS PO SCH (09:39)
[2022-03-23] MEDS: CLOPIDOGREL BISULFATE 75 MG TABLET (FP) PO SCH (09:39)
[2022-03-23] MEDS: FERROUS SO4 325 MG TABLET (FP) PO SCH ×2 (09:39→21:20)
[2022-03-23] MEDS: diphenhydrAMINE HCL 25 MG CAPSULE (FP) PO PRN ×2 (09:39→21:20)
[2022-03-23 10:00] LABS: CALCIUM 8.5 mg/dL (8.5-10.1)
[2022-03-23 10:01] LABS: BLOOD UREA NITROGEN 8.2 mg/dL (7-18)
[2022-03-23 19:36] VITALS: BMI 23.6
[2022-03-23] MEDS: ATORVASTATIN CA 40 MG TABLET (FP) PO SCH (21:20)
[2022-03-23] MEDS: ONDANSETRON *ODT* 4 MG TABLET SL PRN (21:20)
[2022-03-23] MEDS: DOCUSATE SODIUM 100 MG CAPSULE (FP) PO SCH (21:20)
[2022-03-23] MEDS: INSULIN (LEVEMIR) 100 UNITS/ML UNITS SQ SCH (21:29)
[2022-03-24] MEDS: PIPERACILLIN/TAZOB 3.375 GM 3.375 GM in DEXTROSE 5%-WATER - 50 ML IVPB SCH ×3 (02:12→17:15)
[2022-03-24] MEDS: GABAPENTIN 100 MG CAPSULE PO SCH ×3 (06:49→22:44)
[2022-03-24] MEDS: INSULIN SLIDING SCALE (NOVOLOG) 1 VIAL SQ SCH ×3 (06:53→16:23)
[2022-03-24] MEDS: VANCOMYCIN/WATER FOR INJ (PEG) 1,000 MG/200 ML BAG IVPB SCH (08:09)
[2022-03-24] MEDS: ASPIRIN 81 MG CHEWABLE TABLETS PO SCH (09:06)
[2022-03-24] MEDS: FERROUS SO4 325 MG TABLET (FP) PO SCH ×2 (09:08→22:43)
[2022-03-24] MEDS: PANTOPRAZOLE 40 MG TABLET PO SCH (09:09)
[2022-03-24] MEDS: POLYETHYLENE GLYCOL (HEALTHYLAX) 3350 17 GM PACKET PO SCH ×2 (09:09→22:43)
[2022-03-24] MEDS: CLOPIDOGREL BISULFATE 75 MG TABLET (FP) PO SCH (09:09)
[2022-03-24] MEDS: LISINOPRIL 10 MG TABLET PO SCH (09:09)
[2022-03-24] MEDS: metoPROLOL SUCCINATE 25 MG TAB.SR.24H (FP) PO SCH (09:10)
[2022-03-24 09:33] VITALS: RESP 20
[2022-03-24] MEDS ORDERED: INSULIN (NOVOLOG) ASPART 100 UNITS/ML 10ML VIAL ONE (11:15)
[2022-03-24] MEDS: COLLAGENASE CLOSTRIDIUM HIST. 30 GRAMS TUBE TP SCH (11:48)
[2022-03-24] MEDS: DOCUSATE SODIUM 100 MG CAPSULE (FP) PO SCH (22:42)
[2022-03-24] MEDS: ATORVASTATIN CA 40 MG TABLET (FP) PO SCH (22:44)
[2022-03-24] MEDS: INSULIN (LEVEMIR) 100 UNITS/ML UNITS SQ SCH (22:53)
[2022-03-25] MEDS: PIPERACILLIN/TAZOB 3.375 GM 3.375 GM in DEXTROSE 5%-WATER - 50 ML IVPB SCH ×3 (01:17→17:28)
[2022-03-25] MEDS: morphine SULFATE IMMEDIATE RELEASE 30 MG TAB PO PRN (01:21)
[2022-03-25] MEDS: GABAPENTIN 100 MG CAPSULE PO SCH ×3 (05:12→22:15)
[2022-03-25] MEDS: INSULIN SLIDING SCALE (NOVOLOG) 1 VIAL SQ SCH ×3 (06:12→17:23)
[2022-03-25] MEDS ORDERED: INSULIN (LEVEMIR) 100 UNITS/ML UNITS SQ ONE (08:07)
[2022-03-25] MEDS: VANCOMYCIN/WATER FOR INJ (PEG) 1,000 MG/200 ML BAG IVPB SCH (08:47)
[2022-03-25 11:44] LABS: EOS % 4.9 % (0-4.5); HEMATOCRIT 31.7 % (32.4-45.2); HEMOGLOBIN 9.7 GM/dL (10.7-15.3); LYMPH % 22.1 % (8-40); MCH 20.7 pg (25.7-33.7); MCHC 30.7 g/dl (32.0-36.0); MEAN CELL VOLUME 67.6 fl (80-96); MEAN PLT VOLUME 7.1 fl (7.5-11.1); MONO % 5.5 % (3.8-10.2); NEUT % 66.5 % (42.8-82.8); PLATELET COUNT 419 10^3/uL (134-434); RBC 4.69 M/mm3 (3.60-5.2); RDW 24.3 % (11.6-15.6); WHITE BLOOD COUNT 8.2 K/mm3 (4.0-10.0)
[2022-03-25 12:06] LABS: CALCIUM 9.1 mg/dL (8.5-10.1)
[2022-03-25 12:07] LABS: ALBUMIN 2.6 g/dl (3.4-5.0); BLOOD UREA NITROGEN 8.3 mg/dL (7-18)
[2022-03-25 12:12] LABS: BILIRUBIN,TOTAL 0.3 mg/dL (0.2-1); TOT PROT 6.2 g/dl (6.4-8.2)
[2022-03-25] MEDS: PANTOPRAZOLE 40 MG TABLET PO SCH (12:15)
[2022-03-25] MEDS: ASPIRIN 81 MG CHEWABLE TABLETS PO SCH (12:16)
[2022-03-25] MEDS: CLOPIDOGREL BISULFATE 75 MG TABLET (FP) PO SCH (12:16)
[2022-03-25] MEDS: FERROUS SO4 325 MG TABLET (FP) PO SCH ×2 (12:16→22:15)
[2022-03-25] MEDS: metoPROLOL SUCCINATE 25 MG TAB.SR.24H (FP) PO SCH (12:16)
[2022-03-25] MEDS: LISINOPRIL 10 MG TABLET PO SCH (12:16)
[2022-03-25] MEDS: COLLAGENASE CLOSTRIDIUM HIST. 30 GRAMS TUBE TP SCH (12:16)
[2022-03-25] MEDS: POLYETHYLENE GLYCOL (HEALTHYLAX) 3350 17 GM PACKET PO SCH ×2 (12:16→22:16)
[2022-03-25 12:26] LABS: ANISOCYTOSIS 3+; MACROCYTOSIS 0; OVALOCYTE 2+
[2022-03-25] MEDS ORDERED: INSULIN (NOVOLOG) ASPART 100 UNITS/ML 10ML VIAL ONE ×3 (17:22→22:06)
[2022-03-25] MEDS: ACETAMINOPHEN 325 MG TABLET (FP) PO PRN (17:24)
[2022-03-25] MEDS: DOCUSATE SODIUM 100 MG CAPSULE (FP) PO SCH (22:15)
[2022-03-25] MEDS: ATORVASTATIN CA 40 MG TABLET (FP) PO SCH (22:16)
[2022-03-25] MEDS: INSULIN (LEVEMIR) 100 UNITS/ML UNITS SQ SCH (22:20)
[2022-03-26] MEDS: PIPERACILLIN/TAZOB 3.375 GM 3.375 GM in DEXTROSE 5%-WATER - 50 ML IVPB SCH ×2 (02:26→10:21)
[2022-03-26] MEDS: diphenhydrAMINE HCL 25 MG CAPSULE (FP) PO PRN (02:32)
[2022-03-26] MEDS: ACETAMINOPHEN 325 MG TABLET (FP) PO PRN (02:33)
[2022-03-26] MEDS: GABAPENTIN 100 MG CAPSULE PO SCH ×3 (05:55→22:04)
[2022-03-26] MEDS: INSULIN SLIDING SCALE (NOVOLOG) 1 VIAL SQ SCH ×3 (06:16→16:49)
[2022-03-26] MEDS: VANCOMYCIN/WATER FOR INJ (PEG) 1,000 MG/200 ML BAG IVPB SCH (09:14)
[2022-03-26] MEDS: PANTOPRAZOLE 40 MG TABLET PO SCH (09:16)
[2022-03-26] MEDS: FERROUS SO4 325 MG TABLET (FP) PO SCH ×2 (09:16→22:05)
[2022-03-26] MEDS: metoPROLOL SUCCINATE 25 MG TAB.SR.24H (FP) PO SCH (09:16)
[2022-03-26] MEDS: ASPIRIN 81 MG CHEWABLE TABLETS PO SCH (09:16)
[2022-03-26] MEDS: CLOPIDOGREL BISULFATE 75 MG TABLET (FP) PO SCH (09:16)
[2022-03-26] MEDS: LISINOPRIL 10 MG TABLET PO SCH (09:16)
[2022-03-26] MEDS: POLYETHYLENE GLYCOL (HEALTHYLAX) 3350 17 GM PACKET PO SCH ×2 (09:17→22:04)
[2022-03-26] MEDS: COLLAGENASE CLOSTRIDIUM HIST. 30 GRAMS TUBE TP SCH (10:27)
[2022-03-26] MEDS ORDERED: INSULIN (NOVOLOG) ASPART 100 UNITS/ML 10ML VIAL ONE ×2 (10:33→16:48)
[2022-03-26] MEDS: CEFTRIAXONE 2 GM in DEXTROSE 5%-WATER 100 ML IVPB SCH (14:38)
[2022-03-26] MEDS: ONDANSETRON *ODT* 4 MG TABLET SL PRN (22:04)
[2022-03-26] MEDS: ATORVASTATIN CA 40 MG TABLET (FP) PO SCH (22:05)
[2022-03-26] MEDS: INSULIN (LEVEMIR) 100 UNITS/ML UNITS SQ SCH (22:05)
[2022-03-26] MEDS: DOCUSATE SODIUM 100 MG CAPSULE (FP) PO SCH (22:05)
[2022-03-26] MEDS: morphine SO4 SUSTAINED ACTING 30 MG TABLET.SA PO PRN (23:52)
[2022-03-27] MEDS: ACETAMINOPHEN 325 MG TABLET (FP) PO PRN ×2 (06:14→21:12)
[2022-03-27] MEDS: GABAPENTIN 100 MG CAPSULE PO SCH ×3 (06:14→21:12)
[2022-03-27] MEDS: INSULIN SLIDING SCALE (NOVOLOG) 1 VIAL SQ SCH ×3 (06:15→16:45)
[2022-03-27] MEDS ORDERED: INSULIN (NOVOLOG) ASPART 100 UNITS/ML 10ML VIAL ONE (06:58)
[2022-03-27] MEDS: VANCOMYCIN/WATER FOR INJ (PEG) 1,000 MG/200 ML BAG IVPB SCH (08:04)
[2022-03-27] MEDS: metoPROLOL SUCCINATE 25 MG TAB.SR.24H (FP) PO SCH (10:25)
[2022-03-27] MEDS: ASPIRIN 81 MG CHEWABLE TABLETS PO SCH (10:25)
[2022-03-27] MEDS: PANTOPRAZOLE 40 MG TABLET PO SCH (10:25)
[2022-03-27] MEDS: FERROUS SO4 325 MG TABLET (FP) PO SCH ×2 (10:25→21:12)
[2022-03-27] MEDS: CEFTRIAXONE 2 GM in DEXTROSE 5%-WATER 100 ML IVPB SCH (10:25)
[2022-03-27] MEDS: CLOPIDOGREL BISULFATE 75 MG TABLET (FP) PO SCH (10:25)
[2022-03-27] MEDS: LISINOPRIL 10 MG TABLET PO SCH (10:25)
[2022-03-27] MEDS: POLYETHYLENE GLYCOL (HEALTHYLAX) 3350 17 GM PACKET PO SCH ×2 (10:25→21:12)
[2022-03-27] MEDS: morphine SO4 SUSTAINED ACTING 30 MG TABLET.SA PO PRN (10:26)
[2022-03-27] MEDS: COLLAGENASE CLOSTRIDIUM HIST. 30 GRAMS TUBE TP SCH (14:32)
[2022-03-27] MEDS: ATORVASTATIN CA 40 MG TABLET (FP) PO SCH (21:12)
[2022-03-27] MEDS: DOCUSATE SODIUM 100 MG CAPSULE (FP) PO SCH (21:12)
[2022-03-27] MEDS: INSULIN (LEVEMIR) 100 UNITS/ML UNITS SQ SCH (21:20)
[2022-03-28] MEDS: morphine SO4 SUSTAINED ACTING 30 MG TABLET.SA PO PRN ×2 (02:16→10:00)
[2022-03-28] MEDS: GABAPENTIN 100 MG CAPSULE PO SCH ×2 (06:32→13:47)
[2022-03-28] MEDS: INSULIN SLIDING SCALE (NOVOLOG) 1 VIAL SQ SCH ×2 (06:34→11:16)
[2022-03-28] MEDS: VANCOMYCIN/WATER FOR INJ (PEG) 1,000 MG/200 ML BAG IVPB SCH ×2 (08:10→11:13)
[2022-03-28] MEDS: ASPIRIN 81 MG CHEWABLE TABLETS PO SCH (10:01)
[2022-03-28] MEDS: metoPROLOL SUCCINATE 25 MG TAB.SR.24H (FP) PO SCH (10:01)
[2022-03-28] MEDS: CLOPIDOGREL BISULFATE 75 MG TABLET (FP) PO SCH (10:02)
[2022-03-28] MEDS: LISINOPRIL 10 MG TABLET PO SCH (10:02)
[2022-03-28] MEDS: PANTOPRAZOLE 40 MG TABLET PO SCH (10:02)
[2022-03-28] MEDS: POLYETHYLENE GLYCOL (HEALTHYLAX) 3350 17 GM PACKET PO SCH (10:02)
[2022-03-28] MEDS: FERROUS SO4 325 MG TABLET (FP) PO SCH (10:02)
[2022-03-28] MEDS: CEFTRIAXONE 2 GM in DEXTROSE 5%-WATER 100 ML IVPB SCH (10:04)
[2022-03-28 10:39] VITALS: BP 153/63; PULSE 62; TEMP 97.8
[2022-03-28] MEDS: COLLAGENASE CLOSTRIDIUM HIST. 30 GRAMS TUBE TP SCH (11:12)
== END 2022-03-28 15:42 | disposition home health service (06) | DRG 197 ==
LOC: JER 10:59 → JERBED 17:50 → J6S 03-22 05:08
PROVIDERS: ADMIT Internal Medicine; ATTEND Internal Medicine
DX: E11.51 Type 2 diabetes mellitus with diabetic peripheral angiopathy without gangrene (principal); L03.115 Cellulitis of right lower limb; E11.628 Type 2 diabetes mellitus with other skin complications; I69.954 Hemiplegia and hemiparesis following unspecified cerebrovascular disease affecting left non-dominant side; E11.40 Type 2 diabetes mellitus with diabetic neuropathy, unspecified; M86.9 Osteomyelitis, unspecified; I11.0 Hypertensive heart disease with heart failure; I50.9 Heart failure, unspecified; I25.10 Atherosclerotic heart disease of native coronary artery without angina pectoris; E78.5 Hyperlipidemia, unspecified; E11.9 Type 2 diabetes mellitus without complications; I48.91 Unspecified atrial fibrillation; Z95.1 Presence of aortocoronary bypass graft; Z79.4 Long term (current) use of insulin; E78.00 Pure hypercholesterolemia, unspecified
CPT/HCPCS: 0241U-QW; 36415; 70450-TC; 71046-TC-FY; 73610-TC-RT-FY; 73630-TC-RT-FY; 80048; 80053; 82150; 82962; 83605; 83690; 83735; 84100; 84484; 85025; 85027; 85651; 86140; 86850; 86900; 86901; 87040; 87070; 87077; 87205; 93005; 93010; 97597; 99285-25; A6022; C9803-CS; G0463-25; G0480; Q0162; U0003; U0005

== ENCOUNTER 2022-04-02 13:06 | Observation (INO) | payer OTHER ==
[2022-04-02] MEDS ORDERED: ACETAMINOPHEN 1000 MG/100 ML BAG IVPB ONE (14:34)
[2022-04-02] MEDS ORDERED: ONDANSETRON 4 MG/2 ML VIAL IVPUSH ONE (14:34)
[2022-04-02] MEDS ORDERED: FAMOTIDINE 20 MG/50 ML IVPB 20 MG/50 ML MG IVPB ONE (14:35)
[2022-04-02] MEDS ORDERED: MAG HYDROX/AL HYDROX/SIMETH 30 ML UNIT-DOSE CUP PO ONE (14:36)
[2022-04-02] MEDS ORDERED: ACETAMINOPHEN INJECTION 100 ML IVPB ONE (15:12)
[2022-04-02] MEDS ORDERED: MAG HYDROX/AL HYDROX/SIMETH 30 ML UNIT-DOSE CUP ONE (15:12)
[2022-04-02] MEDS ORDERED: ONDANSETRON 4 MG/2 ML VIAL ONE (15:12)
[2022-04-02] MEDS ORDERED: FAMOTIDINE 10 MG/ML VIAL IVPB ONE ×2 (15:13→15:17)
[2022-04-02 15:49] LABS: BASO % 0.9 % (0-2.0); EOS % 3.8 % (0-4.5); HEMATOCRIT 30.6 % (32.4-45.2); HEMOGLOBIN 9.6 GM/dL (10.7-15.3); LYMPH % 14.4 % (8-40); MCH 21.3 pg (25.7-33.7); MCHC 31.5 g/dl (32.0-36.0); MEAN CELL VOLUME 67.8 fl (80-96); MEAN PLT VOLUME 8.1 fl (7.5-11.1); NEUT % 76.9 % (42.8-82.8); PLATELET COUNT 306 10^3/uL (134-434); RBC 4.52 M/mm3 (3.60-5.2); RDW 25.3 % (11.6-15.6); WHITE BLOOD COUNT 6.8 K/mm3 (4.0-10.0)
[2022-04-02 15:58] LABS: INR 1.08 (0.83-1.09); PROTHROMBIN TIME (PATIENT) 12.4 SEC (9.7-13.0)
[2022-04-02 16:16] LABS: CHLORIDE 107 mmol/L (98-107); SODIUM 140 mmol/L (136-145)
[2022-04-02 16:18] LABS: ALBUMIN 2.9 g/dl (3.4-5.0); CALCIUM 8.9 mg/dL (8.5-10.1); CO2 24 mmol/L (21-32); LIPASE 425 U/L (73-393)
[2022-04-02 16:19] LABS: GLUCOSE,RANDOM 134 mg/dL (74-106); MAGNESIUM 1.2 mg/dL (1.8-2.4)
[2022-04-02 16:21] LABS: CREATININE 0.7 mg/dL (0.55-1.3); PHOSPHOROUS 2.6 mg/dL (2.5-4.9); SGOT/AST 16 U/L (15-37); SGPT/ALT 12 U/L (13-61)
[2022-04-02 16:23] LABS: BILIRUBIN,TOTAL 0.3 mg/dL (0.2-1); TOT PROT 6.2 g/dl (6.4-8.2)
[2022-04-02 16:24] LABS: ALK PHOS 77 U/L (45-117)
[2022-04-02 16:28] LABS: ANION GAP 8 MMOL/L (8-16)
[2022-04-02] MEDS ORDERED: MAGNESIUM SULF 50% (8.12 MEQ/2 ML-1 GM VIAL) IVPB ONE (16:38)
[2022-04-02] MEDS ORDERED: MAGNESIUM SULFATE IN WATER 4 GM/100 ML IVPB IVPB ONE (17:19)
[2022-04-02 17:20] LABS: ANISOCYTOSIS 3+; MACROCYTOSIS 0
[2022-04-02] MEDS ORDERED: KCL 10 MEQ IVPB 10 MEQ/100 ML INFUS.BAG IVPB ONE ×2 (18:48→21:09)
[2022-04-02] MEDS: KCL 10 MEQ IVPB 10 MEQ/100 ML INFUS.BAG IVPB SCH ×4 (18:55→23:21)
[2022-04-02] MEDS ORDERED: LACTATED RINGERS SOLUTION 1000 ML INFUS.BAG IV ONE (20:18)
[2022-04-02] MEDS ORDERED: morphine CARPU-JECT 4 MG/1 ML DISP.SYRIN IVPUSH ONE (20:20)
[2022-04-02] MEDS ORDERED: morphine SULFATE 4 MG/ML VIAL IVPUSH ONE (20:21)
[2022-04-02] MEDS ORDERED: morphine SULFATE 4 MG/ML VIAL ONE (20:22)
[2022-04-02] MEDS ORDERED: TRIMETHOBENZAMIDE HCL 200MG/2ML INJ IM ONE ×2 (20:29→20:37)
[2022-04-02] MEDS ORDERED: KCL 10 MEQ IVPB 20 MEQ/200 ML INFUS.BAG IVPB ONE (23:10)
[2022-04-02 23:58] LABS: EPI CELLS 6 /uL (0-25.1); HYALINE CASTS 0 /uL (0-3.1); PH,URINE 7.5 (5.0-8.0); URINE APPEARANCE CLEAR; URINE BACTERIA 10 /uL (0-1359); URINE BILIRUBIN NEGATIVE (NEGATIVE); URINE COLOR YELLOW; URINE GLUCOSE (UA) NEGATIVE (NEGATIVE); URINE KETONE NEGATIVE (NEGATIVE); URINE LEUK ESTERASE 1+ (NEGATIVE); URINE NITRITE NEGATIVE (NEGATIVE); URINE PROTEIN NEGATIVE (NEGATIVE); URINE RBC 11 /uL (0-23.9); URINE UROBILINOGEN 0.2 mg/dL (0.2-1.0); URINE WBC 31 /uL (0-25.8)
[2022-04-03] MEDS: KCL 10 MEQ IVPB 10 MEQ/100 ML INFUS.BAG IVPB SCH ×2 (00:31→01:41)
[2022-04-03] MEDS ORDERED: KCL 10 MEQ IVPB 10 MEQ/100 ML INFUS.BAG IVPB ONE (00:56)
[2022-04-03] MEDS ORDERED: morphine SULFATE 4 MG/ML VIAL ONE (01:36)
[2022-04-03] MEDS: DEXTROSE 5%-0.45% SALINE 1,000 ML IV SCH ×2 (05:52→23:56)
[2022-04-03 07:30] LABS: BASO % 0.8 % (0-2.0); EOS % 6.2 % (0-4.5); HEMOGLOBIN 9.1 GM/dL (10.7-15.3); LYMPH % 19.5 % (8-40); MCH 21.4 pg (25.7-33.7); MCHC 31.4 g/dl (32.0-36.0); MEAN CELL VOLUME 68.2 fl (80-96); MEAN PLT VOLUME 8.4 fl (7.5-11.1); MONO % 5.3 % (3.8-10.2); NEUT % 68.2 % (42.8-82.8); PLATELET COUNT 279 10^3/uL (134-434); RBC 4.25 M/mm3 (3.60-5.2); RDW 25.4 % (11.6-15.6); WHITE BLOOD COUNT 6.8 K/mm3 (4.0-10.0)
[2022-04-03] MEDS ORDERED: HALOPERIDOL LACTATE 5 MG/ML IM ONE (07:45)
[2022-04-03 08:11] LABS: ALBUMIN 2.8 g/dl (3.4-5.0); BLOOD UREA NITROGEN 5.4 mg/dL (7-18); CREATININE 0.5 mg/dL (0.55-1.3)
[2022-04-03 08:13] LABS: BILIRUBIN,TOTAL 0.4 mg/dL (0.2-1); CALCIUM 8.3 mg/dL (8.5-10.1); TOT PROT 5.7 g/dl (6.4-8.2)
[2022-04-03 08:14] LABS: MAGNESIUM 1.8 mg/dL (1.8-2.4)
[2022-04-03] MEDS ORDERED: MECLIZINE HCL 12.5 MG TABLET PO PRN (13:40)
[2022-04-03] MEDS ORDERED: ONDANSETRON 4 MG/2 ML VIAL IVPUSH PRN (13:41)
[2022-04-03] MEDS: GABAPENTIN 100 MG CAPSULE PO SCH ×2 (15:00→22:26)
[2022-04-03] MEDS ORDERED: GABAPENTIN 100 MG CAPSULE ONE ×2 (15:36→22:22)
[2022-04-03] MEDS ORDERED: ONDANSETRON 4 MG/2 ML VIAL ONE (16:22)
[2022-04-03] MEDS ORDERED: ATORVASTATIN CA 40 MG TABLET (FP) PO SCH (22:00)
[2022-04-03] MEDS ORDERED: ATORVASTATIN CA 40 MG TABLET (FP) ONE (22:20)
[2022-04-03] MEDS ORDERED: morphine SO4 SUSTAINED ACTING 15 MG TABLET.SA ONE (22:21)
[2022-04-03] MEDS: morphine SO4 SUSTAINED ACTING 15 MG TABLET.SA PO SCH (22:25)
[2022-04-04] MEDS: GABAPENTIN 100 MG CAPSULE PO SCH ×3 (06:04→22:41)
[2022-04-04] MEDS ORDERED: GABAPENTIN 100 MG CAPSULE ONE ×2 (06:05→14:31)
[2022-04-04 08:26] LABS: BASO % 1.2 % (0-2.0); EOS % 8.6 % (0-4.5); HEMATOCRIT 28.4 % (32.4-45.2); LYMPH % 23.6 % (8-40); MCH 21.5 pg (25.7-33.7); MCHC 31.5 g/dl (32.0-36.0); MEAN CELL VOLUME 68.2 fl (80-96); MONO % 6.5 % (3.8-10.2); NEUT % 60.1 % (42.8-82.8); PLATELET COUNT 251 10^3/uL (134-434); RBC 4.17 M/mm3 (3.60-5.2); RDW 24.9 % (11.6-15.6)
[2022-04-04 08:59] LABS: CALCIUM 8.3 mg/dL (8.5-10.1)
[2022-04-04 09:00] LABS: MAGNESIUM 1.5 mg/dL (1.8-2.4)
[2022-04-04 09:03] LABS: CREATININE 0.5 mg/dL (0.55-1.3)
[2022-04-04] MEDS ORDERED: CLOPIDOGREL BISULFATE 75 MG TABLET (FP) ONE (09:36)
[2022-04-04] MEDS ORDERED: PANTOPRAZOLE SODIUM 40 MG VIAL ONE (09:36)
[2022-04-04] MEDS ORDERED: metoPROLOL SUCCINATE 25 MG TAB.SR.24H (FP) PO ONE (09:36)
[2022-04-04] MEDS ORDERED: metoPROLOL SUCCINATE 25 MG TAB.SR.24H (FP) PO SCH (10:00)
[2022-04-04] MEDS ORDERED: PANTOPRAZOLE SODIUM 40 MG VIAL IVPUSH SCH (10:00)
[2022-04-04] MEDS ORDERED: CLOPIDOGREL BISULFATE 75 MG TABLET (FP) PO SCH (10:00)
[2022-04-04] MEDS: morphine SO4 SUSTAINED ACTING 15 MG TABLET.SA PO SCH (12:21)
[2022-04-04] MEDS ORDERED: morphine SO4 SUSTAINED ACTING 15 MG TABLET.SA ONE (12:21)
[2022-04-04] MEDS ORDERED: POTASSIUM CHLORIDE ORAL LIQUID 20 MEQ/15 ML PO ONE (13:15)
[2022-04-04] MEDS ORDERED: POTASSIUM CHLORIDE ORAL LIQUID 20 MEQ/15 ML ONE (14:32)
[2022-04-04 16:28] LABS: ALBUMIN 3.2 g/dl (3.4-5.0); BILIRUBIN,DIRECT 0.1 mg/dL (0.0-0.2); BILIRUBIN,TOTAL 0.2 mg/dL (0.2-1); TOT PROT 6.3 g/dl (6.4-8.2)
[2022-04-04] MEDS ORDERED: VANCOMYCIN 250 MG/5 ML ORAL SOLUTION PO SCH (18:00)
[2022-04-04] MEDS ORDERED: MECLIZINE HCL 12.5 MG TABLET PO PRN (18:13)
[2022-04-04] MEDS ORDERED: ONDANSETRON 4 MG/2 ML VIAL IVPUSH PRN (18:13)
[2022-04-04 18:29] VITALS: BMI 22.4
[2022-04-04] MEDS: DEXTROSE 5%-0.45% SALINE 1,000 ML IV SCH (18:42)
[2022-04-04] MEDS ORDERED: IRON SUCROSE INJECTION 200 MG in SODIUM CHLORIDE 90 ML IVPB ONE (19:30)
[2022-04-04] MEDS: INSULIN SLIDING SCALE (NOVOLOG) 1 VIAL SQ SCH ×2 (20:42→20:43)
[2022-04-04] MEDS: morphine SO4 SUSTAINED ACTING 30 MG TABLET.SA PO SCH (22:40)
[2022-04-04] MEDS: ATORVASTATIN CA 40 MG TABLET (FP) PO SCH (22:41)
[2022-04-05] MEDS: GABAPENTIN 100 MG CAPSULE PO SCH ×3 (06:25→21:58)
[2022-04-05] MEDS ORDERED: INSULIN SLIDING SCALE (NOVOLOG) 1 VIAL SQ SCH (07:00)
[2022-04-05] MEDS: INSULIN SLIDING SCALE (NOVOLOG) 1 VIAL SQ SCH ×3 (07:44→16:40)
[2022-04-05] MEDS: morphine SO4 SUSTAINED ACTING 30 MG TABLET.SA PO SCH ×2 (10:00→21:58)
[2022-04-05] MEDS: CLOPIDOGREL BISULFATE 75 MG TABLET (FP) PO SCH (10:00)
[2022-04-05] MEDS: PANTOPRAZOLE SODIUM 40 MG VIAL IVPUSH SCH (10:00)
[2022-04-05] MEDS: metoPROLOL SUCCINATE 25 MG TAB.SR.24H (FP) PO SCH (10:00)
[2022-04-05 10:15] LABS: BASO % 1.2 % (0-2.0); EOS % 9.3 % (0-4.5); HEMATOCRIT 30.7 % (32.4-45.2); HEMOGLOBIN 9.8 GM/dL (10.7-15.3); LYMPH % 22.2 % (8-40); MCH 21.8 pg (25.7-33.7); MCHC 31.9 g/dl (32.0-36.0); MEAN CELL VOLUME 68.2 fl (80-96); MEAN PLT VOLUME 8.4 fl (7.5-11.1); MONO % 6.5 % (3.8-10.2); NEUT % 60.8 % (42.8-82.8); PLATELET COUNT 272 10^3/uL (134-434); RBC 4.51 M/mm3 (3.60-5.2); RDW 24.9 % (11.6-15.6); WHITE BLOOD COUNT 4.9 K/mm3 (4.0-10.0)
[2022-04-05 10:31] LABS: CALCIUM 8.2 mg/dL (8.5-10.1)
[2022-04-05 10:35] LABS: CREATININE 0.6 mg/dL (0.55-1.3)
[2022-04-05] MEDS: KCL 10 MEQ IVPB 10 MEQ/100 ML INFUS.BAG IVPB SCH ×3 (11:30→13:48)
[2022-04-05] MEDS ORDERED: IRON SUCROSE INJECTION 200 MG in SODIUM CHLORIDE 90 ML IVPB ONE (11:30)
[2022-04-05] MEDS: POTASSIUM CHLORIDE TABS 20 MEQ TABLET.ER (FP) PO SCH (17:08)
[2022-04-05] MEDS: DEXTROSE 5%-0.45% SALINE 1,000 ML IV SCH (20:39)
[2022-04-05] MEDS: ATORVASTATIN CA 40 MG TABLET (FP) PO SCH (21:58)
[2022-04-06] MEDS: GABAPENTIN 100 MG CAPSULE PO SCH ×3 (07:07→21:42)
[2022-04-06] MEDS: INSULIN SLIDING SCALE (NOVOLOG) 1 VIAL SQ SCH ×3 (07:14→16:48)
[2022-04-06 09:28] LABS: BASO % 0.8 % (0-2.0); EOS % 11.1 % (0-4.5); HEMATOCRIT 33.9 % (32.4-45.2); HEMOGLOBIN 10.7 GM/dL (10.7-15.3); LYMPH % 25.9 % (8-40); MCH 21.7 pg (25.7-33.7); MCHC 31.6 g/dl (32.0-36.0); MEAN CELL VOLUME 68.7 fl (80-96); MEAN PLT VOLUME 8.5 fl (7.5-11.1); MONO % 7.5 % (3.8-10.2); NEUT % 54.7 % (42.8-82.8); PLATELET COUNT 288 10^3/uL (134-434); RBC 4.94 M/mm3 (3.60-5.2); RDW 25.7 % (11.6-15.6); WHITE BLOOD COUNT 5.2 K/mm3 (4.0-10.0)
[2022-04-06] MEDS: metoPROLOL SUCCINATE 25 MG TAB.SR.24H (FP) PO SCH (09:35)
[2022-04-06] MEDS: morphine SO4 SUSTAINED ACTING 30 MG TABLET.SA PO SCH ×2 (09:35→21:41)
[2022-04-06] MEDS: POTASSIUM CHLORIDE TABS 20 MEQ TABLET.ER (FP) PO SCH (09:35)
[2022-04-06] MEDS: CLOPIDOGREL BISULFATE 75 MG TABLET (FP) PO SCH (09:36)
[2022-04-06] MEDS: PANTOPRAZOLE SODIUM 40 MG VIAL IVPUSH SCH (09:36)
[2022-04-06 09:55] LABS: CHLORIDE 105 mmol/L (98-107); SODIUM 142 mmol/L (136-145)
[2022-04-06 10:06] LABS: ANION GAP 9 MMOL/L (8-16); CALCIUM 8.8 mg/dL (8.5-10.1); CO2 28 mmol/L (21-32)
[2022-04-06 10:07] LABS: GLUCOSE,RANDOM 145 mg/dL (74-106)
[2022-04-06 10:10] LABS: CREATININE 0.6 mg/dL (0.55-1.3); MAGNESIUM 1.2 mg/dL (1.8-2.4)
[2022-04-06] MEDS ORDERED: IRON SUCROSE INJECTION 200 MG in SODIUM CHLORIDE 90 ML IVPB ONE (10:10)
[2022-04-06 10:11] LABS: BLOOD UREA NITROGEN 2.6 mg/dL (7-18)
[2022-04-06 11:58] LABS: ANISOCYTOSIS 2+; MACROCYTOSIS 0; OVALOCYTE 2+
[2022-04-06] MEDS: ATORVASTATIN CA 40 MG TABLET (FP) PO SCH (21:40)
[2022-04-07] MEDS: GABAPENTIN 100 MG CAPSULE PO SCH ×3 (06:11→21:32)
[2022-04-07] MEDS: INSULIN SLIDING SCALE (NOVOLOG) 1 VIAL SQ SCH ×3 (06:14→16:32)
[2022-04-07] MEDS: CLOPIDOGREL BISULFATE 75 MG TABLET (FP) PO SCH (10:05)
[2022-04-07] MEDS: morphine SO4 SUSTAINED ACTING 30 MG TABLET.SA PO SCH (10:05)
[2022-04-07] MEDS: POTASSIUM CHLORIDE TABS 20 MEQ TABLET.ER (FP) PO SCH (10:05)
[2022-04-07] MEDS: PANTOPRAZOLE SODIUM 40 MG VIAL IVPUSH SCH (10:06)
[2022-04-07] MEDS: metoPROLOL SUCCINATE 25 MG TAB.SR.24H (FP) PO SCH (10:06)
[2022-04-07] MEDS ORDERED: MAGNESIUM SULF 50% (8.12 MEQ/2 ML-1 GM VIAL) IVPB ONE (13:09)
[2022-04-07] MEDS ORDERED: MAG HYDROX/AL HYDROX/SIMETH -MYLANTA- ORAL SUSPENSION PO ONE (13:13)
[2022-04-07] MEDS: PANTOPRAZOLE 40 MG TABLET PO SCH (13:14)
[2022-04-07] MEDS: morphine SO4 SUSTAINED ACTING 15 MG TABLET.SA PO SCH ×2 (13:15→21:31)
[2022-04-07] MEDS: POLYETHYLENE GLYCOL (HEALTHYLAX) 3350 17 GM PACKET PO SCH (13:47)
[2022-04-07] MEDS: MINERAL OIL/PET HY-PHL TOPICAL OINTMENT 454 GM JAR TP SCH (18:37)
[2022-04-07] MEDS: ATORVASTATIN CA 40 MG TABLET (FP) PO SCH (21:30)
[2022-04-08] MEDS: GABAPENTIN 100 MG CAPSULE PO SCH (06:12)
[2022-04-08] MEDS: INSULIN SLIDING SCALE (NOVOLOG) 1 VIAL SQ SCH ×2 (06:18→13:02)
[2022-04-08 06:53] VITALS: RESP 18
[2022-04-08] MEDS: metoPROLOL SUCCINATE 25 MG TAB.SR.24H (FP) PO SCH (10:36)
[2022-04-08] MEDS: PANTOPRAZOLE 40 MG TABLET PO SCH (10:36)
[2022-04-08] MEDS: morphine SO4 SUSTAINED ACTING 15 MG TABLET.SA PO SCH (10:36)
[2022-04-08] MEDS: POTASSIUM CHLORIDE TABS 20 MEQ TABLET.ER (FP) PO SCH (10:36)
[2022-04-08] MEDS: MINERAL OIL/PET HY-PHL TOPICAL OINTMENT 454 GM JAR TP SCH (10:36)
[2022-04-08] MEDS: CLOPIDOGREL BISULFATE 75 MG TABLET (FP) PO SCH (10:36)
[2022-04-08] MEDS: POLYETHYLENE GLYCOL (HEALTHYLAX) 3350 17 GM PACKET PO SCH (10:37)
[2022-04-08] MEDS ORDERED: INSULIN (NOVOLOG) ASPART 100 UNITS/ML 10ML VIAL ONE (12:06)
[2022-04-08 13:45] LABS: BASO % 0.9 % (0-2.0); EOS % 6.9 % (0-4.5); HEMATOCRIT 32.9 % (32.4-45.2); HEMOGLOBIN 10.4 GM/dL (10.7-15.3); LYMPH % 20.9 % (8-40); MCH 21.7 pg (25.7-33.7); MCHC 31.6 g/dl (32.0-36.0); MEAN CELL VOLUME 68.8 fl (80-96); MEAN PLT VOLUME 8.5 fl (7.5-11.1); MONO % 6.7 % (3.8-10.2); NEUT % 64.6 % (42.8-82.8); PLATELET COUNT 280 10^3/uL (134-434); RBC 4.78 M/mm3 (3.60-5.2); RDW 25.3 % (11.6-15.6)
[2022-04-08 13:56] LABS: CALCIUM 9.3 mg/dL (8.5-10.1)
[2022-04-08 13:57] LABS: BLOOD UREA NITROGEN 6.3 mg/dL (7-18)
[2022-04-08 14:00] LABS: CREATININE 0.6 mg/dL (0.55-1.3); MAGNESIUM 1.6 mg/dL (1.8-2.4)
[2022-04-08 14:52] VITALS: BP 150/64; PULSE 76; TEMP 97.9
== END 2022-04-08 15:46 | disposition home health service (06) ==
LOC: JER 13:06 → JERBED 23:54 → UNDOADMOB 23:54 → INTOOBSV 23:54 → JERBED 04-04 15:21 → J8W 04-04 16:43
PROVIDERS: ADMIT Internal Medicine; ATTEND Internal Medicine
PROC: 3E033NZ Introduction of Analgesics, Hypnotics, Sedatives into Peripheral Vein, Percutaneous Approach (ICD-10-PCS; principal; 2022-04-04)
PROC: 3E0337Z Introduction of Electrolytic and Water Balance Substance into Peripheral Vein, Percutaneous Approach (ICD-10-PCS; 2022-04-04)
PROC: 3E0337Z Introduction of Electrolytic and Water Balance Substance into Peripheral Vein, Percutaneous Approach (ICD-10-PCS; 2022-04-04)
DX: K52.9 Noninfective gastroenteritis and colitis, unspecified (principal); I25.10 Atherosclerotic heart disease of native coronary artery without angina pectoris; I11.9 Hypertensive heart disease without heart failure; E87.6 Hypokalemia; E83.42 Hypomagnesemia; E11.9 Type 2 diabetes mellitus without complications; E78.5 Hyperlipidemia, unspecified; D64.9 Anemia, unspecified; K59.00 Constipation, unspecified; Z95.1 Presence of aortocoronary bypass graft; L03.90 Cellulitis, unspecified
CPT/HCPCS: 0241U-QW; 36415; 71045-TC-FY; 74177-TC; 80048; 80053; 80076; 81003; 82607; 82728; 82746; 82962; 83540; 83550; 83605; 83690; 83735; 84100; 85025; 85610; 85651; 85730; 86140; 86850; 86900; 86901; 87086; 93005; 93010; 96361; 96365; 96366; 96375; 99285-25; G0378; G0463-25; J1756; Q9967

== ENCOUNTER 2022-05-16 15:29 | Emergency (ER) | payer OTHER ==
[2022-05-16 15:52] VITALS: TEMP 98; BMI 25.4
[2022-05-16] MEDS ORDERED: ACETAMINOPHEN 1000 MG/100 ML BAG IVPB ONE (16:25)
[2022-05-16 17:12] LABS: BASO % 1.2 % (0-2.0); EOS % 2.9 % (0-4.5); HEMATOCRIT 41.4 % (32.4-45.2); HEMOGLOBIN 13.9 GM/dL (10.7-15.3); LYMPH % 22.8 % (8-40); MCH 24.5 pg (25.7-33.7); MCHC 33.6 g/dl (32.0-36.0); MEAN CELL VOLUME 72.9 fl (80-96); MEAN PLT VOLUME 8.2 fl (7.5-11.1); MONO % 5.1 % (3.8-10.2); PLATELET COUNT 301 10^3/uL (134-434); RBC 5.67 M/mm3 (3.60-5.2); RDW 24.4 % (11.6-15.6); WHITE BLOOD COUNT 7.4 K/mm3 (4.0-10.0)
[2022-05-16] MEDS ORDERED: ACETAMINOPHEN INJECTION 100 ML IVPB ONE (17:24)
[2022-05-16 17:32] LABS: CALCIUM 9.8 mg/dL (8.5-10.1)
[2022-05-16 17:33] LABS: BLOOD UREA NITROGEN 17.2 mg/dL (7-18)
[2022-05-16 17:36] LABS: CREATININE 0.7 mg/dL (0.55-1.3)
[2022-05-16 17:37] LABS: BILIRUBIN,TOTAL 0.6 mg/dL (0.2-1)
[2022-05-16 17:38] LABS: TOT PROT 7.8 g/dl (6.4-8.2)
[2022-05-16 20:18] VITALS: BP 183/74; PULSE 92; RESP 18
[2022-05-16] MEDS ORDERED: IBUPROFEN 400 MG TABLET (FP) PO ONE ×2 (20:33→20:35)
== END 2022-05-16 20:48 | disposition home or self-care (01) ==
LOC: JER 15:29
PROC: 3E0333Z Introduction of Anti-inflammatory into Peripheral Vein, Percutaneous Approach (ICD-10-PCS; principal; 2022-05-16)
DX: S09.90XA Unspecified injury of head, initial encounter (principal); S80.01XA Contusion of right knee, initial encounter; S80.02XA Contusion of left knee, initial encounter; K59.00 Constipation, unspecified; R07.89 Other chest pain; W01.0XXA Fall on same level from slipping, tripping and stumbling without subsequent striking against object, initial encounter
CPT/HCPCS: 36415; 70450-TC; 71045-TC-FY; 72125-TC; 72131-TC; 73562-TC-RT-FY; 73590-TC-LT-FY; 73590-TC-RT-FY; 73610-TC-LT-FY; 74177-TC; 80053; 82962; 83690; 85025; 93005; 93010; 99285-25; G0277; G0463-25; Q9967

== ENCOUNTER 2022-05-20 12:53 | Observation (INO) | payer OTHER ==
[2022-05-20 12:58] VITALS: BMI 20.7
[2022-05-20] MEDS ORDERED: ACETAMINOPHEN 1000 MG/100 ML BAG IVPB ONE (14:35)
[2022-05-20] MEDS ORDERED: METOCLOPRAMIDE HCL INJECTION 10 MG/2 ML VIAL IVPUSH ONE (14:36)
[2022-05-20] MEDS ORDERED: ACETAMINOPHEN INJECTION 100 ML IVPB ONE (14:45)
[2022-05-20] MEDS ORDERED: METOCLOPRAMIDE HCL INJECTION 10 MG/2 ML VIAL ONE (14:45)
[2022-05-20 15:31] LABS: BASO % 1.1 % (0-2.0); EOS % 2.7 % (0-4.5); HEMATOCRIT 35.6 % (32.4-45.2); HEMOGLOBIN 11.9 GM/dL (10.7-15.3); LYMPH % 21.2 % (8-40); MCH 24.2 pg (25.7-33.7); MCHC 33.3 g/dl (32.0-36.0); MEAN CELL VOLUME 72.6 fl (80-96); MEAN PLT VOLUME 8.2 fl (7.5-11.1); PLATELET COUNT 269 10^3/uL (134-434); RBC 4.91 M/mm3 (3.60-5.2); WHITE BLOOD COUNT 6.7 K/mm3 (4.0-10.0)
[2022-05-20 15:55] LABS: ALBUMIN 3.2 g/dl (3.4-5.0); BLOOD UREA NITROGEN 14.1 mg/dL (7-18)
[2022-05-20 15:56] LABS: ANISOCYTOSIS 2+; MACROCYTOSIS 1+
[2022-05-20 15:57] LABS: CREATININE 0.5 mg/dL (0.55-1.3)
[2022-05-20 15:59] LABS: BILIRUBIN,TOTAL 0.4 mg/dL (0.2-1); TOT PROT 6.9 g/dl (6.4-8.2)
[2022-05-20] MEDS ORDERED: MECLIZINE HCL 25 MG TABLET (FP) PO ONE (16:13)
[2022-05-20] MEDS ORDERED: MECLIZINE HCL 25 MG TABLET (FP) ONE (16:15)
[2022-05-20 17:10] LABS: VENOUS BASE EXCESS -2.5 mmol/L (-2-2); VENOUS O2 SATURATION 80.4 % (70-80); VENOUS PCO2 40.6 mmHg (38-52); VENOUS PH 7.365 (7.310-7.410)
[2022-05-20] MEDS ORDERED: diazePAM 2 MG TABLET PO ONE (17:12)
[2022-05-20] MEDS ORDERED: diazePAM 2 MG TABLET ONE (18:01)
[2022-05-20] MEDS ORDERED: FUROSEMIDE 40 MG/4 ML INJECTABLE VIAL IVPUSH ONE (18:53)
[2022-05-20] MEDS ORDERED: METOCLOPRAMIDE HCL INJECTION 10 MG/2 ML VIAL IVPUSH PRN (21:21)
[2022-05-20] MEDS ORDERED: DOCUSATE SODIUM 100 MG CAPSULE (FP) PO PRN (21:21)
[2022-05-21] MEDS: INSULIN SLIDING SCALE (NOVOLOG) 1 VIAL SQ SCH ×5 (02:28→21:36)
[2022-05-21 05:51] LABS: EPI CELLS 7 /uL (0-25.1); HYALINE CASTS 0 /uL (0-3.1); URINE APPEARANCE CLEAR; URINE BACTERIA 8 /uL (0-1359); URINE BILIRUBIN NEGATIVE (NEGATIVE); URINE COLOR YELLOW; URINE GLUCOSE (UA) TRACE (NEGATIVE); URINE KETONE NEGATIVE (NEGATIVE); URINE LEUK ESTERASE 1+ (NEGATIVE); URINE NITRITE NEGATIVE (NEGATIVE); URINE PROTEIN TRACE (NEGATIVE); URINE RBC 5 /uL (0-23.9); URINE UROBILINOGEN 0.2 mg/dL (0.2-1.0); URINE WBC 53 /uL (0-25.8)
[2022-05-21] MEDS: MECLIZINE HCL 25 MG TABLET (FP) PO PRN (06:16)
[2022-05-21] MEDS: ACETAMINOPHEN 325 MG TABLET (FP) PO PRN ×2 (06:16→22:57)
[2022-05-21 06:49] LABS: INR 1.09 (0.83-1.09); PROTHROMBIN TIME (PATIENT) 12.6 SEC (9.7-13.0)
[2022-05-21 06:52] LABS: ACTIVATED PTT 28.3 SECONDS (25.2-36.5)
[2022-05-21 06:58] LABS: BASO % 0.9 % (0-2.0); EOS % 3.5 % (0-4.5); HEMATOCRIT 33.2 % (32.4-45.2); HEMOGLOBIN 11.3 GM/dL (10.7-15.3); LYMPH % 28.3 % (8-40); MCH 24.9 pg (25.7-33.7); MEAN CELL VOLUME 73.3 fl (80-96); MEAN PLT VOLUME 8.3 fl (7.5-11.1); MONO % 6.9 % (3.8-10.2); NEUT % 60.4 % (42.8-82.8); PLATELET COUNT 270 10^3/uL (134-434); RBC 4.52 M/mm3 (3.60-5.2); RDW 23.5 % (11.6-15.6); WHITE BLOOD COUNT 5.7 K/mm3 (4.0-10.0)
[2022-05-21 07:08] LABS: BLOOD UREA NITROGEN 13.4 mg/dL (7-18); CALCIUM 8.7 mg/dL (8.5-10.1); MAGNESIUM 1.5 mg/dL (1.8-2.4)
[2022-05-21 07:12] LABS: CREATININE 0.4 mg/dL (0.55-1.3); PHOSPHOROUS 2.9 mg/dL (2.5-4.9)
[2022-05-21] MEDS: PANTOPRAZOLE 40 MG TABLET PO SCH (10:07)
[2022-05-21] MEDS: CLOPIDOGREL BISULFATE 75 MG TABLET (FP) PO SCH (10:07)
[2022-05-21] MEDS: LISINOPRIL 10 MG TABLET PO SCH (10:07)
[2022-05-21] MEDS: metoPROLOL SUCCINATE 25 MG TAB.SR.24H (FP) PO SCH (10:07)
[2022-05-21] MEDS ORDERED: MAGNESIUM 1GM/D5W - 1 GM/100 ML IVPB IVPB ONE (12:03)
[2022-05-21] MEDS: GABAPENTIN 100 MG CAPSULE PO SCH ×2 (15:16→21:35)
[2022-05-21] MEDS: INSULIN (LEVEMIR) 100 UNITS/ML UNITS SQ SCH (21:35)
[2022-05-21] MEDS ORDERED: ATORVASTATIN CA 40 MG TABLET (FP) PO SCH (22:00)
[2022-05-22] MEDS: GABAPENTIN 100 MG CAPSULE PO SCH ×3 (06:06→21:25)
[2022-05-22] MEDS: INSULIN SLIDING SCALE (NOVOLOG) 1 VIAL SQ SCH ×4 (06:06→21:28)
[2022-05-22] MEDS: PANTOPRAZOLE 40 MG TABLET PO SCH (11:25)
[2022-05-22] MEDS: CLOPIDOGREL BISULFATE 75 MG TABLET (FP) PO SCH (11:25)
[2022-05-22] MEDS: metoPROLOL SUCCINATE 25 MG TAB.SR.24H (FP) PO SCH (11:25)
[2022-05-22] MEDS: LISINOPRIL 10 MG TABLET PO SCH (11:25)
[2022-05-22] MEDS: MECLIZINE HCL 25 MG TABLET (FP) PO PRN ×2 (15:37→21:25)
[2022-05-22] MEDS: ATORVASTATIN CA 80 MG TABLET (FP) PO SCH (21:27)
[2022-05-22] MEDS: ACETAMINOPHEN 325 MG TABLET (FP) PO PRN (21:28)
[2022-05-22] MEDS: INSULIN (LEVEMIR) 100 UNITS/ML UNITS SQ SCH (21:28)
[2022-05-23] MEDS: GABAPENTIN 100 MG CAPSULE PO SCH ×3 (05:55→21:33)
[2022-05-23] MEDS: INSULIN SLIDING SCALE (NOVOLOG) 1 VIAL SQ SCH ×4 (06:35→21:37)
[2022-05-23] MEDS: metoPROLOL SUCCINATE 25 MG TAB.SR.24H (FP) PO SCH (09:15)
[2022-05-23] MEDS: PANTOPRAZOLE 40 MG TABLET PO SCH (09:15)
[2022-05-23] MEDS: CLOPIDOGREL BISULFATE 75 MG TABLET (FP) PO SCH (09:15)
[2022-05-23] MEDS: LISINOPRIL 10 MG TABLET PO SCH (09:15)
[2022-05-23] MEDS: MECLIZINE HCL 25 MG TABLET (FP) PO PRN ×2 (12:36→20:08)
[2022-05-23] MEDS: ACETAMINOPHEN 325 MG TABLET (FP) PO PRN (21:34)
[2022-05-23] MEDS: ATORVASTATIN CA 80 MG TABLET (FP) PO SCH (21:34)
[2022-05-23] MEDS: INSULIN (LEVEMIR) 100 UNITS/ML UNITS SQ SCH (21:36)
[2022-05-24] MEDS: GABAPENTIN 100 MG CAPSULE PO SCH ×3 (06:23→21:37)
[2022-05-24] MEDS: MECLIZINE HCL 25 MG TABLET (FP) PO PRN (06:24)
[2022-05-24] MEDS: INSULIN SLIDING SCALE (NOVOLOG) 1 VIAL SQ SCH ×4 (06:25→21:38)
[2022-05-24] MEDS: metoPROLOL SUCCINATE 25 MG TAB.SR.24H (FP) PO SCH (10:13)
[2022-05-24] MEDS: LISINOPRIL 10 MG TABLET PO SCH (10:13)
[2022-05-24] MEDS: CLOPIDOGREL BISULFATE 75 MG TABLET (FP) PO SCH (10:13)
[2022-05-24] MEDS: PANTOPRAZOLE 40 MG TABLET PO SCH (10:14)
[2022-05-24] MEDS: MECLIZINE HCL 25 MG TABLET (FP) PO SCH ×2 (13:04→17:03)
[2022-05-24] MEDS: ATORVASTATIN CA 80 MG TABLET (FP) PO SCH (21:37)
[2022-05-24] MEDS: INSULIN (LEVEMIR) 100 UNITS/ML UNITS SQ SCH (21:37)
[2022-05-24] MEDS: LORazepam 0.5 MG TABLET PO PRN (21:40)
[2022-05-25] MEDS: MECLIZINE HCL 25 MG TABLET (FP) PO SCH ×4 (00:05→18:41)
[2022-05-25] MEDS: GABAPENTIN 100 MG CAPSULE PO SCH ×3 (06:41→21:01)
[2022-05-25] MEDS: INSULIN SLIDING SCALE (NOVOLOG) 1 VIAL SQ SCH ×4 (06:44→21:04)
[2022-05-25] MEDS: metoPROLOL SUCCINATE 25 MG TAB.SR.24H (FP) PO SCH (11:50)
[2022-05-25] MEDS: LISINOPRIL 10 MG TABLET PO SCH (11:50)
[2022-05-25] MEDS: PANTOPRAZOLE 40 MG TABLET PO SCH (11:51)
[2022-05-25] MEDS: CLOPIDOGREL BISULFATE 75 MG TABLET (FP) PO SCH (11:51)
[2022-05-25] MEDS: ACETAMINOPHEN 325 MG TABLET (FP) PO PRN (21:01)
[2022-05-25] MEDS: ATORVASTATIN CA 80 MG TABLET (FP) PO SCH (21:01)
[2022-05-25] MEDS: LORazepam 0.5 MG TABLET PO PRN (21:03)
[2022-05-25] MEDS: INSULIN (LEVEMIR) 100 UNITS/ML UNITS SQ SCH (21:04)
[2022-05-26] MEDS: MECLIZINE HCL 25 MG TABLET (FP) PO SCH ×5 (01:05→23:03)
[2022-05-26] MEDS: GABAPENTIN 100 MG CAPSULE PO SCH ×3 (06:09→21:53)
[2022-05-26] MEDS: INSULIN SLIDING SCALE (NOVOLOG) 1 VIAL SQ SCH ×4 (06:12→21:54)
[2022-05-26 08:08] LABS: CALCIUM 8.5 mg/dL (8.5-10.1)
[2022-05-26 08:09] LABS: ALBUMIN 2.8 g/dl (3.4-5.0); BLOOD UREA NITROGEN 11.5 mg/dL (7-18)
[2022-05-26 08:10] LABS: BASO % 0.6 % (0-2.0); EOS % 4.1 % (0-4.5); HEMOGLOBIN 11.4 GM/dL (10.7-15.3); LYMPH % 26.7 % (8-40); MCH 24.3 pg (25.7-33.7); MCHC 33.5 g/dl (32.0-36.0); MEAN CELL VOLUME 72.6 fl (80-96); MEAN PLT VOLUME 6.8 fl (7.5-11.1); MONO % 6.4 % (3.8-10.2); NEUT % 62.2 % (42.8-82.8); PLATELET COUNT 336 10^3/uL (134-434); RBC 4.68 M/mm3 (3.60-5.2); RDW 22.7 % (11.6-15.6); WHITE BLOOD COUNT 6.7 K/mm3 (4.0-10.0)
[2022-05-26 08:12] LABS: CREATININE 0.5 mg/dL (0.55-1.3)
[2022-05-26 08:14] LABS: BILIRUBIN,TOTAL 0.3 mg/dL (0.2-1); TOT PROT 5.9 g/dl (6.4-8.2)
[2022-05-26 09:49] LABS: ANISOCYTOSIS 2+; MACROCYTOSIS 0
[2022-05-26] MEDS: LISINOPRIL 10 MG TABLET PO SCH (09:58)
[2022-05-26] MEDS: metoPROLOL SUCCINATE 25 MG TAB.SR.24H (FP) PO SCH (09:58)
[2022-05-26] MEDS: PANTOPRAZOLE 40 MG TABLET PO SCH (09:58)
[2022-05-26] MEDS: CLOPIDOGREL BISULFATE 75 MG TABLET (FP) PO SCH (09:58)
[2022-05-26] MEDS: ACETAMINOPHEN 325 MG TABLET (FP) PO PRN (15:18)
[2022-05-26] MEDS: ATORVASTATIN CA 80 MG TABLET (FP) PO SCH (21:53)
[2022-05-26] MEDS: INSULIN (LEVEMIR) 100 UNITS/ML UNITS SQ SCH (21:53)
[2022-05-26] MEDS: LORazepam 0.5 MG TABLET PO PRN (23:03)
[2022-05-27] MEDS: ACETAMINOPHEN 325 MG TABLET (FP) PO PRN (01:20)
[2022-05-27] MEDS: MECLIZINE HCL 25 MG TABLET (FP) PO SCH ×3 (06:20→17:34)
[2022-05-27] MEDS: GABAPENTIN 100 MG CAPSULE PO SCH ×3 (06:20→21:59)
[2022-05-27] MEDS: INSULIN SLIDING SCALE (NOVOLOG) 1 VIAL SQ SCH ×4 (06:21→21:57)
[2022-05-27] MEDS: LISINOPRIL 10 MG TABLET PO SCH (10:48)
[2022-05-27] MEDS: CLOPIDOGREL BISULFATE 75 MG TABLET (FP) PO SCH (10:48)
[2022-05-27] MEDS: PANTOPRAZOLE 40 MG TABLET PO SCH (10:48)
[2022-05-27] MEDS: metoPROLOL SUCCINATE 25 MG TAB.SR.24H (FP) PO SCH (10:48)
[2022-05-27] MEDS ORDERED: LORazepam 0.5 MG TABLET PO PRN (21:25)
[2022-05-27] MEDS: INSULIN (LEVEMIR) 100 UNITS/ML UNITS SQ SCH (21:56)
[2022-05-27] MEDS: ATORVASTATIN CA 80 MG TABLET (FP) PO SCH (21:59)
[2022-05-28] MEDS: MECLIZINE HCL 25 MG TABLET (FP) PO SCH ×3 (00:32→11:37)
[2022-05-28 05:58] VITALS: RESP 18
[2022-05-28] MEDS: GABAPENTIN 100 MG CAPSULE PO SCH (06:30)
[2022-05-28] MEDS: INSULIN SLIDING SCALE (NOVOLOG) 1 VIAL SQ SCH ×2 (06:33→11:40)
[2022-05-28] MEDS ORDERED: INSULIN (LEVEMIR) 100 UNITS/ML UNITS SQ ONE (06:55)
[2022-05-28] MEDS ORDERED: INSULIN SLIDING SCALE (NOVOLOG) 1 VIAL SQ ONE (06:55)
[2022-05-28] MEDS: metoPROLOL SUCCINATE 25 MG TAB.SR.24H (FP) PO SCH (10:27)
[2022-05-28] MEDS: LISINOPRIL 10 MG TABLET PO SCH (10:27)
[2022-05-28] MEDS: PANTOPRAZOLE 40 MG TABLET PO SCH (10:27)
[2022-05-28] MEDS: CLOPIDOGREL BISULFATE 75 MG TABLET (FP) PO SCH (10:27)
[2022-05-28 13:52] VITALS: BP 136/70; PULSE 74; TEMP 98.1
== END 2022-05-28 13:53 | disposition home or self-care (01) ==
LOC: JER 12:53 → JERBED 18:30 → INTOOBSV 18:30 → J4S 05-21 03:13
PROVIDERS: ADMIT Internal Medicine; ATTEND Internal Medicine
PROC: 3E033NZ Introduction of Analgesics, Hypnotics, Sedatives into Peripheral Vein, Percutaneous Approach (ICD-10-PCS; principal; 2022-05-20)
PROC: 3E013VG Introduction of Insulin into Subcutaneous Tissue, Percutaneous Approach (ICD-10-PCS; 2022-05-20)
PROC: 3E033GC Introduction of Other Therapeutic Substance into Peripheral Vein, Percutaneous Approach (ICD-10-PCS; 2022-05-20)
DX: R42 Dizziness and giddiness (principal); E78.00 Pure hypercholesterolemia, unspecified; E11.9 Type 2 diabetes mellitus without complications; I69.354 Hemiplegia and hemiparesis following cerebral infarction affecting left non-dominant side; Z88.6 Allergy status to analgesic agent; I25.10 Atherosclerotic heart disease of native coronary artery without angina pectoris; I11.9 Hypertensive heart disease without heart failure; I73.9 Peripheral vascular disease, unspecified; Z89.421 Acquired absence of other right toe(s)
CPT/HCPCS: 0241U-QW; 36415; 70450-TC; 70551-TC; 71045-TC-FY; 80048; 80053; 80061; 81003; 82010; 82803; 82962; 83036; 83690; 83735; 84100; 84484; 85025; 85610; 85730; 87086; 93005; 93010; 93306-TC; 93880-TC; 96365; 96372; 96375; 97116-GP; 97161-GP; 99285-25; C9803-CS; G0378; G0463-25; U0003; U0005

== ENCOUNTER 2023-06-06 21:07 | Inpatient (IN) | payer OTHER ==
[2023-06-06] MEDS ORDERED: VANCOMYCIN 1 GRAM (PRE-DOCKED) 1,000 MG/250 ML BAG IVPB ONE (22:36)
[2023-06-06] MEDS ORDERED: PIPERACILLIN/TAZOB 4.5 GM 4.5 GM/100 ML BAG IVPB ONE (22:36)
[2023-06-06] MEDS: morphine SULFATE 4 MG/ML VIAL IVPUSH ONE (22:59)
[2023-06-06] MEDS: PIPERACILLIN/TAZOB 4.5 GM 4.5 GM in DEXTROSE 5%-WATER 100 ML IVPB ONE (23:00)
[2023-06-06 23:08] LABS: VENOUS BASE EXCESS 2.5 mmol/L (-2-2); VENOUS O2 SATURATION 25.3 % (70-80); VENOUS PCO2 53.4 mmHg (38-52); VENOUS PH 7.354 (7.310-7.410)
[2023-06-06 23:11] LABS: BASO % 0.9 % (0-2.0); EOS % 2.3 % (0-4.5); HEMATOCRIT 38.2 % (32.4-45.2); HEMOGLOBIN 12.9 GM/dL (10.7-15.3); LYMPH % 21.2 % (8-40); MCH 27.1 pg (25.7-33.7); MCHC 33.7 g/dl (32.0-36.0); MEAN CELL VOLUME 80.3 fl (80-96); MEAN PLT VOLUME 7.2 fl (7.5-11.1); MONO % 4.7 % (3.8-10.2); NEUT % 70.9 % (42.8-82.8); PLATELET COUNT 293 10^3/uL (134-434); RBC 4.76 M/mm3 (3.60-5.2); RDW 14.7 % (11.6-15.6); WHITE BLOOD COUNT 8.5 K/mm3 (4.0-10.0)
[2023-06-06 23:17] LABS: INR 1.03 (0.83-1.09); PROTHROMBIN TIME (PATIENT) 11.9 SEC (9.7-13.0)
[2023-06-06 23:25] LABS: POTASSIUM 4.8 mmol/L (3.5-5.1)
[2023-06-06 23:27] LABS: CALCIUM 9.6 mg/dL (8.5-10.1)
[2023-06-06 23:28] LABS: ALBUMIN 3.6 g/dl (3.4-5.0); BLOOD UREA NITROGEN 15.4 mg/dL (7-18)
[2023-06-06 23:32] LABS: BILIRUBIN,TOTAL 0.4 mg/dL (0.2-1); TOT PROT 7.1 g/dl (6.4-8.2)
[2023-06-06] MEDS: VANCOMYCIN 1,000 MG in DEXTROSE 5%-WATER - 250 ML IVPB ONE (23:35)
[2023-06-06 23:41] LABS: LACTIC ACID 2.2 mmol/L (0.4-2.0)
[2023-06-06 23:49] LABS: ERYTHROCYTE SEDIMENTATION RATE 34 mm/hr (0-30)
[2023-06-06] MEDS ORDERED: INSULIN REGULAR HUMAN 100 UNITS/ML *VIAL ONE (23:50)
[2023-06-07] MEDS: INSULIN REGULAR HUMAN 100 UNITS/ML *VIAL IVPUSH ONE
[2023-06-07] MEDS: morphine CARPU-JECT 2 MG/1 ML DISP.SYRIN IVPUSH ONE
[2023-06-07] MEDS: morphine SULFATE 4 MG/ML VIAL IVPUSH ONE
[2023-06-07 00:15] LABS: EPI CELLS 10 /uL (0-25.1); HYALINE CASTS 0 /uL (0-3.1); URINE APPEARANCE CLEAR; URINE BACTERIA 50 /uL (0-1359); URINE BILIRUBIN NEGATIVE (NEGATIVE); URINE COLOR YELLOW; URINE GLUCOSE (UA) 3+ (NEGATIVE); URINE KETONE NEGATIVE (NEGATIVE); URINE LEUK ESTERASE TRACE (NEGATIVE); URINE NITRITE NEGATIVE (NEGATIVE); URINE PROTEIN 2+ (NEGATIVE); URINE RBC 17 /uL (0-23.9); URINE UROBILINOGEN 0.2 mg/dL (0.2-1.0); URINE WBC 85 /uL (0-25.8)
[2023-06-07] MEDS: LACTATED RINGERS SOLUTION 1000 ML INFUS.BAG IV ONE (01:13)
[2023-06-07] MEDS ORDERED: DOCUSATE SODIUM 100 MG CAPSULE (FP) PO PRN (02:14)
[2023-06-07] MEDS ORDERED: ACETAMINOPHEN 1000 MG/100 ML BAG IVPB PRN (02:19)
[2023-06-07 06:35] LABS: BASO % 0.8 % (0-2.0); EOS % 3.7 % (0-4.5); HEMATOCRIT 33.6 % (32.4-45.2); HEMOGLOBIN 11.3 GM/dL (10.7-15.3); LYMPH % 29.1 % (8-40); MCH 26.7 pg (25.7-33.7); MCHC 33.6 g/dl (32.0-36.0); MEAN CELL VOLUME 79.6 fl (80-96); MEAN PLT VOLUME 7.1 fl (7.5-11.1); MONO % 5.5 % (3.8-10.2); NEUT % 60.9 % (42.8-82.8); PLATELET COUNT 243 10^3/uL (134-434); RBC 4.22 M/mm3 (3.60-5.2); RDW 14.2 % (11.6-15.6); WHITE BLOOD COUNT 7.2 K/mm3 (4.0-10.0)
[2023-06-07 06:54] LABS: POTASSIUM 3.8 mmol/L (3.5-5.1)
[2023-06-07 06:59] LABS: CALCIUM 8.7 mg/dL (8.5-10.1); MAGNESIUM 1.7 mg/dL (1.8-2.4)
[2023-06-07 07:00] LABS: BLOOD UREA NITROGEN 11.8 mg/dL (7-18)
[2023-06-07 07:03] LABS: CREATININE 0.8 mg/dL (0.55-1.3); PHOSPHOROUS 3.4 mg/dL (2.5-4.9)
[2023-06-07] MEDS ORDERED: INSULIN (NOVOLOG) ASPART 100 UNITS/ML 10ML VIAL ONE (08:31)
[2023-06-07] MEDS: PIPERACILLIN/TAZOB 3.375 GM 3.375 GM in DEXTROSE 5%-WATER - 50 ML IVPB SCH (08:35)
[2023-06-07] MEDS: INSULIN ASPART SLIDING SCALE (NOVOLOG) 1 VIAL SQ SCH (08:36)
[2023-06-07] MEDS: VANCOMYCIN/WATER FOR INJ (PEG) 750 MG/150 ML BAG IVPB SCH (13:07)
[2023-06-07 15:26] VITALS: BMI 23.4
[2023-06-07] MEDS: LISINOPRIL 10 MG TABLET PO SCH (17:35)
[2023-06-07] MEDS: DULoxetine HCL 20 MG CAPSULE.DR PO SCH (17:35)
[2023-06-07] MEDS: amLODIPine BESYLATE 5 MG TABLET (FP) PO SCH (17:35)
[2023-06-07] MEDS ORDERED: PIPERACILLIN/TAZOBACTAM 3.375 GM VIAL IVPB ONE (21:15)
[2023-06-08] MEDS ORDERED: ACETAMINOPHEN 325 MG TABLET (FP) PO PRN (02:14)
[2023-06-08 09:02] LABS: BASO % 0.8 % (0-2.0); EOS % 3.4 % (0-4.5); HEMATOCRIT 33.3 % (32.4-45.2); HEMOGLOBIN 11.6 GM/dL (10.7-15.3); LYMPH % 26.4 % (8-40); MCH 27.7 pg (25.7-33.7); MEAN CELL VOLUME 79.4 fl (80-96); MEAN PLT VOLUME 7.2 fl (7.5-11.1); MONO % 5.8 % (3.8-10.2); NEUT % 63.6 % (42.8-82.8); PLATELET COUNT 243 10^3/uL (134-434); RBC 4.19 M/mm3 (3.60-5.2); RDW 14.4 % (11.6-15.6); WHITE BLOOD COUNT 7.3 K/mm3 (4.0-10.0)
[2023-06-08 09:21] LABS: POTASSIUM 3.6 mmol/L (3.5-5.1)
[2023-06-08 09:29] LABS: BLOOD UREA NITROGEN 11.9 mg/dL (7-18); CALCIUM 7.9 mg/dL (8.5-10.1)
[2023-06-08 09:32] LABS: CREATININE 0.7 mg/dL (0.55-1.3)
[2023-06-08 09:33] LABS: BILIRUBIN,TOTAL 0.6 mg/dL (0.2-1); TOT PROT 5.9 g/dl (6.4-8.2)
[2023-06-08 09:35] LABS: ALBUMIN 2.9 g/dl (3.4-5.0)
[2023-06-08] MEDS ORDERED: INSULIN (NOVOLOG) ASPART 100 UNITS/ML 10ML VIAL ONE ×2 (11:27→17:10)
[2023-06-08] MEDS: VANCOMYCIN/WATER FOR INJ (PEG) 750 MG/150 ML BAG IVPB SCH (13:53)
[2023-06-08] MEDS: PIPERACILLIN/TAZOB 3.375 GM 3.375 GM in DEXTROSE 5%-WATER - 50 ML IVPB SCH (18:17)
[2023-06-08] MEDS: ROSUVASTATIN CA 10 MG TABLET PO SCH (21:44)
[2023-06-09] MEDS ORDERED: INSULIN (NOVOLOG) ASPART 100 UNITS/ML 10ML VIAL ONE ×3 (08:30→21:32)
[2023-06-09] MEDS: ENOXAPARIN NA (PORCINE) 60 MG/0.6 ML DISP.SYRIN SQ SCH (10:09)
[2023-06-09] MEDS: POLYETHYLENE GLYCOL (HEALTHYLAX) 3350 17 GM PACKET PO SCH (13:12)
[2023-06-09] MEDS: GABAPENTIN 300 MG CAPSULE PO SCH (13:13)
[2023-06-10] MEDS ORDERED: INSULIN (NOVOLOG) ASPART 100 UNITS/ML 10ML VIAL ONE (17:34)
[2023-06-11 08:55] LABS: POTASSIUM 3.8 mmol/L (3.5-5.1)
[2023-06-11 08:58] LABS: BLOOD UREA NITROGEN 5.4 mg/dL (7-18)
[2023-06-11 09:00] LABS: ALBUMIN 2.9 g/dl (3.4-5.0)
[2023-06-11 09:03] LABS: BILIRUBIN,DIRECT 0.2 mg/dL (0.0-0.2); CREATININE 0.6 mg/dL (0.55-1.3)
[2023-06-11 09:04] LABS: BILIRUBIN,TOTAL 0.5 mg/dL (0.2-1); TOT PROT 6.1 g/dl (6.4-8.2)
[2023-06-12 00:26] LABS: IRON SERUM 64 ug/dL (50-175); TOTAL IRON BINDING CAPACITY 302 ug/dL (250-450)
[2023-06-12 08:21] LABS: POTASSIUM 3.7 mmol/L (3.5-5.1)
[2023-06-12 08:24] LABS: CALCIUM 8.5 mg/dL (8.5-10.1)
[2023-06-12 08:25] LABS: ALBUMIN 2.7 g/dl (3.4-5.0); BLOOD UREA NITROGEN 10.6 mg/dL (7-18)
[2023-06-12 08:28] LABS: CREATININE 0.6 mg/dL (0.55-1.3)
[2023-06-12 08:29] LABS: BILIRUBIN,TOTAL 0.4 mg/dL (0.2-1); TOT PROT 5.5 g/dl (6.4-8.2)
[2023-06-12 08:49] LABS: BASO % 0.8 % (0-2.0); EOS % 4.7 % (0-4.5); HEMATOCRIT 33.3 % (32.4-45.2); HEMOGLOBIN 11.5 GM/dL (10.7-15.3); LYMPH % 29.9 % (8-40); MCH 27.5 pg (25.7-33.7); MCHC 34.4 g/dl (32.0-36.0); MEAN CELL VOLUME 79.8 fl (80-96); MEAN PLT VOLUME 7.4 fl (7.5-11.1); MONO % 6.7 % (3.8-10.2); NEUT % 57.9 % (42.8-82.8); PLATELET COUNT 238 10^3/uL (134-434); RBC 4.18 M/mm3 (3.60-5.2); RDW 14.6 % (11.6-15.6); WHITE BLOOD COUNT 5.7 K/mm3 (4.0-10.0)
[2023-06-12] MEDS ORDERED: ONDANSETRON 4 MG/2 ML VIAL IVPUSH PRN ×2 (16:26→17:55)
[2023-06-12] MEDS ORDERED: PROMETHAZINE HCL 25 MG/1 ML VIAL IVPB PRN ×2 (16:26→17:55)
[2023-06-12] MEDS ORDERED: LACTATED RINGERS SOLUTION 1,000 ML IV SCH (16:30)
[2023-06-12] MEDS: ceFAZolin SODIUM 1 GM VIAL IVPB ONE (16:50)
[2023-06-12] MEDS ORDERED: PROPOFOL 20 ML ONE (16:51)
[2023-06-12] MEDS ORDERED: MIDAZOLAM HCL 2 MG/2 ML SINGLE DOSE VIAL ONE (16:51)
[2023-06-12] MEDS ORDERED: FENTANYL CITRATE/PF 50 MCG/ML VIAL ONE (16:51)
[2023-06-12] MEDS ORDERED: ceFAZolin SODIUM 1 GM VIAL ONE (16:53)
[2023-06-12] MEDS ORDERED: SODIUM CHLORIDE 0.9% P/F 10 ML VIAL IJ ONE (16:53)
[2023-06-12] MEDS: LACTATED RINGERS SOLUTION 1,000 ML IV SCH (17:50)
[2023-06-12] MEDS ORDERED: DOCUSATE SODIUM 100 MG CAPSULE (FP) PO PRN (17:55)
[2023-06-12] MEDS ORDERED: CLOPIDOGREL BISULFATE 75 MG TABLET (FP) ONE (18:17)
[2023-06-12] MEDS: CLOPIDOGREL BISULFATE 75 MG TABLET (FP) PO ONE (18:19)
[2023-06-12] MEDS: CLOPIDOGREL BISULFATE 75 MG TABLET (FP) PO SCH (18:19)
[2023-06-12] MEDS ORDERED: INSULIN (NOVOLOG) ASPART 100 UNITS/ML 10ML VIAL ONE (21:55)
[2023-06-12] MEDS: GABAPENTIN 300 MG CAPSULE PO SCH (22:00)
[2023-06-12] MEDS: POLYETHYLENE GLYCOL (HEALTHYLAX) 3350 17 GM PACKET PO SCH (22:00)
[2023-06-12] MEDS: INSULIN ASPART SLIDING SCALE (NOVOLOG) 1 VIAL SQ SCH (22:01)
[2023-06-13] MEDS ORDERED: INSULIN (NOVOLOG) ASPART 100 UNITS/ML 10ML VIAL ONE ×2 (06:03→12:33)
[2023-06-13 09:37] VITALS: BP 170/45; PULSE 76; RESP 22; TEMP 99.3
[2023-06-13] MEDS: DULoxetine HCL 20 MG CAPSULE.DR PO SCH (09:38)
[2023-06-13] MEDS: LISINOPRIL 10 MG TABLET PO SCH (09:38)
[2023-06-13] MEDS: amLODIPine BESYLATE 5 MG TABLET (FP) PO SCH (09:38)
[2023-06-13 10:24] LABS: POTASSIUM 3.5 mmol/L (3.5-5.1)
[2023-06-13 10:25] LABS: CALCIUM 8.8 mg/dL (8.5-10.1)
[2023-06-13 10:26] LABS: ALBUMIN 2.7 g/dl (3.4-5.0); BLOOD UREA NITROGEN 7.6 mg/dL (7-18)
[2023-06-13 10:29] LABS: CREATININE 0.5 mg/dL (0.55-1.3)
[2023-06-13 10:31] LABS: TOT PROT 5.6 g/dl (6.4-8.2)
[2023-06-13 10:32] LABS: BILIRUBIN,TOTAL 0.4 mg/dL (0.2-1)
[2023-06-13] MEDS: LIDOCAINE 4% PATCH TP SCH (11:31)
[2023-06-13] MEDS ORDERED: LIDOCAINE PATCH REMOVAL MC SCH (22:00)
== END 2023-06-13 13:45 | disposition home or self-care (01) | DRG 181 ==
LOC: JER 21:07 → JERBED 06-07 → J8W 06-07 07:12
PROVIDERS: ADMIT Internal Medicine; ATTEND Family Medicine
PROC: 047Q3ZZ Dilation of Left Anterior Tibial Artery, Percutaneous Approach (ICD-10-PCS; 2023-06-12)
PROC: 04CQ3ZZ Extirpation of Matter from Left Anterior Tibial Artery, Percutaneous Approach (ICD-10-PCS; 2023-06-12)
PROC: 047L3Z1 Dilation of Left Femoral Artery using Drug-Coated Balloon, Percutaneous Approach (ICD-10-PCS; principal; 2023-06-12 16:30)
DX: E11.51 Type 2 diabetes mellitus with diabetic peripheral angiopathy without gangrene (principal); E11.621 Type 2 diabetes mellitus with foot ulcer; K76.0 Fatty (change of) liver, not elsewhere classified; I69.354 Hemiplegia and hemiparesis following cerebral infarction affecting left non-dominant side; E11.65 Type 2 diabetes mellitus with hyperglycemia; E11.40 Type 2 diabetes mellitus with diabetic neuropathy, unspecified; L03.116 Cellulitis of left lower limb; L97.529 Non-pressure chronic ulcer of other part of left foot with unspecified severity; I70.209 Unspecified atherosclerosis of native arteries of extremities, unspecified extremity; I25.10 Atherosclerotic heart disease of native coronary artery without angina pectoris; Z95.1 Presence of aortocoronary bypass graft; Z95.5 Presence of coronary angioplasty implant and graft
CPT/HCPCS: 0241U-QW; 36415; 72100-TC-FY; 72170-TC-FY; 73552-TC-LT-FY; 73590-TC-LT-FY; 73610-TC-LT-FY; 73630-TC-LT; 73718-TC-LT; 74176-TC; 74177-TC; 75635-TC; 76000-TC-FY; 76705-TC; 80048; 80053; 80076; 81003; 82010; 82728; 82803; 82962; 83036; 83516; 83540; 83550; 83605; 83690; 83735; 84100; 85025; 85610; 85651; 85730; 86038; 86140; 86704; 86708; 86803; 86850; 86900; 86901; 87040; 87086; 87340; 87517; 93005; 93010; 93926-TC; 94760; 99285-25; C1725; C1760; C1776; C1897; G0480; Q9967

== ENCOUNTER 2023-07-23 15:37 | Observation (INO) | payer OTHER ==
[2023-07-23] MEDS ORDERED: ACETAMINOPHEN INJECTION 100 ML IVPB ONE (17:37)
[2023-07-23] MEDS ORDERED: METOCLOPRAMIDE HCL INJECTION 10 MG/2 ML VIAL ONE (17:37)
[2023-07-23 17:46] LABS: BASO % 1.4 % (0-2.0); EOS % 3.4 % (0-4.5); HEMATOCRIT 33.2 % (32.4-45.2); HEMOGLOBIN 11.4 GM/dL (10.7-15.3); LYMPH % 32.4 % (8-40); MCH 27.1 pg (25.7-33.7); MCHC 34.3 g/dl (32.0-36.0); MONO % 5.6 % (3.8-10.2); NEUT % 57.2 % (42.8-82.8); PLATELET COUNT 259 10^3/uL (134-434); RDW 14.3 % (11.6-15.6); WHITE BLOOD COUNT 6.4 K/mm3 (4.0-10.0)
[2023-07-23] MEDS: ACETAMINOPHEN 1000 MG/100 ML BAG IVPB ONE (17:59)
[2023-07-23] MEDS: METOCLOPRAMIDE HCL INJECTION 10 MG/2 ML VIAL IVPB ONE (18:00)
[2023-07-23 18:11] LABS: ALBUMIN 3.4 g/dl (3.4-5.0)
[2023-07-23 18:12] LABS: BLOOD UREA NITROGEN 13.5 mg/dL (7-18)
[2023-07-23 18:13] LABS: URIC ACID 3.9 mg/dL (2.6-7.2)
[2023-07-23 18:15] LABS: CREATININE 0.6 mg/dL (0.55-1.3)
[2023-07-23 18:16] LABS: BILIRUBIN,TOTAL 0.3 mg/dL (0.2-1); TOT PROT 6.7 g/dl (6.4-8.2)
[2023-07-23] MEDS ORDERED: KETOROLAC TROMETHAMINE 15 MG/ML VIAL ONE (20:47)
[2023-07-23] MEDS: KETOROLAC TROMETHAMINE 15 MG/ML VIAL IVPUSH ONE (20:53)
[2023-07-23 23:27] VITALS: BMI 21.1
[2023-07-24] MEDS: ACETAMINOPHEN 325 MG TABLET (FP) PO ONE (02:24)
[2023-07-24 05:46] LABS: EPI CELLS 7 /uL (0-25.1); HYALINE CASTS 0 /uL (0-3.1); PH,URINE 6.5 (5.0-8.0); URINE APPEARANCE CLEAR; URINE BACTERIA 18 /uL (0-1359); URINE BILIRUBIN NEGATIVE (NEGATIVE); URINE COLOR YELLOW; URINE GLUCOSE (UA) 3+ (NEGATIVE); URINE KETONE NEGATIVE (NEGATIVE); URINE LEUK ESTERASE NEGATIVE (NEGATIVE); URINE NITRITE NEGATIVE (NEGATIVE); URINE PROTEIN 2+ (NEGATIVE); URINE RBC 37 /uL (0-23.9); URINE UROBILINOGEN 0.2 mg/dL (0.2-1.0)
[2023-07-24 07:07] LABS: BASO % 0.7 % (0-2.0); EOS % 3.8 % (0-4.5); HEMATOCRIT 31.9 % (32.4-45.2); HEMOGLOBIN 11.1 GM/dL (10.7-15.3); LYMPH % 28.2 % (8-40); MCH 27.4 pg (25.7-33.7); MCHC 34.8 g/dl (32.0-36.0); MEAN CELL VOLUME 78.6 fl (80-96); MEAN PLT VOLUME 7.2 fl (7.5-11.1); MONO % 5.9 % (3.8-10.2); NEUT % 61.4 % (42.8-82.8); PLATELET COUNT 258 10^3/uL (134-434); RBC 4.06 M/mm3 (3.60-5.2); RDW 14.5 % (11.6-15.6); WHITE BLOOD COUNT 6.1 K/mm3 (4.0-10.0)
[2023-07-24 07:21] LABS: POTASSIUM 3.4 mmol/L (3.5-5.1)
[2023-07-24 07:23] LABS: BLOOD UREA NITROGEN 13.3 mg/dL (7-18); CALCIUM 8.6 mg/dL (8.5-10.1)
[2023-07-24 07:24] LABS: MAGNESIUM 1.5 mg/dL (1.8-2.4)
[2023-07-24 07:27] LABS: CREATININE 0.6 mg/dL (0.55-1.3)
[2023-07-24 07:28] LABS: BILIRUBIN,TOTAL 0.4 mg/dL (0.2-1); TOT PROT 5.8 g/dl (6.4-8.2)
[2023-07-24] MEDS: POTASSIUM CHLORIDE ORAL LIQUID 20 MEQ/15 ML PO ONE (08:59)
[2023-07-24] MEDS: MAGNESIUM SULF 50% (8.12 MEQ/2 ML-1 GM VIAL) IVPB ONE ×2 (09:07→16:01)
[2023-07-24] MEDS ORDERED: ACETAMINOPHEN 325 MG TABLET (FP) PO PRN (09:17)
[2023-07-24] MEDS: DULoxetine HCL 20 MG CAPSULE.DR PO SCH (09:19)
[2023-07-24] MEDS: INSULIN (LEVEMIR) 100 UNITS/ML UNITS SQ SCH (09:20)
[2023-07-24] MEDS: CLOPIDOGREL BISULFATE 75 MG TABLET (FP) PO SCH (09:21)
[2023-07-24] MEDS: LOSARTAN POTASSIUM 25 MG TABLET PO SCH (09:21)
[2023-07-24] MEDS ORDERED: ROSUVASTATIN CA 10 MG TABLET PO SCH (10:00)
[2023-07-24] MEDS: INSULIN ASPART SLIDING SCALE (NOVOLOG) 1 VIAL SQ SCH (12:08)
[2023-07-24] MEDS: GABAPENTIN 300 MG CAPSULE PO SCH (13:19)
[2023-07-24] MEDS ORDERED: CEFTRIAXONE 1 GM in DEXTROSE 5%-WATER - 50 ML IVPB ONE (14:04)
[2023-07-24] MEDS: CEFTRIAXONE 1 GM in DEXTROSE 5%-WATER - 50 ML IVPB ONE (16:00)
[2023-07-24] MEDS: ROSUVASTATIN CA 10 MG TABLET PO SCH (21:07)
[2023-07-25 07:38] LABS: POTASSIUM 3.8 mmol/L (3.5-5.1)
[2023-07-25 07:43] LABS: CALCIUM 8.7 mg/dL (8.5-10.1)
[2023-07-25 07:44] LABS: ALBUMIN 3.1 g/dl (3.4-5.0); BLOOD UREA NITROGEN 11.7 mg/dL (7-18); MAGNESIUM 1.8 mg/dL (1.8-2.4)
[2023-07-25 07:46] LABS: CREATININE 0.6 mg/dL (0.55-1.3)
[2023-07-25 07:48] LABS: TOT PROT 6.2 g/dl (6.4-8.2)
[2023-07-25 07:49] LABS: BILIRUBIN,TOTAL 0.4 mg/dL (0.2-1)
[2023-07-25] MEDS: LOSARTAN POTASSIUM 50 MG TABLET PO SCH (10:03)
[2023-07-25] MEDS ORDERED: INSULIN (NOVOLOG) ASPART 100 UNITS/ML 10ML VIAL ONE (11:59)
[2023-07-25 15:36] VITALS: BP 135/78; PULSE 85; RESP 19; TEMP 97.9
[2023-07-26 16:09] LABS: PARV B19 IGG 0.1 index (0.0-0.8); PARV B19 IGM 0.2 index (0.0-0.8)
[2023-07-29 16:08] LABS: COXSACKIE A16 IGM Negative titer (Neg:<1:10); COXSACKIE A24 IGM Negative titer (Neg:<1:10); COXSACKIE A7 IGM Negative titer (Neg:<1:10); COXSACKIE A9 IGM Negative titer (Neg:<1:10)
== END 2023-07-25 16:06 | disposition home or self-care (01) ==
LOC: JER 15:37 → JERBED 18:33 → J4W 07-24 00:30
PROVIDERS: ADMIT Internal Medicine; ATTEND Internal Medicine
PROC: 3E013VG Introduction of Insulin into Subcutaneous Tissue, Percutaneous Approach (ICD-10-PCS; principal; 2023-07-23)
PROC: 3E0333Z Introduction of Anti-inflammatory into Peripheral Vein, Percutaneous Approach (ICD-10-PCS; 2023-07-23)
DX: E87.6 Hypokalemia (principal); E83.42 Hypomagnesemia; R80.9 Proteinuria, unspecified; I25.10 Atherosclerotic heart disease of native coronary artery without angina pectoris; I73.9 Peripheral vascular disease, unspecified; L03.90 Cellulitis, unspecified; E11.9 Type 2 diabetes mellitus without complications; R07.9 Chest pain, unspecified; I10 Essential (primary) hypertension; Z95.1 Presence of aortocoronary bypass graft; Z88.6 Allergy status to analgesic agent
CPT/HCPCS: 36415; 70450-TC; 71045-TC-FY; 80053; 81003; 82962; 83735; 84100; 84443; 84484; 84550; 85025; 85651; 86038; 86140; 86225; 86431; 86658; 86747; 86780; 87040; 87077; 87081; 87086; 93005; 93010; 93306-TC; 93926-TC; 96365; 96372; 96375; 96376; 99285-25; G0378; J0131

== ENCOUNTER 2023-10-29 09:22 | Observation (INO) | payer OTHER ==
[2023-10-29 11:08] LABS: BASO % 1.2 % (0-2.0); EOS % 4.3 % (0-4.5); HEMOGLOBIN 11.9 GM/dL (10.7-15.3); LYMPH % 30.1 % (8-40); MCH 26.3 pg (25.7-33.7); MCHC 33.1 g/dl (32.0-36.0); MEAN CELL VOLUME 79.3 fl (80-96); MEAN PLT VOLUME 6.9 fl (7.5-11.1); MONO % 7.1 % (3.8-10.2); NEUT % 57.3 % (42.8-82.8); PLATELET COUNT 267 10^3/uL (134-434); RBC 4.53 M/mm3 (3.60-5.2); RDW 15.6 % (11.6-15.6); WHITE BLOOD COUNT 7.3 K/mm3 (4.0-10.0)
[2023-10-29] MEDS ORDERED: ACETAMINOPHEN INJECTION 100 ML IVPB ONE (11:11)
[2023-10-29] MEDS ORDERED: ONDANSETRON 4 MG/2 ML VIAL ONE (11:11)
[2023-10-29 11:32] LABS: POTASSIUM 4.2 mmol/L (3.5-5.1)
[2023-10-29 11:33] LABS: CALCIUM 9.1 mg/dL (8.5-10.1)
[2023-10-29 11:34] LABS: ALBUMIN 3.4 g/dl (3.4-5.0); BLOOD UREA NITROGEN 16.7 mg/dL (7-18)
[2023-10-29 11:37] LABS: CREATININE 0.9 mg/dL (0.55-1.3)
[2023-10-29 11:38] LABS: BILIRUBIN,TOTAL 0.6 mg/dL (0.2-1); TOT PROT 6.4 g/dl (6.4-8.2)
[2023-10-29] MEDS: ONDANSETRON 4 MG TABLET PO ONE (11:39)
[2023-10-29] MEDS: LACTATED RINGERS SOLUTION 1000 ML INFUS.BAG IV ONE (11:40)
[2023-10-29 11:42] LABS: N-TERMINAL BNP 206.9 pg/ml (5-125)
[2023-10-29] MEDS: ACETAMINOPHEN 1000 MG/100 ML BAG IVPB ONE (11:42)
[2023-10-29 14:42] LABS: EPI CELLS 2 /uL (0-25.1); HYALINE CASTS 0 /uL (0-3.1); PH,URINE 5.5 (5.0-8.0); URINE APPEARANCE CLEAR; URINE BACTERIA 7 /uL (0-1359); URINE BILIRUBIN NEGATIVE (NEGATIVE); URINE COLOR YELLOW; URINE GLUCOSE (UA) 3+ (NEGATIVE); URINE KETONE NEGATIVE (NEGATIVE); URINE LEUK ESTERASE NEGATIVE (NEGATIVE); URINE NITRITE NEGATIVE (NEGATIVE); URINE PROTEIN 2+ (NEGATIVE); URINE RBC 5 /uL (0-23.9); URINE UROBILINOGEN 0.2 mg/dL (0.2-1.0); URINE WBC 31 /uL (0-25.8)
[2023-10-29] MEDS ORDERED: KETOROLAC TROMETHAMINE 15 MG/ML VIAL ONE (14:48)
[2023-10-29] MEDS: KETOROLAC TROMETHAMINE 15 MG/ML VIAL IVPUSH ONE (14:52)
[2023-10-29] MEDS ORDERED: morphine SULFATE 4 MG/ML VIAL ONE (17:11)
[2023-10-29] MEDS: morphine CARPU-JECT 4 MG/1 ML DISP.SYRIN IVPUSH ONE (17:16)
[2023-10-29 20:27] VITALS: BMI 25.3
[2023-10-30] MEDS: KETOROLAC TROMETHAMINE 15 MG/ML VIAL IVPUSH ONE (05:58)
[2023-10-30] MEDS: INSULIN ASPART SLIDING SCALE (NOVOLOG) 1 VIAL SQ SCH (06:41)
[2023-10-30 07:22] LABS: BASO % 0.4 % (0-2.0); EOS % 1.4 % (0-4.5); HEMATOCRIT 34.8 % (32.4-45.2); HEMOGLOBIN 11.7 GM/dL (10.7-15.3); LYMPH % 11.5 % (8-40); MCH 26.4 pg (25.7-33.7); MCHC 33.7 g/dl (32.0-36.0); MEAN CELL VOLUME 78.5 fl (80-96); MEAN PLT VOLUME 7.1 fl (7.5-11.1); NEUT % 82.7 % (42.8-82.8); PLATELET COUNT 272 10^3/uL (134-434); RBC 4.43 M/mm3 (3.60-5.2); RDW 15.8 % (11.6-15.6); WHITE BLOOD COUNT 12.5 K/mm3 (4.0-10.0)
[2023-10-30] MEDS: ACETAMINOPHEN 325 MG TABLET (FP) PO PRN (08:31)
[2023-10-30] MEDS: CLOPIDOGREL BISULFATE 75 MG TABLET (FP) PO SCH (09:18)
[2023-10-30] MEDS: LOSARTAN POTASSIUM 50 MG TABLET PO SCH (09:19)
[2023-10-30 09:36] LABS: BLOOD UREA NITROGEN 10.8 mg/dL (7-18); CALCIUM 8.5 mg/dL (8.5-10.1); CREATININE 0.8 mg/dL (0.55-1.3); POTASSIUM 4.4 mmol/L (3.5-5.1)
[2023-10-30] MEDS: CEFTRIAXONE 1 GM in DEXTROSE 5%-WATER - 50 ML IVPB SCH (19:01)
[2023-10-30] MEDS: DOXYCYCLINE INJECTION 100 MG in DEXTROSE 5%-WATER 100 ML IVPB SCH (21:34)
[2023-10-31 10:07] LABS: BASO % 0.5 % (0-2.0); EOS % 2.2 % (0-4.5); HEMATOCRIT 35.1 % (32.4-45.2); LYMPH % 27.5 % (8-40); MCH 26.7 pg (25.7-33.7); MCHC 34.2 g/dl (32.0-36.0); MEAN CELL VOLUME 78.2 fl (80-96); MEAN PLT VOLUME 7.2 fl (7.5-11.1); NEUT % 63.8 % (42.8-82.8); PLATELET COUNT 238 10^3/uL (134-434); RBC 4.49 M/mm3 (3.60-5.2); RDW 15.4 % (11.6-15.6); WHITE BLOOD COUNT 9.2 K/mm3 (4.0-10.0)
[2023-10-31 10:34] LABS: POTASSIUM 3.9 mmol/L (3.5-5.1)
[2023-10-31] MEDS: DULoxetine HCL 30 MG CAPSULE.DR PO SCH (10:34)
[2023-10-31] MEDS: GABAPENTIN 100 MG CAPSULE PO SCH (10:34)
[2023-10-31 10:35] LABS: CALCIUM 8.9 mg/dL (8.5-10.1)
[2023-10-31 10:36] LABS: ALBUMIN 3.2 g/dl (3.4-5.0); BLOOD UREA NITROGEN 12.8 mg/dL (7-18)
[2023-10-31 10:40] LABS: CREATININE 0.8 mg/dL (0.55-1.3)
[2023-10-31 10:41] LABS: BILIRUBIN,TOTAL 0.5 mg/dL (0.2-1); TOT PROT 6.1 g/dl (6.4-8.2)
[2023-10-31] MEDS: ROSUVASTATIN CA 10 MG TABLET PO SCH (22:14)
[2023-11-01 07:47] LABS: BASO % 0.8 % (0-2.0); EOS % 4.6 % (0-4.5); HEMATOCRIT 33.7 % (32.4-45.2); HEMOGLOBIN 11.5 GM/dL (10.7-15.3); LYMPH % 26.3 % (8-40); MCH 26.6 pg (25.7-33.7); MCHC 34.2 g/dl (32.0-36.0); MEAN CELL VOLUME 77.9 fl (80-96); MEAN PLT VOLUME 7.2 fl (7.5-11.1); MONO % 7.4 % (3.8-10.2); NEUT % 60.9 % (42.8-82.8); PLATELET COUNT 238 10^3/uL (134-434); RBC 4.33 M/mm3 (3.60-5.2); RDW 15.3 % (11.6-15.6); WHITE BLOOD COUNT 6.6 K/mm3 (4.0-10.0)
[2023-11-01 08:04] LABS: POTASSIUM 3.9 mmol/L (3.5-5.1)
[2023-11-01 08:07] LABS: BLOOD UREA NITROGEN 10.2 mg/dL (7-18); CALCIUM 8.7 mg/dL (8.5-10.1)
[2023-11-01 08:10] LABS: CREATININE 0.6 mg/dL (0.55-1.3)
[2023-11-01 08:12] LABS: BILIRUBIN,TOTAL 0.6 mg/dL (0.2-1); TOT PROT 5.9 g/dl (6.4-8.2)
[2023-11-02] MEDS: PIPERACILLIN/TAZOB 3.375 GM 3.375 GM in DEXTROSE 5%-WATER - 50 ML IVPB SCH ×3 (14:04→15:04)
[2023-11-03] MEDS ORDERED: DOXYCYCLINE HYCLATE 100 MG CAPSULE PO SCH (18:00)
[2023-11-04 02:00] VITALS: RESP 18
[2023-11-04 10:42] VITALS: BP 160/89; PULSE 80; TEMP 97.7
== END 2023-11-04 12:00 | disposition home or self-care (01) ==
LOC: JER 09:22 → JERBED 17:18 → J4S 19:54
PROVIDERS: ADMIT Internal Medicine; ATTEND Family Medicine
PROC: 3E033NZ Introduction of Analgesics, Hypnotics, Sedatives into Peripheral Vein, Percutaneous Approach (ICD-10-PCS; principal; 2023-10-29)
PROC: 3E03329 Introduction of Other Anti-infective into Peripheral Vein, Percutaneous Approach (ICD-10-PCS; 2023-10-29)
PROC: 3E0333Z Introduction of Anti-inflammatory into Peripheral Vein, Percutaneous Approach (ICD-10-PCS; 2023-10-29)
PROC: 3E0337Z Introduction of Electrolytic and Water Balance Substance into Peripheral Vein, Percutaneous Approach (ICD-10-PCS; 2023-10-29)
DX: E11.40 Type 2 diabetes mellitus with diabetic neuropathy, unspecified (principal); I25.10 Atherosclerotic heart disease of native coronary artery without angina pectoris; I11.0 Hypertensive heart disease with heart failure; K59.00 Constipation, unspecified; Z89.421 Acquired absence of other right toe(s); Z95.5 Presence of coronary angioplasty implant and graft; K74.60 Unspecified cirrhosis of liver; I69.354 Hemiplegia and hemiparesis following cerebral infarction affecting left non-dominant side; I73.9 Peripheral vascular disease, unspecified; Z90.49 Acquired absence of other specified parts of digestive tract; M79.2 Neuralgia and neuritis, unspecified; E78.00 Pure hypercholesterolemia, unspecified; D64.9 Anemia, unspecified; Z79.4 Long term (current) use of insulin; Z88.5 Allergy status to narcotic agent
CPT/HCPCS: 0241U-QW; 36415; 70450-TC; 71045-TC-FY; 71250-TC; 73630-TC-LT; 80048; 80053; 80061; 81003; 82962; 83036; 83880; 84443; 84484; 85025; 87040; 87086; 87633; 87899; 93005; 93010; 93926-TC; 96365; 96367; 96375; 96376; 99285-25; G0378; J0131

== ENCOUNTER 2023-11-20 10:05 | Inpatient (IN) | payer OTHER ==
[2023-11-20] MEDS ORDERED: ACETAMINOPHEN INJECTION 100 ML ONE (12:15)
[2023-11-20] MEDS: ACETAMINOPHEN 1000 MG/100 ML BAG IVPB ONE (12:21)
[2023-11-20 12:31] LABS: BASO % 1.2 % (0-2.0); EOS % 4.9 % (0-4.5); HEMATOCRIT 34.6 % (32.4-45.2); HEMOGLOBIN 11.6 GM/dL (10.7-15.3); LYMPH % 31.1 % (8-40); MCHC 33.5 g/dl (32.0-36.0); MEAN CELL VOLUME 77.4 fl (80-96); MEAN PLT VOLUME 7.2 fl (7.5-11.1); MONO % 5.6 % (3.8-10.2); NEUT % 57.2 % (42.8-82.8); PLATELET COUNT 300 10^3/uL (134-434); RBC 4.47 M/mm3 (3.60-5.2); RDW 15.3 % (11.6-15.6); WHITE BLOOD COUNT 6.7 K/mm3 (4.0-10.0)
[2023-11-20 12:39] LABS: INR 0.92 (0.83-1.09); PROTHROMBIN TIME (PATIENT) 10.4 SEC (9.7-13.0)
[2023-11-20 12:42] LABS: ACTIVATED PTT 28.3 SECONDS (25.2-36.5)
[2023-11-20 12:50] LABS: POTASSIUM 4.3 mmol/L (3.5-5.1)
[2023-11-20 12:52] LABS: CALCIUM 9.3 mg/dL (8.5-10.1)
[2023-11-20 12:53] LABS: ALBUMIN 3.7 g/dl (3.4-5.0); BLOOD UREA NITROGEN 14.3 mg/dL (7-18)
[2023-11-20 12:56] LABS: CREATININE 0.9 mg/dL (0.55-1.3)
[2023-11-20 12:58] LABS: BILIRUBIN,TOTAL 0.8 mg/dL (0.2-1); TOT PROT 7.1 g/dl (6.4-8.2)
[2023-11-20 16:09] VITALS: BMI 23.3
[2023-11-20] MEDS: ACETAMINOPHEN 325 MG TABLET (FP) PO PRN (21:30)
[2023-11-20] MEDS: INSULIN ASPART SLIDING SCALE (NOVOLOG) 1 VIAL SQ SCH (22:23)
[2023-11-20] MEDS: GABAPENTIN 300 MG CAPSULE PO SCH (22:23)
[2023-11-20] MEDS: ROSUVASTATIN CA 10 MG TABLET PO SCH (22:23)
[2023-11-20 23:23] LABS: EPI CELLS 7 /uL (0-25.1); HYALINE CASTS 0 /uL (0-3.1); PH,URINE 6.5 (5.0-8.0); URINE APPEARANCE CLEAR; URINE BACTERIA 18 /uL (0-1359); URINE BILIRUBIN NEGATIVE (NEGATIVE); URINE COLOR YELLOW; URINE GLUCOSE (UA) 3+ (NEGATIVE); URINE KETONE NEGATIVE (NEGATIVE); URINE LEUK ESTERASE NEGATIVE (NEGATIVE); URINE NITRITE NEGATIVE (NEGATIVE); URINE PROTEIN 2+ (NEGATIVE); URINE RBC 19 /uL (0-23.9); URINE UROBILINOGEN 0.2 mg/dL (0.2-1.0); URINE WBC 47 /uL (0-25.8)
[2023-11-21] MEDS ORDERED: HEPARIN NA (PORCINE) 5,000 UNITS/ML 1ML VIAL IVPUSH PRN ×2 (07:26→07:30)
[2023-11-21] MEDS: HEPARIN INFUSION - 25,000 UNITS/500 ML INFUS.BAG IVPB SCH (08:58)
[2023-11-21] MEDS: DULoxetine HCL 20 MG CAPSULE.DR PO SCH (09:01)
[2023-11-21] MEDS: LOSARTAN POTASSIUM 50 MG TABLET PO SCH (09:01)
[2023-11-21 09:41] LABS: BASO % 0.8 % (0-2.0); EOS % 3.8 % (0-4.5); HEMATOCRIT 36.6 % (32.4-45.2); HEMOGLOBIN 12.5 GM/dL (10.7-15.3); LYMPH % 29.5 % (8-40); MCH 26.5 pg (25.7-33.7); MCHC 34.1 g/dl (32.0-36.0); MEAN CELL VOLUME 77.8 fl (80-96); MONO % 6.2 % (3.8-10.2); NEUT % 59.7 % (42.8-82.8); PLATELET COUNT 305 10^3/uL (134-434); RBC 4.71 M/mm3 (3.60-5.2); RDW 15.7 % (11.6-15.6); WHITE BLOOD COUNT 7.4 K/mm3 (4.0-10.0)
[2023-11-21 10:09] LABS: POTASSIUM 4.8 mmol/L (3.5-5.1)
[2023-11-21 10:13] LABS: ALBUMIN 3.3 g/dl (3.4-5.0)
[2023-11-21 10:14] LABS: MAGNESIUM 2.1 mg/dL (1.8-2.4)
[2023-11-21 10:16] LABS: CREATININE 0.7 mg/dL (0.55-1.3)
[2023-11-21 10:17] LABS: PHOSPHOROUS 3.6 mg/dL (2.5-4.9)
[2023-11-21 10:18] LABS: BILIRUBIN,TOTAL 0.5 mg/dL (0.2-1); TOT PROT 6.4 g/dl (6.4-8.2)
[2023-11-22] MEDS: INSULIN (LEVEMIR) 100 UNITS/ML UNITS SQ SCH (06:01)
[2023-11-23 09:13] LABS: BASO % 0.7 % (0-2.0); EOS % 5.2 % (0-4.5); HEMATOCRIT 34.7 % (32.4-45.2); HEMOGLOBIN 11.9 GM/dL (10.7-15.3); LYMPH % 33.5 % (8-40); MCH 26.7 pg (25.7-33.7); MCHC 34.3 g/dl (32.0-36.0); MEAN CELL VOLUME 77.7 fl (80-96); MEAN PLT VOLUME 7.7 fl (7.5-11.1); NEUT % 54.6 % (42.8-82.8); PLATELET COUNT 272 10^3/uL (134-434); RBC 4.47 M/mm3 (3.60-5.2); WHITE BLOOD COUNT 6.4 K/mm3 (4.0-10.0)
[2023-11-23 09:15] LABS: HEMATOCRIT 35.3 % (32.4-45.2); HEMOGLOBIN 11.8 GM/dL (10.7-15.3); MCH 26.5 pg (25.7-33.7); MCHC 33.5 g/dl (32.0-36.0); MEAN PLT VOLUME 7.7 fl (7.5-11.1); PLATELET COUNT 263 10^3/uL (134-434); RBC 4.47 M/mm3 (3.60-5.2); RDW 15.2 % (11.6-15.6); WHITE BLOOD COUNT 6.4 K/mm3 (4.0-10.0)
[2023-11-23 09:28] LABS: POTASSIUM 3.9 mmol/L (3.5-5.1)
[2023-11-23 09:32] LABS: CALCIUM 8.7 mg/dL (8.5-10.1)
[2023-11-23 09:33] LABS: ALBUMIN 3.1 g/dl (3.4-5.0); BLOOD UREA NITROGEN 8.7 mg/dL (7-18)
[2023-11-23 09:36] LABS: CREATININE 0.6 mg/dL (0.55-1.3)
[2023-11-23 09:38] LABS: BILIRUBIN,TOTAL 0.4 mg/dL (0.2-1); TOT PROT 6.1 g/dl (6.4-8.2)
[2023-11-24 10:28] LABS: HEMATOCRIT 35.3 % (32.4-45.2); HEMOGLOBIN 11.8 GM/dL (10.7-15.3); MCH 26.3 pg (25.7-33.7); MCHC 33.3 g/dl (32.0-36.0); MEAN PLT VOLUME 7.6 fl (7.5-11.1); PLATELET COUNT 267 10^3/uL (134-434); RBC 4.46 M/mm3 (3.60-5.2); RDW 15.1 % (11.6-15.6); WHITE BLOOD COUNT 7.7 K/mm3 (4.0-10.0)
[2023-11-24] MEDS ORDERED: HEPARIN NA (PORCINE) 5,000 UNITS/ML 1ML VIAL ONE ×2 (15:51→17:50)
[2023-11-24] MEDS ORDERED: ONDANSETRON 4 MG/2 ML VIAL IVPUSH PRN ×2 (16:36→18:52)
[2023-11-24] MEDS ORDERED: DEXMEDETOMIDINE HCL 200 MCG/2 ML IVPB ONE (16:41)
[2023-11-24] MEDS ORDERED: LACTATED RINGERS SOLUTION 1,000 ML IV SCH (16:45)
[2023-11-24] MEDS ORDERED: SUCCINYLCHOLINE CHLORIDE 200 MG/10 ML SYRINGE ONE (16:47)
[2023-11-24] MEDS ORDERED: MIDAZOLAM HCL 2 MG/2 ML SINGLE DOSE VIAL ONE (17:17)
[2023-11-24] MEDS ORDERED: ceFAZolin SODIUM 1 GM VIAL ONE (17:34)
[2023-11-24] MEDS ORDERED: METOCLOPRAMIDE HCL INJECTION 10 MG/2 ML VIAL ONE (17:35)
[2023-11-24] MEDS: ceFAZolin SODIUM 1 GM VIAL IVPB ONE (17:35)
[2023-11-24] MEDS ORDERED: ONDANSETRON 4 MG/2 ML VIAL ONE (17:35)
[2023-11-24] MEDS: LIDOCAINE HCL 1%, 10 MG/ML (20ML VIAL) NR ONE ×2 (17:38)
[2023-11-24] MEDS ORDERED: CLOPIDOGREL BISULFATE 75 MG TABLET (FP) ONE (18:56)
[2023-11-24] MEDS: CLOPIDOGREL BISULFATE 75 MG TABLET (FP) PO SCH (19:25)
[2023-11-24] MEDS: LACTATED RINGERS SOLUTION 1,000 ML IV SCH (19:31)
[2023-11-24] MEDS: ROSUVASTATIN CA 10 MG TABLET PO SCH (21:19)
[2023-11-24] MEDS: INSULIN ASPART SLIDING SCALE (NOVOLOG) 1 VIAL SQ SCH (21:19)
[2023-11-24] MEDS: GABAPENTIN 300 MG CAPSULE PO SCH (21:19)
[2023-11-25] MEDS: ACETAMINOPHEN 325 MG TABLET (FP) PO PRN (01:23)
[2023-11-25] MEDS: INSULIN (LEVEMIR) 100 UNITS/ML UNITS SQ SCH (06:02)
[2023-11-25 09:25] LABS: HEMATOCRIT 33.3 % (32.4-45.2); HEMOGLOBIN 11.2 GM/dL (10.7-15.3); MCH 26.6 pg (25.7-33.7); MCHC 33.6 g/dl (32.0-36.0); MEAN CELL VOLUME 79.3 fl (80-96); MEAN PLT VOLUME 7.4 fl (7.5-11.1); PLATELET COUNT 221 10^3/uL (134-434); RDW 15.3 % (11.6-15.6); WHITE BLOOD COUNT 5.8 K/mm3 (4.0-10.0)
[2023-11-25 09:27] LABS: POTASSIUM 4.3 mmol/L (3.5-5.1)
[2023-11-25 09:30] LABS: CALCIUM 9.1 mg/dL (8.5-10.1)
[2023-11-25 09:31] LABS: BLOOD UREA NITROGEN 9.8 mg/dL (7-18)
[2023-11-25 09:34] LABS: CREATININE 0.6 mg/dL (0.55-1.3)
[2023-11-25] MEDS: DULoxetine HCL 20 MG CAPSULE.DR PO SCH (09:53)
[2023-11-25] MEDS: LOSARTAN POTASSIUM 50 MG TABLET PO SCH (09:53)
[2023-11-25 15:09] VITALS: BP 160/58; PULSE 84; RESP 18; TEMP 98.8
== END 2023-11-25 15:51 | disposition home or self-care (01) | DRG 181 ==
LOC: JER 10:05 → JERBED 11:25 → J8W 14:49
PROVIDERS: ADMIT Internal Medicine; ATTEND Internal Medicine
PROC: B40GYZZ Plain Radiography of Left Lower Extremity Arteries using Other Contrast (ICD-10-PCS; 2023-11-24)
PROC: 04CL3ZZ Extirpation of Matter from Left Femoral Artery, Percutaneous Approach (ICD-10-PCS; 2023-11-24)
PROC: 047L3ZZ Dilation of Left Femoral Artery, Percutaneous Approach (ICD-10-PCS; 2023-11-24)
PROC: B41DZZZ Fluoroscopy of Aorta and Bilateral Lower Extremity Arteries (ICD-10-PCS; principal; 2023-11-24 16:30)
DX: E11.51 Type 2 diabetes mellitus with diabetic peripheral angiopathy without gangrene (principal); I70.222 Atherosclerosis of native arteries of extremities with rest pain, left leg; I25.10 Atherosclerotic heart disease of native coronary artery without angina pectoris; E78.5 Hyperlipidemia, unspecified; K76.0 Fatty (change of) liver, not elsewhere classified; I11.0 Hypertensive heart disease with heart failure; I50.22 Chronic systolic (congestive) heart failure; E11.40 Type 2 diabetes mellitus with diabetic neuropathy, unspecified; K59.00 Constipation, unspecified; I69.354 Hemiplegia and hemiparesis following cerebral infarction affecting left non-dominant side; Z89.421 Acquired absence of other right toe(s); Z95.5 Presence of coronary angioplasty implant and graft; Z95.1 Presence of aortocoronary bypass graft; Z79.4 Long term (current) use of insulin
CPT/HCPCS: 36415; 76000-TC-FY; 76775-TC; 76856-TC; 80048; 80053; 81003; 82962; 83036; 83735; 84100; 84443; 85025; 85027; 85610; 85730; 86850; 86900; 86901; 87086; 87186; 93005; 93010; 94760; 99285-25; C1760; G0463-25; J0131; J1644

== ENCOUNTER 2024-05-14 21:39 | Inpatient (IN) | payer OTHER ==
[2024-05-14] MEDS ORDERED: APIXABAN 5 MG TABLET ONE (22:18)
[2024-05-14] MEDS: APIXABAN 5 MG TABLET PO SCH (22:25)
[2024-05-14] MEDS: HYDROCORTISONE 1% TOPICAL OINT 30 GM TUBE TP ONE (22:40)
[2024-05-14 22:49] LABS: BASO % 0.9 % (0-2.0); EOS % 2.7 % (0-4.5); HEMATOCRIT 32.6 % (32.4-45.2); HEMOGLOBIN 10.6 GM/dL (10.7-15.3); LYMPH % 24.1 % (8-40); MCH 24.6 pg (25.7-33.7); MCHC 32.4 g/dl (32.0-36.0); MEAN CELL VOLUME 75.9 fl (80-96); MEAN PLT VOLUME 7.1 fl (7.5-11.1); MONO % 6.2 % (3.8-10.2); NEUT % 66.1 % (42.8-82.8); PLATELET COUNT 277 10^3/uL (134-434); RDW 16.9 % (11.6-15.6); WHITE BLOOD COUNT 7.3 K/mm3 (4.0-10.0)
[2024-05-14 22:57] LABS: INR 1.58 (0.83-1.09); PROTHROMBIN TIME (PATIENT) 17.4 SEC (9.7-13.0)
[2024-05-14 23:00] LABS: ACTIVATED PTT 33.4 SECONDS (25.2-36.5)
[2024-05-14] MEDS: NYSTATIN POWDER 100,000 UNITS/GM - 15 GM TOPICAL POWDER TP ONE (23:31)
[2024-05-14 23:45] LABS: BLOOD UREA NITROGEN 11.6 mg/dL (7-18); CALCIUM 8.8 mg/dL (8.5-10.1)
[2024-05-14 23:46] LABS: ALBUMIN 3.2 g/dl (3.4-5.0); MAGNESIUM 1.7 mg/dL (1.8-2.4)
[2024-05-14 23:49] LABS: CREATININE 0.9 mg/dL (0.55-1.3); PHOSPHOROUS 2.9 mg/dL (2.5-4.9)
[2024-05-14 23:50] LABS: BILIRUBIN,TOTAL 0.3 mg/dL (0.2-1); TOT PROT 6.3 g/dl (6.4-8.2)
[2024-05-14] MEDS ORDERED: ACETAMINOPHEN INJECTION 100 ML ONE (23:58)
[2024-05-15] MEDS: ACETAMINOPHEN 1000 MG/100 ML BAG IVPB ONE (00:03)
[2024-05-15] MEDS ORDERED: MAGNESIUM SULFATE IN WATER 2 GM/50 ML IVPB IVPB ONE (00:30)
[2024-05-15] MEDS: MAGNESIUM SULF 50% (8.12 MEQ/2 ML-1 GM VIAL) IVPB ONE (00:36)
[2024-05-15] MEDS ORDERED: MORPHINE SULFATE 2 MG/ML SYRINGE ONE ×3 (01:05→16:45)
[2024-05-15] MEDS: morphine CARPU-JECT 2 MG/1 ML DISP.SYRIN IVPUSH ONE (01:11)
[2024-05-15] MEDS ORDERED: diphenhydrAMINE HCL 25 MG CAPSULE (FP) PO ONE (02:57)
[2024-05-15] MEDS ORDERED: DOCUSATE SODIUM 100 MG CAPSULE (FP) PO PRN (02:59)
[2024-05-15] MEDS: diphenhydrAMINE HCL 25 MG CAPSULE (FP) PO ONE (03:07)
[2024-05-15] MEDS ORDERED: hydrOXYzine HCL 50 MG TABLET PO PRN (04:18)
[2024-05-15] MEDS: morphine CARPU-JECT 2 MG/1 ML DISP.SYRIN IVPUSH PRN (04:39)
[2024-05-15] MEDS ORDERED: MORPHINE SULFATE 2 MG/ML SYRINGE IVPUSH PRN (06:29)
[2024-05-15] MEDS: INSULIN ASPART SLIDING SCALE (NOVOLOG) 1 VIAL SQ SCH (08:00)
[2024-05-15] MEDS ORDERED: APIXABAN 5 MG TABLET ONE (08:42)
[2024-05-15] MEDS ORDERED: INSULIN ASPART SLIDING SCALE (NOVOLOG) 1 VIAL SQ ONE ×4 (08:43→16:52)
[2024-05-15] MEDS ORDERED: hydrOXYzine PAMOATE 25 MG CAPSULE (FP) PO PRN (08:45)
[2024-05-15] MEDS ORDERED: LOSARTAN POTASSIUM 50 MG TABLET ONE (10:08)
[2024-05-15] MEDS ORDERED: amLODIPine BESYLATE 10 MG TABLET (FP) ONE (10:08)
[2024-05-15 10:10] LABS: N-TERMINAL BNP 420.8 pg/ml (5-125)
[2024-05-15] MEDS: DULoxetine HCL 20 MG CAPSULE.DR PO SCH (10:19)
[2024-05-15] MEDS: LOSARTAN POTASSIUM 50 MG TABLET PO SCH (10:19)
[2024-05-15] MEDS: amLODIPine BESYLATE 10 MG TABLET (FP) PO SCH (10:19)
[2024-05-15] MEDS ORDERED: GABAPENTIN 300 MG CAPSULE ONE (14:21)
[2024-05-15] MEDS: GABAPENTIN 300 MG CAPSULE PO SCH (14:23)
[2024-05-15 16:47] LABS: EPI CELLS 10 /uL (0-25.1); HYALINE CASTS 1 /uL (0-3.1); URINE APPEARANCE CLEAR; URINE BACTERIA 51 /uL (0-1359); URINE BILIRUBIN NEGATIVE (NEGATIVE); URINE COLOR YELLOW; URINE GLUCOSE (UA) 3+ (NEGATIVE); URINE KETONE NEGATIVE (NEGATIVE); URINE LEUK ESTERASE NEGATIVE (NEGATIVE); URINE NITRITE NEGATIVE (NEGATIVE); URINE PROTEIN 3+ (NEGATIVE); URINE RBC 31 /uL (0-23.9); URINE UROBILINOGEN 0.2 mg/dL (0.2-1.0); URINE WBC 20 /uL (0-25.8)
[2024-05-15] MEDS: MORPHINE SULFATE 2 MG/ML SYRINGE IVPUSH PRN (16:51)
[2024-05-15] MEDS ORDERED: CEFTRIAXONE 2 GM-D5W BAG 2 GM/50 ML BAG IVPB ONE (17:06)
[2024-05-15] MEDS: CEFTRIAXONE 2 GM-D5W BAG 2 GM/50 ML BAG IVPB SCH (17:12)
[2024-05-15 20:35] VITALS: BMI 24.3
[2024-05-15] MEDS: DOCUSATE SODIUM 100 MG CAPSULE (FP) PO SCH (22:06)
[2024-05-15] MEDS: rOPINIRole HCL 0.5 MG TABLET PO SCH (22:13)
[2024-05-16] MEDS: PANTOPRAZOLE 40 MG TABLET PO SCH (09:17)
[2024-05-16 09:40] LABS: BASO % 0.6 % (0-2.0); EOS % 3.7 % (0-4.5); HEMATOCRIT 31.8 % (32.4-45.2); HEMOGLOBIN 10.8 GM/dL (10.7-15.3); MCH 25.5 pg (25.7-33.7); MCHC 34.1 g/dl (32.0-36.0); MEAN CELL VOLUME 74.8 fl (80-96); MEAN PLT VOLUME 7.3 fl (7.5-11.1); MONO % 6.2 % (3.8-10.2); NEUT % 69.5 % (42.8-82.8); PLATELET COUNT 291 10^3/uL (134-434); RBC 4.25 M/mm3 (3.60-5.2); RDW 16.5 % (11.6-15.6); WHITE BLOOD COUNT 6.7 K/mm3 (4.0-10.0)
[2024-05-16 09:57] LABS: POTASSIUM 3.9 mmol/L (3.5-5.1)
[2024-05-16 10:05] LABS: BLOOD UREA NITROGEN 8.4 mg/dL (7-18)
[2024-05-16 10:07] LABS: CREATININE 0.6 mg/dL (0.55-1.3)
[2024-05-16 10:08] LABS: CALCIUM 8.5 mg/dL (8.5-10.1)
[2024-05-17] MEDS ORDERED: AMMONIUM LACTATE 12% LOTION 225 GM BOTTLE TP PRN (11:43)
[2024-05-17] MEDS: POLYETHYLENE GLYCOL (HEALTHYLAX) 3350 17 GM PACKET PO SCH (14:16)
[2024-05-17] MEDS: ATORVASTATIN CA 40 MG TABLET (FP) PO SCH (21:37)
[2024-05-17] MEDS: INSULIN (LEVEMIR) 100 UNITS/ML UNITS SQ SCH (21:37)
[2024-05-18] MEDS: ASPIRIN COATED 81 MG TABLET.EC PO SCH (11:05)
[2024-05-18] MEDS: ENOXAPARIN NA (PORCINE) 40 MG/0.4 ML DISP.SYRIN SQ SCH (11:05)
[2024-05-18 16:27] LABS: BASO % 0.6 % (0-2.0); EOS % 2.8 % (0-4.5); HEMATOCRIT 36.6 % (32.4-45.2); HEMOGLOBIN 12.2 GM/dL (10.7-15.3); LYMPH % 25.8 % (8-40); MCHC 33.2 g/dl (32.0-36.0); MEAN CELL VOLUME 75.3 fl (80-96); MEAN PLT VOLUME 7.7 fl (7.5-11.1); NEUT % 64.8 % (42.8-82.8); PLATELET COUNT 344 10^3/uL (134-434); RBC 4.87 M/mm3 (3.60-5.2); RDW 16.8 % (11.6-15.6); WHITE BLOOD COUNT 8.4 K/mm3 (4.0-10.0)
[2024-05-18 16:48] LABS: CALCIUM 9.2 mg/dL (8.5-10.1)
[2024-05-18 16:49] LABS: ALBUMIN 3.2 g/dl (3.4-5.0); BLOOD UREA NITROGEN 9.7 mg/dL (7-18)
[2024-05-18 16:52] LABS: CREATININE 0.7 mg/dL (0.55-1.3)
[2024-05-18 16:54] LABS: BILIRUBIN,TOTAL 0.4 mg/dL (0.2-1)
[2024-05-19 09:53] LABS: ALBUMIN 2.7 g/dl (3.4-5.0); BLOOD UREA NITROGEN 9.9 mg/dL (7-18)
[2024-05-19 09:55] LABS: CREATININE 0.7 mg/dL (0.55-1.3)
[2024-05-19 09:57] LABS: BILIRUBIN,TOTAL 0.4 mg/dL (0.2-1)
[2024-05-19 18:53] VITALS: RESP 18
[2024-05-19] MEDS: INSULIN GLARGINE (LANTUS) 100 UNITS/ML UNITS SQ SCH (21:37)
[2024-05-20] MEDS ORDERED: INSULIN GLARGINE (LANTUS) 100 UNITS/ML UNITS SQ ONE (06:10)
[2024-05-20] MEDS: ACETAMINOPHEN 325 MG TABLET (FP) PO PRN (13:08)
[2024-05-20 17:06] VITALS: BP 139/55; PULSE 78; TEMP 98.4
== END 2024-05-20 17:55 | disposition home or self-care (01) | DRG 300 ==
LOC: JER 21:39 → JERBED 05-15 00:14 → J5S 05-15 19:50 → OBSVTOIN 05-18 15:46
PROVIDERS: ADMIT Internal Medicine; ATTEND Family Medicine
DX: E11.51 Type 2 diabetes mellitus with diabetic peripheral angiopathy without gangrene (principal); I50.20 Unspecified systolic (congestive) heart failure; I69.354 Hemiplegia and hemiparesis following cerebral infarction affecting left non-dominant side; L03.116 Cellulitis of left lower limb; L03.115 Cellulitis of right lower limb; I25.10 Atherosclerotic heart disease of native coronary artery without angina pectoris; E11.40 Type 2 diabetes mellitus with diabetic neuropathy, unspecified; B35.3 Tinea pedis; L85.3 Xerosis cutis; I11.0 Hypertensive heart disease with heart failure; R79.89 Other specified abnormal findings of blood chemistry; D64.9 Anemia, unspecified
CPT/HCPCS: 36415; 72070-TC-FY; 72100-TC-FY; 76700-TC; 76775-TC; 80048; 80053; 81003; 82550; 82728; 82962; 82977; 83036; 83540; 83550; 83735; 83880; 84100; 85025; 85610; 85730; 86704; 86708; 86803; 86850; 86900; 86901; 87086; 87340; 87517; 93005; 93010; 93922; 93925-TC; 93970-TC; 99285-25; G0378; J0131